=== PATIENT | female | born 1940 | race Caucasian/White ===

== ENCOUNTER 2018-11-06 05:02 | Emergency (ER) | payer MEDICARE, SELFPAY ==
[2018-11-06 05:10] VITALS: BP 141/111; PULSE 87; RESP 18; TEMP 36.9; O2SAT 100; BMI 25.7
[2018-11-06] MEDS: predniSONE 20 MG TABLET 40 MG PO (05:25)
[2018-11-06] MEDS: KETOROLAC 60 MG/2 ML VIAL 30 MG IM (05:25)
[2018-11-06] MEDS: HYDROCODONE/ACET 5/325 PREPACK 1 BOTTLE MISC (05:25)
--- NOTE | 2018-11-06 05:40 | PC.NURSE ---
Pt reports back pain for several months that has been increasing for the last few weeks. She has an appt with PCP in a couple days but states this is just too much and I couldn't wait that long. Pt is able to ambulate with severe pain. Denies chest pain, SOB, N/V/D
--- NOTE | 2018-11-06 06:06 | ED.BACK ---
HPI - Back Pain/Injury General Chief Complaint: Back Pain/Injury Stated Complaint: Back Pain Time Seen by Provider: 11/06/18 05:10 Source: patient, family and EMS Mode of arrival: EMS Limitations: no limitations History of Present Illness HPI Narrative: 78-year-old nonsmoking female presents by EMS for evaluation of severe right lumbar pain with radiation into her leg. She has a longstanding history of such pain and required laminectomy and diskectomy about 25 years ago. She denies any obvious injury. She denies any numbness, weakness or tingling. She denies any trouble controlling bowel or bladder. She denies any fever or midline pain. She denies foot drop. She has been taking methocarbamol and he total lack for the symptoms and this regimen worked until about midnight. Her pain is worse with motion and improves with rest MD Complaint: back pain Onset (ago): day(s) Duration: constant Similar Symptoms Previously: Yes Location: lumbar spine Severity: severe Quality: sharp Radiation: right leg Relieving factors: immobilization Exacerbating factors: walking Associated symptoms: denies other symptoms Related Data Home Medications Medication Instructions Recorded Confirmed ASCORBIC ACID (#VITAMIN C) 500 mg PO Q DAY #0 10/06/11 ASPIRIN (Aspir-Low) 81 mg PO Q DAY #0 10/06/11 CALCIUM/CHOLECALCIFEROL (CALCIUM 1 ctb PO Q DAY #0 10/06/11 WITH D3 500MG/400UNITS) CHOLECALCIFEROL (VITAMIN D) 1,000 iu PO BID #0 10/06/11 Multivitamin, Minerals, and 1 tab PO Q DAY #0 10/06/11 (#CENTRUM SILVER) psyllium husk (aspartame) 1 pkt PO QDAY #0 10/06/11 [Metamucil Fiber Singles] Previous Rx's Medication Instructions Recorded etodolac 400 mg PO Q8HP PRN #60 tab 06/18/16 hydrocodone-acetaminophen 1 tab PO Q4-6H PRN #20 tab 11/06/18 prednisone 20 mg PO DAILY #5 tab 11/06/18 Allergies Allergy/AdvReac Type Severity Reaction Status Date / Time latex [LATEX] Allergy Severe RASH Unverified 11/06/18 05:13 Penicillins [PENICILLINS] Allergy Unknown ALL OVER Unverified 11/06/18 05:13 BODY WELTS Sulfa (Sulfonamide Allergy Unknown WAS GIVEN Unverified 11/06/18 05:13 Antibiotics) WHEN BABY, [SULFA (SULFONAMIDE UNSURE IF ANTIBIOTICS)] STILL HAS ALLERGY Review of Systems Review of Systems All systems reviewed & are unremarkable except as noted in HPI and below Constitutional Denies chills, Denies fever(s), Denies lethargy and Denies weakness Eyes Denies change in vision, Denies eye discharge, Denies irritation and Denies loss of vision ENT Ears, Nose, Mouth, and Throat: Denies change in voice, Denies neck pain and Denies sore throat Cardiovascular Denies chest pain, Denies irregular heart rhythm, Denies lightheadedness, Denies palpitations, Denies dyspnea, Denies dyspnea on exertion and Denies orthopnea Respiratory Denies cough, Denies dyspnea, Denies dyspnea on exertion and Denies wheezing Gastrointestinal Gastrointestinal: Denies abdominal pain, Denies change in bowel habits, Denies diarrhea, Denies nausea and Denies vomiting Genitourinary Denies hematuria, Denies flank pain, Denies urinary incontinence and Denies urinary urgency Musculoskeletal Reports back pain, Reports limited range of motion and Denies neck pain Integumentary/Breasts Denies pruritus, Denies erythema, Denies rash and Denies wounds Neurologic Denies confusion, Denies loss of vision and Denies weakness Psychiatric Denies anxiety, Denies confusion, Denies depression, Denies homicidal ideation and Denies suicidal ideation Endocrine Denies palpitations Hematologic/Lymphatic Denies easy bruising Allergic/Immunologic Denies wheezing PFSH Social History Smoking Status: Never smoker Exam Narrative Exam Narrative: GEN: AOx3 and in mild distress, pleasant 78-year-old female appears stated age EYES: Pupils are equal, round, and reactive to light and accommodation. Extraoccular muscles are intact bilaterally. There is no subconjunctival hemorrhage or exudate. CHEST: Lungs are clear to auscultation bilaterally and free of wheezes, rales, or rhonchi. Heart rate is regular rhythm, there are no murmurs, clicks, rubs, or gallops. There is no chest wall tenderness. ABD: Abdomen is soft and nontender. There is no guarding or rebound. Bowel sounds are normal in all 4 quadrants. There is no mass or organomegaly. EXT: Full painless ROM of all extremities with no loss of sensation or strength. BACK: glass cleaning machine tender but free of any obvious external abnormalities. Patient exam notes decreased range of motion and muscle spasm, but no CVA tenderness, or vertebral point tenderness. There are no symptoms of cauda equina such as saddle anesthesia, and decreased reflexes, decreased sensation or strength. SKIN: Warm, pink, and dry. No erythema or rash Initial Vital Signs Initial Vital Signs: Vital Signs Temperature 98.4 F 11/06/18 05:10 Pulse Rate 87 11/06/18 05:10 Respiratory Rate 18 11/06/18 05:10 Blood Pressure 141/111 H 11/06/18 05:10 Pulse Oximetry 100 11/06/18 05:10 Course Orders Ordered: Discontinued Medications Hydrocodone Bitart/Acetaminophen (Vicodin Prepack) 1 bottle MISC SEEINSTR ONE Stop: 11/06/18 05:15 Last Admin: 11/06/18 05:25 Dose: 1 bottle Ketorolac Tromethamine (Toradol) 30 mg IM NOW ONE Stop: 11/06/18 05:15 Last Admin: 11/06/18 05:25 Dose: 30 mg Prednisone (Deltasone) 40 mg PO NOW ONE Stop: 11/06/18 05:15 Last Admin: 11/06/18 05:25 Dose: 40 mg Reevaluation(s) Reevaluation #1: Patient feeling improvement after hydrocodone and prednisone Vital Signs - 8 hr 11/06/18 05:10 Temperature 98.4 F Pulse Rate 87 Respiratory Rate 18 Blood Pressure 141/111 H Pulse Oximetry 100 MDM - Back Pain/Injury MDM Narrative Medical decision making narrative: Multiple etiologies of back pain considered including; Epidural abscess, cauda equina, mass occupying lesion, and other considered. Patient has appointment with primary care provider on Wednesday Discharge Plan Departure Patient Disposition: Home Clinical Impression: Sciatica of right side Instructions: DI for Back Pain With Sciatica Activity Restrictions/Additional Instructions: *You have been diagnosed with [ acute lumbar pain with sciatica ] *What to do: *Take medications as directed *Follow up with your primary care provider as planned on Wednesday *Return to ER if you should have any new, worsening or concerning symptoms, such as [ increasing pain, numbness, tingling or weakness] Prescriptions: New hydrocodone-acetaminophen 5-325 mg tablet 1 tab PO Q4-6H PRN (Reason: pain) Qty: 20 RF: 0 prednisone 20 mg tablet 20 mg PO DAILY Qty: 5 RF: 0 No Action ASPIRIN (Aspir-Low) 81 mg PO Q DAY Qty: 0 RF: 0 psyllium husk (aspartame) [Metamucil Fiber Singles] 3.4 GM powder in packet 1 pkt PO QDAY Qty: 0 RF: 0 ASCORBIC ACID (#VITAMIN C) 500 mg PO Q DAY Qty: 0 RF: 0 CALCIUM/CHOLECALCIFEROL (CALCIUM WITH D3 500MG/400UNITS) 1 ctb PO Q DAY Qty: 0 RF: 0 Multivitamin, Minerals, and (#CENTRUM SILVER) 1 tab PO Q DAY Qty: 0 RF: 0 CHOLECALCIFEROL (VITAMIN D) 1,000 iu PO BID Qty: 0 RF: 0 etodolac 400 MG tablet 400 mg PO Q8HP PRNQty: 60 RF: 6 Referrals: Eduard Valdovinos MD [Primary Care Provider] -
[2018-11-06 06:14] VITALS: BP 140/72; PULSE 77; RESP 183; O2SAT 99
== END 2018-11-06 06:16 | disposition home or self-care (01) ==
PROVIDERS: Emergency Provider Emergency Medicine; Family Provider Family Medicine; PCP Family Medicine
DX: M54.31 Sciatica, right side (principal)
CPT/HCPCS: 96372; 99282; 99283; J1885

== ENCOUNTER → 2018-11-16 11:50 | Outpatient (CLI) | payer MEDICARE, SELFPAY ==
--- NOTE | 2018-11-16 | DI.RAD.S_ITS ---
PROCEDURE: XR LUMBAR SPINE 2-3V INDICATIONS: LUMBAR PAIN WITH SCIATICA TECHNIQUE: 3 views of the lumbar spine were acquired. COMPARISON: None. FINDINGS: Bones: 5 [id number] vertebrae are present. There is grade 1 anterolisthesis at L3-L4 and L4-L5. No vertebral body compression fractures. There is [id number] degenerative disc disease at T10-T11, T11-T12, L2-L3, L3-L4 and L4-L5. There is moderate to severe facet arthropathy at L2-L3, L3-L4, L5-L5 and L5-S1. No suspicious bony lesions. Soft tissues: Overlying bowel gas pattern is normal. No suspicious soft tissue calcifications. IMPRESSION: Degenerative disc and facet disease in lumbar spine. Dictated by: Kumar Hsieh M.D. on 11/16/2018 at 16:47 Approved by: Kumar Hsieh M.D. on 11/16/2018 at 16:50
== END ==
PROVIDERS: Family Provider Family Medicine; PCP Family Medicine; Visit Provider Family Medicine
DX: M51.14 Intervertebral disc disorders with radiculopathy, thoracic region (principal); M51.16 Intervertebral disc disorders with radiculopathy, lumbar region; M51.17 Intervertebral disc disorders with radiculopathy, lumbosacral region; M47.26 Other spondylosis with radiculopathy, lumbar region; M47.27 Other spondylosis with radiculopathy, lumbosacral region
CPT/HCPCS: 72100

== ENCOUNTER → 2018-12-07 14:09 | Outpatient (CLI) | payer MEDICARE, SELFPAY ==
--- NOTE | 2018-12-07 | DI.MRI.S_ITS ---
PROCEDURE: MR LUMBAR SPINE WO CON INDICATIONS: Low back pain radiating into right buttock and down right leg TECHNIQUE: Noncontrast sagittal T1 spin echo and T2 fast echo, sagittal STIR, axial T1 and T2 fast spin echo through the lumbar spine. In cases with scoliosis, additional coronal T2 fast spin echo may be performed. COMPARISON: None. FINDINGS: Image quality: Excellent. Alignment and Curvature: Trace retrolisthesis of T12 on L1. Grade 1 anterolisthesis of L3 on L4 and L4 on L5. Bone Marrow: Marrow is of normal overall signal. No acute vertebral body compression fractures. A Spinal Cord: Conus medullaris terminates at the L1-L2 level. Visualized cord demonstrates normal signal and size. Paraspinous Soft Tissues: No paravertebral masses. 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 Lateral recesses appear patent. Severe left and moderate right foraminal narrowing. L1-L2: Broad-based posterior disc bulge. Bilateral facet arthropathy. Mild central canal narrowing. Partial effacement of the left and right lateral recesses although symmetric involvement. Mild to moderate left and right foraminal narrowing L2-L3: Broad-based posterior disc bulge and bilateral facet arthropathy. Mild central canal narrowing. Minimal effacement of both lateral recesses however does not contact the descending nerve roots. Moderate right and mild left foraminal narrowing. L3-L4: Broad-based posterior disc bulge and bilateral facet arthropathy. Severe canal stenosis. Severe effacement of both lateral recesses although symmetric appearance. There is prominent right facet joint hypertrophic change, which may impinge on the descending right L4 nerve root which is not well-visualized at the level of the mid L4 vertebral body. Mild left and severe right foraminal stenoses. L4-L5: Posterior annular fissure and broad-based posterior disc bulge. Bilateral facet arthropathy. There is prominent dorsal epidural lipomatosis and moderate canal stenosis. Partial effacement of both lateral recesses. Moderate to severe right foraminal narrowing. L5-S1: Broad-based posterior disc bulge mild facet arthropathy. No canal stenosis. The lateral recesses appear patent. No foraminal narrowing. IMPRESSION: Prominent right-sided facet hypertrophy concerning for impingement of the descending right L4 nerve root. Please correlate with exam findings. High-grade canal stenosis at the level of L3-L4 and moderate L4-L5 canal stenosis. Diffuse bilateral foraminal stenoses, most pronounced at L3-L4 (right) and L4-L5 (right) Grade 1 anterolisthesis of L3 on L4 and L4 on L5 Dictated by: Chu Piper M.D. on 12/07/2018 at 15:38 Approved by: Chu Piper M.D. on 12/07/2018 at 15:53
== END ==
PROVIDERS: Family Provider Family Medicine; PCP Family Medicine; Visit Provider Physical Medicine & Rehabilitation Pain Medicine
DX: M54.5 Low back pain (principal); M48.061 Spinal stenosis, lumbar region without neurogenic claudication; M43.16 Spondylolisthesis, lumbar region; M54.16 Radiculopathy, lumbar region
CPT/HCPCS: 72148

== ENCOUNTER 2019-01-07 13:31 | Emergency (ER) | payer MEDICARE, SELFPAY ==
[2019-01-07 13:43] VITALS: BP 152/83; PULSE 75; RESP 20; TEMP 36.4; O2SAT 97; BMI 25.7
--- NOTE | 2019-01-07 14:26 | PC.NURSE ---
Patient had epidural steroid injection on . Noticed welts and redness on the right arm after taking a shower. Denies other symptoms at this time. Denies exposure to new food or products. She states she is concerned, because she had cellulitis in that arm and was admitted for sepsis in the past.
--- NOTE | 2019-01-07 14:36 | ED_ITS ---
HPI - Skin/Abscess/Foreign Bdy <Sheila Aden PA-C - Last Filed: 01/07/19 21:35> General Chief complaint: Skin/Abscess/Foreign Body Stated complaint: R ARM WELTS Time Seen by Provider: 01/07/19 14:16 Source: patient Mode of arrival: ambulatory Limitations: no limitations History of Present Illness HPI narrative: this 78-year-old female comes to ED with concern for recurrent sepsis. She states that she had this a few years ago and started similarly although she had a fever at that time as well as pain in her arm. She states that she awoke this morning with nontender bumps on her right arm ( she has history of lymphedema in that arm and states that it swells off and on, it is s wollen today). She has had more redness that has spread in the arm since she woke up. She states she noticed this after she showered this morning. She has not had any rash elsewhere. She states that she had an SHERRY done here on , however IV was placed in the other arm. She states that she has been on new medications for her sciatica for about the last 6 weeks but no changes in the last few days. She states that she has been having slightly more shortness of breath i.e. describes as needing her asthma inhaler a little bit more during that time, but no acute changes today, no chest pain or cough. She has not had fever at home, states she is starting to have a little bit of chills here. She denies any recent travel or known exposures. She denies any abdominal pain or bowel habit changes. She denies any urinary symptoms. She denies any bites, scratches, or injury to her arm. she does not think the swelling in her arm has worsened. She does not have any history of blood clots. she denies any new soaps, detergents, lotions, etc. Related Data Home Medications Medication Instructions Recorded Confirmed ASCORBIC ACID (#VITAMIN C) 500 mg PO Q DAY #0 10/06/11 ASPIRIN (Aspir-Low) 81 mg PO Q DAY #0 10/06/11 CALCIUM/CHOLECALCIFEROL (CALCIUM 1 ctb PO Q DAY #0 10/06/11 WITH D3 500MG/400UNITS) CHOLECALCIFEROL (VITAMIN D) 1,000 iu PO BID #0 10/06/11 Multivitamin, Minerals, and 1 tab PO Q DAY #0 10/06/11 (#CENTRUM SILVER) psyllium husk (aspartame) 1 pkt PO QDAY #0 10/06/11 [Metamucil Fiber Singles] Previous Rx's Medication Instructions Recorded etodolac 400 mg PO Q8HP PRN #60 tab 06/18/16 hydrocodone-acetaminophen 1 tab PO Q4-6H PRN #20 tab 11/06/18 prednisone 20 mg PO DAILY #5 tab 11/06/18 levofloxacin [Levaquin] 500 mg PO DAILY 9 Days tab 01/07/19 Allergies Allergy/AdvReac Type Severity Reaction Status Date / Time latex [LATEX] Allergy Severe RASH Verified 01/07/19 13:49 Penicillins [PENICILLINS] Allergy Unknown ALL OVER Verified 01/07/19 13:49 BODY WELTS Sulfa (Sulfonamide Allergy Unknown WAS GIVEN Verified 01/07/19 13:49 Antibiotics) WHEN BABY, [SULFA (SULFONAMIDE UNSURE IF ANTIBIOTICS)] STILL HAS ALLERGY Review of Systems <Sheila Aden PA-C - Last Filed: 01/07/19 21:35> Review of Systems ROS Unobtainable: All systems reviewed & are unremarkable except as noted in HPI and below PFSH <Sheila Aden PA-C - Last Filed: 01/07/19 21:35> Medical History H/O malignant neoplasm of breast (Resolved) Sciatica (Chronic) Spinal stenosis (Chronic) Lymphedema of arm (Chronic) Arthritis (Chronic) Surgical History History of lymph node dissection of both axillae (Resolved) Social History Smoking Status: Never smoker Social History Smoking Status: Never smoker Exam <Sheila Aden PA-C - Last Filed: 01/07/19 21:35> Narrative Exam Narrative: GENERAL APPEARANCE: Patient sitting comfortably, in no distress. HEENT: PERRL, EOMI, normal oropharynx NECK/THYROID: Neck supple, no masses LUNGS: Clear to auscultation bilaterally. HEART: Regular rate and rhythm without murmur, normal S1, S2, no S3 or S4. ABDOMEN: Soft, NT, ND, + BS x 4 quadrants EXTREMITIES: No or edema. No calf tenderness. right upper extremity mild edema, nontender NEUROLOGIC: Alert and oriented, normal speech, gait and coordination. DERMATOLOGIC: Erythematous maculopapular rash on the right upper extremity, proximally more patchy, and distally more uniform erythema. Slightly warm approximately where this is non circumferential, cool distally. This does not extend to the hand or shoulder. Initial Vital Signs Initial Vital Signs: Vital Signs Temperature 97.5 F L 01/07/19 13:43 Pulse Rate 75 01/07/19 13:43 Respiratory Rate 20 01/07/19 13:43 Blood Pressure 152/83 H 01/07/19 13:43 Pulse Oximetry 97 01/07/19 13:43 <Tim Weiner MD - Last Filed: 01/08/19 07:59> Initial Vital Signs Initial Vital Signs: Vital Signs Temperature 97.5 F L 01/07/19 13:43 Pulse Rate 75 01/07/19 13:43 Respiratory Rate 20 01/07/19 13:43 Blood Pressure 152/83 H 01/07/19 13:43 Pulse Oximetry 97 01/07/19 13:43 Course <Sheila Aden PA-C - Last Filed: 01/07/19 21:35> Additional Information: Patient was concerned about recurrent sepsis given her previous hospitalization in 2016. she has been afebrile. She has not had pain in her arm as she did previously. She does have history of lymphedema and not unusual for her to have swelling, she does have some swelling today. Cu rrently, her exanthem looks mixed, with features more typical of urticaria than cellulitis. She she has normal white count, normal lactate, normal vital signs. She has asymptomatic bacteriuria. She mention feeling slightly more short of breath for about the last 6 weeks, however her inhaler is effective. Given this and her remote cancer history as well as intermittent left upper extremity sw elling, workup for DVT/ PE was done as well and negative. I initially gave her doxycycline to treat her cellulitis as this is what she was given at last hospital discharge for this and reported she responded well. She elected to cover the bacteriuria as well and was given a prescription for Macrobid. Later, Dr. Benjamin, patient's surgeon who is very familiar with her and her medications, aware that she has had recent SHERRY, called and requested abx be changed to Levaquin. Patient would like to proceed with Levaquin instead so will cancel other Rxs. Given 500mg Levaquin for this evening and will fill rx tomorrow Orders Ordered: Discontinued Medications Diphenhydramine HCl (Benadryl) 50 mg IV NOW ONE Stop: 01/07/19 15:59 Last Admin: 01/07/19 16:09 Dose: 50 mg Sodium Chloride (Normal Saline 0.9%) 1,000 mls @ 1,000 mls/hr IV BOLUS ONE Stop: 01/07/19 16:15 Last Infusion: 01/07/19 17:08 Dose: 0 mls/hr Infusion: 01/07/19 16:44 Dose: 1,000 mls/hr Infusion: 01/07/19 16:10 Dose: 0 mls/hr Admin: 01/07/19 15:30 Dose: 1,000 mls/hr Levofloxacin (Levaquin) 500 mg PO NOW ONE Stop: 01/07/19 20:29 Last Admin: 01/07/19 20:30 Dose: 500 mg Vital Signs - 8 hr 01/07/19 13:43 01/07/19 15:26 01/07/19 17:22 Temperature 97.5 F L 97.4 F L 99.9 F H Pulse Rate 75 76 82 Respiratory Rate 20 20 14 Blood Pressure 152/83 H Blood Pressure [Left Arm] 157/82 H 173/79 H Pulse Oximetry 97 100 97 01/07/19 17:35 01/07/19 17:58 Temperature 98.9 F 98.7 F Pulse Rate Respiratory Rate Blood Pressure Blood Pressure [Left Arm] Pulse Oximetry <Tim Weiner MD - Last Filed: 01/08/19 07:59> Orders Ordered: Discontinued Medications Diphenhydramine HCl (Benadryl) 50 mg IV NOW ONE Stop: 01/07/19 15:59 Last Admin: 01/07/19 16:09 Dose: 50 mg Sodium Chloride (Normal Saline 0.9%) 1,000 mls @ 1,000 mls/hr IV BOLUS ONE Stop: 01/07/19 16:15 Last Infusion: 01/07/19 17:08 Dose: 0 mls/hr Infusion: 01/07/19 16:44 Dose: 1,000 mls/hr Infusion: 01/07/19 16:10 Dose: 0 mls/hr Admin: 01/07/19 15:30 Dose: 1,000 mls/hr Levofloxacin (Levaquin) 500 mg PO NOW ONE Stop: 01/07/19 20:29 Last Admin: 01/07/19 20:30 Dose: 500 mg Vital Signs - 8 hr 01/07/19 13:43 01/07/19 15:26 01/07/19 17:22 Temperature 97.5 F L 97.4 F L 99.9 F H Pulse Rate 75 76 82 Respiratory Rate 20 20 14 Blood Pressure 152/83 H Blood Pressure [Left Arm] 157/82 H 173/79 H Pulse Oximetry 97 100 97 01/07/19 17:35 01/07/19 17:58 Temperature 98.9 F 98.7 F Pulse Rate Respiratory Rate Blood Pressure Blood Pressure [Left Arm] Pulse Oximetry MDM - Skin/Abscess/Foreign Bdy <Sheila Aden PA-C - Last Filed: 01/07/19 21:35> Lab Data Attestation: I reviewed the patient's lab results. Result diagrams: 01/07/19 15:05 01/07/19 15:05 Lab Results 01/07/19 01/07/19 01/07/19 Range/Units 15:05 15:05 15:05 WBC 8.2 (4.5-11.0) X10^3/uL RBC 4.85 (4.0-5.2) X10^6/uL Hgb 14.3 (12.0-16.0) g/dL Hct 42.3 (36-46) % MCV 87.3 (80-100) fL MCH 29.5 (26-34) PG MCHC 33.8 (30-36) % RDW 12.7 (11.6-14.8) % Plt Count 246 (150-400) X10^3/uL Neut % (Auto) 79.6 H (50-75) % Lymph % (Auto) 12.5 L (25-40) % [place] % (Auto) 6.0 (3-14) % Eos % (Auto) 1.4 L (2-4) % Baso % (Auto) 0.5 (0-2) % Neut # (Auto) 6600 (6987-6299) /uL Lymph # (Auto) 1000 L (1767-4609) /uL [place] # (Auto) 500 (0-900) /uL Eos # (Auto) 100 (0-450) /uL Baso # (Auto) 0 (0-100) /uL PT 10.1 (10.1-12.7) SECONDS INR 0.9 (0.9-1.3) APTT 28 (26.4-36.2) SECONDS D-Dimer 607 H (<230) ng/mL Sodium 138 (137-145) mmol/L Potassium 4.0 (3.4-5.1) mmol/L Chloride 100 (98-107) mmol/L Carbon Dioxide 28 (22-32) mmol/L BUN 12 (7-17) mg/dL Creatinine 0.50 L (0.52-1.04) mg/dL Estimated GFR > 60.0 (>60) mL/min BUN/Creatinine Ratio 24.0 H (6-22) Glucose 92 (80-110) mg/dL Lactate (0.7-2.1) mmol/L Calcium 9.3 (8.4-10.2) mg/dL Total Bilirubin 0.8 (0.2-1.3) mg/dL AST 30 (14-36) IU/L ALT 37 (9-52) IU/L Alkaline Phosphatase 70 (38-126) U/L Total Protein 7.7 (6.3-8.2) g/dL Albumin 4.7 (3.5-5.0) g/dL Globulin 3.0 (1.7-4.1) g/dL Albumin/Globulin Ratio 1.6 (1.0-2.8) Urine RBC (0-5/HPF) Urine WBC (0-5/HPF) Ur Squamous Epith Cells Urine Bacteria (None) Ur Culture Indicated? 01/07/19 01/07/19 Range/Units 15:05 15:15 WBC (4.5-11.0) X10^3/uL RBC (4.0-5.2) X10^6/uL Hgb (12.0-16.0) g/dL Hct (36-46) % MCV (80-100) fL MCH (26-34) PG MCHC (30-36) % RDW (11.6-14.8) % Plt Count (150-400) X10^3/uL Neut % (Auto) (50-75) % Lymph % (Auto) (25-40) % [place] % (Auto) (3-14) % Eos % (Auto) (2-4) % Baso % (Auto) (0-2) % Neut # (Auto) (0908-0122) /uL Lymph # (Auto) (3069-6719) /uL [place] # (Auto) (0-900) /uL Eos # (Auto) (0-450) /uL Baso # (Auto) (0-100) /uL PT (10.1-12.7) SECONDS INR (0.9-1.3) APTT (26.4-36.2) SECONDS D-Dimer (<230) ng/mL Sodium (137-145) mmol/L Potassium (3.4-5.1) mmol/L Chloride (98-107) mmol/L Carbon Dioxide (22-32) mmol/L BUN (7-17) mg/dL Creatinine (0.52-1.04) mg/dL Estimated GFR (>60) mL/min BUN/Creatinine Ratio (6-22) Glucose (80-110) mg/dL Lactate 1.0 (0.7-2.1) mmol/L Calcium (8.4-10.2) mg/dL Total Bilirubin (0.2-1.3) mg/dL AST (14-36) IU/L ALT (9-52) IU/L Alkaline Phosphatase (38-126) U/L Total Protein (6.3-8.2) g/dL Albumin (3.5-5.0) g/dL Globulin (1.7-4.1) g/dL Albumin/Globulin Ratio (1.0-2.8) Urine RBC 1-5/hpf (0-5/HPF) Urine WBC 1-5/hpf (0-5/HPF) Ur Squamous Epith Cells 0-1 /hpf Urine Bacteria None seen (None) Ur Culture Indicated? Specimen cultured Urine Dip Bedside Urine Glucose Negative Bedside Urine Bilirubin +++ 4 Bedside Urine Ketone - Negative Urine Specific [place] 1.020 Bedside Urine Occult Blood - Negative Bedside Urine pH 6.0 Bedside Urine Protein - Negative Bedside Urine Urobilinogen - Negative Bedside Urine Nitrite - Negative Bedside Urine Leukocytes +++ 500 Esterase Imaging Data Chest x-ray: Radiologist's impression: [address] [address] XRay Report Signed Patient: Karla Burt LMR#: [id number] : 9Acct:[id number] Age/Sex: 78 / FDate of Service: 01/07/19 Loc: ED Accession Number: [id number] Procedure: XR chest 2V Ordering Provider: Sheila Aden P.A-C PROCEDURE: XR CHEST 2V INDICATIONS: mild dyspnea TECHNIQUE: 2 views of the chest were acquired. COMPARISON: None. FINDINGS: Surgical changes and devices: None. Lungs and pleura: Lungs are clear. No pleural effusions or pneumothorax. Mediastinum: Mediastinal contours are normal. Heart size is normal. Bones and chest wall: No suspicious bony abnormalities. Soft tissues appear unremarkable. IMPRESSION: No acute cardiopulmonary findings. Dictated by: Heather Wing M.D. on 01/07/2019 at 15:37 Approved by: Heather Wing M.D. on 01/07/2019 at 15:37 CT scan - chest: Radiologist's impression: 14 Sheila Aden PA-C Find Patient Imaging Karla Burt L 78 F 1940 ACTIVITY DATE EXAM STATUS AUTHOR 01/07/19 15:58 Signed Heather Wing 01/07/19 15:06 Signed Heather Wing [address] [address] [address] Scan Report Signed Patient: Karla Burt LMR#: [id number] : 9Acct:[id number] Age/Sex: 78 / FDate of Service: 01/07/19 Loc: ED Accession Number: [id number] Procedure: CT angio chest PE protocol Ordering Provider: Sheila Aden P.A-C PROCEDURE: CT ANGIO CHEST PE PROTOCOL INDICATIONS: elevated d dimer, h/o cancer, dyspnea TECHNIQUE: After the administration of intravenous contrast, 2 mm thick sections acquired from the pulmonary apices to the posterior costophrenic angles. 3-dimensional maximum intensity projection (MIP) coronal and sagittal reformats were then acquired through the thorax. For radiation dose reduction, the following was used: automated exposure control, adjustment of mA and/or kV according to patient size. COMPARISON: None. FINDINGS: Image quality: Excellent. Pulmonary arteries: Pulmonary arteries are normal in size, and demonstrate no intraluminal filling defects to suggest central pulmonary embolism. Lungs and pleura: Lungs are clear. No pleural effusions or pneumothorax. Central and peripheral airways are patent. Mediastinum: Heart size is normal, without pericardial effusion. No mediastinal or hilar adenopathy. Thoracic aorta is normal in caliber and enhancement. Scattered atheromatous calcifications are present within the aortic arch. Esophagus is normal in caliber, without hiatal hernia. Bones and chest wall: No suspicious bony lesions. Ribs and thoracic spine appear intact throughout. Thyroid gland is unremarkable. No axillary or supraclavicular adenopathy. 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 Visualized upper abdominal solid organs appear normal in the early arterial phase of enhancement. IMPRESSION: 1. No acute pulmonary embolus. 2. No findings to explain dyspnea. Dictated by: Heather Wing M.D. on 01/07/2019 at 16:43 Approved by: Heather Wing M.D. on 01/07/2019 at 16:46 <Tim eWiner MD - Last Filed: 01/08/19 07:59> Lab Data Lab Results 01/07/19 01/07/19 01/07/19 Range/Units 15:05 15:05 15:05 WBC 8.2 (4.5-11.0) X10^3/uL RBC 4.85 (4.0-5.2) X10^6/uL Hgb 14.3 (12.0-16.0) g/dL Hct 42.3 (36-46) % MCV 87.3 (80-100) fL MCH 29.5 (26-34) PG MCHC 33.8 (30-36) % RDW 12.7 (11.6-14.8) % Plt Count 246 (150-400) X10^3/uL Neut % (Auto) 79.6 H (50-75) % Lymph % (Auto) 12.5 L (25-40) % [place] % (Auto) 6.0 (3-14) % Eos % (Auto) 1.4 L (2-4) % Baso % (Auto) 0.5 (0-2) % Neut # (Auto) 6600 (8868-8977) /uL Lymph # (Auto) 1000 L (5237-3939) /uL [place] # (Auto) 500 (0-900) /uL Eos # (Auto) 100 (0-450) /uL Baso # (Auto) 0 (0-100) /uL PT 10.1 (10.1-12.7) SECONDS INR 0.9 (0.9-1.3) APTT 28 (26.4-36.2) SECONDS D-Dimer 607 H (<230) ng/mL Sodium 138 (137-145) mmol/L Potassium 4.0 (3.4-5.1) mmol/L Chloride 100 (98-107) mmol/L Carbon Dioxide 28 (22-32) mmol/L BUN 12 (7-17) mg/dL Creatinine 0.50 L (0.52-1.04) mg/dL Estimated GFR > 60.0 (>60) mL/min BUN/Creatinine Ratio 24.0 H (6-22) Glucose 92 (80-110) mg/dL Lactate (0.7-2.1) mmol/L Calcium 9.3 (8.4-10.2) mg/dL Total Bilirubin 0.8 (0.2-1.3) mg/dL AST 30 (14-36) IU/L ALT 37 (9-52) IU/L Alkaline Phosphatase 70 (38-126) U/L Total Protein 7.7 (6.3-8.2) g/dL Albumin 4.7 (3.5-5.0) g/dL Globulin 3.0 (1.7-4.1) g/dL Albumin/Globulin Ratio 1.6 (1.0-2.8) Urine RBC (0-5/HPF) Urine WBC (0-5/HPF) Ur Squamous Epith Cells Urine Bacteria (None) Ur Culture Indicated? 01/07/19 01/07/19 Range/Units 15:05 15:15 WBC (4.5-11.0) X10^3/uL RBC (4.0-5.2) X10^6/uL Hgb (12.0-16.0) g/dL Hct (36-46) % MCV (80-100) fL MCH (26-34) PG MCHC (30-36) % RDW (11.6-14.8) % Plt Count (150-400) X10^3/uL Neut % (Auto) (50-75) % Lymph % (Auto) (25-40) % [place] % (Auto) (3-14) % Eos % (Auto) (2-4) % Baso % (Auto) (0-2) % Neut # (Auto) (9461-3928) /uL Lymph # (Auto) (9295-3314) /uL [place] # (Auto) (0-900) /uL Eos # (Auto) (0-450) /uL Baso # (Auto) (0-100) /uL PT (10.1-12.7) SECONDS INR (0.9-1.3) APTT (26.4-36.2) SECONDS D-Dimer (<230) ng/mL Sodium (137-145) mmol/L Potassium (3.4-5.1) mmol/L Chloride (98-107) mmol/L Carbon Dioxide (22-32) mmol/L BUN (7-17) mg/dL Creatinine (0.52-1.04) mg/dL Estimated GFR (>60) mL/min BUN/Creatinine Ratio (6-22) Glucose (80-110) mg/dL Lactate 1.0 (0.7-2.1) mmol/L Calcium (8.4-10.2) mg/dL Total Bilirubin (0.2-1.3) mg/dL AST (14-36) IU/L ALT (9-52) IU/L Alkaline Phosphatase (38-126) U/L Total Protein (6.3-8.2) g/dL Albumin (3.5-5.0) g/dL Globulin (1.7-4.1) g/dL Albumin/Globulin Ratio (1.0-2.8) Urine RBC 1-5/hpf (0-5/HPF) Urine WBC 1-5/hpf (0-5/HPF) Ur Squamous Epith Cells 0-1 /hpf Urine Bacteria None seen (None) Ur Culture Indicated? Specimen cultured Urine Dip Bedside Urine Glucose Negative Bedside Urine Bilirubin +++ 4 Bedside Urine Ketone - Negative Urine Specific [place] 1.020 Bedside Urine Occult Blood - Negative Bedside Urine pH 6.0 Bedside Urine Protein - Negative Bedside Urine Urobilinogen - Negative Bedside Urine Nitrite - Negative Bedside Urine Leukocytes +++ 500 Esterase Discharge Plan Departure Patient Disposition: Home Clinical Impression: Cellulitis of right upper extremity, Bacteriuria, Lymphedema of arm Asthma Qualifiers: Asthma severity: mild Asthma persistence: intermittent Asthma complication type: unspecified Qualified Code(s): J45.20 - Mild intermittent asthma, uncomplicated Discharge Date/Time: 01/07/19 17:59 Interventions: ED Discharge Assessment Last Done: 01/07/19 17:58 Instructions: DI for Cellulitis -- Adult Activity Restrictions/Additional Instructions: Please monitor closely for any acutely worsening symptoms or new symptoms such as fever as we talked about, and return if any over the weekend. Otherwise, it will take the antibiotic about 72 hr for you to start seeing a response. Start it as soon as you pick it up (it is the same antibiotic that you took for your arm last time when you left the hospital). It is not clear today whether this is due to infection verses allergic reaction, and also may be partly due to your lymphedema. We will cover for infection due to your history. I have also given you a prescription for antibiotic to cover for a urinary infection, again due to your previous history in the hospital. You do have bacteria in your urine but you have not had symptoms of an infection. Please be sure to follow up with your PCP on Wednesday or Wednesday. The urine cultures should be back by then for review. Please continue to use your albuterol inhaler as needed Prescriptions: New levofloxacin [Levaquin] 500 mg tablet 500 mg PO DAILY 9 Days RF: 0 No Action ASPIRIN (Aspir-Low) 81 mg PO Q DAY Qty: 0 RF: 0 psyllium husk (aspartame) [Metamucil Fiber Singles] 3.4 GM powder in packet 1 pkt PO QDAY Qty: 0 RF: 0 ASCORBIC ACID (#VITAMIN C) 500 mg PO Q DAY Qty: 0 RF: 0 CALCIUM/CHOLECALCIFEROL (CALCIUM WITH D3 500MG/400UNITS) 1 ctb PO Q DAY Qty: 0 RF: 0 Multivitamin, Minerals, and (#CENTRUM SILVER) 1 tab PO Q DAY Qty: 0 RF: 0 CHOLECALCIFEROL (VITAMIN D) 1,000 iu PO BID Qty: 0 RF: 0 etodolac 400 MG tablet 400 mg PO Q8HP PRNQty: 60 RF: 6 hydrocodone-acetaminophen 5-325 mg tablet 1 tab PO Q4-6H PRN (Reason: pain) Qty: 20 RF: 0 prednisone 20 mg tablet 20 mg PO DAILY Qty: 5 RF: 0 Referrals: Eduard Valdovinos MD [Primary Care Provider] - <Tim Weiner MD - Last Filed: 01/08/19 07:59> Cosign ED Attending Cosignature Attestation: I was present in the ER at the time of this patient's care. I was available for verbal consultation or to evaluate the patient directly if needed. I agree with the assessment and treatment plan.
--- NOTE | 2019-01-07 15:06 | DI.RAD.S_ITS ---
PROCEDURE: XR CHEST 2V INDICATIONS: mild dyspnea TECHNIQUE: 2 views of the chest were acquired. COMPARISON: None. FINDINGS: Surgical changes and devices: None. Lungs and pleura: Lungs are clear. No pleural effusions or pneumothorax. Mediastinum: Mediastinal contours are normal. Heart size is normal. Bones and chest wall: No suspicious bony abnormalities. Soft tissues appear unremarkable. IMPRESSION: No acute cardiopulmonary findings. Dictated by: Heather Wing M.D. on 01/07/2019 at 15:37 Approved by: Heather Wing M.D. on 01/07/2019 at 15:37
[2019-01-07 15:26] VITALS: BP 157/82; PULSE 76; RESP 20; TEMP 36.3; O2SAT 100
[2019-01-07] MEDS: SODIUM CHLORIDE 0.9% 1,000 ML 1000 ML IV (15:30)
[2019-01-07 15:33] LABS: Add Manual Diff / Slide Review NO; Basophils Absolute Auto 0 /uL (0-100); Basophils Percent Auto 0.5 % (0-2); Eosinophils Absolute Auto 100 /uL (0-450); Eosinophils Percent Auto 1.4 % (2-4); Hematocrit 42.3 % (36-46); Hemoglobin 14.3 g/dL (12.0-16.0); Lymphocytes Absolute Auto 1000 /uL (1100-4500); Lymphocytes Percent Auto 12.5 % (25-40); Mean Corpuscular HGB Conc 33.8 % (30-36); Mean Corpuscular Hemoglobin 29.5 PG (26-34); Mean Corpuscular Volume 87.3 fL (80-100); Monocytes Absolute Auto 500 /uL (0-900); Neutrophils Absolute Auto 6600 /uL (1500-7000); Neutrophils Percent Auto 79.6 % (50-75); Platelet Count 246 X10^3/uL (150-400); Red Blood Cell Count 4.85 X10^6/uL (4.0-5.2); Red Cell Distribution Width 12.7 % (11.6-14.8); White Blood Cell Count 8.2 X10^3/uL (4.5-11.0)
[2019-01-07 15:39] LABS: INR 0.9 (0.9-1.3); Prothrombin Time 10.1 SECONDS (10.1-12.7)
[2019-01-07 15:42] LABS: D Dimer 607 ng/mL (<230); PTT Partial Thromboplastin Tim 28 SECONDS (26.4-36.2)
[2019-01-07 15:43] LABS: Alanine Aminotransferase 37 IU/L (9-52); Albumin 4.7 g/dL (3.5-5.0); Albumin Globulin Ratio 1.6 (1.0-2.8); Alkaline Phosphatase 70 U/L (38-126); Aspartate Aminotransferase 30 IU/L (14-36); Bilirubin Total 0.8 mg/dL (0.2-1.3); Blood Urea Nitrogen 12 mg/dL (7-17); Calcium 9.3 mg/dL (8.4-10.2); Carbon Dioxide 28 mmol/L (22-32); Chloride 100 mmol/L (98-107); Estimated Glomerular Filt Rate > 60.0 mL/min (>60); Glucose 92 mg/dL (80-110); HEMOLYSIS < 15 (0-50); Sodium 138 mmol/L (137-145); Total Protein 7.7 g/dL (6.3-8.2)
--- NOTE | 2019-01-07 15:58 | DI.CT.S_ITS ---
PROCEDURE: CT ANGIO CHEST PE PROTOCOL INDICATIONS: elevated d dimer, h/o cancer, dyspnea TECHNIQUE: After the administration of intravenous contrast, 2 mm thick sections acquired from the pulmonary apices to the posterior costophrenic angles. 3-dimensional maximum intensity projection (MIP) coronal and sagittal reformats were then acquired through the thorax. For radiation dose reduction, the following was used: automated exposure control, adjustment of mA and/or kV according to patient size. COMPARISON: None. FINDINGS: Image quality: Excellent. Pulmonary arteries: Pulmonary arteries are normal in size, and demonstrate no intraluminal filling defects to suggest central pulmonary embolism. Lungs and pleura: Lungs are clear. No pleural effusions or pneumothorax. Central and peripheral airways are patent. Mediastinum: Heart size is normal, without pericardial effusion. No mediastinal or hilar adenopathy. Thoracic aorta is normal in caliber and enhancement. Scattered atheromatous calcifications are present within the aortic arch. Esophagus is normal in caliber, without hiatal hernia. Bones and chest wall: No suspicious bony lesions. Ribs and thoracic spine appear intact throughout. Thyroid gland is unremarkable. No axillary or supraclavicular adenopathy. 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 Visualized upper abdominal solid organs appear normal in the early arterial phase of enhancement. IMPRESSION: 1. No acute pulmonary embolus. 2. No findings to explain dyspnea. Dictated by: Heather Wing M.D. on 01/07/2019 at 16:43 Approved by: Heather Wing M.D. on 01/07/2019 at 16:46
[2019-01-07] MEDS: diphenhydrAMINE 50 MG/ML VIAL IV (16:09)
[2019-01-07 16:27] LABS: Bacteria Urine None Seen
[2019-01-07 16:37] LABS: RBC Urine 1-5/HPF (0-5/HPF)
[2019-01-07 16:38] LABS: Culture Indicated Urine Specimen Cultured; Squamous Epithelial Cell Urine 0-1 /HPF; WBC Urine 1-5/HPF (0-5/HPF)
[2019-01-07 17:22] VITALS: BP 173/79; PULSE 82; RESP 14; TEMP 37.7; O2SAT 97
[2019-01-07 17:35] VITALS: TEMP 37.2
[2019-01-07 17:58] VITALS: TEMP 37.1
[2019-01-07] MEDS: levoFLOXacin 250 MG TABLET 500 MG PO (20:30)
--- NOTE | 2019-01-07 20:35 | PC.NURSE ---
Dr Benjamin phoned and requested to speak with Dr. Murray. Dr Murray stated that Dr Benjamin wanted the patient on a different antibiotic than the one we prescribed for her, and since the pharmacies are closed at this time, could we send the patient's daughter home with a dose of Levaquin if she came to pick it up. The patient's daughter arrived, med/dose verified with Dr Murray and Sumit Aden. Pt's name and confirmed with the daughter and 1 dose Levaquin, prescription for the course, and instructions to stop doxycycline and Macrobid given to pt's daughter. She verbalized understanding.
== END 2019-01-07 17:59 | disposition home or self-care (01) ==
PROVIDERS: Emergency Provider Internal Medicine; Family Provider Family Medicine; PCP Family Medicine
DX: L03.113 Cellulitis of right upper limb (principal); I89.0 Lymphedema, not elsewhere classified; R82.71 Bacteriuria
CPT/HCPCS: 36591; 71046; 71275; 80053; 81003; 81015; 83605; 85025; 85379; 85610; 85730; 87086; 96361; 96374; 99284; J1200; Q9967

== ENCOUNTER → 2019-04-10 13:16 | Outpatient (CLI) | payer MEDICARE, SELFPAY ==
--- NOTE | 2019-04-10 | DI.MG.S_ITS ---
BILATERAL DIGITAL SCREENING MAMMOGRAM 3D/2D WITH CAD: 04/10/2019 CLINICAL: Routine screening. Personal history of right breast cancer. Comparison is made to exams dated: 02/24/2018 mammogram, 01/19/2017 mammogram, and 12/17/2015 mammogram - [facility]. The tissue of both breasts is heterogeneously dense. This may lower the sensitivity of mammography. Current study was also evaluated with a Computer Aided Detection (CAD) system. There are benign post operative findings in both breasts. There also are benign calcifications in both breasts. No significant masses, calcifications, or other findings are seen in either breast. There has been no significant interval change. IMPRESSION: There is no mammographic evidence of malignancy. A 1 year screening mammogram is recommended. This exam was interpreted at Station ID: [id number]. NOTE: For mammograms, a report in lay terms will be sent to the patient. Approximately 15% of breast malignancies will not be visualized mammographically. In the management of a palpable breast mass, a negative mammogram must not discourage biopsy of a clinically suspicious lesion. Electronically Signed By: Rodney cherry/fatoumata:04/10/2019 16:09:29 copy to: Heather Benjamin letter sent: Normal Exam ACR BI-RADS Category 2: Benign Finding(s) 3342F
== END ==
PROVIDERS: PCP Family Medicine; Visit Provider Family Medicine
DX: Z12.31 Encounter for screening mammogram for malignant neoplasm of breast (principal); Z85.3 Personal history of malignant neoplasm of breast
CPT/HCPCS: 77063; 77067

== ENCOUNTER 2019-06-03 06:08 | Emergency (ER) | payer MEDICARE, SELFPAY ==
[2019-06-03 06:10] VITALS: BP 172/68; PULSE 96; RESP 18; TEMP 36.8; O2SAT 96; BMI 24.6
--- NOTE | 2019-06-03 06:14 | ED.SKABFB ---
HPI - Skin/Abscess/Foreign Bdy General Chief complaint: Skin/Abscess/Foreign Body Stated complaint: lymphedema, fever, chills Time Seen by Provider: 06/03/19 06:09 Source: patient and family Mode of arrival: ambulatory Limitations: no limitations History of Present Illness HPI narrative: 78-year-old female nonsmoker presents with her and a chief complaint of right upper extremity redness warmth and feeling ill since about midnight. She has a history of lymphedema status post breast cancer and has had prior episodes of cellulitis and even sepsis. She is nauseated but denies any vomiting. She denies chest pain or shortness of breath. She denies recent travel, injury or history of clot. MD complaint: discoloration Onset (ago): hour(s) Tetanus up to date: unsure Location: RUE Severity: moderate Quality: burning and aching Relieving factors: none Exacerbating factors: none Associated symptoms: fever and chills Treatments prior to arrival: none Related Data Home Medications Medication Instructions Recorded Confirmed ASCORBIC ACID (#VITAMIN C) 500 mg PO Q DAY #0 10/06/11 ASPIRIN (Aspir-Low) 81 mg PO Q DAY #0 10/06/11 CALCIUM/CHOLECALCIFEROL (CALCIUM 1 ctb PO Q DAY #0 10/06/11 WITH D3 500MG/400UNITS) CHOLECALCIFEROL (VITAMIN D) 1,000 iu PO BID #0 10/06/11 Multivitamin, Minerals, and 1 tab PO Q DAY #0 10/06/11 (#CENTRUM SILVER) psyllium husk (aspartame) 1 pkt PO QDAY #0 10/06/11 [Metamucil Fiber Singles] Previous Rx's Medication Instructions Recorded etodolac 400 mg PO Q8HP PRN #60 tab 06/18/16 hydrocodone-acetaminophen 1 tab PO Q4-6H PRN #20 tab 11/06/18 prednisone 20 mg PO DAILY #5 tab 11/06/18 Allergies Allergy/AdvReac Type Severity Reaction Status Date / Time latex [LATEX] Allergy Severe RASH Verified 06/03/19 06:24 Penicillins [PENICILLINS] Allergy Unknown ALL OVER Verified 06/03/19 06:24 BODY WELTS Sulfa (Sulfonamide Allergy Unknown WAS GIVEN Verified 06/03/19 06:24 Antibiotics) WHEN BABY, [SULFA (SULFONAMIDE UNSURE IF ANTIBIOTICS)] STILL HAS ALLERGY Review of Systems Constitutional Denies chills, Denies fever(s), Denies lethargy and Denies weakness Eyes Denies change in vision, Denies eye discharge, Denies irritation and Denies loss of vision ENT Ears, Nose, Mouth, and Throat: Denies change in voice, Denies neck pain and Denies sore throat Cardiovascular Denies chest pain, Denies irregular heart rhythm, Denies lightheadedness, Denies palpitations, Denies dyspnea, Denies dyspnea on exertion and Denies orthopnea Respiratory Denies cough, Denies dyspnea, Denies dyspnea on exertion and Denies wheezing Gastrointestinal Gastrointestinal: Denies abdominal pain, Denies change in bowel habits, Denies diarrhea, Denies nausea and Denies vomiting Genitourinary Denies hematuria, Denies flank pain, Denies urinary incontinence and Denies urinary urgency Musculoskeletal Denies neck pain Integumentary/Breasts Denies pruritus, Reports erythema, Denies rash, Reports skin swelling and Denies wounds Neurologic Denies confusion, Denies loss of vision and Denies weakness Psychiatric Denies anxiety, Denies confusion, Denies depression, Denies homicidal ideation and Denies suicidal ideation Endocrine Denies palpitations Hematologic/Lymphatic Denies easy bruising Allergic/Immunologic Denies wheezing [facility] Medical History H/O malignant neoplasm of breast (Resolved) Sciatica (Chronic) Spinal stenosis (Chronic) Lymphedema of arm (Chronic) Arthritis (Chronic) Surgical History History of lymph node dissection of both axillae (Resolved) Social History Smoking Status: Never smoker Social History Smoking Status: Never smoker Exam Narrative Exam Narrative: GENERAL: 78-year-old female appears younger than stated age, in mild distress HEAD: Atraumatic. Normocephalic. No temporal or scalp tenderness. EYES: Pupils equal round and reactive. Extraocular motions intact. No scleral icterus. No injection or drainage. ENT: Nose without bleeding, purulent drainage or septal hematoma. NECK: Trachea midline. CARDIOVASCULAR: Regular rate and rhythm RESPIRATORY: Clear to auscultation. Breath sounds equal bilaterally. GASTROINTESTINAL: Abdomen soft, non-tender, nondistended. EXTREMITIES: Right upper extremity with noted swelling, erythema and warmth BACK: Nontender without deformity or crepitance. No flank tenderness. NEURO: AOx3. SKIN: No rash Initial Vital Signs Initial Vital Signs: Vital Signs Temperature 98.2 F 06/03/19 06:10 Pulse Rate 96 H 06/03/19 06:10 Respiratory Rate 18 06/03/19 06:10 Blood Pressure 172/68 H 06/03/19 06:10 Pulse Oximetry 96 06/03/19 06:10 Course Course Narrative: patient signed out to Dr. Martinez for completion of visit. Labs and imaging are pending. Orders Ordered: ED Orders 06/03/19 06:15 US periph venous up extrem rt Stat 06/03/19 06:20 Basic Metabolic Panel Stat Complete Blood Count AUTO DIFF Stat Lactate (Lactic Acid) Stat Procalcitonin Stat 06/03/19 06:31 Blood Culture Stat Discontinued Medications Sodium Chloride (Normal Saline 0.9%) 500 mls @ 1,000 mls/hr IV BOLUS ONE Stop: 06/03/19 06:44 Last Admin: 06/03/19 06:30 Dose: 1,000 mls/hr Doxycycline Hyclate 100 mg/ (Sodium Chloride) 100 mls @ 100 mls/hr IV NOW ONE Stop: 06/03/19 06:59 Ondansetron HCl (Zofran) 4 mg IV NOW ONE Stop: 06/03/19 06:29 Last Admin: 06/03/19 06:30 Dose: 4 mg Vital Signs - 8 hr 06/03/19 06:10 06/03/19 06:37 Temperature 98.2 F Pulse Rate 96 H 85 Respiratory Rate 18 18 Blood Pressure 172/68 H Blood Pressure [Left Arm] 146/42 H Pulse Oximetry 96 98 MDM - Skin/Abscess/Foreign Bdy Lab Data Result diagrams: 06/03/19 06:20 06/03/19 06:20 Lab Results 06/03/19 06/03/19 06/03/19 Range/Units 06:20 06:20 06:20 WBC 9.3 (4.5-11.0) X10^3/uL RBC 4.88 (4.0-5.2) X10^6/uL Hgb 14.7 (12.0-16.0) g/dL Hct 42.1 (36-46) % MCV 86.4 (80-100) fL MCH 30.2 (26-34) PG MCHC 34.9 (30-36) % RDW 12.6 (11.6-14.8) % Plt Count 224 (150-400) X10^3/uL Neut % (Auto) 82.4 H (50-75) % Lymph % (Auto) 9.5 L (25-40) % [place] % (Auto) 6.4 (3-14) % Eos % (Auto) 1.4 L (2-4) % Baso % (Auto) 0.3 (0-2) % Neut # (Auto) 7700 H (7304-5398) /uL Lymph # (Auto) 900 L (5858-6928) /uL [place] # (Auto) 600 (0-900) /uL Eos # (Auto) 100 (0-450) /uL Baso # (Auto) 0 (0-100) /uL Sodium 136 L (137-145) mmol/L Potassium 5.1 (3.4-5.1) mmol/L Chloride 102 (98-107) mmol/L Carbon Dioxide 27 (22-32) mmol/L BUN 13 (7-17) mg/dL Creatinine 0.50 L (0.52-1.04) mg/dL Estimated GFR > 60.0 (>60) mL/min BUN/Creatinine Ratio 26.0 H (6-22) Glucose 97 (80-110) mg/dL Lactate (0.7-2.1) mmol/L Calcium 9.4 (8.4-10.2) mg/dL Procalcitonin < 0.05 (<0.5) ng/mL 06/03/19 Range/Units 06:20 WBC (4.5-11.0) X10^3/uL RBC (4.0-5.2) X10^6/uL Hgb (12.0-16.0) g/dL Hct (36-46) % MCV (80-100) fL MCH (26-34) PG MCHC (30-36) % RDW (11.6-14.8) % Plt Count (150-400) X10^3/uL Neut % (Auto) (50-75) % Lymph % (Auto) (25-40) % [place] % (Auto) (3-14) % Eos % (Auto) (2-4) % Baso % (Auto) (0-2) % Neut # (Auto) (3991-8093) /uL Lymph # (Auto) (2995-1750) /uL [place] # (Auto) (0-900) /uL Eos # (Auto) (0-450) /uL Baso # (Auto) (0-100) /uL Sodium (137-145) mmol/L Potassium (3.4-5.1) mmol/L Chloride (98-107) mmol/L Carbon Dioxide (22-32) mmol/L BUN (7-17) mg/dL Creatinine (0.52-1.04) mg/dL Estimated GFR (>60) mL/min BUN/Creatinine Ratio (6-22) Glucose (80-110) mg/dL Lactate 2.1 (0.7-2.1) mmol/L Calcium (8.4-10.2) mg/dL Procalcitonin (<0.5) ng/mL Discharge Plan Departure Prescriptions: No Action ASPIRIN (Aspir-Low) 81 mg PO Q DAY Qty: 0 RF: 0 psyllium husk (aspartame) [Metamucil Fiber Singles] 3.4 GM powder in packet 1 pkt PO QDAY Qty: 0 RF: 0 ASCORBIC ACID (#VITAMIN C) 500 mg PO Q DAY Qty: 0 RF: 0 CALCIUM/CHOLECALCIFEROL (CALCIUM WITH D3 500MG/400UNITS) 1 ctb PO Q DAY Qty: 0 RF: 0 Multivitamin, Minerals, and (#CENTRUM SILVER) 1 tab PO Q DAY Qty: 0 RF: 0 CHOLECALCIFEROL (VITAMIN D) 1,000 iu PO BID Qty: 0 RF: 0 etodolac 400 MG tablet 400 mg PO Q8HP PRNQty: 60 RF: 6 hydrocodone-acetaminophen 5-325 mg tablet 1 tab PO Q4-6H PRN (Reason: pain) Qty: 20 RF: 0 prednisone 20 mg tablet 20 mg PO DAILY Qty: 5 RF: 0
--- NOTE | 2019-06-03 06:15 | DI.US.S_ITS ---
PROCEDURE: US PERIPH VENOUS UP EXTREM RT INDICATIONS: PAIN, REDNESS, SWELLING, NO INJURY TECHNIQUE: Real-time imaging, as well as color and pulse Doppler interrogation, was performed of the right upper extremity deep veins from the inferior neck to the antecubital fossa. COMPARISON: None. FINDINGS: The internal jugular vein, visualized portions of the subclavian vein, axillary, and brachial veins are free of intraluminal thrombus. Where physically possible, the veins are normally compressible. Color and pulse Doppler demonstrate normal intraluminal flow, with expected phasicity and pulsatility. Additional scanning of the cephalic and basilic veins of the superficial system demonstrate normal compressibility, without thrombus. IMPRESSION: No deep vein thrombosis of the right upper extremity. Dictated by: Heather Wing M.D. on 06/03/2019 at 7:02 Approved by: Heather Wing M.D. on 06/03/2019 at 7:02
[2019-06-03] MEDS: SODIUM CHLORIDE 0.9% 500 ML 1000 ML IV (06:30)
[2019-06-03] MEDS: ONDANSETRON 4 MG/2 ML INJ IV (06:30)
[2019-06-03 06:37] VITALS: BP 146/42; PULSE 85; RESP 18; O2SAT 98
[2019-06-03 06:43] LABS: Add Manual Diff / Slide Review NO; Basophils Absolute Auto 0 /uL (0-100); Basophils Percent Auto 0.3 % (0-2); Eosinophils Absolute Auto 100 /uL (0-450); Eosinophils Percent Auto 1.4 % (2-4); Hematocrit 42.1 % (36-46); Hemoglobin 14.7 g/dL (12.0-16.0); Lymphocytes Absolute Auto 900 /uL (1100-4500); Lymphocytes Percent Auto 9.5 % (25-40); Mean Corpuscular HGB Conc 34.9 % (30-36); Mean Corpuscular Hemoglobin 30.2 PG (26-34); Mean Corpuscular Volume 86.4 fL (80-100); Monocytes Absolute Auto 600 /uL (0-900); Monocytes Percent Auto 6.4 % (3-14); Neutrophils Absolute Auto 7700 /uL (1500-7000); Neutrophils Percent Auto 82.4 % (50-75); Platelet Count 224 X10^3/uL (150-400); Red Blood Cell Count 4.88 X10^6/uL (4.0-5.2); Red Cell Distribution Width 12.6 % (11.6-14.8); White Blood Cell Count 9.3 X10^3/uL (4.5-11.0)
[2019-06-03 06:47] LABS: Lactate (Lactic Acid) 2.1 mmol/L (0.7-2.1)
[2019-06-03 06:52] LABS: Blood Urea Nitrogen 13 mg/dL (7-17); Calcium 9.4 mg/dL (8.4-10.2); Carbon Dioxide 27 mmol/L (22-32); Chloride 102 mmol/L (98-107); Estimated Glomerular Filt Rate > 60.0 mL/min (>60); Glucose 97 mg/dL (80-110); HEMOLYSIS 243 (0-50); Sodium 136 mmol/L (137-145)
[2019-06-03 06:53] LABS: Potassium 5.1 mmol/L (3.4-5.1)
[2019-06-03 07:07] LABS: Procalcitonin < 0.05 ng/mL (<0.5)
[2019-06-03 08:00] VITALS: BP 152/107; PULSE 88; RESP 16; O2SAT 95
[2019-06-03] MEDS: DOXYCYCLINE 100 MG in SODIUM CHLORIDE 0.9% 100 ML IV (08:26)
[2019-06-03 09:00] VITALS: BP 155/61; PULSE 89; RESP 16; O2SAT 96
[2019-06-03 09:30] VITALS: BP 139/55; PULSE 88; RESP 16; O2SAT 99
== END 2019-06-03 10:04 | disposition home or self-care (01) ==
PROVIDERS: Emergency Medicine; Emergency Provider Emergency Medicine; PCP Family Medicine
DX: L03.113 Cellulitis of right upper limb (principal)
CPT/HCPCS: 36415; 36591; 80048; 83605; 84145; 85025; 87040; 93971; 96361; 96365; 96375; 99284; J2405

== ENCOUNTER → 2020-06-26 12:32 | Outpatient (CLI) | payer MEDICARE, SELFPAY ==
--- NOTE | 2020-06-26 12:37 | DI.US.S_ITS ---
PROCEDURE: US THYROID INDICATIONS: NODULES TECHNIQUE: Real-time scanning was performed of the thyroid gland, with image documentation. COMPARISON: [facility], US, THYROID, 11/21/2012, 10:38. FINDINGS: Right: Thyroid lobe measures 3.8 x 1.1 x 1.2 cm, and is homogeneous in echotexture. Left: Thyroid lobe measures 4.3 x 1.5 x 1.0 cm, and is homogenous in echotexture. Sub 5 mm colloid cyst. Isthmus: 2.9 mm thick. Nodule number: 1 Location: Right superior Size: Unchanged 0.6 x 0.5 x 0.4 cm. Composition: Solid Echogenicity: Hypoechoic Shape: wider than tall. Margins: Smooth Echogenic foci: None Total points: 4 ACR TI-RADS category: Moderately suspicious Nodule number: 2 Location: Right inferior Size: Unchanged at 0.9 x 0.7 x 0.8 cm. Composition: Solid Echogenicity: Hypoechoic Shape: wider than tall. Margins: Smooth Echogenic foci: None Total points: 4 ACR TI-RADS category: Moderately suspicious IMPRESSION: Sub 5 mm left colloid cyst and stable appearance of right thyroid nodules. Given the stability and small size, no follow-up is warranted. ACR TI-RADS definitions and recommendations: TI-RADS 1 (benign): 0 points. FNA not needed. TI-RADS 2 (not suspicious): 2 points. FNA not needed. TI-RADS 3 (mildly suspicious): 3 points. * FNA if 2.5 cm or larger, follow up if 1.5 cm or larger (at 1, 3, and 5 years). TI-RADS 4 (moderately suspicious): 4-6 points. * FNA if 1.5 cm or larger, follow up if 1 cm or larger (at 1, 2, 3, and 5 years). TI-RADS 5 (highly suspicious): 7 points or more. * FNA if 1 cm or larger, follow up if 0.5 cm or larger (every year for 5 years). Dictated by: Dae Marino [facility] Interpreted: Benson Treviño MD on 06/26/2020 at 15:03 Approved by: Benson Treviño M.D. on 06/26/2020 at 16:22
== END ==
PROVIDERS: PCP Family Medicine; Referring Provider Family Medicine; Visit Provider Family Medicine
DX: E04.2 Nontoxic multinodular goiter (principal)
CPT/HCPCS: 76536

== ENCOUNTER → 2020-07-10 10:42 | Outpatient (CLI) | payer MEDICARE, SELFPAY ==
--- NOTE | 2020-07-10 11:00 | DI.MG.S_ITS ---
Patient Name: FIDENCIO DAILEY date: 1940 Sex: F Attending Physician: Bonifacio Indications: Date: 07/10/2020 10:53 At the request of: JOY ARTEAGA Procedure: MM screening mammo BI BILATERAL DIGITAL SCREENING MAMMOGRAM 3D/2D WITH CAD: 07/10/2020 CLINICAL: Routine screening. Personal history of right breast cancer. Comparison is made to exams dated: 04/10/2019 mammogram, 02/24/2018 mammogram, and 01/19/2017 mammogram - [facility]. The tissue of both breasts is heterogeneously dense. This may lower the sensitivity of mammography. Current study was also evaluated with a Computer Aided Detection (CAD) system. There is possible developing architectural distortion in the left breast at 12 o'clock middle depth. No other significant masses, calcifications, or other findings are seen in either breast. IMPRESSION: INCOMPLETE: NEEDS ADDITIONAL IMAGING EVALUATION The possible developing architectural distortion in the left breast is indeterminate. Additional views with possible ultrasound are recommended. This exam was interpreted at Station ID: [id number]. NOTE: For mammograms, a report in lay terms will be sent to the patient. Approximately 15% of breast malignancies will not be visualized mammographically. In the management of a palpable breast mass, a negative mammogram must not discourage biopsy of a clinically suspicious lesion. Electronically Signed By: Oliva thomas/[email or web address]:07/10/2020 13:38:36 copy to: Heather Benjamin letter sent: Additional Imaging Needed Continued Report - Page 2 of 2 Patient Name: FIDENCIO DAILEY date: 1940 Sex: F Attending Physician: Bonifacio Indications: Date: 07/10/2020 10:53 At the request of: JOY ARTEAGA Procedure: MM screening mammo BI ACR BI-RADS Category 0: Incomplete [id number]
== END ==
PROVIDERS: PCP Family Medicine; Referring Provider Family Medicine; Visit Provider Family Medicine
DX: Z12.31 Encounter for screening mammogram for malignant neoplasm of breast (principal); Z85.3 Personal history of malignant neoplasm of breast
CPT/HCPCS: 77063; 77067

== ENCOUNTER 2020-07-22 09:32 | Observation (INO) | payer MEDICARE, SELFPAY ==
[2020-07-22] VITALS (21 sets, daily range): BP systolic 155–252; BP diastolic 73–148; PULSE 73–96; RESP 14–18; TEMP 37.3–38.5; O2SAT 93–99; BMI 25.7
--- NOTE | 2020-07-22 10:09 | DI.RAD.S_ITS ---
PROCEDURE: XR CHEST 1V INDICATIONS: suspected sepsis TECHNIQUE: One view of the chest was acquired. COMPARISON: [facility], CT, CT ANGIO CHEST PE PROTOCOL, 01/07/2019, 16:04. [facility], CR, XR CHEST 2V, 01/07/2019, 15:25. FINDINGS: Surgical changes and devices: Right axillary clips are seen. Lungs and pleura: Lungs are clear, yet hyperexpanded. No pleural effusions or pneumothorax. Mediastinum: The cardiac contours are within normal limits. The aorta demonstrates calcification and tortuosity. Bones and chest wall: Age-appropriate bony degenerative changes are seen. No suspicious bony lesions. Overlying soft tissues appear unremarkable. IMPRESSION: No focal infiltrates are seen. Hyperexpanded lungs, without an acute cardiopulmonary process identified. Dictated by: Arslan Eason M.D. on 07/22/2020 at 9:35 Approved by: Arslan Eason M.D. on 07/22/2020 at 9:37
[2020-07-22 10:11] LABS: Bacteria Urine None Seen
[2020-07-22 10:21] LABS: INR 0.9 (0.9-1.3); Prothrombin Time 10.3 SECONDS (10.1-12.7)
[2020-07-22 10:23] LABS: Add Manual Diff / Slide Review NO; Basophils Absolute Auto 0 /uL (0-100); Basophils Percent Auto 0.5 % (0-2); Eosinophils Absolute Auto 200 /uL (0-450); Eosinophils Percent Auto 2.1 % (2-4); Hemoglobin 14.9 g/dL (12.0-16.0); Lymphocytes Absolute Auto 1200 /uL (1100-4500); Lymphocytes Percent Auto 11.9 % (25-40); Mean Corpuscular HGB Conc 33.8 % (30-36); Mean Corpuscular Hemoglobin 30.3 PG (26-34); Mean Corpuscular Volume 89.5 fL (80-100); Monocytes Absolute Auto 700 /uL (0-900); Monocytes Percent Auto 6.6 % (3-14); Neutrophils Absolute Auto 7800 /uL (1500-7000); Neutrophils Percent Auto 78.9 % (50-75); Platelet Count 240 X10^3/uL (150-400); Red Blood Cell Count 4.92 X10^6/uL (4.0-5.2); Red Cell Distribution Width 12.9 % (11.6-14.8); White Blood Cell Count 9.8 X10^3/uL (4.5-11.0)
[2020-07-22 10:24] LABS: Lactate (Lactic Acid) 1.9 mmol/L (0.7-2.1); PTT Partial Thromboplastin Tim 28 SECONDS (26.4-36.2)
[2020-07-22 10:25] LABS: Alanine Aminotransferase 17 IU/L (<35); Albumin 4.6 g/dL (3.5-5.0); Albumin Globulin Ratio 1.4 (1.0-2.8); Alkaline Phosphatase 66 U/L (38-126); Aspartate Aminotransferase 34 IU/L (14-36); BUN Creatinine Ratio 25.6 (6-22); Bilirubin Total 1.4 mg/dL (0.2-1.3); Blood Urea Nitrogen 11 mg/dL (7-17); Calcium 9.2 mg/dL (8.4-10.2); Carbon Dioxide 28 mmol/L (22-32); Chloride 103 mmol/L (98-107); Estimated Glomerular Filt Rate > 60.0 mL/min (>60); Globulin 3.3 g/dL (1.7-4.1); Glucose 85 mg/dL (80-110); Lipase 97 U/L (23-300); Potassium 4.4 mmol/L (3.4-5.1); Sodium 137 mmol/L (137-145); Total Protein 7.9 g/dL (6.3-8.2)
[2020-07-22 10:26] LABS: HEMOLYSIS 69 (0-50)
[2020-07-22 10:26] LABS: Culture Indicated Urine Cult Not Indicated; RBC Urine 0-1/HPF (0-5/HPF); Squamous Epithelial Cell Urine 5-10 /HPF (0-5/HPF); WBC Urine 0-1/HPF (0-5/HPF)
[2020-07-22 10:40] LABS: Procalcitonin < 0.05 ng/mL (<0.5)
[2020-07-22] MEDS: SODIUM CHLORIDE 0.9% 1,000 ML 1000 ML IV (10:40)
[2020-07-22] MEDS: ONDANSETRON 4 MG/2 ML INJ IV (10:56)
--- NOTE | 2020-07-22 10:58 | ED_ITS ---
HPI - Skin/Abscess/Foreign Bdy General Chief complaint: Skin/Abscess/Foreign Body Stated complaint: Welts on right arm Time Seen by Provider: 07/22/20 10:57 Source: patient Mode of arrival: Ambulatory Limitations: no limitations History of Present Illness HPI narrative: The patient has chronic right arm lymphedema associated with breast surgery years ago. She has had recurring infections in the right arm. She felt well yesterday, no complaints. She awoke with erythema and edema from the right wrist to the upper arm. She has achiness throughout the arm. She has fever upon arrival. She has a mild headache. She denies sore throat. She has chest pain or dyspnea. She has no cough. She has no GI symptoms. With the recurring infection, she has no history of diabetes. She has had no recent injury to the arm. She has no numbness or weakness in the right arm. Related Data Home Medications Medication Instructions Recorded Confirmed ASCORBIC ACID (#VITAMIN C) 500 mg PO Q DAY #0 10/06/11 07/22/20 ASPIRIN (Aspir-Low) 81 mg PO Q DAY #0 10/06/11 07/22/20 CALCIUM/CHOLECALCIFEROL (CALCIUM 1 ctb PO Q DAY #0 10/06/11 07/22/20 WITH D3 500MG/400UNITS) CHOLECALCIFEROL (VITAMIN D) 1,000 iu PO BID #0 10/06/11 07/22/20 Metamucil Fiber Singles 1 pkt PO QDAY #0 10/06/11 07/22/20 Multivitamin, Minerals, and 1 tab PO Q DAY #0 10/06/11 07/22/20 (#CENTRUM SILVER) escitalopram oxalate [Lexapro] 5 mg PO DAILY 07/22/20 07/22/20 etodolac 400 mg PO Q8HP PRN 07/22/20 07/22/20 Allergies Allergy/AdvReac Type Severity Reaction Status Date / Time latex [LATEX] Allergy Severe RASH Verified 06/03/19 06:24 Penicillins [PENICILLINS] Allergy Unknown ALL OVER Verified 06/03/19 06:24 BODY WELTS Sulfa (Sulfonamide Allergy Unknown WAS GIVEN Verified 06/03/19 06:24 Antibiotics) WHEN BABY, [SULFA (SULFONAMIDE UNSURE IF ANTIBIOTICS)] STILL HAS ALLERGY Review of Systems Constitutional Constitutional: Denies chills, Reports fatigue, Reports fever(s) and Reports headache(s) Eyes Eyes: Denies change in vision, Denies eye discharge and Denies irritation ENT Ears, Nose, Mouth, and Throat: Reports headache(s) Comments: No sore throat. No difficulty swelling. Cardiovascular Cardiovascular: Denies chest pain, Denies irregular heart rhythm, Denies lightheadedness and Denies dyspnea Respiratory Respiratory: Denies chest congestion, Denies cough and Denies dyspnea Gastrointestinal Gastrointestinal: Denies abdominal pain, Denies change in bowel habits and Denies diarrhea Genitourinary Genitourinary: Denies dysuria Genitourinary: Denies dysuria Musculoskeletal Comments: Right arm erythema and edema. Right arm achiness. Integumentary/Breasts Comments: See above. Right arm erythema. No other rashes or skin lesions. Neurologic Neurologic: Reports headache(s) Comments: No focal numbness or weakness. Endocrine Endocrine: Reports fatigue Patient History Medical History Arthritis (Chronic) Cellulitis of arm, right (Acute) H/O malignant neoplasm of breast (Resolved) Lymphedema of arm (Chronic) Sciatica (Chronic) Spinal stenosis (Chronic) Surgical History History of lymph node dissection of both axillae (Resolved) Social History Smoking Status: Never smoker Smoking Status: Never smoker alcohol intake frequency: 0-2 drinks per day Substance Use Type: does not use Exam Initial Vital Signs Initial Vital Signs: Vital Signs Temperature 100.3 F H 07/22/20 09:36 Pulse Rate 79 07/22/20 09:36 Respiratory Rate 14 07/22/20 09:36 Blood Pressure 195/84 H 07/22/20 09:36 Pulse Oximetry 99 07/22/20 09:36 Const General: cooperative and well developed Nutritional Appearance: well nourished [facility] Head: normocephalic and atraumatic Throat: posterior oropharynx normal Neck Neck: No lymphadenopathy Resp Effort & Inspection: normal respiratory effort and able to speak in complete sentences Auscultation: clear to auscultation bilaterally, no rales, no rhonchi and no wheezes Cardio Rate: regular rate Rhythm: regular rhythm Heart Sounds: S1 normal, S2 normal, no click, no gallops, no murmurs and no rubs Pulses: normal peripheral pulses GI Inspection: obesity and other (Nontender) Auscultation: normal bowel sounds Skin Other: Erythema with warmth from the right wrist to the right proximal biceps area.The right radial pulse is normal. Chronic Lymphedema is present in the arm. Neuro General: patient alert, patient oriented x3, gait normal and no focal motor deficits Speech: speech normal Extrem Other: Lymphedema is present the right arm. She has full range of motion of the right shoulder, elbow and wrist. She has normal capillary refill in the right hand. The right radial pulse is normal. Psych Appearance: well kempt Mental Status: mental status grossly normal Course Course Course Narrative: Her right arm is compromised by lymphedema. She has extensive cellulitis throughout the right arm, this is a recurrent issue for her. She has a prior history of sepsis related to right arm cellulitis. She has a fever 100.9 at this time. Labs are otherwise reassuring. Vancomycin has been started. I have discussed the patient with the on-call physician, Dr. Cardoso. She will be admitted. Orders Ordered: ED Orders 07/22/20 09:05 Urine Microscopic Stat 07/22/20 10:00 Complete Blood Count AUTO DIFF Stat Comprehensive Metabolic Panel Stat Lactate (Lactic Acid) Stat Lipase Stat Partial Thromboplastin Time Stat Procalcitonin Stat Prothrombin Time INR Stat 07/22/20 10:09 XR chest 1V Stat EKG-12 Lead Stat 07/22/20 10:35 Blood Culture Stat 07/22/20 11:40 COVID19 -ED/INPAT/OR/L&D Stat Acetaminophen (Tylenol) 650 mg PO Q6HR PRN PRN Reason: Fever/Mild Pain (1-3) Last Admin: 07/22/20 16:04 Dose: 650 mg Documented by: MARELY Al Hydrox/Mg Hydrox/Simethicone (Maalox Plus) 30 ml PO Q6HR PRN PRN Reason: Dyspepsia Aspirin (Aspirin Ec) 81 mg PO DAILY NUBIA Escitalopram Oxalate (Lexapro) 5 mg PO DAILY NUBIA Lactated Ringer's (Lactated Ringers) 1,000 mls @ 100 mls/hr IV CONT NUBIA Last Admin: 07/22/20 16:09 Dose: 100 mls/hr Documented by: MARELY Vancomycin HCl (Vancomycin) 1,000 mg in 200 mls @ 200 mls/hr IV Q18H [facility] Magnesium Hydroxide (Milk Of Magnesia) 30 ml PO DAILY PRN PRN Reason: Constipation Naloxone HCl (Narcan) 0.2 mg IV Q2MIN PRN PRN Reason: Opiate Reversal Ondansetron HCl (Zofran) 4 mg IV Q8HR PRN PRN Reason: Nausea And Vomiting Vancomycin HCl (Vancomycin Trough) 1 request MIS 1730 [facility] Stop: 07/24/20 17:31 Discontinued Medications Acetaminophen (Tylenol) 975 mg PO NOW ONE Stop: 07/22/20 11:24 Last Admin: 07/22/20 11:29 Dose: 975 mg Documented by: LEONIDAS Sodium Chloride (Normal Saline 0.9%) 1,000 mls @ 1,000 mls/hr IV BOLUS ONE Stop: 07/22/20 11:08 Last Infusion: 07/22/20 11:44 Dose: 0 mls/hr Documented by: Admin: 07/22/20 10:40 Dose: 1,000 mls/hr Documented by: YUMIKO Vancomycin HCl (Vancomycin) 1,000 mg in 200 mls @ 200 mls/hr IV NOW ONE Stop: 07/22/20 12:06 Last Infusion: 07/22/20 11:59 Dose: 200 mls/hr Documented by: Admin: 07/22/20 11:29 Dose: 200 mls/hr Documented by: LEONIDAS Ondansetron HCl (Zofran) 4 mg IV NOW ONE Stop: 07/22/20 10:53 Last Admin: 07/22/20 10:56 Dose: 4 mg Documented by: MARLYS Vital Signs Vital signs: Vital Signs - 8 hr 07/22/20 09:36 07/22/20 10:35 07/22/20 10:55 Temperature 100.3 F H Pulse Rate 79 73 87 Respiratory Rate 14 Blood Pressure 195/84 H 175/73 H 208/95 H Pulse Oximetry 99 98 98 07/22/20 11:00 07/22/20 11:01 07/22/20 11:14 Temperature Pulse Rate 94 H 92 H 86 Respiratory Rate Blood Pressure 252/148 H 235/112 H Pulse Oximetry 98 98 93 07/22/20 11:15 07/22/20 11:17 07/22/20 11:20 Temperature Pulse Rate 87 83 82 Respiratory Rate Blood Pressure 234/128 H 228/93 H 199/95 H Pulse Oximetry 96 96 97 07/22/20 11:21 07/22/20 11:29 07/22/20 11:30 Temperature 99.1 F 99.1 F Pulse Rate 81 Respiratory Rate Blood Pressure Pulse Oximetry 98 07/22/20 11:35 Temperature Pulse Rate 94 H Respiratory Rate Blood Pressure Pulse Oximetry 95 MDM - Skin/Abscess/Foreign Bdy Lab Data Result diagrams: 07/22/20 10:00 07/22/20 10:00 Labs: Lab Results 07/22/20 07/22/20 07/22/20 Range/Units 09:05 10:00 10:00 WBC 9.8 (4.5-11.0) X10^3/uL RBC 4.92 (4.0-5.2) X10^6/uL Hgb 14.9 (12.0-16.0) g/dL Hct 44.0 (36-46) % MCV 89.5 (80-100) fL MCH 30.3 (26-34) PG MCHC 33.8 (30-36) % RDW 12.9 (11.6-14.8) % Plt Count 240 (150-400) X10^3/uL Neut % (Auto) 78.9 H (50-75) % Lymph % (Auto) 11.9 L (25-40) % [place] % (Auto) 6.6 (3-14) % Eos % (Auto) 2.1 (2-4) % Baso % (Auto) 0.5 (0-2) % Neut # (Auto) 7800 H (6587-2362) /uL Lymph # (Auto) 1200 (4490-2382) /uL [place] # (Auto) 700 (0-900) /uL Eos # (Auto) 200 (0-450) /uL Baso # (Auto) 0 (0-100) /uL PT 10.3 (10.1-12.7) SECONDS INR 0.9 (0.9-1.3) APTT 28 (26.4-36.2) SECONDS Sodium (137-145) mmol/L Potassium (3.4-5.1) mmol/L Chloride (98-107) mmol/L Carbon Dioxide (22-32) mmol/L BUN (7-17) mg/dL Creatinine (0.52-1.04) mg/dL Estimated GFR (>60) mL/min BUN/Creatinine Ratio (6-22) Glucose (80-110) mg/dL Lactate (0.7-2.1) mmol/L Calcium (8.4-10.2) mg/dL Total Bilirubin (0.2-1.3) mg/dL AST (14-36) IU/L ALT (<35) IU/L Alkaline Phosphatase (38-126) U/L Total Protein (6.3-8.2) g/dL Albumin (3.5-5.0) g/dL Globulin (1.7-4.1) g/dL Albumin/Globulin Ratio (1.0-2.8) Lipase (23-300) U/L Procalcitonin (<0.5) ng/mL Urine RBC 0-1/hpf (0-5/HPF) Urine WBC 0-1/hpf (0-5/HPF) Ur Squamous Epith Cells 5-10 /hpf H (0-5/HPF) Urine Bacteria None seen (None) Ur Culture Indicated? Cult not indicated 07/22/20 07/22/20 07/22/20 Range/Units 10:00 10:00 10:00 WBC (4.5-11.0) X10^3/uL RBC (4.0-5.2) X10^6/uL Hgb (12.0-16.0) g/dL Hct (36-46) % MCV (80-100) fL MCH (26-34) PG MCHC (30-36) % RDW (11.6-14.8) % Plt Count (150-400) X10^3/uL Neut % (Auto) (50-75) % Lymph % (Auto) (25-40) % [place] % (Auto) (3-14) % Eos % (Auto) (2-4) % Baso % (Auto) (0-2) % Neut # (Auto) (4982-6488) /uL Lymph # (Auto) (3498-0082) /uL [place] # (Auto) (0-900) /uL Eos # (Auto) (0-450) /uL Baso # (Auto) (0-100) /uL PT (10.1-12.7) SECONDS INR (0.9-1.3) APTT (26.4-36.2) SECONDS Sodium 137 (137-145) mmol/L Potassium 4.4 (3.4-5.1) mmol/L Chloride 103 (98-107) mmol/L Carbon Dioxide 28 (22-32) mmol/L BUN 11 (7-17) mg/dL Creatinine 0.43 L (0.52-1.04) mg/dL Estimated GFR > 60.0 (>60) mL/min BUN/Creatinine Ratio 25.6 H (6-22) Glucose 85 (80-110) mg/dL Lactate 1.9 (0.7-2.1) mmol/L Calcium 9.2 (8.4-10.2) mg/dL Total Bilirubin 1.4 H (0.2-1.3) mg/dL AST 34 (14-36) IU/L ALT 17 (<35) IU/L Alkaline Phosphatase 66 (38-126) U/L Total Protein 7.9 (6.3-8.2) g/dL Albumin 4.6 (3.5-5.0) g/dL Globulin 3.3 (1.7-4.1) g/dL Albumin/Globulin Ratio 1.4 (1.0-2.8) Lipase 97 (23-300) U/L Procalcitonin < 0.05 (<0.5) ng/mL Urine RBC (0-5/HPF) Urine WBC (0-5/HPF) Ur Squamous Epith Cells (0-5/HPF) Urine Bacteria (None) Ur Culture Indicated? Urine Dip Bedside Urine Glucose Negative Bedside Urine Bilirubin ++ 2 Bedside Urine Ketone - Negative Urine Specific [place] 1.015 Bedside Urine Occult Blood - Negative Bedside Urine pH 8.0 Bedside Urine Protein - Negative Bedside Urine Urobilinogen - Negative Bedside Urine Nitrite - Negative Bedside Urine Leukocytes ++ 125 Esterase Critical Care Time Critical Care Time Critical Care Time: Yes Total Critical Care Time: 30 Attestation: Critical care time includes the initial patient assessment, medical record review, decision-making, counseling the patient on the need for admission, and consultation with the admitting physician. Discharge Plan Departure Patient Disposition: Admitted as Observation Clinical Impression: Cellulitis of arm, right, Lymphedema of arm Discharge Date/Time: 07/22/20 11:59 Referrals: Eduard Valdovinos MD [Primary Care Provider] - Admit Date/Time: 07/22/20 11:39 Admit Provider: Tim Cardoso
[2020-07-22] MEDS: VANCOMYCIN 1,000 MG/200 ML PIGGYBACK 200 MG IV (11:29)
[2020-07-22] MEDS: ACETAMINOPHEN 325 MG TABLET 975 MG PO (11:29)
[2020-07-22 12:33] LABS: COVID19 -Nasal RAPID Negative (Negative)
--- NOTE | 2020-07-22 13:44 | PC.NURSE ---
Day shift admit note: Awake, alert and oriented. Received patient from ED. Oriented to room, environment, and plan of care. Dr. Cardoso at bedside. LUE elevated on pillow with ice packs in place. Call light within reach.
[2020-07-22] MEDS: ACETAMINOPHEN 325 MG TABLET 650 MG PO ×2 (16:04→22:05)
[2020-07-22] MEDS: LACTATED RINGERS 1,000 ML 100 ML IV (16:09)
--- NOTE | 2020-07-22 17:24 | P.HP_ITS ---
History of Present Illness History of Present Illness Date Patient Seen: 07/22/20 Time Patient Seen: 13:00 Date of Onset of Symptoms: 07/22/20 Chief complaint: Welts on right arm Narrative: Patient is an 79-year-old white female patient of Dr. Valdovinos [facility] for who presents with acute onset of fever and right arm pain. Patient has a long history of issues with lymphedema in her right arm status post surgery. Apparently she has had multiple periods of cellulitis. 2 times ago which she is not sure when that was she actually had a septic syndrome. It always occurs quite suddenly period and then becomes an issue. She has been hospitalized multiple times for it. Can not remember the last time. But she thought it was not that long ago period. Nothing defined that I can see. Patient woke this morning with headache and just not feeling well. She did not think she had a fever at that time. She has had no headaches visual symptoms runny nose cough or other change. No on else in the family has been sick. She then began to notice that her right arm was swollen and red. Some pain. No significant change from size it usually exist. She has not had any history of trauma or bites. She has had no lacerations or other changes. Actually has been feeling quite good. By the time she got to the hospital she had fever and she presented here because multiple times in the past if she did get IV antibiotic she was sick with an hours period Patient otherwise has been feeling overall well. Yesterday she felt well at all started today. She has had no urinary changes. Nausea vomiting change in bowel movements or other changes. She has had no significant visual changes or other complaints she has had a little bit of finger numbness which she felt when she was presenting to the emergency room but that is completely resolved. Patient basically feeling back to her usual self. Past medical history is significant for: Depression History of breast cancer Lumbar discs disease Migraine ocular DJD fingers Hypertension Thyroid nodule Asthma Glaucoma Past surgical history: Right partial mastectomy 1998 Hysterectomy 1992 Family history: Father: Cancer 78, mother pneumonia 58 was a smoker Sibling with stroke Social history 2 children, retired, Smoker never Patient History Medical History Arthritis (Chronic) Cellulitis of arm, right (Acute) H/O malignant neoplasm of breast (Resolved) Lymphedema of arm (Chronic) Sciatica (Chronic) Spinal stenosis (Chronic) Surgical History History of lymph node dissection of both axillae (Resolved) Family & Social History Social History: Prior Living Arrangements House Safety & Behavioral: Feels Safe in Current Yes Environment Been Physically Hurt or No Threatened By a Person Tobacco & Substance use: Smoking Status Never smoker alcohol intake frequency 0-2 drinks per day Substance Use Type does not use Meds Home Medications and Allergies Home Medications Medication Instructions Recorded Confirmed Type ASCORBIC ACID (#VITAMIN C) 500 mg PO Q DAY #0 10/06/11 07/22/20 History ASPIRIN (Aspir-Low) 81 mg PO Q DAY #0 10/06/11 07/22/20 History CALCIUM/CHOLECALCIFEROL (CALCIUM 1 ctb PO Q DAY #0 10/06/11 07/22/20 History WITH D3 500MG/400UNITS) CHOLECALCIFEROL (VITAMIN D) 1,000 iu PO BID #0 10/06/11 07/22/20 History Metamucil Fiber Singles 1 pkt PO QDAY #0 10/06/11 07/22/20 History Multivitamin, Minerals, and 1 tab PO Q DAY #0 10/06/11 07/22/20 History (#CENTRUM SILVER) escitalopram oxalate [Lexapro] 5 mg PO DAILY 07/22/20 07/22/20 History etodolac 400 mg PO Q8HP PRN 07/22/20 07/22/20 History Allergies Allergy/AdvReac Type Severity Reaction Status Date / Time latex [LATEX] Allergy Severe RASH Verified 06/03/19 06:24 Penicillins [PENICILLINS] Allergy Unknown ALL OVER Verified 06/03/19 06:24 BODY WELTS Sulfa (Sulfonamide Allergy Unknown WAS GIVEN Verified 06/03/19 06:24 Antibiotics) WHEN BABY, [SULFA (SULFONAMIDE UNSURE IF ANTIBIOTICS)] STILL HAS ALLERGY Review of Systems Review of Systems ROS: Yes All systems reviewed with the patient and are negative except as otherwise documented Exam Vital Signs (past 8 hours): - 07/22/20 09:36 07/22/20 10:35 07/22/20 10:55 Temperature 100.3 F H Pulse Rate 79 73 87 Respiratory Rate 14 Blood Pressure 195/84 H 175/73 H 208/95 H Pulse Oximetry 99 98 98 07/22/20 11:00 07/22/20 11:01 07/22/20 11:14 Temperature Pulse Rate 94 H 92 H 86 Respiratory Rate Blood Pressure 252/148 H 235/112 H Pulse Oximetry 98 98 93 07/22/20 11:15 07/22/20 11:17 07/22/20 11:20 Temperature Pulse Rate 87 83 82 Respiratory Rate Blood Pressure 234/128 H 228/93 H 199/95 H Pulse Oximetry 96 96 97 07/22/20 11:21 07/22/20 11:29 07/22/20 11:30 Temperature 99.1 F 99.1 F Pulse Rate 81 Respiratory Rate Blood Pressure Pulse Oximetry 98 07/22/20 11:35 07/22/20 11:40 07/22/20 11:42 Temperature Pulse Rate 94 H 96 H 94 H Respiratory Rate Blood Pressure 204/91 H Pulse Oximetry 95 96 97 07/22/20 11:45 07/22/20 11:50 07/22/20 12:23 Temperature 101.3 F H Pulse Rate 83 86 85 Respiratory Rate 16 Blood Pressure 155/80 H Pulse Oximetry 97 98 96 07/22/20 15:30 Temperature 99.4 F Pulse Rate 83 Respiratory Rate 17 Blood Pressure 157/83 H Pulse Oximetry 94 Oxygen Delivery Method Room Air Oxygen Flow Rate 0 Narrative Exam Narrative: Alert mildly fatigued elderly female in no acute distress. Mucous membranes mildly dry. Neck supple without adenopathy. Lungs are clear. Heart regular rate and rhythm. Abdomen is soft positive bowel sounds nontender. Extremities without cyanosis clubbing edema. Right arm shows erythema with s ome almost hive-like areas from mid shoulder all the way down to her wrist. Warm to the touch. Capillary refills normal. Hand shows normal capillary refill. Some pain to palpation. No definitive abscess formation. Right axilla shows no adenopathy. No supraclavicular adenopathy. Neuro exam is cranial nerves 2-12 are intact motor is 5/5. Reflexes 2+ and symmetric did not walker. No Romberg. Psychologically mildly fatigued but otherwise normal. Objective Labs Result Diagrams: 07/22/20 10:00 07/22/20 10:00 Labs: Laboratory Results - last 24 hr 07/22/20 07/22/20 07/22/20 09:05 10:00 10:00 WBC 9.8 RBC 4.92 Hgb 14.9 Hct 44.0 MCV 89.5 MCH 30.3 MCHC 33.8 RDW 12.9 Plt Count 240 Neut % (Auto) 78.9 H Lymph % (Auto) 11.9 L [place] % (Auto) 6.6 Eos % (Auto) 2.1 Baso % (Auto) 0.5 Neut # (Auto) 7800 H Lymph # (Auto) 1200 [place] # (Auto) 700 Eos # (Auto) 200 Baso # (Auto) 0 PT 10.3 INR 0.9 APTT 28 Sodium Potassium Chloride Carbon Dioxide BUN Creatinine Estimated GFR BUN/Creatinine Ratio Glucose Lactate Calcium Total Bilirubin AST ALT Alkaline Phosphatase Total Protein Albumin Globulin Albumin/Globulin Ratio Lipase Procalcitonin Urine RBC 0-1/hpf Urine WBC 0-1/hpf Ur Squamous Epith Cells 5-10 /hpf H Urine Bacteria None seen Ur Culture Indicated? Cult not indicated COVID-19 PCR 07/22/20 07/22/20 07/22/20 10:00 10:00 10:00 WBC RBC Hgb Hct MCV MCH MCHC RDW Plt Count Neut % (Auto) Lymph % (Auto) [place] % (Auto) Eos % (Auto) Baso % (Auto) Neut # (Auto) Lymph # (Auto) [place] # (Auto) Eos # (Auto) Baso # (Auto) PT INR APTT Sodium 137 Potassium 4.4 Chloride 103 Carbon Dioxide 28 BUN 11 Creatinine 0.43 L Estimated GFR > 60.0 BUN/Creatinine Ratio 25.6 H Glucose 85 Lactate 1.9 Calcium 9.2 Total Bilirubin 1.4 H AST 34 ALT 17 Alkaline Phosphatase 66 Total Protein 7.9 Albumin 4.6 Globulin 3.3 Albumin/Globulin Ratio 1.4 Lipase 97 Procalcitonin < 0.05 Urine RBC Urine WBC Ur Squamous Epith Cells Urine Bacteria Ur Culture Indicated? COVID-19 PCR 07/22/20 11:40 WBC RBC Hgb Hct MCV MCH MCHC RDW Plt Count Neut % (Auto) Lymph % (Auto) [place] % (Auto) Eos % (Auto) Baso % (Auto) Neut # (Auto) Lymph # (Auto) [place] # (Auto) Eos # (Auto) Baso # (Auto) PT INR APTT Sodium Potassium Chloride Carbon Dioxide BUN Creatinine Estimated GFR BUN/Creatinine Ratio Glucose Lactate Calcium Total Bilirubin AST ALT Alkaline Phosphatase Total Protein Albumin Globulin Albumin/Globulin Ratio Lipase Procalcitonin Urine RBC Urine WBC Ur Squamous Epith Cells Urine Bacteria Ur Culture Indicated? COVID-19 PCR Negative Assessment & Plan Assessment & Plan narrative: Cellulitis. Right arm period with history of sepsis syndrome secondary to same. Will continue Vanco. Re-evaluate in a.m.. Elevation. Clearly no evidence of sepsis syndrome at this time. Will re- evaluate in a.m.. Will probably require 48 hours of IV antibiotics but we will see what she looks like tomorrow see what her fever curve is and go from there. CBC a.m. Dehydration. Mild. Will continue hydration at this point IVC however p.o. intake goes and re-evaluate a.m.. BMP a.m. Depression will continue usual medicines and follow. Glaucoma restart eyedrops. History of asthma. Stable. Hypertension. Blood pressure seems okay at this time will continue usual medicines re-evaluate in a.m.. Code status full. GI prophylaxis. I do not think she is high risk will follow. DVT prophylaxis. She is not be high risk. SCDs will continue to ambulate and re-evaluate. Disposition expect 48-72 hours of admission
--- NOTE | 2020-07-22 18:19 | PC.NURSE ---
Addendum entered by Beatriz Tellez R.N. 07/22/20 22:25: Pt had uneventful evening. C/O H/A later in evening, med w/tylenol w/fair relief. IVF continue as per orders. Call light w/in reach, bed alarm on for pt safety. COntinue w/pllan of care. Original Note: Pt alert, oriented. Lungs clear, SpO2 98% RA Red splotchy areas, warm to touch. placed on ice packs. IVF infusing as per orders via pump into LFA. MD in to see. Call light w/in reach, pt calls appropriately for needs.
[2020-07-22] MEDS: LATANOPROST 0.005% OPHTH 2.5 ML 1 DROPS EYE-BOTH (20:39)
[2020-07-23] VITALS (8 sets, daily range): BP systolic 137–157; BP diastolic 66–89; PULSE 73–86; RESP 16–18; TEMP 36.6–37.7; O2SAT 94–98
[2020-07-23] MEDS: LACTATED RINGERS 1,000 ML 100 ML IV (01:54)
[2020-07-23] MEDS: ACETAMINOPHEN 325 MG TABLET 650 MG PO (05:32)
[2020-07-23] MEDS: VANCOMYCIN 1,000 MG/200 ML PIGGYBACK 200 MG IV (05:33)
[2020-07-23 06:08] LABS: Add Manual Diff / Slide Review NO; Basophils Absolute Auto 0 /uL (0-100); Basophils Percent Auto 0.4 % (0-2); Eosinophils Absolute Auto 100 /uL (0-450); Eosinophils Percent Auto 0.6 % (2-4); Hematocrit 40.1 % (36-46); Hemoglobin 13.6 g/dL (12.0-16.0); Lymphocytes Absolute Auto 1000 /uL (1100-4500); Lymphocytes Percent Auto 11.1 % (25-40); Mean Corpuscular Hemoglobin 30.3 PG (26-34); Mean Corpuscular Volume 89.1 fL (80-100); Monocytes Absolute Auto 900 /uL (0-900); Monocytes Percent Auto 9.2 % (3-14); Neutrophils Absolute Auto 7400 /uL (1500-7000); Neutrophils Percent Auto 78.7 % (50-75); Platelet Count 205 X10^3/uL (150-400); Red Cell Distribution Width 12.7 % (11.6-14.8); White Blood Cell Count 9.4 X10^3/uL (4.5-11.0)
[2020-07-23 06:15] LABS: BUN Creatinine Ratio 14.3 (6-22); Blood Urea Nitrogen 7 mg/dL (7-17); Carbon Dioxide 33 mmol/L (22-32); Chloride 99 mmol/L (98-107); Estimated Glomerular Filt Rate > 60.0 mL/min (>60); Glucose 96 mg/dL (80-110); HEMOLYSIS < 15 (0-50); Potassium 4.4 mmol/L (3.4-5.1); Sodium 136 mmol/L (137-145)
[2020-07-23] MEDS: ASPIRIN EC 81 MG TABLET PO (08:33)
[2020-07-23] MEDS: DORZOLAMIDE EYE-BOTH ×3 (08:34→17:50)
[2020-07-23] MEDS: BRIMONIDINE EYE-BOTH ×3 (08:34→17:50)
--- NOTE | 2020-07-23 08:52 | PM.PN.1 ---
Subjective Subjective Date Patient Seen: 07/23/20 Time Patient Seen: 08:52 Interval history: Patient seen in follow-up of her cellulitis and dehydration. Overall is feeling better today. Feels like her arm is less red. Slightly less painful although still feels warm. She has had no other significant changes or complaints. Exam Vital Signs (past 8 hours): - 07/23/20 04:00 07/23/20 08:00 Temperature 98.9 F 98.5 F Pulse Rate 86 80 Respiratory Rate 18 16 Blood Pressure 137/75 151/66 H Pulse Oximetry 98 95 Oxygen Delivery Method Room Air Oxygen Flow Rate 0 Narrative Exam Narrative: Alert smiling interactive female much less fatigued in no acute distress. Mucous membranes moist today. Neck supple without adenopathy. Lungs are clear. Heart regular rate and rhythm without murmurs clicks rubs or gallops. Extremities right arm feel shows quite a bit of warmth to palpation. Erythema is last intense and more pain today. Still extends throughout the whole arm. She does have some extension above yesterday's area about 3 cm towards the shoulder on the medial aspect. Still no adenopathy. Mildly tender to palpation throughout the arm. Quite warm to palpation. Psychologically happy alert. Neurologic exam is nonfocal Objective Labs Result Diagrams: 07/23/20 05:35 07/23/20 05:35 Labs: Laboratory Results - last 24 hr 07/22/20 07/22/20 07/22/20 09:05 10:00 10:00 WBC 9.8 RBC 4.92 Hgb 14.9 Hct 44.0 MCV 89.5 MCH 30.3 MCHC 33.8 RDW 12.9 Plt Count 240 Neut % (Auto) 78.9 H Lymph % (Auto) 11.9 L [place] % (Auto) 6.6 Eos % (Auto) 2.1 Baso % (Auto) 0.5 Neut # (Auto) 7800 H Lymph # (Auto) 1200 [place] # (Auto) 700 Eos # (Auto) 200 Baso # (Auto) 0 PT 10.3 INR 0.9 APTT 28 Sodium Potassium Chloride Carbon Dioxide BUN Creatinine Estimated GFR BUN/Creatinine Ratio Glucose Lactate Calcium Total Bilirubin AST ALT Alkaline Phosphatase Total Protein Albumin Globulin Albumin/Globulin Ratio Lipase Procalcitonin Urine RBC 0-1/hpf Urine WBC 0-1/hpf Ur Squamous Epith Cells 5-10 /hpf H Urine Bacteria None seen Ur Culture Indicated? Cult not indicated COVID-19 PCR 07/22/20 07/22/20 07/22/20 10:00 10:00 10:00 WBC RBC Hgb Hct MCV MCH MCHC RDW Plt Count Neut % (Auto) Lymph % (Auto) [place] % (Auto) Eos % (Auto) Baso % (Auto) Neut # (Auto) Lymph # (Auto) [place] # (Auto) Eos # (Auto) Baso # (Auto) PT INR APTT Sodium 137 Potassium 4.4 Chloride 103 Carbon Dioxide 28 BUN 11 Creatinine 0.43 L Estimated GFR > 60.0 BUN/Creatinine Ratio 25.6 H Glucose 85 Lactate 1.9 Calcium 9.2 Total Bilirubin 1.4 H AST 34 ALT 17 Alkaline Phosphatase 66 Total Protein 7.9 Albumin 4.6 Globulin 3.3 Albumin/Globulin Ratio 1.4 Lipase 97 Procalcitonin < 0.05 Urine RBC Urine WBC Ur Squamous Epith Cells Urine Bacteria Ur Culture Indicated? COVID-19 PCR 07/22/20 07/23/20 07/23/20 11:40 05:35 05:35 WBC 9.4 RBC 4.50 Hgb 13.6 Hct 40.1 MCV 89.1 MCH 30.3 MCHC 34.0 RDW 12.7 Plt Count 205 Neut % (Auto) 78.7 H Lymph % (Auto) 11.1 L [place] % (Auto) 9.2 Eos % (Auto) 0.6 L Baso % (Auto) 0.4 Neut # (Auto) 7400 H Lymph # (Auto) 1000 L [place] # (Auto) 900 Eos # (Auto) 100 Baso # (Auto) 0 PT INR APTT Sodium 136 L Potassium 4.4 Chloride 99 Carbon Dioxide 33 H BUN 7 Creatinine 0.49 L Estimated GFR > 60.0 BUN/Creatinine Ratio 14.3 Glucose 96 Lactate Calcium 9.0 Total Bilirubin AST ALT Alkaline Phosphatase Total Protein Albumin Globulin Albumin/Globulin Ratio Lipase Procalcitonin Urine RBC Urine WBC Ur Squamous Epith Cells Urine Bacteria Ur Culture Indicated? COVID-19 PCR Negative Assessment & Plan Assessment & Plan narrative: Cellulitis right arm. Improved but still present. I still think she needs IV antibiotics for 1 more day. Maybe more depending on her response she is a little bit increased in the erythema but overall it appears to be improved. Fever curve is better. She has met a fever since she was admitted. CBC is stable. At this point will follow-up cultures. Tomorrow they should be 48 hours. Clinically doing well. Re-evaluate in a.m.. Dehydration. I think she is euvolemic now. Taking p.o. well. Discontinue IV and will follow. Depression. Stable. Glaucoma. Drops restarted. Hypertension. Borderline control but at this point will not make any changes. Code status. We had a long discussion about this. At this point she still full code but she is thinking about it will discuss with her . GI prophylaxis stable. DVT prophylaxis stable. Disposition. Hoping will be discharged tomorrow
[2020-07-23] MEDS: ESCITALOPRAM 10 MG TABLET 5 MG PO (09:35)
[2020-07-23] MEDS: TIMOLOL EYE-BOTH (12:08)
--- NOTE | 2020-07-23 13:27 | P.PN_ITS ---
Exam Vital Signs (past 8 hours): - 07/23/20 08:00 07/23/20 12:00 Temperature 98.5 F 99.3 F Pulse Rate 80 75 Respiratory Rate 16 17 Blood Pressure 151/66 H 143/84 H Pulse Oximetry 95 97 Oxygen Delivery Method Room Air Oxygen Flow Rate 0 Objective Labs Result Diagrams: 07/23/20 05:35 07/23/20 05:35 Labs: Laboratory Results - last 24 hr 07/23/20 07/23/20 05:35 05:35 WBC 9.4 RBC 4.50 Hgb 13.6 Hct 40.1 MCV 89.1 MCH 30.3 MCHC 34.0 RDW 12.7 Plt Count 205 Neut % (Auto) 78.7 H Lymph % (Auto) 11.1 L [place] % (Auto) 9.2 Eos % (Auto) 0.6 L Baso % (Auto) 0.4 Neut # (Auto) 7400 H Lymph # (Auto) 1000 L [place] # (Auto) 900 Eos # (Auto) 100 Baso # (Auto) 0 Sodium 136 L Potassium 4.4 Chloride 99 Carbon Dioxide 33 H BUN 7 Creatinine 0.49 L Estimated GFR > 60.0 BUN/Creatinine Ratio 14.3 Glucose 96 Calcium 9.0 Assessment & Plan Assessment & Plan narrative: was called to change to observation status. I believe that this arm is quite severe and is worse that numbers show. My clinical judgement is that inpatient service is required. It is not my decision but disagree with status. Due to rules will be changed
--- NOTE | 2020-07-23 15:45 | CM.DANOTE ---
Discharge Planning/Care Management DCP: assessment: case received, EMR reviewed. Met now with pt. Introduced self and role. Pt is an 79 year old female who admitted to care of Dr. Cardoso yesterday late morning. PCP: Dr. Valdovinos Payer: Medicare and [facility]. Admission status: OBS: confirmed by UR RN Chandan Pt explains she has had this arm infection/R several times over the last few years. She states she is very quick now to spot signs of the infection, which comes on rapidly and that she was on her way to Dr. Valdovinos office when the arm worsened during the car ride from [place] and thus her drove her directly to the ER. She is currently on IV antibiotics, her arm is showing signs of redness going beyond the outline brown on arm placed by nursing staff. She is hopeful she will be able to go home in the next day or so. It's like taking your life in your hands to come to the hospital but I had to do it. P: home when stable for same. DCP team will be following. CM Discharge Assessment Start: 07/23/20 15:43 Freq: Status: Active Protocol: Document 07/23/20 15:44 ITV (Rec: 07/23/20 15:45 ITV [id number]) Discharge Planning Assessment Advance Directives? No History Provided By Patient,Medical Record Has Patient been admitted in last 30 No days? Prior Living Arrangements House Household Members spouse Independent with ADL's Yes Is patient alert and oriented? Yes DME Already Rented / Owned Cane Comment has cane, does not routinely use it Review Status In Process
[2020-07-23] MEDS: SODIUM CHLORIDE 0.9% FLUSH 10 ML IV (21:57)
[2020-07-23] MEDS: DOXYCYCLINE HYCLATE 100 MG TABLET PO (21:57)
[2020-07-23] MEDS: LATANOPROST 0.005% OPHTH 2.5 ML 1 DROPS EYE-BOTH (21:58)
[2020-07-24] MEDS: VANCOMYCIN 1,000 MG/200 ML PIGGYBACK 200 MG IV (00:24)
[2020-07-24] MEDS: SODIUM CHLORIDE 0.9% FLUSH 10 ML IV ×2 (00:25→10:03)
[2020-07-24 00:30] VITALS: O2SAT 97
[2020-07-24] MEDS: ACETAMINOPHEN 325 MG TABLET 650 MG PO ×2 (02:53→13:47)
[2020-07-24 04:00] VITALS: BP 145/57; PULSE 75; RESP 18; TEMP 37.1; O2SAT 96
[2020-07-24 04:36] LABS: Hematocrit 36.2 % (36-46); Hemoglobin 12.2 g/dL (12.0-16.0); Mean Corpuscular HGB Conc 33.8 % (30-36); Mean Corpuscular Hemoglobin 29.9 PG (26-34); Mean Corpuscular Volume 88.6 fL (80-100); Platelet Count 194 X10^3/uL (150-400); Red Blood Cell Count 4.09 X10^6/uL (4.0-5.2); Red Cell Distribution Width 12.8 % (11.6-14.8)
[2020-07-24 04:37] LABS: Add Manual Diff / Slide Review YES
[2020-07-24 07:35] LABS: Basophilic Stippling 1+; Neutrophils Absolute Manual 3540 /uL (3000-5900); Total Cells Counted 100
[2020-07-24 08:00] VITALS: BP 139/75; PULSE 72; RESP 15; TEMP 36.9; O2SAT 97
[2020-07-24] MEDS: ASPIRIN EC 81 MG TABLET PO (10:02)
[2020-07-24] MEDS: DOXYCYCLINE HYCLATE 100 MG TABLET PO (10:02)
[2020-07-24] MEDS: ESCITALOPRAM 10 MG TABLET 5 MG PO (10:02)
[2020-07-24] MEDS: BRIMONIDINE EYE-BOTH ×2 (10:04→13:46)
[2020-07-24] MEDS: DORZOLAMIDE EYE-BOTH ×2 (10:04→13:46)
[2020-07-24 11:46] VITALS: BP 151/79; PULSE 80; RESP 15; TEMP 36.8; O2SAT 95
[2020-07-24 12:17] VITALS: O2SAT 99
--- NOTE | 2020-07-24 13:45 | PM.DS.1 ---
History of Present Illness History of Present Illness Chief complaint: Welts on right arm Discharge Providers Provider Date of admission: 07/22/20 11:39 Discharge Date: 07/24/20 Primary care physician: Eduard Valdovinos MD Discharge provider: Amber Stanley MD Summary Hospital Course Discharge Diagnosis: Right upper extremity cellulitis Situational depression Hospital Course: Total of 35 minutes was spent in discharge today. This involved meeting with the patient documenting consulting with social service coordinator and nursing and arranging follow-up appointments. Patient was admitted for right upper extremity cellulitis. She has had the same in the past. She has a history of lymphedema. She had significant swelling erythema as well as a fever and was admitted and treated with IV vancomycin. She had improvement but still significant swelling and erythema at the time of discharge but white blood cell count was normal and she was afebrile and her symptoms remarkably improved so she was discharged home in improved condition. Discharge medications will be Levaquin 500 mg daily for 10 days and doxycycline 100 mg twice daily for 10 days. She will continue on her outpatient medications which include citalopram 5 mg daily. She will follow-up with Dr. Valdovinos on Wednesday at 9:15 a.m. Status at Discharge Cognitive/behavioral status at discharge: oriented Functional status at discharge: independent ambulation Overall status at discharge: patient is progressing back to baseline Exam Vital Signs (past 8 hours): - 07/24/20 08:00 07/24/20 11:46 07/24/20 12:17 Temperature 98.4 F 98.3 F Pulse Rate 72 80 Respiratory Rate 15 15 Blood Pressure 139/75 151/79 H Pulse Oximetry 97 95 99 Oxygen Delivery Method Room Air Oxygen Flow Rate 0 Narrative Exam Narrative: Afebrile vital signs are stable Patient is alert and oriented x3 in no apparent distress appears younger than her stated age HEENT: Unremarkable Neck: Supple without adenopathy Chest: Clear to auscultation without wheezes rhonchi or crackles Cor: Regular rate and rhythm without any murmur Extremities: No edema lower extremities and pulses intact. Right upper extremity with area of erythema that is less than what was outlined on original admission. She still has market swelling in the area of the elbow and mid forearm and mid biceps but improved from admit and improved from yesterday and improved from last night when I was phoned on-call. Neurologic exam is nonfocal Objective Labs Result Diagrams: 07/24/20 04:00 07/23/20 05:35 Labs: Laboratory Results - last 24 hr 07/24/20 04:00 WBC 6.0 RBC 4.09 Hgb 12.2 Hct 36.2 MCV 88.6 MCH 29.9 MCHC 33.8 RDW 12.8 Plt Count 194 Neut % (Auto) Not Reportable Lymph % (Auto) Not Reportable [place] % (Auto) Not Reportable Eos % (Auto) Not Reportable Baso % (Auto) Not Reportable Lymph # (Auto) Not Reportable [place] # (Auto) Not Reportable Baso # (Auto) Not Reportable Total Counted 100 Seg Neutrophils % 57.0 Band Neutrophils % 2.0 L Lymphocytes % (Manual) 24.0 L Atypical Lymphs % 4.0 H Monocytes % (Manual) 7.0 Eosinophils % (Manual) 5.0 H Basophils % (Manual) 1.0 Neutrophils # (Manual) 3540 RBC Morphology See below Basophilic Stippling 1+ H Discharge Assessment & Plan Assessment and Plan Assessment: Right upper extremity cellulitis, improved Plan of Treatment: Discharged home in stable and improved condition Discharge on outpatient medications Discharge on Levaquin 500 mg daily for 10 days and doxycycline 100 mg p.o. b.i.d. for 10 days Follow-up with Dr. Valdovinos on Wednesday at 9:15 a.m. Ice and alternate heat and elevate Discharge Plan Discharge Plan Patient Disposition: Home Discharge orders & Medications Prescriptions: New doxycycline hyclate 100 mg Tablet 100 mg PO BID Qty: 20 RF: 0 Continued ASPIRIN (Aspir-Low) 81 mg PO Q DAY Qty: 0 RF: 0 Metamucil Fiber Singles 3.4 GM powder in packet 1 pkt PO QDAY Qty: 0 RF: 0 ASCORBIC ACID (#VITAMIN C) 1,000 mg PO Q DAY Qty: 0 RF: 0 escitalopram oxalate [Lexapro] 5 mg Tablet 5 mg PO BEDTIME RF: 0 etodolac 400 MG tablet 400 mg PO BID PRN (Reason: for severe back pain) RF: 0 cholecalciferol (vitamin D3) [Vitamin D3] 50 mcg (2,000 unit) Tablet 2,000 unit PO BID RF: 0 omega 6-for-qme-fish oil [Fish Oil] 1,000 mg (120 mg-180 mg) Capsule 1 cap PO DAILY RF: 0 melatonin 3 mg Capsule 3 mg PO BEDTIME PRN (Reason: Sleep) RF: 0 calcium carbonate [Calcium 600] 600 mg calcium (1,500 mg) Tablet 600 mg PO BID RF: 0 loratadine [Allerclear] 10 mg Tablet 10 mg PO DAILY RF: 0 albuterol sulfate [ProAir HFA] 90 mcg/actuation Hfa Aerosol Inhaler 1 inh INHALATION QID PRN (Reason: bronchonitis or bad allergies) RF: 0 brimonidine-dorzolamide (PF) 0.15-2 % Drops 1 drp OPHTHALMIC (EYE) BID RF: 0 tpqytlt-xhqwsqoxr-zsmkszas(PF) 0.5-0.15-2 % Drops 1 drp OPHTHALMIC (EYE) DAILY RF: 0 latanoprost 0.005 % Drops 1 % OPHTHALMIC (EYE) BEDTIME RF: 0 Follow up/Referrals: Eduard Valdovinos MD [Primary Care Provider] - Discharge Health Status Multidrug resistant organism: No MDRO Diet/Activity/Treatments Diet: Diet as Tolerated Activity: elevate right arm Cold/Heat Therapy: alternate cold and heat therapy Visit Report/Discharge Packet Instructions: DI for Cellulitis -- Adult Discharge Data Primary Care Provider: Eduard Valdovinos Attending Provider: Tim Cardoso Admit Date/Time: 07/22/20 11:39
[2020-07-24] MEDS: TIMOLOL EYE-BOTH (13:46)
== END 2020-07-24 14:00 | disposition home or self-care (01) ==
LOC: ED 11:20 → AC 11:39
PROVIDERS: Family Medicine; Admitting Provider Family Medicine; Emergency Provider Emergency Medicine; PCP Family Medicine; Referring Provider Emergency Medicine; Visit Provider Family Medicine
DX: L03.113 Cellulitis of right upper limb (principal); R50.9 Fever, unspecified; E86.0 Dehydration; F32.9 Major depressive disorder, single episode, unspecified; H40.9 Unspecified glaucoma; I10 Essential (primary) hypertension; Z85.3 Personal history of malignant neoplasm of breast; Z11.59 Encounter for screening for other viral diseases
CPT/HCPCS: 36415; 71045; 80048; 80053; 81003; 81015; 83605; 83690; 84145; 85025; 85610; 85730; 87040; 87635; 93005; 93010; 96361; 96365; 96366; 96374; 96375; 99285; 99291; G0378; J2405

== ENCOUNTER → 2020-08-01 13:58 | Outpatient (CLI) | payer MEDICARE, SELFPAY ==
[2020-07-22 12:50] VITALS: BMI 25.7
--- NOTE | 2020-08-01 | DI.MG.S_ITS ---
UNILATERAL LEFT DIGITAL DIAGNOSTIC MAMMOGRAM 3D/2D WITH ADDITIONAL VIEWS: 08/01/2020 CLINICAL: Additional evaluation requested from prior study. Comparison is made to exams dated: 07/10/2020 mammogram, 04/10/2019 mammogram, and 02/24/2018 mammogram - [facility]. The tissue of left breast is heterogeneously dense. This may lower the sensitivity of mammography. There is irregular low density architectural distortion with an indistinct margin in the left breast at 1 o'clock middle depth. This is less prominent on additional views. Findings are in the region of a scar from prior excisional biopsy but appear increased in prominence compared to older studies. No other significant masses or calcifications are seen in the breast. IMPRESSION: INCOMPLETE: NEEDS ADDITIONAL IMAGING EVALUATION The irregular low density architectural distortion in the left breast is indeterminate. An ultrasound is recommended. Ultrasound will be performed immediately following the current exam. This exam was interpreted at Station ID: [id number]. NOTE: For mammograms, a report in lay terms will be sent to the patient. Approximately 15% of breast malignancies will not be visualized mammographically. In the management of a palpable breast mass, a negative mammogram must not discourage biopsy of a clinically suspicious lesion. Electronically Signed By: Chandan Kirkpatrick M.D. dddayna/:08/01/2020 14:46:51 copy to: Heather VELÁSQUEZ BI-RADS Category 0: Incomplete [id number]
--- NOTE | 2020-08-01 | DI.US.S_ITS ---
LIMITED ULTRASOUND OF LEFT BREAST AND AXILLA: 08/01/2020 CLINICAL: Patient returns today to evaluate an architectural distortion in the left breast. Comparison is made to exams dated: 08/01/2020 mammogram, 07/10/2020 mammogram, 04/10/2019 mammogram, 02/24/2018 mammogram, 01/19/2017 mammogram, and 12/17/2015 breast MRI [facility]. Color flow and real-time ultrasound of the left breast 1 o'clock, and axilla regions were performed on the areas of interest. There is a 1.1 cm x 0.7 cm x 0.8 cm irregular mass with an indistinct margin in the left breast at 1 o'clock middle depth. This irregular mass is hypoechoic. This correlates with mammography findings. Color flow imaging demonstrates that there is no vascularity present. There also is a 0.7 cm x 0.5 cm x 0.7 cm oval mass with an indistinct margin in the left breast at 1 o'clock middle depth. This oval mass is hypoechoic. This correlates with mammography findings. Color flow imaging demonstrates that there is no vascularity present. No enlarged lymph nodes were seen sonographically in the left axilla. IMPRESSION: SUSPICIOUS OF MALIGNANCY The 1.1 cm x 0.7 cm x 0.8 cm irregular mass in the left breast at 1 o'clock middle depth is suspicious of malignancy. An ultrasound guided biopsy is recommended. The 0.7 cm x 0.5 cm x 0.7 cm oval mass in the left breast at 1 o'clock middle depth is suspicious of malignancy. An ultrasound guided biopsy is recommended. The findings were discussed with the patient at the conclusion of the study by Dr. Smith. This exam was interpreted at Station ID: [id number]. Electronically Signed By: Chandan Kirkpatrick M.D. dddayna/:08/01/2020 16:24:55 copy to: Heather Benjamin letter sent: Biopsy Required Ultrasound BI-RADS: 4 Suspicious for malignancy
== END ==
PROVIDERS: PCP Family Medicine; Referring Provider Family Medicine; Visit Provider Family Medicine
DX: R92.8 Other abnormal and inconclusive findings on diagnostic imaging of breast (principal); N63.21 Unspecified lump in the left breast, upper outer quadrant; Z85.3 Personal history of malignant neoplasm of breast
CPT/HCPCS: 76642; 77065; G0279

== ENCOUNTER → 2020-08-13 12:24 | Outpatient (CLI) | payer MEDICARE, SELFPAY ==
[2020-07-22 12:50] VITALS: BMI 25.7
--- NOTE | 2020-08-13 | DI.MG.S_ITS ---
UNILATERAL LEFT DIGITAL DIAGNOSTIC MAMMOGRAM POST-EXCISIONAL BIOPSY: 08/13/2020 CLINICAL: Left breast mass. Comparison is made to exams dated: 08/01/2020 mammogram, 07/10/2020 mammogram, 04/10/2019 mammogram, 08/01/2020 ultrasound, and 02/24/2018 mammogram - [facility]. The tissue of left breast is heterogeneously dense. This may lower the sensitivity of mammography. There is a vision marker clip in the appropriate position in the left breast at 1 o'clock anterior depth at the biopsy site. IMPRESSION: POST PROCEDURE MAMMOGRAM FOR MARKER PLACEMENT There was a successful vision marker clip placement in the left breast anterior depth at the biopsy site. This exam was interpreted at Station ID: [id number]. Electronically Signed By: Shay Bruno M.D. slc/:08/14/2020 11:14:31 copy to: Heather Benjamin ACR BI-RADS Category Post-procedure mammogram for marker placement
--- NOTE | 2020-08-13 | DI.US.S_ITS ---
ULTRASOUND GUIDED BIOPSY LEFT BREAST USING VACUUM DEVICE WITH MARKING DEVICE INSERTED AND POST DIGITAL MAMMOGRAPHIC IMAGIN08/13/2020 CLINICAL: Left breast mass. PATIENT CONSENT: Risks (minor bleeding, infection, vasovagal reaction and repeat procedure), benefits and alternatives were explained to the patient and written informed consent was obtained. Correlation is made to exams dated: 08/01/2020 ultrasound, 08/01/2020 mammogram, and 07/10/2020 mammogram - [facility]. An ultrasound guided biopsy using real-time ultrasound was performed for the palpable masses seen immediately adjacent to one another with the largest measuring 1 cm x 0.8 cm x 0.7 cm. The irregular shaped mass is located in the left breast at 1 o'clock middle depth 5 cm from the nipple. This was described on the previous mammography and ultrasound reports. The skin was prepped in the usual manner. The abnormality was approached from the lateral aspect. A 13 gauge biopsy needle was placed adjacent to the abnormality through an introducer device under ultrasound guidance. Once the needle was documented to be in the correct location, nine specimens were obtained to sample both masses using the Mammotome biopsy system. A clip was inserted into the biopsy cavity. Post procedure digital mammographic imaging demonstrates the location device at the targeted area. The specimens were sent to the laboratory for pathological analysis. IMPRESSION: ULTRASOUND GUIDED BIOPSY BENIGN Ultrasound guided biopsy of the 1 cm x 0.8 cm x 0.7 cm mass in the left breast at 1 o'clock middle depth 5 cm from the nipple was successful. Pathology indicates a small papilloma (1-2 mm in size), apocrine metaplasia, usual ductal hyperplasia, fibroadenomatoid and fibrocystic changes, and stromal fibrosis. Pathology results are concordant with imaging findings. Consider surgical consultation. Recommend follow up left breast mammogram and ultrasound in 6 months to document stability. This exam was interpreted at Station ID: [id number]. Rodney Ventura M.D. aty/:08/15/2020 17:45:06 copy to: Heather Benjamin
--- NOTE | 2020-08-13 | PATH_ITS ---
[facility] Accession Number: [id number] . 01 Material submitted: . breast - LEFT BREAST MASS . 01 Clinical history: . BIOPSY POSITION 1:00 5 CM FN . 02 Diagnosis: Breast Mass at 1 o'clock, 5 cm From Nipple, Left, Needle Core Biopsy: Benign breast parenchyma with one small papilloma (1-2 mm) and fibrocystic and fibroadenomatous features, including cystic dilatation of terminal ductules, dense stromal fibrosis, apocrine metaplasia, and usual ductal hyperplasia. Rare microcalcifications are present and are associated with benign ductal epithelium. No definite mass identified; please correlate with clinical and imaging studies. [facility] 08/14/2020 1758 Local . 02 Electronically signed: . Nicole Peguero MD, Pathologist NPI- [id number] . 01 Gross description: . Received one formalin-filled container, labeled with the patient's name and labeled LT breast bx/mass 1 o'clock 5 cm FN. The specimen is received with a plastic filter in container, sample loose in container and consists of multiple yellow-justice portions of soft tissue which range in size from 0.3 x 0.2 x 0.2 cm to 1.3 x 0.2 x 0.2 cm. The specimen is entirely submitted in one cassette. Collection date per container: 08/13/20. No collection time per container. Possible collection time per requisition: 14:19. Total fixation time: Approximately 13 hours. ([id number]) /FRFeli 08/14/2020 0235 Local . 02 Pathologist provided ICD-10: D24.9 . 02 CPT . 500747 Performed at: [address] [id number] MD Chandan Gomez MD Phone: [phone] Performed at: 02 [facility] [id number] [place] [id number] MD Adilene Iqbal MD Phone: [phone]
== END ==
PROVIDERS: PCP Family Medicine; Referring Provider Family Medicine; Visit Provider Family Medicine
DX: D24.2 Benign neoplasm of left breast (principal); N60.82 Other benign mammary dysplasias of left breast; N60.32 Fibrosclerosis of left breast
CPT/HCPCS: 19083; 77065

== ENCOUNTER → 2020-12-26 13:28 | Outpatient (CLI) | payer MEDICARE, SELFPAY ==
[2020-07-22 12:50] VITALS: BMI 25.7
--- NOTE | 2020-12-26 | DI.MRI.S_ITS ---
PROCEDURE: MR LUMBAR SPINE WO CON INDICATIONS: RADICULOPATH, LUMBAR REGION TECHNIQUE: Noncontrast sagittal T1 spin echo and T2 fast echo, sagittal STIR, axial T1 and T2 fast spin echo through the lumbar spine. In cases with scoliosis, additional coronal T2 fast spin echo may be performed. COMPARISON: [facility], CR, XR LUMBAR SPINE 2-3V, 11/16/2018, 12:08. [facility], MR, MR LUMBAR SPINE WO CON, 12/07/2018, 14:36. FINDINGS: Image quality: Excellent. Alignment and Curvature: 5 lumbar type vertebral bodies are present by plain film. There is mild, grade 1 retrolisthesis of T10 on T11, T11 on T12, T12 on L1, L1 on L2. Mild grade 1 anterolisthesis of L3 on L4 and L4 on L5. Bone Marrow: Marrow is of normal overall signal. No acute vertebral body compression fractures. Mild reactive signal within the endplates adjacent to the T9-T10, T10-T11, T11-T12, T12-L1, L1-L2, L2-L3, and L5-S1 intervertebral discs. Spinal Cord: Conus medullaris terminates at the L1-L2 disc space level. Visualized cord demonstrates normal signal and size. Paraspinous Soft Tissues: No paravertebral masses. T12-L1: Moderate disc height loss and desiccation. Mild diffuse disc bulge. Mild facet and ligamentum flavum hypertrophy. Mild canal stenosis. Moderate left and mild right foraminal stenosis. No change. L1-L2: Moderate disc desiccation. Mild disc height loss. Moderate diffuse disc bulge. Mild facet and ligamentum flavum hypertrophy. Mild canal stenosis. Mild left greater than right foraminal stenosis. No change. L2-L3: Moderate disc height loss and desiccation. Mild diffuse disc bulge. Moderate facet and ligamentum flavum hypertrophy. Mild canal stenosis. Moderate bilateral foraminal stenosis. No change. L3-L4: Moderate disc height loss and desiccation. Mild diffuse disc bulge with new superimposed right posterolateral disc extrusion which extends superiorly within the lateral recess and anterior epidural space. Moderate facet and ligamentum flavum hypertrophy. Mild epidural lipomatosis. There is increased, severe canal stenosis. There is increased, severe right foraminal stenosis and no change in moderate left foraminal stenosis. Right L3 nerve root compression, new since the prior examination. L4-L5: Moderate disc height loss and desiccation. Mild diffuse disc bulge. Moderate facet and ligamentum flavum hypertrophy. Mild epidural lipomatosis. Mild canal stenosis. Severe right and mild left foraminal stenosis. Right L4 nerve root compression. No change. L5-S1: Severe disc height loss and desiccation. Mild diffuse disc bulge. Mild bilateral facet hypertrophy. Mild canal stenosis. No foraminal stenosis. No change. IMPRESSION: 1. Multilevel degenerative disc and facet disease, as well as ligamentum flavum hypertrophy and epidural lipomatosis. 2. Multilevel canal stenoses, worst at L3-L4 where there is increased, severe canal stenosis. 3. Multilevel foraminal stenosis, worst at L3-L4 and L4-L5 where there is associated intraforaminal nerve root compression. Dictated by: Leeroy Lopez M.D. on 12/26/2020 at 16:07 Approved by: Leeroy Lopez M.D. on 12/26/2020 at 16:13
== END ==
PROVIDERS: Referring Provider Physical Medicine & Rehabilitation Pain Medicine; Visit Provider Physical Medicine & Rehabilitation Pain Medicine
DX: M54.16 Radiculopathy, lumbar region (principal); M51.36 Other intervertebral disc degeneration, lumbar region; M48.061 Spinal stenosis, lumbar region without neurogenic claudication; M51.37 Other intervertebral disc degeneration, lumbosacral region; M48.07 Spinal stenosis, lumbosacral region
CPT/HCPCS: 72148

== ENCOUNTER 2021-02-18 10:10 | Inpatient (IN) | payer MEDICARE, SELFPAY ==
[2020-07-22 12:50] VITALS: BMI 25.7
[2021-02-18] VITALS (15 sets, daily range): BP systolic 114–183; BP diastolic 57–121; PULSE 73–95; RESP 18; TEMP 37.3; O2SAT 90–98; BMI 25.7; BMI 27.4
--- NOTE | 2021-02-18 10:17 | ED.EXTPRO ---
HPI - Extremity Problem General Chief complaint: Extremity Problem,Nontraumatic Stated complaint: charleneon right arm. with welts Time Seen by Provider: 02/18/21 10:15 Source: patient and family Mode of arrival: Ambulatory Limitations: no limitations History of Present Illness HPI Narrative: 80-year-old female nonsmoker with history of swollen extremity, redness and chills. She has had lymphedema ever since being treated for malignant neoplasm of her breast with lumpectomy and subsequent node removal. Her symptoms started yesterday and now her entire arm is red, swollen and painful. She denies nausea or vomiting. She denies chest pain or shortness of breath. She has been admitted for cellulitis even sepsis from this infection in the past. She is not dizzy nor weak or lightheaded. She is otherwise well and free of complaint MD Complaint: extremity pain, extremity swelling and joint swelling Onset (ago): hour(s) Pain Consistency: constant Location: right Quality: burning, stabbing and aching Radiation: none Relieving factors: rest Exacerbating factors: range of motion and palpation Related Data Home Medications Medication Instructions Recorded Confirmed albuterol sulfate [ProAir HFA] 1 inh INHALATION QID PRN 07/23/20 02/18/21 brimonidine-dorzolamide (PF) 1 drp OPHTHALMIC (EYE) BID 07/23/20 02/18/21 cholecalciferol (vitamin D3) 4,000 unit PO QPM 07/23/20 02/18/21 [Vitamin D3] latanoprost 1 % OPHTHALMIC (EYE) BEDTIME 07/23/20 02/18/21 melatonin 3 mg PO BEDTIME PRN 07/23/20 02/18/21 [id number](PF) 1 drp OPHTHALMIC (EYE) DAILY 07/23/20 02/18/21 aspirin 81 mg tablet,delayed 81 mg PO BEDTIME 08/29/20 02/18/21 release Allergies Allergy/AdvReac Type Severity Reaction Status Date / Time latex [LATEX] Allergy Severe RASH Verified 08/29/20 10:54 Penicillins [PENICILLINS] Allergy Unknown ALL OVER Verified 08/29/20 10:54 BODY WELTS Sulfa (Sulfonamide Allergy Unknown WAS GIVEN Verified 08/29/20 10:54 Antibiotics) WHEN BABY, [SULFA (SULFONAMIDE UNSURE IF ANTIBIOTICS)] STILL HAS ALLERGY Review of Systems Constitutional Constitutional: Reports chills, Denies fatigue, Denies fever(s), Denies frequent falls, Denies lethargy and Denies weakness Eyes Eyes: Denies change in vision, Denies eye discharge, Denies irritation and Denies loss of vision ENT Ears, Nose, Mouth, and Throat: Denies change in voice, Denies dizziness, Denies neck pain, Denies sore throat and Denies throat swelling Cardiovascular Cardiovascular: Denies chest pain, Denies irregular heart rhythm, Denies lightheadedness, Denies palpitations, Denies dyspnea, Denies dyspnea on exertion and Denies orthopnea Respiratory Respiratory: Denies cough, Denies dyspnea, Denies dyspnea on exertion and Denies wheezing Gastrointestinal Gastrointestinal: Denies abdominal pain, Denies change in bowel habits, Denies diarrhea, Denies nausea and Denies vomiting Musculoskeletal Musculoskeletal: Denies neck pain and Denies numbness Integumentary/Breasts Skin/Breast: Denies pruritus, Reports erythema, Denies rash, Reports skin pain, Reports skin swelling and Denies wounds Neurologic Neurologic: Denies behavioral changes, Denies confusion, Denies dizziness, Denies frequent falls, Denies loss of vision, Denies numbness and Denies weakness Psychiatric Psychiatric: Denies anxiety, Denies behavioral changes, Denies confusion, Denies depression, Denies homicidal ideation and Denies suicidal ideation Endocrine Endocrine: Denies fatigue, Denies flushing and Denies palpitations Hematologic/Lymphatic Hematologic/Lymphatic: Denies easy bruising Allergic/Immunologic Allergic/Immunologic: Denies urticaria, Denies throat swelling and Denies wheezing Patient History Medical History Arthritis Cellulitis of arm, right H/O malignant neoplasm of breast Lymphedema of arm Sciatica Spinal stenosis Surgical History History of lymph node dissection of both axillae Social History household members: spouse Smoking Status: Never smoker alcohol intake: current Smoking Status: Never smoker alcohol intake frequency: 0-2 drinks per day Substance Use Type: does not use Exam Narrative Exam Narrative: GENERAL: [80] year old patient appears stated age. Well-nourished, well-developed patient, in mild distress. HEAD: Atraumatic. Normocephalic. EYES: Pupils equal round and reactive. Extraocular motions intact. No scleral icterus. No injection or drainage. ENT: Nose without bleeding, purulent drainage. Throat without erythema, tonsillar hypertrophy or exudate. Airway patent. NECK: Trachea midline. Non tender CARDIOVASCULAR: Regular rate and rhythm without murmurs, gallops, or rubs. RESPIRATORY: Clear to auscultation. Breath sounds equal bilaterally. No wheezes, rales, or rhonchi. GASTROINTESTINAL: Abdomen soft, non-tender, nondistended. EXTREMITIES: Significant swelling, redness, warmth and discomfort of entire right arm.. BACK: Nontender without deformity or crepitance. No flank tenderness. NEURO: AOx3. SKIN: No rash or erythema of visible areas Initial Vital Signs Initial Vital Signs: Vital Signs Pulse Rate 95 H 02/18/21 10:25 Respiratory Rate 18 02/18/21 10:25 Blood Pressure 167/82 H 02/18/21 10:25 Pulse Oximetry 97 02/18/21 10:25 Course Orders Ordered: ED Orders 02/18/21 10:57 COVID19 - ADMIT (INSULATION CUTTER AND FORMER swab/PCR) Stat Complete Blood Count AUTO DIFF Stat Comprehensive Metabolic Panel Stat 02/18/21 11:01 US periph venous up extrem rt Stat 02/18/21 11:28 Complete Blood Count AUTO DIFF Stat 02/18/21 11:29 Lactate (Lactic Acid) Stat 02/18/21 12:07 Blood Culture Stat 02/18/21 17:03 COVID19 -Nasal swab/Pre-Proc Stat Acetaminophen (Acetaminophen 325 Mg Tablet) 650 mg PO Q6HR PRN PRN Reason: Fever/Mild Pain (1-3) Hydrocodone Bitart/Acetaminophen (Hydrocodone/Acet 5/325 Tablet) 1 tab PO Q4HR PRN PRN Reason: Pain, Moderate (4-6) Calcium Carbonate (Calcium Carbonate 500 Mg Tab) 1,000 mg PO Q4HR PRN PRN Reason: Dyspepsia Sodium Chloride (Normal Saline 0.9%) 1,000 mls @ 125 mls/hr IV CONT NUBIA Last Infusion: 02/18/21 16:30 Dose: 0 mls/hr Documented by: Admin: 02/18/21 12:08 Dose: 125 mls/hr Documented by: GERI Vancomycin HCl (Vancomycin) 1,250 mg in 250 mls @ 250 mls/hr IV Q24H [facility] Ibuprofen (Ibuprofen 600 Mg Tablet) 600 mg PO Q6HR PRN PRN Reason: Fever/Mild Pain (1-3) Lorazepam (Lorazepam 2 Mg/Ml Inj) 0.5 mg IV Q4HR PRN PRN Reason: Anxiety Magnesium Hydroxide (Magnesium Hydroxide 30 Ml Udc) 30 ml PO DAILY PRN PRN Reason: Constipation Melatonin (Melatonin 3 Mg Tablet) 3 mg PO BEDTIME NUBIA Morphine Sulfate (Morphine 2 Mg/Ml Inj) 2 mg IV Q4HR PRN PRN Reason: Pain, Moderate (4-6) Naloxone HCl (Naloxone 0.4 Mg/Ml Vial) 0.2 mg IV Q2MIN PRN PRN Reason: Opiate Reversal Ondansetron HCl (Ondansetron 4 Mg/2 Ml Inj) 4 mg IV Q8HR PRN PRN Reason: Nausea And Vomiting Vancomycin HCl (Vancomycin Trough) 1 request [facility] [address] [facility] Stop: 02/21/21 11:31 Discontinued Medications Vancomycin HCl/Dextrose (Vancomycin) 1,500 mg in 300 mls @ 200 mls/hr IV NOW ONE Stop: 02/18/21 12:30 Last Infusion: 02/18/21 13:51 Dose: 0 mls/hr Documented by: Admin: 02/18/21 12:09 Dose: 200 mls/hr Documented by: GERI Vancomycin HCl (Vancomycin Per Pharmacy) 1 request MIS NOW ONE Stop: 02/18/21 17:42 Vital Signs Vital signs: Vital Signs - 8 hr 02/18/21 11:32 02/18/21 12:00 02/18/21 12:13 Pulse Rate 92 H 78 85 Blood Pressure 145/68 H Pulse Oximetry 94 98 98 02/18/21 12:30 02/18/21 13:00 02/18/21 13:30 Pulse Rate 78 74 75 Blood Pressure 145/64 H 137/65 114/57 L Pulse Oximetry 98 97 95 MDM - Extremity (Nontraumatic) Lab Data Result diagrams: 02/18/21 10:57 02/18/21 10:57 Labs: Lab Results 02/18/21 02/18/21 02/18/21 Range/Units 10:57 10:57 10:57 WBC 8.2 (4.5-11.0) X10^3/uL RBC 4.27 (4.0-5.2) X10^6/uL Hgb 12.8 (12.0-16.0) g/dL Hct 37.7 (36-46) % MCV 88.3 (80-100) fL MCH 30.0 (26-34) PG MCHC 33.9 (30-36) % RDW 13.4 (11.6-14.8) % Plt Count 183 (150-400) X10^3/uL Neut % (Auto) 82.5 H (50-75) % Lymph % (Auto) 7.1 L (25-40) % [place] % (Auto) 9.9 (3-14) % Eos % (Auto) 0.3 L (2-4) % Baso % (Auto) 0.2 (0-2) % Neut # (Auto) 6800 (1167-4944) /uL Lymph # (Auto) 600 L (2704-8348) /uL [place] # (Auto) 800 (0-900) /uL Eos # (Auto) 0 (0-450) /uL Baso # (Auto) 0 (0-100) /uL Sodium 135 L (137-145) mmol/L Potassium 3.7 (3.4-5.1) mmol/L Chloride 100 (98-107) mmol/L Carbon Dioxide 31 (22-32) mmol/L BUN 14 (7-17) mg/dL Creatinine 0.55 (0.52-1.04) mg/dL Estimated GFR > 60.0 (>60) mL/min BUN/Creatinine Ratio 25.5 H (6-22) Glucose 82 (80-110) mg/dL Calcium 9.1 (8.4-10.2) mg/dL Total Bilirubin 1.0 (0.2-1.3) mg/dL AST 23 (14-36) IU/L ALT 14 (<35) IU/L Alkaline Phosphatase 61 (38-126) U/L Total Protein 6.6 (6.3-8.2) g/dL Albumin 3.9 (3.5-5.0) g/dL Globulin 2.7 (1.7-4.1) g/dL Albumin/Globulin Ratio 1.4 (1.0-2.8) SARS-CoV-2 (PCR) Negative (Negative) Imaging Data US - DVT: Radiologist's Impression: Karla Burt 80 F [address] [id number] ReportSigned Patient: Karla Burt LMR#: [id number]: 1940cct:[id number]/Sex: 80 / FDate of Service: 02/18/21Loc: EDAccession Number: [id number] Procedure: US periph venous up extrem rt Ordering Provider: Tom Murray D.O. PROCEDURE: US PERIPH VENOUS UP EXTREM RT INDICATIONS: pain, swelling, redness, hx Cancer TECHNIQUE: Real-time imaging, as well as color and pulse Doppler interrogation, was performed of the right upper extremity deep veins from the inferior neck to the antecubital fossa. COMPARISON: [facility], PERIP VENOUS UP EXTREM RT, 06/03/2019, 7:21. FINDINGS: The internal jugular vein, visualized portions of the subclavian vein, axillary, and brachial veins are free of intraluminal thrombus. Where physically possible, the veins are normally compressible. Color and pulse Doppler demonstrate normal intraluminal flow, with expected phasicity and pulsatility. Additional scanning of the cephalic and basilic veins of the superficial system demonstrate normal compressibility, without thrombus. IMPRESSION: Negative for deep venous thrombosis. Dictated by: Arslan Eason M.D. on 02/18/2021 at 10:31 Approved by: Arslan Eason M.D. on 02/18/2021 at 10:32 Discharge Plan Departure Patient Disposition: Admitted as Observation Clinical Impression: Cellulitis of arm, right Admit Date/Time: 02/18/21 13:42 Admit Provider: Tim Cardoso
--- NOTE | 2021-02-18 11:01 | DI.US.S_ITS ---
PROCEDURE: US PERIP VENOUS UP EXTREM RT INDICATIONS: pain, swelling, redness, hx Cancer TECHNIQUE: Real-time imaging, as well as color and pulse Doppler interrogation, was performed of the right upper extremity deep veins from the inferior neck to the antecubital fossa. COMPARISON: [facility], , [place] [facility] VENOUS UP EXTREM RT, 06/03/2019, 7:21. FINDINGS: The internal jugular vein, visualized portions of the subclavian vein, axillary, and brachial veins are free of intraluminal thrombus. Where physically possible, the veins are normally compressible. Color and pulse Doppler demonstrate normal intraluminal flow, with expected phasicity and pulsatility. Additional scanning of the cephalic and basilic veins of the superficial system demonstrate normal compressibility, without thrombus. IMPRESSION: Negative for deep venous thrombosis. Dictated by: Arslan Eason M.D. on 02/18/2021 at 10:31 Approved by: Arslan Eason M.D. on 02/18/2021 at 10:32
[2021-02-18 11:18] LABS: Add Manual Diff / Slide Review NO; Basophils Absolute Auto 0 /uL (0-100); Basophils Percent Auto 0.2 % (0-2); Eosinophils Absolute Auto 0 /uL (0-450); Eosinophils Percent Auto 0.3 % (2-4); Hematocrit 37.7 % (36-46); Hemoglobin 12.8 g/dL (12.0-16.0); Lymphocytes Absolute Auto 600 /uL (1100-4500); Lymphocytes Percent Auto 7.1 % (25-40); Mean Corpuscular HGB Conc 33.9 % (30-36); Mean Corpuscular Volume 88.3 fL (80-100); Monocytes Absolute Auto 800 /uL (0-900); Monocytes Percent Auto 9.9 % (3-14); Neutrophils Absolute Auto 6800 /uL (1500-7000); Neutrophils Percent Auto 82.5 % (50-75); Platelet Count 183 X10^3/uL (150-400); Red Blood Cell Count 4.27 X10^6/uL (4.0-5.2); Red Cell Distribution Width 13.4 % (11.6-14.8); White Blood Cell Count 8.2 X10^3/uL (4.5-11.0)
[2021-02-18 11:25] LABS: Alanine Aminotransferase 14 IU/L (<35); Albumin 3.9 g/dL (3.5-5.0); Albumin Globulin Ratio 1.4 (1.0-2.8); Alkaline Phosphatase 61 U/L (38-126); Aspartate Aminotransferase 23 IU/L (14-36); BUN Creatinine Ratio 25.5 (6-22); Blood Urea Nitrogen 14 mg/dL (7-17); Calcium 9.1 mg/dL (8.4-10.2); Carbon Dioxide 31 mmol/L (22-32); Chloride 100 mmol/L (98-107); Estimated Glomerular Filt Rate > 60.0 mL/min (>60); Globulin 2.7 g/dL (1.7-4.1); Glucose 82 mg/dL (80-110); HEMOLYSIS < 15 (0-50); Sodium 135 mmol/L (137-145); Total Protein 6.6 g/dL (6.3-8.2)
[2021-02-18 11:32] LABS: Potassium 3.7 mmol/L (3.4-5.1)
[2021-02-18] MEDS: SODIUM CHLORIDE 0.9% 1,000 ML 125 ML IV (12:08)
[2021-02-18] MEDS: VANCOMYCIN 1,500 MG/300 ML PIGGYBACK 200 MG IV (12:09)
[2021-02-18 12:10] LABS: COVID19 - ADMIT (NP swab/PCR) Negative (Negative)
--- NOTE | 2021-02-18 17:45 | PM.HP.1 ---
History of Present Illness History of Present Illness Date Patient Seen: 02/18/21 Time Patient Seen: 18:06 Date of Onset of Symptoms: 02/18/21 Chief complaint: swollon right arm. with welts Narrative: This is a very pleasant otherwise fairly healthy 80-year-old female who presents to the emergency department with complaints of a several hour history of increased swelling in her right upper extremity with erythema and increased warmth. Patient was found to have significant swelling and presence of a cellulitis and was admitted for the same. She has had previous episodes. Her most recent was in July of 2020. Patient has a distant history of mastectomy with lymph node dissection I believe in 1997 and has had lymphedema since that time. She has been hospitalized probably this is the ninth time for a secondary cellulitis. She was last admitted in July for the same problem and she states that it always starts the same way and rapidly progresses. She feels that she has gotten immediately and gotten sooner before a temperature started. She was treated vancomycin with her last hospitalization and discharged home on Levaquin and doxycycline and her symptoms completely resolved and she was doing well. Patient states that she was in her usual state health but noticed about a week ago that she started have some increased swelling in her right upper extremity. She does not wear compression sleeve all the time but when she does have some swelling that is not uncommon for her to get if she works too much on a computer then she will start wearing the compression sleeve. Also approximately a week ago she Bashed her nail of her right hand on the thumb in the [place] and it was bloody and she lost part of the distal nail however they were very meticulous about keeping it clean and clear that. This occurred a week ago. She can not think of anything else that might have contributed to this episode of cellulitis. Patient did have an epidural steroid injection in her lumbosacral spine by Dr. Bush about 4 weeks ago and yesterday she had a cortisone injection in her right knee. She has had these previously and has not caused right upper extremity swelling or cellulitis. Patient became ill in the middle the night with severe chills and freezing but she did have a fever and then she awakened this morning and her arm felt like it was on fire and it was swollen and erythematous. She then presented to the emergency department immediately Past medical history: 1. Distant history of breast cancer with partial mastectomy 2. Chronic right upper extremity lymphedema 3. Recurrent cellulitis of right upper extremity 4. White coat hypertension. Patient has never taken medications for her blood pressure 5. Glaucoma 6. Degenerative joint disease affecting fingers, knees, back 7. Degenerative disc disease lumbosacral spine 8. History of depression associated with of her adult daughter 9. Reactive airway disease mild intermittent only takes as needed medications no recent symptoms 10. Family history of colon cancer, up-to-date on colonoscopies Medications patient is only using glaucoma drops and vitamin-D and melatonin 3 mg at bedtime Past surgical history 1997 right partial mastectomy 1992 hysterectomy Family history: Father of colon cancer at age 78 Mother of pneumonia at 58 and she was a smoker Sibling with a CVA Daughter drowned after taking too many ?drugs Health related behavior Patient does not smoke and never has and regular basis Patient does not use illicit drugs Patient does not use alcohol Social history: Patient is and lives with her in [place]. 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 She has 1 living daughter who lives on the same property as her and her Review of systems: Patient had a moderna a COVID vaccine x2 in the last 1 was 4 weeks ago No nausea vomiting or change in bowels. No diarrhea. Normal appetite. No urinary symptoms. No headaches. No chest pain or shortness of breath Monitors blood pressures at home and the highest it ever gets is 147 systolic Patient History Medical History Arthritis Cellulitis of arm, right H/O malignant neoplasm of breast Lymphedema of arm Sciatica Spinal stenosis Surgical History History of lymph node dissection of both axillae Family & Social History Social History: household members spouse Prior Living Arrangements House Safety & Behavioral: Feels Safe in Current Yes Environment Been Physically Hurt or No Threatened By a Person Suicidal Ideation Description None Suicide Plan Description No Plan Tobacco & Substance use: Smoking Status Never smoker alcohol intake current alcohol intake frequency holiday/special occasion Substance Use Type does not use Meds Home Medications and Allergies Home Medications Medication Instructions Recorded Confirmed Type albuterol sulfate [ProAir HFA] 1 inh INHALATION QID PRN 07/23/20 02/18/21 History brimonidine-dorzolamide (PF) 1 drp OPHTHALMIC (EYE) BID 07/23/20 02/18/21 History cholecalciferol (vitamin D3) 4,000 unit PO QPM 07/23/20 02/18/21 History [Vitamin D3] latanoprost 1 % OPHTHALMIC (EYE) BEDTIME 07/23/20 02/18/21 History melatonin 3 mg PO BEDTIME PRN 07/23/20 02/18/21 History szxyrmf-hkbvxrpjx-pgibesvn(PF) 1 drp OPHTHALMIC (EYE) DAILY 07/23/20 02/18/21 History aspirin 81 mg tablet,delayed 81 mg PO BEDTIME 08/29/20 02/18/21 History release Allergies Allergy/AdvReac Type Severity Reaction Status Date / Time latex [LATEX] Allergy Severe RASH Verified 08/29/20 10:54 Penicillins [PENICILLINS] Allergy Unknown ALL OVER Verified 08/29/20 10:54 BODY WELTS Sulfa (Sulfonamide Allergy Unknown WAS GIVEN Verified 08/29/20 10:54 Antibiotics) WHEN BABY, [SULFA (SULFONAMIDE UNSURE IF ANTIBIOTICS)] STILL HAS ALLERGY Review of Systems Review of Systems Narrative: Review of systems is negative other than HPI Exam Vital Signs (past 8 hours): - 02/18/21 10:25 02/18/21 11:32 02/18/21 12:00 Temperature Pulse Rate 95 H 92 H 78 Respiratory Rate 18 Blood Pressure 167/82 H Pulse Oximetry 97 94 98 02/18/21 12:13 02/18/21 12:30 02/18/21 13:00 Temperature Pulse Rate 85 78 74 Respiratory Rate Blood Pressure 145/68 H 145/64 H 137/65 Pulse Oximetry 98 98 97 02/18/21 13:30 02/18/21 14:00 02/18/21 14:30 Temperature Pulse Rate 75 78 79 Respiratory Rate Blood Pressure 114/57 L Pulse Oximetry 95 98 96 02/18/21 14:57 02/18/21 15:00 02/18/21 15:30 Temperature Pulse Rate 84 84 91 H Respiratory Rate Blood Pressure 161/70 H 154/70 H 183/89 H Pulse Oximetry 96 97 96 02/18/21 16:00 02/18/21 17:00 Temperature 99.2 F Pulse Rate 73 82 Respiratory Rate 18 Blood Pressure 148/65 H 157/121 H Pulse Oximetry 98 90 L Oxygen Delivery Method Room Air Narrative Exam Narrative: Afebrile vital signs are stable. Alert and oriented no apparent distress an excellent historian HEENT: Unremarkable other than flushed cheeks but no rash. Mucous membranes moist and pink without lesions Neck: Supple without adenopathy or thyromegaly Chest: Clear to auscultation without wheezes rhonchi or crackles Cor: Regular rate and rhythm without any murmur Abdomen: Positive bowel sounds, soft, nontender, nondistended Extremities no lower extremity edema and pulses intact Right upper extremity shows marked swelling and erythema which is demarcated with a sharpie. Her biceps measures 33 cm 7 cm superior to the olecranon and 31.5 cm 10 cm below the olecranon. It is very warm to touch. There is no drainage. There is no fluctuance Neurologic exam: Nonfocal. Specifically normal strength and sensation bilateral upper extremities and normal DTRs Objective Labs Result Diagrams: 02/18/21 10:57 02/18/21 10:57 Labs: Laboratory Results - last 24 hr 02/18/21 02/18/21 02/18/21 10:57 10:57 10:57 WBC 8.2 RBC 4.27 Hgb 12.8 Hct 37.7 MCV 88.3 MCH 30.0 MCHC 33.9 RDW 13.4 Plt Count 183 Neut % (Auto) 82.5 H Lymph % (Auto) 7.1 L [place] % (Auto) 9.9 Eos % (Auto) 0.3 L Baso % (Auto) 0.2 Neut # (Auto) 6800 Lymph # (Auto) 600 L [place] # (Auto) 800 Eos # (Auto) 0 Baso # (Auto) 0 Sodium 135 L Potassium 3.7 Chloride 100 Carbon Dioxide 31 BUN 14 Creatinine 0.55 Estimated GFR > 60.0 BUN/Creatinine Ratio 25.5 H Glucose 82 Calcium 9.1 Total Bilirubin 1.0 AST 23 ALT 14 Alkaline Phosphatase 61 Total Protein 6.6 Albumin 3.9 Globulin 2.7 Albumin/Globulin Ratio 1.4 SARS-CoV-2 (PCR) Negative Assessment & Plan Assessment & Plan narrative: 80-year-old female admitted for right upper extremity cellulitis in the setting of chronic lymphedema from previous mastectomy Assessment 1. Cellulitis Plan: Will go and treat with vancomycin. Will elevate the arm. Full use cool compresses. Will treat with Tylenol or Motrin if there is a fever and we will recheck labs in the a.m.. Reviewed Doppler that showed no evidence of DVT. Patient is resistant to wearing the compression sleeve on a regular basis but I think this would probably help. I do not think this is associated with the steroid injections but certainly could be a associated with the injury to her finger and it may be that taking antibiotics if she does get a cut or any other trauma to that right upper extremity would be the best prevention. May need to talk to Infectious Disease or surgery to see how else we could best prevent this. 2. White coat hypertension with elevated blood pressures now Plan: Will continue to monitor Assessment 3. Insomnia Plan: Will continue melatonin 3 mg daily Assessment 4. Glaucoma Plan: Patient can take outpatient medications Assessment 5. History of breast cancer without acute issues Assessment 6. History of depression without acute symptoms and stable off medications. Assessment 7. Degenerative joint disease without current symptoms Plan will continue to follow Code status is full code Time spent with patient was 62 minutes in meeting with patient discussing with ER and nursing, reviewing her chart documenting and formulating a plan Quality VTE Deep Vein Thrombosis/Pulmonary Embolism Present on Admission: No
--- NOTE | 2021-02-18 18:22 | PC.NURSE ---
Addendum entered by Beatriz Tellez R.N. 02/18/21 21:03: Uneventful evening, Right arm elevated on pillows, w/ice HL RAC intact/patent. Call light w/in reach, independent in room. Continue w/plan of care. Original Note: Pt arrived from ED, alert/oriented. Up independently in room. Right arm is red, swollen & tender to touch. Presents w/ hive like redness on upper arm. Pulses ++ HL LAC intact/patent. Call light w/in reach, pt calls appropriately for needs.
[2021-02-18 20:50] LABS: Lactate (Lactic Acid) 1.6 mmol/L (0.7-2.1)
[2021-02-19] VITALS (7 sets, daily range): BP systolic 153–157; BP diastolic 70–95; PULSE 74–92; RESP 16–20; TEMP 36.6–36.8; O2SAT 94–98
[2021-02-19] MEDS: MELATONIN 3 MG TABLET PO (00:36)
--- NOTE | 2021-02-19 09:07 | P.PN_ITS ---
Subjective Subjective Date Patient Seen: 02/19/21 Time Patient Seen: 08:39 Interval history: Pt doing well overnight. Erythema is fading, not extending past marked areas. Eating, sleeping, and eliminating all wnl. Discussed with pt and if this course continues she is a good candidate for discharge home on PO antibiotics tomorrow. Exam Vital Signs (past 8 hours): - 02/19/21 09:02 Temperature 98.3 F Pulse Rate 92 H Respiratory Rate 16 Blood Pressure 157/95 H Pulse Oximetry 94 Oxygen Delivery Method Room Air Oxygen Flow Rate 0 Narrative Exam Narrative: sitting up in bed looking at breakfast tray Const General: cooperative, healthy appearing, comfortable and well developed HENMT Head: normal to inspection, normocephalic and atraumatic Resp Effort & Inspection: normal respiratory effort and able to speak in complete sentences Auscultation: clear to auscultation bilaterally Cardio Rate: regular rate Rhythm: regular rhythm Heart Sounds: S1 normal and S2 normal GI Inspection: normal to inspection Palpation: soft Auscultation: normal bowel sounds Extrem Other: RUE with fading erythema not extending past marked area which is extensive from wrist to shoulder. Pt able to use that arm and hand for tasks, distal NV intact. R thumbnail does appear to have a slight subungual injury but not currently bleeding or draining. Psych Appearance: grossly normal Mental Status: mental status grossly normal Speech and Movement: speech and movement normal Objective Labs Result Diagrams: 02/18/21 10:57 02/18/21 10:57 Labs: Laboratory Results - last 24 hr 02/18/21 02/18/21 02/18/21 10:57 10:57 10:57 WBC 8.2 RBC 4.27 Hgb 12.8 Hct 37.7 MCV 88.3 MCH 30.0 MCHC 33.9 RDW 13.4 Plt Count 183 Neut % (Auto) 82.5 H Lymph % (Auto) 7.1 L [place] % (Auto) 9.9 Eos % (Auto) 0.3 L Baso % (Auto) 0.2 Neut # (Auto) 6800 Lymph # (Auto) 600 L [place] # (Auto) 800 Eos # (Auto) 0 Baso # (Auto) 0 Sodium 135 L Potassium 3.7 Chloride 100 Carbon Dioxide 31 BUN 14 Creatinine 0.55 Estimated GFR > 60.0 BUN/Creatinine Ratio 25.5 H Glucose 82 Lactate Calcium 9.1 Total Bilirubin 1.0 AST 23 ALT 14 Alkaline Phosphatase 61 Total Protein 6.6 Albumin 3.9 Globulin 2.7 Albumin/Globulin Ratio 1.4 SARS-CoV-2 (PCR) Negative 02/18/21 10:57 WBC RBC Hgb Hct MCV MCH MCHC RDW Plt Count Neut % (Auto) Lymph % (Auto) [place] % (Auto) Eos % (Auto) Baso % (Auto) Neut # (Auto) Lymph # (Auto) [place] # (Auto) Eos # (Auto) Baso # (Auto) Sodium Potassium Chloride Carbon Dioxide BUN Creatinine Estimated GFR BUN/Creatinine Ratio Glucose Lactate 1.6 Calcium Total Bilirubin AST ALT Alkaline Phosphatase Total Protein Albumin Globulin Albumin/Globulin Ratio SARS-CoV-2 (PCR) [facility] [place] Medical History Arthritis Cellulitis of arm, right H/O malignant neoplasm of breast Lymphedema of arm Sciatica Spinal stenosis Surgical History History of lymph node dissection of both axillae Social History household members: spouse Smoking Status: Never smoker alcohol intake: current Assessment & Plan Assessment & Plan narrative: #cellulitis of RUE Doing well on vanc IV with symptomatic improvement. No DVT per US. WBCs not elevated on admission so it seems like she did get in before going septic which is excellent. Agree that ungual trauma may be contributor and advise wearing sleeve/glove as general rule on discharge. #elevated BP, white coat hypertension monitor, stable #insomnia controlled, continue melatonin #glaucoma stable, continue outpt meds #hx of breast cancer s/p partial mastectomy #RUE lymphedema stable, encourage compression sleeve on discharge #MDD, in remission, off meds, stable #DJD, stable, not on meds code: full DVT ppx: lovenox dispo: likely home tomorrow on po abx Quality VTE Deep Vein Thrombosis/Pulmonary Embolism Present on Admission: No
--- NOTE | 2021-02-19 12:18 | CM.DANOTE ---
DCP: Case received, EMR reviewed and met with patient. Introduced self and role. Was able to obtain information from patient regarding her baseline activity status prior to her hospitalization, as well as some medical history. DCP assessment completed with information currently available. Patient is an 80 year old female who admitted yesterday afternoon to the care of the hospitalist team. PCP: Dr. Ornelas Payer: confirmed: Medicare/[employer]. Patient came to the hospital via family vehicle secondary to some increased edema and redness to her right arm. Stated that she had also noted welts to the area. Patient holds current diagnosis of cellulitis. Patient has history of lymphedema secondary to having a mastectomy and removal of some lymph nodes. Patient indicated, this infection is very common with her, and has happened about 17 times. Mentioned that when she develops these symptoms, she has been instructed to go to ER rather than her primary care provider secondary to needing IV antibiotics. Met with patient in her room. She is pleasant, alert and oriented. She resides in [place] with her spouse, Misael. She is independent at her baseline as far as mobility. She mentioned, she knew something was wrong with her arm, not only because of the redness, but she was unable to use it. Now, she can move and bend her arm. P: DCP to continue to follow. Patient could be ready to discharge home tomorrow on oral antibiotics, according to visiting provider. Latanya Rojas RN/[facility]
[2021-02-19] MEDS: VANCOMYCIN 1,250 MG/250 ML PIGGYBACK 250 MG IV (12:38)
--- NOTE | 2021-02-19 17:03 | PC.NURSE ---
Addendum entered by Beatriz Tellez R.N. 02/19/21 21:12: Uneventful evening, Right arm continues to show improvement. HL intact. Call light w/in reach, independent in room D/C on po ABO tomorrow. Original Note: Pt independent in room Lungs clear, SpO2 98% RA Right arm appears less reddened & swollen today, Pulse ++to extremity. HL LAC intact/patent. Denies any discomfort. Call light w/in reach, independent in room
[2021-02-20] VITALS: BP 154/93; PULSE 80; RESP 16; TEMP 36.3; O2SAT 94
[2021-02-20] MEDS: MELATONIN 3 MG TABLET PO (00:05)
[2021-02-20 07:00] VITALS: O2SAT 94
[2021-02-20 08:00] VITALS: BP 138/79; PULSE 76; RESP 16; TEMP 36.4; O2SAT 94
--- NOTE | 2021-02-20 09:02 | PM.DS.1 ---
History of Present Illness History of Present Illness Chief complaint: swollon right arm. with welts Discharge Providers Provider Date of admission: 02/18/21 13:42 Discharge Date: 02/20/21 Discharge provider: Misael Gaming MD Summary Hospital Course Discharge Diagnosis: R arm cellulitis Hospital Course: Patient was admitted for right upper extremity cellulitis as she has had in the past. She has a history of lymphedema in RUE 2/2 breast cancer surgery. She had significant swelling and erythema and was admitted and treated with IV vancomycin. She had improvement but still significant swelling at the time of discharge she was afebrile and her symptoms remarkably improved so she was discharged home in improved condition to continue po antibiotics, Levaquin 500 mg daily for 10 days and doxycycline 100 mg twice daily for 10 days. She will continue on her outpatient medications which include citalopram 5 mg daily. She will follow-up with Dr. Gaming on Wednesday. Status at Discharge Cognitive/behavioral status at discharge: oriented Functional status at discharge: independent ambulation Overall status at discharge: patient is progressing back to baseline Exam Vital Signs (past 8 hours): - 02/20/21 07:00 Pulse Oximetry 94 Oxygen Delivery Method Room Air Oxygen Flow Rate 0 Narrative Exam Narrative: pleasant elder eating breakfast. Resp Effort & Inspection: normal respiratory effort and able to speak in complete sentences Auscultation: clear to auscultation bilaterally Cardio Rate: regular rate Rhythm: regular rhythm Heart Sounds: S1 normal and S2 normal GI Inspection: normal to inspection Palpation: soft and No guarding Percussion: normal to percussion Auscultation: normal bowel sounds Extrem Other: RUE erythema almost totally gone today. Still swollen compared to LUE. Able to use that hand for daily tasks. distal NV intact. Psych Appearance: grossly normal Mental Status: mental status grossly normal Speech and Movement: speech and movement normal Objective Labs Result Diagrams: 02/18/21 10:57 02/18/21 10:57 [facility] Medical History Arthritis Cellulitis of arm, right H/O malignant neoplasm of breast Lymphedema of arm Sciatica Spinal stenosis Surgical History History of lymph node dissection of both axillae Social History household members: spouse Smoking Status: Never smoker alcohol intake: current Discharge Assessment & Plan Assessment and Plan Plan of Treatment: #cellulitis of RUE substantial improvement s/p 3 days of IV vanc. No DVT per US. WBCs not elevated on admission so it seems like she did get in before going septic which is excellent. Agree that ungual trauma may be contributor and advise wearing sleeve/glove as general rule on discharge. Protect that arm! #elevated BP, white coat hypertension stable issue this admission, monitor #insomnia controlled, continue melatonin #glaucoma stable, continue outpt meds #hx of breast cancer s/p partial mastectomy #RUE lymphedema stable, encourage compression sleeve on discharge and glove for any use of the hand #MDD in remission, off meds, stable #DJD stable, not on meds code: full DVT ppx: SCDs dispo: home on po abx to f/u with me for TCM visit next week Discharge Plan Discharge Plan Patient Disposition: Home Discharge orders & Medications Prescriptions: New doxycycline hyclate 100 mg tablet 100 mg PO BID 10 Days Qty: 20 RF: 0 levofloxacin 500 mg tablet 500 mg PO DAILY 10 Days Qty: 10 RF: 0 Continued aspirin [Adult Aspirin Regimen] 81 mg tablet,delayed release (DR/EC) 81 mg PO BEDTIME RF: 0 cholecalciferol (vitamin D3) [Vitamin D3] 50 mcg (2,000 unit) Tablet 4,000 unit PO QPM RF: 0 melatonin 3 mg Capsule 3 mg PO BEDTIME PRN (Reason: Sleep) RF: 0 albuterol sulfate [ProAir HFA] 90 mcg/actuation Hfa Aerosol Inhaler 1 inh INHALATION QID PRN (Reason: bronchonitis or bad allergies) RF: 0 brimonidine-dorzolamide (PF) 0.15-2 % Drops 1 drp OPHTHALMIC (EYE) BID RF: 0 whrloke-gtqunlcka-juasvogj(PF) 0.5-0.15-2 % Drops 1 drp OPHTHALMIC (EYE) DAILY RF: 0 latanoprost 0.005 % Drops 1 % OPHTHALMIC (EYE) BEDTIME RF: 0 Follow up/Referrals: Misael Gaming MD [Physician] - (f/u with Dr. Gaming's office next Wednesday) Diet/Activity/Treatments Diet: Diet as Tolerated Skin/Wound/Dressing Care Report to your healthcare provider any signs of infection, such as:: chills, fever, increased pain, unusual drainage and unusual redness Other wound treatment: wear compression sleeve and gloves as tolerated Visit Report/Discharge Packet Instructions: Doxycycline, Levofloxacin Quality VTE Deep Vein Thrombosis/Pulmonary Embolism Present on Admission: No
--- NOTE | 2021-02-20 10:16 | PC.NURSE ---
Went over dc instructions and medications with patient, questions answered. RX sent electronically, patient taken via wc to vehicle driven by spouse, patient had all belongings.
--- NOTE | 2021-02-20 10:42 | PC.NURSE ---
PT A& O x3, ambulating around room with steady gait. VSS, afebrile. LS CTA, eating, drinking and eliminating wnl. Reduced redness, swelling and tenderness to RUE. cleared for discharge this a.m. Pt's arrived after breakfast and IV dc'd. She verbalizes understanding of discharge instructions, follow up appointments and medications. Pt escorted out of hospital with [employer]GER and to private vehicle to go home. All of belongings with patient.
== END 2021-02-20 10:30 | disposition home or self-care (01) | DRG 603 ==
LOC: ED 12:21 → AC 14:13
PROVIDERS: Admitting Provider Family Medicine; Emergency Provider Emergency Medicine; Referring Provider Emergency Medicine; Visit Provider Family Medicine
DX: L03.113 Cellulitis of right upper limb (principal); I97.2 Postmastectomy lymphedema syndrome; R03.0 Elevated blood-pressure reading, without diagnosis of hypertension; G47.00 Insomnia, unspecified; H40.9 Unspecified glaucoma; Z85.3 Personal history of malignant neoplasm of breast; Z20.822 Contact with and (suspected) exposure to COVID-19
CPT/HCPCS: 36415; 80053; 83605; 85025; 87040; 87635; 93971; 96361; 96365; 96366; 99284; C9803

== ENCOUNTER → 2021-03-24 13:27 | Outpatient (CLI) | payer MEDICARE, SELFPAY ==
[2021-02-18 16:55] VITALS: BMI 27.4
--- NOTE | 2021-03-24 13:33 | DI.US.S_ITS ---
LIMITED ULTRASOUND OF LEFT BREAST: 03/24/2021 CLINICAL: 6 month follow-up biopsy.LEFT. Comparison is made to exams dated: 03/24/2021 mammogram, 08/13/2020 ultrasound biopsy, 08/01/2020 ultrasound, 08/13/2020 mammogram, 08/01/2020 mammogram, and 07/10/2020 mammogram - [facility]. Color flow and real-time ultrasound of the left breast 1 o'clock region were performed on the areas of interest. There is a 0.8 cm x 0.6 cm irregular mass with indistinct margins in the left breast at 1 o'clock middle depth. This irregular mass is hypoechoic with posterior acoustic shadowing. This correlates with mammography findings and the previous biopsy. There is an associated biopsy clip. Color flow imaging demonstrates that there is no vascularity present. Difference in size and appearance compared to the prior study are likely related to post-biopsy changes. The adjacent hypoechoic seen on prior ultrasound is not discretely visualized on the current exam. IMPRESSION: PROBABLY BENIGN The 0.8 cm x 0.6 cm irregular mass in the left breast is probably benign. Follow-up mammogram and ultrasound in 6 months are recommended. A follow-up mammogram and an ultrasound in 6 months are recommended to demonstrate stability. This exam was interpreted at Station ID: [id number]. Electronically Signed By: Chandan peters/:03/24/2021 15:00:20 copy to: Heather Benjamin letter sent: Followup Recommended Ultrasound BI-RADS: 3 Probably benign
--- NOTE | 2021-03-24 13:33 | DI.MG.S_ITS ---
UNILATERAL LEFT DIGITAL DIAGNOSTIC MAMMOGRAM 3D/2D SHORT-TERM FOLLOW-UP POST LUMPECTOMY: 03/24/2021 CLINICAL: Patient returns for a 6 month follow up of the left breast. Post biopsy. Comparison is made to exams dated: 08/13/2020 ultrasound biopsy, 08/13/2020 mammogram, 08/01/2020 mammogram, and 07/10/2020 mammogram - [facility]. The tissue of left breast is heterogeneously dense. This may lower the sensitivity of mammography. There is an oval equal density focal asymmetry with obscured, indistinct, and circumscribed margins in the left breast at 1 o'clock middle depth. This correlates with the prior biopsy. There is a biopsy clip associated with the focal asymmetry. The previously visualized architectural distortion in the left breast middle depth superior region seen on the mediolateral oblique view only is no longer seen. No other significant masses or calcifications are seen in the breast. IMPRESSION: INCOMPLETE: NEEDS ADDITIONAL IMAGING EVALUATION The oval equal density focal asymmetry in the left breast at 1 o'clock middle depth corresponding to the prior biopsy site is indeterminate. An ultrasound is recommended. Ultrasound will be performed immediately following the current exam. This exam was interpreted at Station ID: [id number]. NOTE: For mammograms, a report in lay terms will be sent to the patient. Approximately 15% of breast malignancies will not be visualized mammographically. In the management of a palpable breast mass, a negative mammogram must not discourage biopsy of a clinically suspicious lesion. Electronically Signed By: Chandan Kirkpatrick M.D. dddayna/:03/24/2021 14:18:14 copy to: Heather VELÁSQUEZ BI-RADS Category 0: Incomplete [id number]
== END ==
PROVIDERS: PCP Family Medicine; Referring Provider Surgery; Visit Provider Family Medicine
DX: R92.8 Other abnormal and inconclusive findings on diagnostic imaging of breast (principal); N63.21 Unspecified lump in the left breast, upper outer quadrant
CPT/HCPCS: 76642; 77065; G0279

== ENCOUNTER 2021-08-03 15:27 | Inpatient (IN) | payer MEDICARE, SELFPAY ==
[2021-02-18 16:55] VITALS: BMI 27.4
[2021-08-03] VITALS (19 sets, daily range): BP systolic 140–209; BP diastolic 67–98; PULSE 49–110; RESP 16–44; TEMP 36.9–38.6; O2SAT 85–99; BMI 25.4
--- NOTE | 2021-08-03 15:47 | DI.RAD.S_ITS ---
PROCEDURE: XR CHEST 1V INDICATIONS: suspected sepsis TECHNIQUE: One view of the chest was acquired. COMPARISON: [facility], CT, CT ANGIO CHEST PE PROTOCOL, 01/07/2019, 16:04. [facility], CR, XR CHEST 2V, 01/07/2019, 15:25. [facility], CR, XR CHEST 1V, 07/22/2020, 10:19. FINDINGS: Surgical changes and devices: Right axillary clips are seen. Lungs and pleura: Lungs are clear. No pleural effusions or pneumothorax. Mediastinum: Mediastinal contours appear normal. Heart size is normal. Atherosclerotic calcification of the aortic arch is noted. Bones and chest wall: No suspicious bony lesions. Age-appropriate bony degenerative changes are seen. Overlying soft tissues appear unremarkable. IMPRESSION: No focal infiltrates are seen. Postoperative and degenerative changes are seen. Dictated by: Arslan Eason M.D. on 08/03/2021 at 15:35 Approved by: Arslan Eason M.D. on 08/03/2021 at 15:37
[2021-08-03] MEDS: SODIUM CHLORIDE 0.9% 1,000 ML 1000 ML IV (16:30)
[2021-08-03 16:43] LABS: Add Manual Diff / Slide Review NO; Basophils Absolute Auto 0 /uL (0-100); Basophils Percent Auto 0.4 % (0-2); Eosinophils Absolute Auto 100 /uL (0-450); Eosinophils Percent Auto 1.4 % (2-4); Hematocrit 45.1 % (36-46); Hemoglobin 15.2 g/dL (12.0-16.0); Lymphocytes Absolute Auto 900 /uL (1100-4500); Lymphocytes Percent Auto 9.7 % (25-40); Mean Corpuscular HGB Conc 33.7 % (30-36); Mean Corpuscular Hemoglobin 29.4 PG (26-34); Mean Corpuscular Volume 87.1 fL (80-100); Monocytes Absolute Auto 700 /uL (0-900); Monocytes Percent Auto 7.3 % (3-14); Neutrophils Absolute Auto 7800 /uL (1500-7000); Neutrophils Percent Auto 81.2 % (50-75); Platelet Count 220 X10^3/uL (150-400); Red Blood Cell Count 5.18 X10^6/uL (4.0-5.2); White Blood Cell Count 9.6 X10^3/uL (4.5-11.0)
[2021-08-03 16:44] LABS: Lactate (Lactic Acid) 1.3 mmol/L (0.7-2.1)
[2021-08-03 16:45] LABS: Alanine Aminotransferase 13 IU/L (<35); Albumin 4.7 g/dL (3.5-5.0); Albumin Globulin Ratio 1.4 (1.0-2.8); Alkaline Phosphatase 89 U/L (38-126); Aspartate Aminotransferase 26 IU/L (14-36); BUN Creatinine Ratio 19.1 (6-22); Bilirubin Total 1.1 mg/dL (0.2-1.3); Blood Urea Nitrogen 9 mg/dL (7-17); Calcium 9.5 mg/dL (8.4-10.2); Carbon Dioxide 29 mmol/L (22-32); Chloride 100 mmol/L (98-107); Estimated Glomerular Filt Rate > 60.0 mL/min (>60); Globulin 3.3 g/dL (1.7-4.1); Glucose 99 mg/dL (80-110); HEMOLYSIS < 15 (0-50); Lipase 80 U/L (23-300); Potassium 3.8 mmol/L (3.4-5.1); Sodium 137 mmol/L (137-145)
[2021-08-03 17:02] LABS: Procalcitonin 0.03 ng/mL (<0.5)
--- NOTE | 2021-08-03 17:03 | ED_ITS ---
HPI - Skin/Abscess/Foreign Bdy General Chief complaint: Fever Stated complaint: chills, lipidemia Time Seen by Provider: 08/03/21 16:32 Source: patient Mode of arrival: Ambulatory Limitations: no limitations History of Present Illness HPI narrative: Patient is a 81-year-old female who has a history of chronic lymphedema and frequent episodes of sepsis and cellulitis. She says it comes on rapidly she is hospitalized frequently for it. Her last episode was in February of this year she was on vancomycin. She said she was fine this afternoon at 3:45 pm. She is now freezing cold needing many blankets but initial temperature she is afebrile. She has obvious significant erythema of her entire right arm. No numbness tingling or weakness. She has no chest pain no palpitations no abdominal pain nausea vomiting or other symptoms. This is very similar to all of her previous episodes. Related Data Home Medications Medication Instructions Recorded Confirmed albuterol sulfate 90 mcg/actuation 1 inh INHALATION QID PRN 07/23/20 02/18/21 aerosol inhaler (ProAir HFA) brimonidine 0.15 %-dorzolamide 2 % 1 drp OPHTHALMIC (EYE) BID 07/23/20 02/18/21 (PF) eye drops cholecalciferol (vitamin D3) 50 4,000 unit PO QPM 07/23/20 02/18/21 mcg (2,000 unit) tablet (Vitamin D3) latanoprost 0.005 % eye drops 1 % OPHTHALMIC (EYE) BEDTIME 07/23/20 02/18/21 melatonin 3 mg capsule 3 mg PO BEDTIME PRN 07/23/20 02/18/21 timolol 0.5 %-brimonidine 0.15 1 drp OPHTHALMIC (EYE) DAILY 07/23/20 02/18/21 %-dorzolamide 2 % (PF) eye drops aspirin 81 mg tablet,delayed 81 mg PO BEDTIME 08/29/20 02/18/21 release (Adult Aspirin Regimen) Allergies Allergy/AdvReac Type Severity Reaction Status Date / Time latex [LATEX] Allergy Severe RASH Verified 08/03/21 15:47 Penicillins [PENICILLINS] Allergy Unknown ALL OVER Verified 08/03/21 15:47 BODY WELTS Sulfa (Sulfonamide Allergy Unknown WAS GIVEN Verified 08/03/21 15:47 Antibiotics) WHEN BABY, [SULFA (SULFONAMIDE UNSURE IF ANTIBIOTICS)] STILL HAS ALLERGY Review of Systems Review of Systems Narrative: GENERAL: + chills Denies fatigue, malaise, fever, sweats, travel HEENT: Denies sinus pain, ear pain, sore throat, difficulty swallowing, neck pain RESPIRATORY: Denies dyspnea, cough, wheezing, hemoptysis, sputum. CARDIOVASCULAR: Denies chest pain, palpitations, orthopnea, edema GASTROINTESTINAL: Denies nausea, vomiting, abdominal pain, diarrhea, constipation, melena. : Denies dysuria, frequency, incontinence, hematuria, urinary retention, flank pain. MUSCULOSKELETAL: Denies weakness, joint pain, or bony pain SKIN: See HPI NEUROLOGIC: Denies weakness, dizziness, headache, numbness, change in speech, confusion PSYCHIATRIC: No concerning psychosocial issues. 12 point review of systems is negative except for those stated above and HPI Patient History Medical History (Updated 08/03/21 @ 18:58 by Norah Martinez DO) Arthritis Cellulitis of arm, right H/O malignant neoplasm of breast Lymphedema of arm Sciatica Spinal stenosis Surgical History History of lymph node dissection of both axillae Social History household members: spouse Smoking Status: Never smoker alcohol intake: current Smoking Status: Never smoker alcohol intake frequency: holidays/special occasions only Substance Use Type: does not use Exam Initial Vital Signs Initial Vital Signs: Vital Signs Temperature 98.4 F 08/03/21 15:44 Pulse Rate 110 H 08/03/21 15:44 Respiratory Rate 28 H 08/03/21 15:44 Blood Pressure 140/78 08/03/21 15:44 Pulse Oximetry 98 08/03/21 15:44 GENERAL: Alert well-appearing 81-year-old female HEENT: Head atraumatic,EOMI, pupils reactive, face symmetric, [moist] mucous membranes CARDIOVASCULAR: Regular rate and rhythm without murmurs, rubs or gallops. RESPIRATORY: Breath sounds equal bilaterally, no wheezes rales or rhonchi. ABDOMEN: Soft, nontender. Normoactive bowel sounds all 4 quadrants. No guarding or rebound. EXTREMITIES: Normal range of motion, no clubbing or edema. Neurovascularly intact NEUROLOGICAL: Alert and oriented x4.Normal gait and speech. SKIN: Erythema right arm circumferential from shoulders to fingertips Course Orders Ordered: ED Orders 08/03/21 15:47 XR chest 1V Stat EKG-12 Lead Stat RT Consult Eval and Treat Now 08/03/21 16:30 Blood Culture Stat Complete Blood Count AUTO DIFF Stat Comprehensive Metabolic Panel Stat Ictotest Urine Stat Lactate (Lactic Acid) Stat Lipase Stat Procalcitonin Stat Urine Culture Stat Urine Microscopic Stat 08/03/21 17:32 COVID19 - ADMIT (PNEUMATIC PRESS HAND swab/PCR) Stat Discontinued Medications Acetaminophen (Acetaminophen 325 Mg Tablet) 975 mg PO NOW ONE Stop: 08/03/21 17:27 Last Admin: 08/03/21 17:38 Dose: 975 mg Documented by: LEONIDAS Sodium Chloride (Normal Saline 0.9%) 1,000 mls @ 1,000 mls/hr IV BOLUS ONE Stop: 08/03/21 16:46 Last Admin: 08/03/21 16:30 Dose: 1,000 mls/hr Documented by: LEONIDAS Ceftriaxone Sodium 1,000 mg/ (Sodium Chloride) 100 mls @ 200 mls/hr IV NOW ONE Stop: 08/03/21 17:04 Last Admin: 08/03/21 17:09 Dose: 200 mls/hr Documented by: LEONIDAS Vancomycin HCl (Vancomycin) 1,000 mg in 200 mls @ 200 mls/hr IV NOW ONE Stop: 08/03/21 18:02 Last Admin: 08/03/21 17:58 Dose: 200 mls/hr Documented by: LEONIDAS Vital Signs Vital signs: Vital Signs - 8 hr 08/03/21 15:44 08/03/21 15:53 08/03/21 16:00 Temperature 98.4 F Pulse Rate 110 H 95 H 49 L Respiratory Rate 28 H Blood Pressure 140/78 Pulse Oximetry 98 95 98 08/03/21 16:01 08/03/21 16:37 08/03/21 16:45 Temperature Pulse Rate 94 H 91 H 91 H Respiratory Rate 32 H 36 H Blood Pressure 209/98 H Pulse Oximetry 98 08/03/21 17:00 08/03/21 17:15 08/03/21 17:30 Temperature Pulse Rate 93 H 93 H 97 H Respiratory Rate 32 H 34 H 39 H Blood Pressure Pulse Oximetry 98 90 L 08/03/21 17:38 08/03/21 17:45 08/03/21 18:00 Temperature 100.4 F H Pulse Rate 97 H 97 H Respiratory Rate 31 H 42 H Blood Pressure Pulse Oximetry 94 96 08/03/21 18:15 08/03/21 18:17 Temperature Pulse Rate 109 H 99 H Respiratory Rate 44 H 26 H Blood Pressure 175/67 H Pulse Oximetry 85 L 91 MDM - Skin/Abscess/Foreign Bdy Lab Data Result diagrams: 08/03/21 16:30 08/03/21 16:30 Labs: Lab Results 08/03/21 08/03/21 08/03/21 Range/Units 16:30 16:30 16:30 WBC 9.6 (4.5-11.0) X10^3/uL RBC 5.18 (4.0-5.2) X10^6/uL Hgb 15.2 (12.0-16.0) g/dL Hct 45.1 (36-46) % MCV 87.1 (80-100) fL MCH 29.4 (26-34) PG MCHC 33.7 (30-36) % RDW 13.0 (11.6-14.8) % Plt Count 220 (150-400) X10^3/uL Neut % (Auto) 81.2 H (50-75) % Lymph % (Auto) 9.7 L (25-40) % [place] % (Auto) 7.3 (3-14) % Eos % (Auto) 1.4 L (2-4) % Baso % (Auto) 0.4 (0-2) % Neut # (Auto) 7800 H (0123-4645) /uL Lymph # (Auto) 900 L (6740-1422) /uL [place] # (Auto) 700 (0-900) /uL Eos # (Auto) 100 (0-450) /uL Baso # (Auto) 0 (0-100) /uL Sodium 137 (137-145) mmol/L Potassium 3.8 (3.4-5.1) mmol/L Chloride 100 (98-107) mmol/L Carbon Dioxide 29 (22-32) mmol/L BUN 9 (7-17) mg/dL Creatinine 0.47 L (0.52-1.04) mg/dL Estimated GFR > 60.0 (>60) mL/min BUN/Creatinine Ratio 19.1 (6-22) Glucose 99 (80-110) mg/dL Lactate 1.3 (0.7-2.1) mmol/L Calcium 9.5 (8.4-10.2) mg/dL Total Bilirubin 1.1 (0.2-1.3) mg/dL AST 26 (14-36) IU/L ALT 13 (<35) IU/L Alkaline Phosphatase 89 (38-126) U/L Total Protein 8.0 (6.3-8.2) g/dL Albumin 4.7 (3.5-5.0) g/dL Globulin 3.3 (1.7-4.1) g/dL Albumin/Globulin Ratio 1.4 (1.0-2.8) Lipase 80 (23-300) U/L Procalcitonin 0.03 (<0.5) ng/mL Ur Bilirubin Confirm (Negative) Urine RBC (0-5/HPF) Urine WBC (0-5/HPF) Urine Bacteria (None) Ur Culture Indicated? SARS-CoV-2 (PCR) (Negative) 08/03/21 08/03/21 08/03/21 Range/Units 16:30 16:30 17:32 WBC (4.5-11.0) X10^3/uL RBC (4.0-5.2) X10^6/uL Hgb (12.0-16.0) g/dL Hct (36-46) % MCV (80-100) fL MCH (26-34) PG MCHC (30-36) % RDW (11.6-14.8) % Plt Count (150-400) X10^3/uL Neut % (Auto) (50-75) % Lymph % (Auto) (25-40) % [place] % (Auto) (3-14) % Eos % (Auto) (2-4) % Baso % (Auto) (0-2) % Neut # (Auto) (7297-5344) /uL Lymph # (Auto) (9335-4045) /uL [place] # (Auto) (0-900) /uL Eos # (Auto) (0-450) /uL Baso # (Auto) (0-100) /uL Sodium (137-145) mmol/L Potassium (3.4-5.1) mmol/L Chloride (98-107) mmol/L Carbon Dioxide (22-32) mmol/L BUN (7-17) mg/dL Creatinine (0.52-1.04) mg/dL Estimated GFR (>60) mL/min BUN/Creatinine Ratio (6-22) Glucose (80-110) mg/dL Lactate (0.7-2.1) mmol/L Calcium (8.4-10.2) mg/dL Total Bilirubin (0.2-1.3) mg/dL AST (14-36) IU/L ALT (<35) IU/L Alkaline Phosphatase (38-126) U/L Total Protein (6.3-8.2) g/dL Albumin (3.5-5.0) g/dL Globulin (1.7-4.1) g/dL Albumin/Globulin Ratio (1.0-2.8) Lipase (23-300) U/L Procalcitonin (<0.5) ng/mL Ur Bilirubin Confirm Negative (Negative) Urine RBC 1-5/hpf (0-5/HPF) Urine WBC None seen (0-5/HPF) Urine Bacteria None seen (None) Ur Culture Indicated? Culture not indicate SARS-CoV-2 (PCR) Negative (Negative) Urine Dip Bedside Urine Glucose Negative Bedside Urine Bilirubin + 1 Bedside Urine Ketone - Negative Urine Specific [place] 1.025 Bedside Urine Occult Blood +/- Bedside Urine pH 6.5 Bedside Urine Protein - Negative Bedside Urine Urobilinogen - Negative Bedside Urine Nitrite - Negative Bedside Urine Leukocytes - Negative Esterase Imaging Data Chest x-ray: Radiologist's Impression: PROCEDURE:? XR CHEST 1V ? INDICATIONS:? suspected sepsis ? TECHNIQUE:? One view of the chest was acquired.? ? COMPARISON:? [facility], CT, CT ANGIO CHEST PE PROTOCOL, 01/07/2019, 16:04.? [facility], CR, XR CHEST 2V, 01/07/2019, 15:25.? [facility], CR, XR CHEST 1V, 07/22/2020, 10:19. ? FINDINGS:? ? Surgical changes and devices:? Right axillary clips are seen. ? Lungs and pleura:? Lungs are clear.? No pleural effusions or pneumothorax.? ? Mediastinum:? Mediastinal contours appear normal.? Heart size is normal.? Atherosclerotic calcification of the aortic arch is noted.? ? Bones and chest wall:? No suspicious bony lesions.? Age-appropriate bony degenerative changes are seen. ? Overlying soft tissues appear unremarkable.? ? ? IMPRESSION:? No focal infiltrates are seen. ? Postoperative and degenerative changes are seen.? ? ? Dictated by: Arslan Eason M.D. on 08/03/2021 at 15:35 ? ? ECG Data Interpretation: Normal sinus rhythm rate 95 TX interval 242 QRS [address] changes or T-wave inversions MDM Narrative Medical decision making narrative: Patient 81-year-old female history of frequent right arm cellulitis from lymphedema presenting today with sudden onset of erythema. It has spread quite rapidly she has developed a fever of 100.4 here in the emergency department. She does not show any signs of severe sepsis at this time. She is going dose of Rocephin and vancomycin. It appears on previous admission she was only on vancomycin. Dr. Gaming, updated patient's symptoms test results in ED to see and evaluate patient and happily accepts. Discharge Plan Departure Patient Disposition: Admitted As Inpatient Clinical Impression: Cellulitis of arm, right Admit Date/Time: 08/03/21 18:18 Admit Provider: Misael Gaming
[2021-08-03] MEDS: cefTRIAXone 1,000 MG in SODIUM CHLORIDE 0.9% 100 ML 200 ML IV (17:09)
[2021-08-03 17:24] LABS: Ictotest Urine Negative (Negative)
[2021-08-03 17:25] LABS: Bacteria Urine None Seen; RBC Urine 1-5/HPF (0-5/HPF); WBC Urine None Seen (0-5/HPF)
[2021-08-03] MEDS: ACETAMINOPHEN 325 MG TABLET 975 MG PO (17:38)
[2021-08-03] MEDS: VANCOMYCIN 1,000 MG/200 ML PIGGYBACK 200 MG IV (17:58)
[2021-08-03 18:43] LABS: COVID19 - ADMIT (NP swab/PCR) Negative (Negative)
--- NOTE | 2021-08-03 18:43 | P.HP_ITS ---
History of Present Illness History of Present Illness Date Patient Seen: 08/03/21 Time Patient Seen: 18:43 Date of Onset of Symptoms: 08/03/21 Chief complaint: chills, lipidemia Narrative: This is a very pleasant otherwise fairly healthy 81-year-old female who presents to the emergency department with complaints of a several hour history of increased swelling in her right upper extremity with erythema and increased warmth as well as headache nausea loss of appetite shaking chills and fever.? She has had many previous episodes of cellulitis in this extremity.? Her most recent was in February 2021. Otherwise has been feeling fine lately no concerns. Patient has a distant history of mastectomy with lymph node dissection and has had persistent RUE lymphedema since that time.? She has been hospitalized multiple times for secondary cellulitis which generally progresses quickly and can be quite septic so she is very cautious about coming in early.? She was treated vancomycin with her last hospitalization and discharged home on Levaquin and doxycycline and her symptoms completely resolved and she was doing well. She reports she has been extremely careful lately wearing compression sleeve and multiple gloves. Cannot identify any specific source of infection this time which developed 315 pm this afternoon. Patient History Medical History (Updated 08/03/21 @ 18:58 by Norah Martinez DO) Arthritis Cellulitis of arm, right H/O malignant neoplasm of breast Lymphedema of arm Sciatica Spinal stenosis Surgical History History of lymph node dissection of both axillae Family & Social History Social History: household members spouse Safety & Behavioral: Feels Safe in Current Yes Environment Been Physically Hurt or No Threatened By a Person Tobacco & Substance use: Smoking Status Never smoker alcohol intake current alcohol intake frequency holiday/special occasion Substance Use Type does not use Meds Home Medications and Allergies Home Medications Medication Instructions Recorded Confirmed Type albuterol sulfate 90 mcg/actuation 1 inh INHALATION QID PRN 07/23/20 02/18/21 History aerosol inhaler (ProAir HFA) brimonidine 0.15 %-dorzolamide 2 % 1 drp OPHTHALMIC (EYE) BID 07/23/20 02/18/21 History (PF) eye drops cholecalciferol (vitamin D3) 50 4,000 unit PO QPM 07/23/20 02/18/21 History mcg (2,000 unit) tablet (Vitamin D3) latanoprost 0.005 % eye drops 1 % OPHTHALMIC (EYE) BEDTIME 07/23/20 02/18/21 History melatonin 3 mg capsule 3 mg PO BEDTIME PRN 07/23/20 02/18/21 History timolol 0.5 %-brimonidine 0.15 1 drp OPHTHALMIC (EYE) DAILY 07/23/20 02/18/21 History %-dorzolamide 2 % (PF) eye drops aspirin 81 mg tablet,delayed 81 mg PO BEDTIME 08/29/20 02/18/21 History release (Adult Aspirin Regimen) Allergies Allergy/AdvReac Type Severity Reaction Status Date / Time latex [LATEX] Allergy Severe RASH Verified 08/03/21 15:47 Penicillins [PENICILLINS] Allergy Unknown ALL OVER Verified 08/03/21 15:47 BODY WELTS Sulfa (Sulfonamide Allergy Unknown WAS GIVEN Verified 08/03/21 15:47 Antibiotics) WHEN BABY, [SULFA (SULFONAMIDE UNSURE IF ANTIBIOTICS)] STILL HAS ALLERGY Review of Systems Review of Systems Narrative: all systems reviewed and negative except as otherwise documented in HPI Exam Vital Signs (past 8 hours): - 08/03/21 15:44 08/03/21 15:53 08/03/21 16:00 Temperature 98.4 F Pulse Rate 110 H 95 H 49 L Respiratory Rate 28 H Blood Pressure 140/78 Pulse Oximetry 98 95 98 08/03/21 16:01 08/03/21 16:37 08/03/21 16:45 Temperature Pulse Rate 94 H 91 H 91 H Respiratory Rate 32 H 36 H Blood Pressure 209/98 H Pulse Oximetry 98 08/03/21 17:00 08/03/21 17:15 08/03/21 17:30 Temperature Pulse Rate 93 H 93 H 97 H Respiratory Rate 32 H 34 H 39 H Blood Pressure Pulse Oximetry 98 90 L 08/03/21 17:38 08/03/21 17:45 08/03/21 18:00 Temperature 100.4 F H Pulse Rate 97 H 97 H Respiratory Rate 31 H 42 H Blood Pressure Pulse Oximetry 94 96 08/03/21 18:15 Temperature Pulse Rate 109 H Respiratory Rate 44 H Blood Pressure Pulse Oximetry 85 L Oxygen Delivery Method Room Air Const Other: alert cooperative elder female with swollen red right arm Resp Other: CTAB Cardio Rate: regular rate Rhythm: regular rhythm Heart Sounds: S1 normal and S2 normal GI Other: SNTND NBS Extrem Other: RUE with spreading erythema hot to touch from wrist to just below shoulder marker off with pen distal NV intact Objective Labs Result Diagrams: 08/03/21 16:30 08/03/21 16:30 Labs: Laboratory Results - last 24 hr 08/03/21 08/03/21 08/03/21 16:30 16:30 16:30 WBC 9.6 RBC 5.18 Hgb 15.2 Hct 45.1 MCV 87.1 MCH 29.4 MCHC 33.7 RDW 13.0 Plt Count 220 Neut % (Auto) 81.2 H Lymph % (Auto) 9.7 L [place] % (Auto) 7.3 Eos % (Auto) 1.4 L Baso % (Auto) 0.4 Neut # (Auto) 7800 H Lymph # (Auto) 900 L [place] # (Auto) 700 Eos # (Auto) 100 Baso # (Auto) 0 Sodium 137 Potassium 3.8 Chloride 100 Carbon Dioxide 29 BUN 9 Creatinine 0.47 L Estimated GFR > 60.0 BUN/Creatinine Ratio 19.1 Glucose 99 Lactate 1.3 Calcium 9.5 Total Bilirubin 1.1 AST 26 ALT 13 Alkaline Phosphatase 89 Total Protein 8.0 Albumin 4.7 Globulin 3.3 Albumin/Globulin Ratio 1.4 Lipase 80 Procalcitonin 0.03 Ur Bilirubin Confirm Urine RBC Urine WBC Urine Bacteria Ur Culture Indicated? 08/03/21 08/03/21 16:30 16:30 WBC RBC Hgb Hct MCV MCH MCHC RDW Plt Count Neut % (Auto) Lymph % (Auto) [place] % (Auto) Eos % (Auto) Baso % (Auto) Neut # (Auto) Lymph # (Auto) [place] # (Auto) Eos # (Auto) Baso # (Auto) Sodium Potassium Chloride Carbon Dioxide BUN Creatinine Estimated GFR BUN/Creatinine Ratio Glucose Lactate Calcium Total Bilirubin AST ALT Alkaline Phosphatase Total Protein Albumin Globulin Albumin/Globulin Ratio Lipase Procalcitonin Ur Bilirubin Confirm Negative Urine RBC 1-5/hpf Urine WBC None seen Urine Bacteria None seen Ur Culture Indicated? Culture not indicate Assessment & Plan Assessment & Plan narrative: 80-year-old female admitted for right upper extremity cellulitis in the setting of chronic lymphedema from previous mastectomy # LUE acute cellulitis on chronic lymphedema 2/[address] dissection during mastectomy. received vanc and ro in ED, will continue vancomycin.? labs looks ok however I do note neutrophilia developing sepsis probably - glad she brought this in.?elevate limb, cold compresses, prn tylenol,l recheck labs in the a.m..? Reviewed Doppler that showed no evidence of DVT.? #Insomnia melatonin 3 mg daily #Glaucoma Continue outpatient medications #History of breast cancer without acute issues remote issue, historical note #Degenerative joint disease without current symptoms mobilize arm as tolerated Code status: full code Diet: full as tolerated DVT: Lovenox and SCDs Time Spent With Patient Critical Care time: I spent a total of [] minutes of critical care time on this patient's care today; this time is exclusive of procedural time.
[2021-08-03] MEDS: SODIUM CHLORIDE 0.9% 1,000 ML 100 ML IV (19:26)
[2021-08-03] MEDS: ASPIRIN EC 81 MG TABLET PO (20:52)
[2021-08-03] MEDS: ACETAMINOPHEN 325 MG TABLET 650 MG PO (20:55)
[2021-08-04] VITALS (9 sets, daily range): BP systolic 132–164; BP diastolic 60–99; PULSE 68–95; RESP 14–20; TEMP 37.1–37.7; O2SAT 94–98
[2021-08-04] MEDS: ACETAMINOPHEN 325 MG TABLET 650 MG PO ×2 (04:20→12:51)
[2021-08-04] MEDS: SODIUM CHLORIDE 0.9% 1,000 ML 100 ML IV (05:12)
[2021-08-04 05:26] LABS: Add Manual Diff / Slide Review NO; Basophils Absolute Auto 0 /uL (0-100); Basophils Percent Auto 0.3 % (0-2); Eosinophils Absolute Auto 0 /uL (0-450); Eosinophils Percent Auto 0.1 % (2-4); Hematocrit 38.1 % (36-46); Hemoglobin 12.8 g/dL (12.0-16.0); Lymphocytes Absolute Auto 800 /uL (1100-4500); Lymphocytes Percent Auto 8.3 % (25-40); Mean Corpuscular HGB Conc 33.6 % (30-36); Mean Corpuscular Hemoglobin 29.3 PG (26-34); Mean Corpuscular Volume 87.3 fL (80-100); Monocytes Absolute Auto 700 /uL (0-900); Monocytes Percent Auto 7.2 % (3-14); Neutrophils Absolute Auto 8100 /uL (1500-7000); Neutrophils Percent Auto 84.1 % (50-75); Platelet Count 168 X10^3/uL (150-400); Red Blood Cell Count 4.36 X10^6/uL (4.0-5.2); Red Cell Distribution Width 13.1 % (11.6-14.8); White Blood Cell Count 9.7 X10^3/uL (4.5-11.0)
[2021-08-04 05:36] LABS: BUN Creatinine Ratio 16.7 (6-22); Blood Urea Nitrogen 7 mg/dL (7-17); Calcium 8.3 mg/dL (8.4-10.2); Carbon Dioxide 27 mmol/L (22-32); Chloride 101 mmol/L (98-107); Estimated Glomerular Filt Rate > 60.0 mL/min (>60); Glucose 105 mg/dL (80-110); HEMOLYSIS < 15 (0-50); Potassium 3.6 mmol/L (3.4-5.1); Sodium 132 mmol/L (137-145)
[2021-08-04] MEDS: TIMOLOL EYE-BOTH (08:19)
[2021-08-04] MEDS: DORZOLAMIDE EYE-BOTH (08:19)
[2021-08-04] MEDS: BRIMONIDINE EYE-BOTH (08:19)
[2021-08-04] MEDS: ENOXAPARIN 40 MG/0.4 ML SYRINGE SUBCUT (08:20)
--- NOTE | 2021-08-04 08:48 | PM.PN.1 ---
Subjective Subjective Date Patient Seen: 08/04/21 Time Patient Seen: 08:54 Interval history: Slept ok last night, picked at breakfast but did eat. Arm about the same. Able to ambulate to bathroom ok. Exam Vital Signs (past 8 hours): - 08/04/21 04:15 08/04/21 08:00 Temperature 99.1 F 99.3 F Pulse Rate 84 77 Respiratory Rate 18 18 Blood Pressure 141/60 H 137/79 Pulse Oximetry 96 97 Oxygen Delivery Method Room Air Oxygen Flow Rate 0 Narrative Exam Narrative: cheerful elderly lady sitting in bed with R arm up on pillows Eyes General: appearance normal, both eyes and all related structures Resp Other: CTAB Cardio Other: RRR S1/S2 GI Other: NBS NTND Extrem Other: No/minimal extension of erythema beyond areas marked in ED last night. Erythema and swelling still present. Distal NV intact. Psych Other: normal mood and affect fully allert and oriented Objective Labs Result Diagrams: 08/04/21 04:50 08/04/21 04:50 Labs: Laboratory Results - last 24 hr 08/03/21 08/03/21 08/03/21 16:30 16:30 16:30 WBC 9.6 RBC 5.18 Hgb 15.2 Hct 45.1 MCV 87.1 MCH 29.4 MCHC 33.7 RDW 13.0 Plt Count 220 Neut % (Auto) 81.2 H Lymph % (Auto) 9.7 L [place] % (Auto) 7.3 Eos % (Auto) 1.4 L Baso % (Auto) 0.4 Neut # (Auto) 7800 H Lymph # (Auto) 900 L [place] # (Auto) 700 Eos # (Auto) 100 Baso # (Auto) 0 Sodium 137 Potassium 3.8 Chloride 100 Carbon Dioxide 29 BUN 9 Creatinine 0.47 L Estimated GFR > 60.0 BUN/Creatinine Ratio 19.1 Glucose 99 Lactate 1.3 Calcium 9.5 Total Bilirubin 1.1 AST 26 ALT 13 Alkaline Phosphatase 89 Total Protein 8.0 Albumin 4.7 Globulin 3.3 Albumin/Globulin Ratio 1.4 Lipase 80 Procalcitonin 0.03 Ur Bilirubin Confirm Urine RBC Urine WBC Urine Bacteria Ur Culture Indicated? SARS-CoV-2 (PCR) 08/03/21 08/03/21 08/03/21 16:30 16:30 17:32 WBC RBC Hgb Hct MCV MCH MCHC RDW Plt Count Neut % (Auto) Lymph % (Auto) [place] % (Auto) Eos % (Auto) Baso % (Auto) Neut # (Auto) Lymph # (Auto) [place] # (Auto) Eos # (Auto) Baso # (Auto) Sodium Potassium Chloride Carbon Dioxide BUN Creatinine Estimated GFR BUN/Creatinine Ratio Glucose Lactate Calcium Total Bilirubin AST ALT Alkaline Phosphatase Total Protein Albumin Globulin Albumin/Globulin Ratio Lipase Procalcitonin Ur Bilirubin Confirm Negative Urine RBC 1-5/hpf Urine WBC None seen Urine Bacteria None seen Ur Culture Indicated? Culture not indicate SARS-CoV-2 (PCR) Negative 08/04/21 08/04/21 04:50 04:50 WBC 9.7 RBC 4.36 Hgb 12.8 Hct 38.1 MCV 87.3 MCH 29.3 MCHC 33.6 RDW 13.1 Plt Count 168 Neut % (Auto) 84.1 H Lymph % (Auto) 8.3 L [place] % (Auto) 7.2 Eos % (Auto) 0.1 L Baso % (Auto) 0.3 Neut # (Auto) 8100 H Lymph # (Auto) 800 L [place] # (Auto) 700 Eos # (Auto) 0 Baso # (Auto) 0 Sodium 132 L Potassium 3.6 Chloride 101 Carbon Dioxide 27 BUN 7 Creatinine 0.42 L Estimated GFR > 60.0 BUN/Creatinine Ratio 16.7 Glucose 105 Lactate Calcium 8.3 L Total Bilirubin AST ALT Alkaline Phosphatase Total Protein Albumin Globulin Albumin/Globulin Ratio Lipase Procalcitonin Ur Bilirubin Confirm Urine RBC Urine WBC Urine Bacteria Ur Culture Indicated? SARS-CoV-2 (PCR) [facility] Medical History (Updated 08/03/21 @ 18:58 by Norah Martinez DO) Arthritis Cellulitis of arm, right H/O malignant neoplasm of breast Lymphedema of arm Sciatica Spinal stenosis Surgical History History of lymph node dissection of both axillae Social History household members: spouse Smoking Status: Never smoker alcohol intake: current Assessment & Plan Assessment & Plan narrative: 80-year-old female admitted for right upper extremity cellulitis in the setting of chronic lymphedema from previous mastectomy # LUE acute cellulitis on chronic lymphedema 2/[address] dissection during mastectomy. received vanc and rocephin in ED, continuing vancomycin.? labs stable this a.m. ?elevate limb, cold compresses, prn tylenol,l recheck labs in the a.m. #Insomnia melatonin 3 mg daily #Glaucoma Continue outpatient medications #History of breast cancer without acute issues remote issue, historical note #Degenerative joint disease without current symptoms mobilize arm as tolerated Code status: full code Diet: full as tolerated DVT: Lovenox and SCDs Time Spent With Patient Critical Care time: I spent a total of [] minutes of critical care time on this patient's care today; this time is exclusive of procedural time. Quality VTE Deep Vein Thrombosis/Pulmonary Embolism Present on Admission: No
[2021-08-04] MEDS: VANCOMYCIN 1,250 MG/250 ML PIGGYBACK 250 MG IV (12:47)
[2021-08-04] MEDS: SODIUM CHLORIDE 0.9% 1,000 ML 84 ML IV (14:53)
--- NOTE | 2021-08-04 15:14 | CM.DANOTE ---
Patient is an 81 yo female who was admitted on 08/03/21 for Cellulitis. Pt has [facility] and [employer] for insurance and her PCP is Dr. Gaming. EMR was reviewed. Per MD, pt with hx of mastectomy and has chronic lymphedema. Pt was last admitted in February 2021 for the same, cellulitis and was able to d/c home with oral abx and no needs. Per MD, anticipate the same for this admit and IV-Abx here a couple days and d/c home with spouse on orals. Patient states this infection is very common with her, and has happened about 17 times. Mentioned that when she develops these symptoms, she has been instructed to go to ER rather than her primary care provider secondary to needing IV antibiotics. Pt is pleasant, alert and oriented. She resides in [place] with her spouse, Misael. She is independent at her baseline as far as mobility. Does not anticipate any SW needs at d/c. Plan: SW to follow for likely d/c home via spouse POV and oral meds when medically stable. ELANA Be Discharge Planning/Care Management Advanced directive, confirm from CLINIC Start: 08/03/21 19:16 Freq: Q24H Status: Active Protocol: Document 08/03/21 19:16 AGW (Rec: 08/03/21 19:45 AGW [id number]) Advance Directive, confirm on record Time 19:45 Person contacted patient Copy received No CM Discharge Assessment Start: 08/04/21 15:13 Freq: Status: Active Protocol: Document 08/04/21 15:13 BF (Rec: 08/04/21 15:14 BF [id number]) Discharge Planning Assessment Assigned Emergency Planner ELANA Adamson DPOA/Assigned Designee Name spouse Misael Contact Information [phone] Advance Directives? Yes Advance Directives on File No History Provided By Patient,Medical Record Has Patient been admitted in last 30 No days? Prior Living Arrangements House Household Members spouse Type of transporation used prior to Drives own vehicle admit Independent with ADL's Yes Is patient alert and oriented? Yes Caregiver for Another No Comment has cane, does not routinely use it Barriers to Discharge No Discharge Plan Home Transportation Arrangement Spouse Referrals Initiated None needed Whiteboard Updated in Patient Room with Yes name and ext. # of Emergency Planner Review Status In Process Please Provide Date Initial DC 08/04/21 Assessment Was Performed Next Review Type Continued Stay Review
[2021-08-04] MEDS: [UNRECOGNIZED DRUG - OTHER] 1 EACH EYE-BOTH (17:06)
[2021-08-04] MEDS: ASPIRIN EC 81 MG TABLET PO (20:54)
[2021-08-04] MEDS: LATANOPROST 0.005% EYE DROPS 1 EACH EYE-BOTH (20:54)
[2021-08-05] VITALS (9 sets, daily range): BP systolic 147–184; BP diastolic 72–106; PULSE 70–84; RESP 18–21; TEMP 36.8–37.2; O2SAT 94–97
[2021-08-05] MEDS: SODIUM CHLORIDE 0.9% 1,000 ML 84 ML IV (03:27)
[2021-08-05] MEDS: [UNRECOGNIZED DRUG - OTHER] 1 EACH EYE-BOTH ×2 (08:10→17:04)
[2021-08-05] MEDS: ENOXAPARIN 40 MG/0.4 ML SYRINGE SUBCUT (08:10)
--- NOTE | 2021-08-05 08:35 | P.PN_ITS ---
Subjective Subjective Date Patient Seen: 08/05/21 Time Patient Seen: 08:35 Interval history: Slept last night except urinating frequently. Swelling is down but pt still feels poorlyl. Still with chills and some decreased appetite and nausea No sob or cp no fever Exam Vital Signs (past 8 hours): - 08/05/21 03:51 Temperature 98.8 F Pulse Rate 78 Respiratory Rate 20 Blood Pressure 151/80 H Pulse Oximetry 97 Oxygen Delivery Method Room Air Oxygen Flow Rate 0 Narrative Exam Narrative: af, bp 150/80-90 HEENT: unremarkable Chest : CTA B COR: RRR without murmur, distant s1, s2 Abd: positive bs, soft EXT: bilateral le with no swelling, pulses intact RUE with reported decreased swelling of forearm, still with sig swelling, tenderness and erythema Objective Labs Result Diagrams: 08/04/21 04:50 08/04/21 04:50 [facility], [facility] Medical History (Updated 08/03/21 @ 18:58 by Norah Martinez DO) Arthritis Cellulitis of arm, right H/O malignant neoplasm of breast Lymphedema of arm Sciatica Spinal stenosis Surgical History History of lymph node dissection of both axillae Social History household members: spouse Smoking Status: Never smoker alcohol intake: current Assessment & Plan Assessment & Plan narrative: 81 yo female Assessment #1 Cellulitis due to chronic lymphedema secondary to LN dissection improving Plan: Continue with IV vancomycin recheck labs in am Assesment #2 Glaucoma Plan: may self administer home meds Assessment #3 Hypertension Plan: no history of the same. Will continue to monitor during hospitalization. Assessment #4 Hyponatremia Plan: will d/c ivf and recheck in am Assessment #5 DVT prophylaxis Plan: continue the same lovenox Time Spent With Patient Critical Care time: I spent a total of [] minutes of critical care time on this patient's care today; this time is exclusive of procedural time. Quality VTE Deep Vein Thrombosis/Pulmonary Embolism Present on Admission: No
[2021-08-05] MEDS: BRIMONIDINE EYE-BOTH (12:13)
[2021-08-05] MEDS: DORZOLAMIDE EYE-BOTH (12:13)
[2021-08-05] MEDS: VANCOMYCIN 1,250 MG/250 ML PIGGYBACK 250 MG IV (13:42)
--- NOTE | 2021-08-05 14:30 | PC.NURSE ---
A&Ox4. VSS except hypertensive, 156/72. Has a mild headache, but denies any other pain. R arm has extensive edema and erythema, outlined to show any changes. Skin is tight and hot to the touch. Patient has ice applied to armed for 15 min every hour to help reduce swelling and provide comfort. PIV intact, vanco currently infusing. Call light within reach, bed low. Calls appropriately. Has not had much of an appetite today and reports not feeling very well.
[2021-08-05] MEDS: LATANOPROST 0.005% EYE DROPS 1 EACH EYE-BOTH (20:16)
[2021-08-05] MEDS: ASPIRIN EC 81 MG TABLET PO (20:16)
[2021-08-06 01:07] VITALS: BP 160/98; PULSE 72; RESP 14; TEMP 37.2; O2SAT 95
[2021-08-06 05:09] LABS: Add Manual Diff / Slide Review NO; Basophils Absolute Auto 0 /uL (0-100); Basophils Percent Auto 0.7 % (0-2); Eosinophils Absolute Auto 300 /uL (0-450); Eosinophils Percent Auto 5.5 % (2-4); Hematocrit 36.5 % (36-46); Hemoglobin 12.2 g/dL (12.0-16.0); Lymphocytes Absolute Auto 1400 /uL (1100-4500); Lymphocytes Percent Auto 31.1 % (25-40); Mean Corpuscular HGB Conc 33.4 % (30-36); Mean Corpuscular Hemoglobin 29.2 PG (26-34); Mean Corpuscular Volume 87.4 fL (80-100); Monocytes Absolute Auto 600 /uL (0-900); Monocytes Percent Auto 12.3 % (3-14); Neutrophils Absolute Auto 2300 /uL (1500-7000); Neutrophils Percent Auto 50.4 % (50-75); Platelet Count 169 X10^3/uL (150-400); Red Blood Cell Count 4.18 X10^6/uL (4.0-5.2); Red Cell Distribution Width 13.4 % (11.6-14.8); White Blood Cell Count 4.5 X10^3/uL (4.5-11.0)
[2021-08-06 05:12] LABS: Alanine Aminotransferase 13 IU/L (<35); Albumin 3.4 g/dL (3.5-5.0); Albumin Globulin Ratio 1.3 (1.0-2.8); Alkaline Phosphatase 69 U/L (38-126); Aspartate Aminotransferase 21 IU/L (14-36); BUN Creatinine Ratio 23.3 (6-22); Bilirubin Total 0.7 mg/dL (0.2-1.3); Blood Urea Nitrogen 10 mg/dL (7-17); Calcium 8.8 mg/dL (8.4-10.2); Carbon Dioxide 30 mmol/L (22-32); Chloride 104 mmol/L (98-107); Estimated Glomerular Filt Rate > 60.0 mL/min (>60); Globulin 2.7 g/dL (1.7-4.1); Glucose 91 mg/dL (80-110); HEMOLYSIS < 15 (0-50); Potassium 3.7 mmol/L (3.4-5.1); Sodium 136 mmol/L (137-145); Total Protein 6.1 g/dL (6.3-8.2)
[2021-08-06 05:54] VITALS: BP 159/83; PULSE 75; RESP 18; TEMP 36.8; O2SAT 94
[2021-08-06] MEDS: ACETAMINOPHEN 325 MG TABLET 650 MG PO (05:59)
[2021-08-06 08:20] VITALS: BP 163/85; PULSE 74; RESP 15; TEMP 36.8; O2SAT 95
[2021-08-06] MEDS: [UNRECOGNIZED DRUG - OTHER] 1 EACH EYE-BOTH (08:36)
[2021-08-06] MEDS: ENOXAPARIN 40 MG/0.4 ML SYRINGE SUBCUT (08:37)
[2021-08-06 10:30] VITALS: PULSE 77; RESP 14; O2SAT 97
--- NOTE | 2021-08-06 10:52 | P.DS_ITS ---
History of Present Illness History of Present Illness Chief complaint: chills, lipidemia Narrative: 81yo patient was admitted 08/03 for right upper extremity cellulitis as she has had in the past.? She has a history of lymphedema in RUE 2/2 breast cancer surgery.? She had significant swelling and erythema and was admitted and treated with rocephin and vancomycin.? She had improvement but still significant swelling at the time of discharge. she was afebrile and her symptoms remarkably improved so she was discharged home in improved condition to continue po antibiotics, Levaquin 500 mg daily for 10 days and doxycycline 100 mg twice daily for 10 days.? She will continue on her outpatient medications which inc lude citalopram 5 mg daily.? She will follow-up with PCP Dr. Gaming on Wednesday. Discharge Providers Provider Date of admission: 08/05/21 14:57 Discharge Date: 08/06/21 Primary care physician: Misael Gaming MD Discharge provider: Misael Gaming MD Exam Vital Signs (past 8 hours): - 08/06/21 05:54 08/06/21 08:20 08/06/21 10:30 Temperature 98.2 F 98.3 F Pulse Rate 75 74 77 Respiratory Rate 18 15 14 Blood Pressure 159/83 H 163/85 H Pulse Oximetry 94 95 97 Oxygen Delivery Method Room Air Oxygen Flow Rate 0 Narrative Exam Narrative: cheerful lady sitting up in bed Const General: cooperative, healthy appearing and comfortable Eyes General: appearance normal, both eyes and all related structures Resp Other: CTAB moving air well no wheezing Cardio Other: RRR S1/S2 GI Other: SNTND NBS Extrem Other: RUE still swollen however area of erythema now confined to some light pink on inner elbow distal NV remains intact pulse good at wrist Psych Appearance: grossly normal Mental Status: mental status grossly normal Speech and Movement: speech and movement normal Mood: congruent mood Objective Labs Result Diagrams: 08/06/21 04:20 08/06/21 04:20 Labs: Laboratory Results - last 24 hr 08/06/21 08/06/21 04:20 04:20 WBC 4.5 D RBC 4.18 Hgb 12.2 Hct 36.5 MCV 87.4 MCH 29.2 MCHC 33.4 RDW 13.4 Plt Count 169 Neut % (Auto) 50.4 D Lymph % (Auto) 31.1 D [place] % (Auto) 12.3 Eos % (Auto) 5.5 H Baso % (Auto) 0.7 Neut # (Auto) 2300 Lymph # (Auto) 1400 [place] # (Auto) 600 Eos # (Auto) 300 Baso # (Auto) 0 Sodium 136 L Potassium 3.7 Chloride 104 Carbon Dioxide 30 BUN 10 Creatinine 0.43 L Estimated GFR > 60.0 BUN/Creatinine Ratio 23.3 H Glucose 91 Calcium 8.8 Total Bilirubin 0.7 AST 21 ALT 13 Alkaline Phosphatase 69 Total Protein 6.1 L Albumin 3.4 L Globulin 2.7 Albumin/Globulin Ratio 1.3 [facility] Medical History (Updated 08/03/21 @ 18:58 by Norah Martinez DO) Arthritis Cellulitis of arm, right H/O malignant neoplasm of breast Lymphedema of arm Sciatica Spinal stenosis Surgical History History of lymph node dissection of both axillae Social History household members: spouse Smoking Status: Never smoker alcohol intake: current Discharge Assessment & Plan Assessment and Plan Assessment: 80-year-old female admitted for right upper extremity cellulitis in the setting of chronic lymphedema from previous mastectomy # LUE acute cellulitis on chronic lymphedema 2/[address] dissection during mastectomy. received vanc and rocephin in ED, plus two more days of IV vancomycin.? labs stable this a.m looking much better ok to DC on PO abx and f/u with PCP Wednesday #Insomnia melatonin 3 mg daily #Glaucoma Continue outpatient medications #History of breast cancer without acute issues remote issue, historical note #Degenerative joint disease without current symptoms mobilize arm as tolerated Code status: full code Diet: full as tolerated DVT: Lovenox and SCDs Discharge Plan Discharge Plan Patient Disposition: Home Discharge orders & Medications Prescriptions: New levofloxacin 500 mg tablet 500 mg PO DAILY Qty: 10 RF: 0 doxycycline hyclate 100 mg tablet 100 mg PO BID Qty: 20 RF: 0 Continued aspirin [Adult Aspirin Regimen] 81 mg tablet,delayed release (DR/EC) 81 mg PO BEDTIME RF: 0 gabapentin 300 mg Tablet 300 mg PO BID RF: 0 cholecalciferol (vitamin D3) [Vitamin D3] 50 mcg (2,000 unit) Tablet 4,000 unit PO QPM RF: 0 melatonin 3 mg Capsule 3 mg PO BEDTIME PRN (Reason: Sleep) RF: 0 albuterol sulfate [ProAir HFA] 90 mcg/actuation Hfa Aerosol Inhaler 1 inh INHALATION QID PRN (Reason: bronchonitis or bad allergies) RF: 0 brimonidine-dorzolamide (PF) 0.15-2 % Drops 1 drp OPHTHALMIC (EYE) BID RF: 0 aumjwna-padmnuttp-bppntsky(PF) 0.5-0.15-2 % Drops 1 drp OPHTHALMIC (EYE) DAILY RF: 0 latanoprost 0.005 % Drops 1 % OPHTHALMIC (EYE) BEDTIME RF: 0 Medication counseling provided by Pharmacist: Yes Pharmacist Comment: Avoid Milk and antacids by 2 hours on either side of the doxycycline Follow up/Referrals: Misael Gaming MD [Primary Care Provider] - Visit Report/Discharge Packet Instructions: DI for Cellulitis -- Adult, Cellulitis, Lymphedema Discharge Data Primary Care Provider: Misael Gaming Quality VTE Deep Vein Thrombosis/Pulmonary Embolism Present on Admission: No
--- NOTE | 2021-08-06 12:11 | PC.NURSE ---
Assess- Patient is alert and oriented x3. Her r.upper arm is red and staying within margines of sharpy pen. She has good obstetrics/gynecology nurse to hand, patient will get her iv vancomycin shortly and then be discharged home. Her scripts have been sent to [facility]. She will be getting levaquin and doxycycline at home. will be here shortly to pick her up after iv antibiotic is infused.
[2021-08-06] MEDS: VANCOMYCIN TROUGH 1 REQUEST MISC (12:38)
[2021-08-06] MEDS: VANCOMYCIN 1,250 MG/250 ML PIGGYBACK 250 MG IV (12:38)
[2021-08-06] MEDS: BRIMONIDINE EYE-BOTH (12:39)
[2021-08-06] MEDS: DORZOLAMIDE EYE-BOTH (12:39)
[2021-08-06 12:45] VITALS: BP 154/89; PULSE 77; RESP 16; TEMP 36.7; O2SAT 97
[2021-08-06 12:49] LABS: Vancomycin Trough 5.2 ug/mL (10-20)
== END 2021-08-06 15:21 | disposition home or self-care (01) | DRG 603 ==
LOC: ED 18:06 → AC 18:58
PROVIDERS: Family Medicine; Admitting Provider Family Medicine; Emergency Provider Emergency Medicine; PCP Family Medicine; Referring Provider Emergency Medicine; Visit Provider Family Medicine
DX: L03.114 Cellulitis of left upper limb (principal); I97.2 Postmastectomy lymphedema syndrome; G47.00 Insomnia, unspecified; H40.9 Unspecified glaucoma; M19.90 Unspecified osteoarthritis, unspecified site; Z20.822 Contact with and (suspected) exposure to COVID-19
CPT/HCPCS: 36415; 71045; 80048; 80053; 80202; 81003; 81015; 83605; 83690; 84145; 85025; 87040; 87086; 87635; 93005; 94760; 96361; 96365; 96367; 99284; C9803; G0378; J0696; J1650

== ENCOUNTER → 2021-09-12 12:38 | Outpatient (CLI) | payer MEDICARE, SELFPAY ==
[2021-08-03 18:23] VITALS: BMI 25.4
--- NOTE | 2021-09-12 | DI.MG.S_ITS ---
BILATERAL DIGITAL DIAGNOSTIC MAMMOGRAM 3D/2D: 09/12/2021 CLINICAL: Short term follow up of the left breast, due for bilateral imaging. Comparison is made to exams dated: 03/24/2021 mammogram, 08/01/2020 mammogram, 07/10/2020 mammogram, 03/24/2021 ultrasound, 08/13/2020 ultrasound biopsy, and 04/10/2019 mammogram - [facility]. The tissue of both breasts is heterogeneously dense. This may lower the sensitivity of mammography. There is an oval equal density focal asymmetry with an obscured and indistinct margin in the left breast at 1 o'clock middle depth. This is less prominent and correlates with the biopsy. There is a biopsy clip associated with the focal asymmetry. The benign architectural distortion in the left breast middle depth superior region seen on the mediolateral oblique view only is no longer seen. No other significant masses, calcifications, or other findings are seen in either breast. IMPRESSION: INCOMPLETE: NEEDS ADDITIONAL IMAGING EVALUATION The oval equal density focal asymmetry in the left breast at 1 o'clock middle depth is indeterminate. An ultrasound is recommended. This exam was interpreted at Station ID: [id number]. NOTE: For mammograms, a report in lay terms will be sent to the patient. Approximately 15% of breast malignancies will not be visualized mammographically. In the management of a palpable breast mass, a negative mammogram must not discourage biopsy of a clinically suspicious lesion. Electronically Signed By: Alexis bryant/fatoumata:09/12/2021 15:12:35 copy to: Heather Benjamin ACR BI-RADS Category 0: Incomplete [id number]
--- NOTE | 2021-09-12 12:42 | DI.US.S_ITS ---
LIMITED ULTRASOUND OF LEFT BREAST: 09/12/2021 CLINICAL: Patient returns for a 6 month follow up of the left breast. Comparison is made to exams dated: 03/24/2021 ultrasound, 03/24/2021 mammogram, 08/13/2020 ultrasound biopsy, 08/01/2020 ultrasound, 08/01/2020 mammogram, and 09/12/2021 mammogram - [facility]. Color flow ultrasound of the left breast 1 o'clock region was performed. Phillips scale images of the real-time examination were reviewed. There is a 0.8 cm x 0.6 cm irregular mass with an indistinct margin in the left breast at 1 o'clock middle depth. This irregular mass is hypoechoic with posterior acoustic shadowing. This abnormality is not significantly changed and correlates with mammography findings and the previous biopsy. There is an associated biopsy clip. Color flow imaging demonstrates that there is no vascularity present. There also is a 0.8 cm x 1 cm x 0.3 cm irregular mass in the left breast at 1 o'clock middle depth 5 cm from the nipple. This irregular mass is hypoechoic. This abnormality is decreased in size and correlates with mammography findings and the previous biopsy. There is an associated biopsy clip. Color flow imaging demonstrates that there is no vascularity present. IMPRESSION: PROBABLY BENIGN The 0.8 cm x 0.6 cm irregular mass in the left breast at 1 o'clock middle depth is probably benign. The 0.8 cm x 1 cm x 0.3 cm irregular mass in the left breast at 1 o'clock middle depth is probably benign. A follow-up mammogram and an ultrasound in 12 months is recommended. This exam was interpreted at Station ID: [id number]. Electronically Signed By: Alexis bryant/fatoumata:09/12/2021 15:17:48 copy to: Heather Benjamin letter sent: Followup Recommended Ultrasound BI-RADS: 3 Probably benign
== END ==
PROVIDERS: PCP Family Medicine; Referring Provider Family Medicine; Visit Provider Family Medicine
DX: R92.8 Other abnormal and inconclusive findings on diagnostic imaging of breast (principal); N63.21 Unspecified lump in the left breast, upper outer quadrant
CPT/HCPCS: 76642; 77066; G0279

== ENCOUNTER → 2022-09-21 11:52 | Outpatient (CLI) | payer MEDICARE, SELFPAY ==
[2021-08-03 18:23] VITALS: BMI 25.4
--- NOTE | 2022-09-21 | DI.US.S_ITS ---
LIMITED ULTRASOUND OF LEFT BREAST: 09/21/2022 CLINICAL: Palpable left breast lump. Comparison is made to exams dated: 09/21/2022 mammogram, 09/12/2021 ultrasound, 09/12/2021 mammogram, 03/24/2021 mammogram, 08/01/2020 ultrasound, and 07/10/2020 mammogram - [facility]. Color flow and real-time ultrasound of the left breast 1 o'clock and 3 o'clock regions were performed. Phillips scale images of the real-time examination were reviewed. No mass at the palpable abnormality at 3:00. There is a benign mass in the left breast at 1 o'clock middle depth 5 cm from the nipple. This mass is hypoechoic. This abnormality is decreased in size and correlates with mammography findings and the previous biopsy. There is an associated biopsy clip. Color flow imaging demonstrates that there is no vascularity present. There also is an adjacent benign 0.6 cm oval complicated cyst in the left breast at 1 o'clock middle depth 4 cm from the nipple. This oval complicated cyst is hypoechoic with posterior acoustic enhancement. This abnormality is decreased in size. Color flow imaging demonstrates that there is no vascularity present. IMPRESSION: BENIGN There is no sonographic evidence of malignancy. No mass at the palpable abnormality at 3:00. The previously biopsied mass in the left breast at 1 o'clock middle depth is decreased in size and is benign. The 0.6 cm oval complicated cyst in the left breast at 1 o'clock middle depth is decreased in size and is benign. Exam findings were conveyed to the patient. A 1 year screening mammogram is recommended. This exam was interpreted at Station ID: [id number]. Electronically Signed By: Shay Bruno M.D. slc/:09/21/2022 13:59:55 copy to: Heather Benjamin letter sent: Normal Exam Ultrasound BI-RADS: 2 Benign
--- NOTE | 2022-09-21 | DI.MG.S_ITS ---
BILATERAL DIGITAL DIAGNOSTIC MAMMOGRAM 3D/2D POST LUMPECTOMY: 09/21/2022 CLINICAL: Short term follow up of the left breast, due for bilateral imaging. New lump in the left breast. Comparison is made to exams dated: 09/12/2021 mammogram, 03/24/2021 mammogram, 08/01/2020 mammogram, 07/10/2020 mammogram, and 04/10/2019 mammogram - [facility]. Both breasts are heterogeneously dense, which may obscure small masses (category c / 51-75% glandular tissue). No significant masses, calcifications, or other findings are seen in either breast. No mass identified at the left breast palpable site. There are stable near by lymph nodes. Stable post-operative findings in both breasts. IMPRESSION: INCOMPLETE: NEEDS ADDITIONAL IMAGING EVALUATION No mammographic evidence of malignancy. A targeted ultrasound of the left breast is recommended and will immediately follow. This exam was interpreted at Station ID: [id number]. NOTE: For mammograms, a report in lay terms will be sent to the patient. Approximately 15% of breast malignancies will not be visualized mammographically. In the management of a palpable breast mass, a negative mammogram must not discourage biopsy of a clinically suspicious lesion. Electronically Signed By: Shay Bruno M.D. slc/:09/21/2022 12:46:01 copy to: Heather Benjamin ACR BI-RADS Category 0: Incomplete [id number]
== END ==
PROVIDERS: PCP Family Medicine; Referring Provider Family Medicine; Visit Provider Family Medicine
DX: R92.8 Other abnormal and inconclusive findings on diagnostic imaging of breast (principal); N60.02 Solitary cyst of left breast; D24.2 Benign neoplasm of left breast
CPT/HCPCS: 76642; 77066; G0279

== ENCOUNTER 2022-11-13 11:07 | Inpatient (IN) | payer MEDICARE, SELFPAY ==
[2021-08-03 18:23] VITALS: BMI 25.4
[2022-11-13] VITALS (16 sets, daily range): BP systolic 157–180; BP diastolic 67–82; PULSE 79–105; RESP 16–26; TEMP 37.1–37.9; O2SAT 91–97; BMI 25.7
--- NOTE | 2022-11-13 11:26 | DI.RAD.S_ITS ---
PROCEDURE: XR CHEST 1V INDICATIONS: suspected sepsis TECHNIQUE: One view of the chest was acquired. COMPARISON: [facility], CR, XR CHEST 1V, 08/03/2021, 16:20. FINDINGS: Surgical changes and devices: Right axillary clips. Lungs and pleura: Slight appearance of interstitial prominence. Mediastinum: Mediastinal contours appear normal. Heart size is normal. Bones and chest wall: No suspicious bony lesions. Overlying soft tissues appear unremarkable. IMPRESSION: Slight interstitial prominence suspected to represent edema. Dictated by: Dasha Sheppard M.D. on 11/13/2022 at 12:05 Approved by: Dasha Sheppard M.D. on 11/13/2022 at 12:05
[2022-11-13] MEDS: SODIUM CHLORIDE 0.9% 1,000 ML 1000 ML IV (11:42)
[2022-11-13] MEDS: ACETAMINOPHEN 325 MG TABLET 975 MG PO (11:51)
[2022-11-13 12:01] LABS: Add Manual Diff / Slide Review NO; Basophils Absolute Auto 0 /uL (0-100); Basophils Percent Auto 0.4 % (0-2); Eosinophils Absolute Auto 100 /uL (0-450); Eosinophils Percent Auto 0.5 % (2-4); Hematocrit 40.4 % (36-46); Hemoglobin 13.7 g/dL (12.0-16.0); Lymphocytes Absolute Auto 600 /uL (1100-4500); Lymphocytes Percent Auto 5.6 % (25-40); Mean Corpuscular HGB Conc 33.9 % (30-36); Mean Corpuscular Hemoglobin 30.2 PG (26-34); Monocytes Absolute Auto 500 /uL (0-900); Monocytes Percent Auto 4.9 % (3-14); Neutrophils Absolute Auto 8700 /uL (1500-7000); Neutrophils Percent Auto 88.6 % (50-75); Platelet Count 229 X10^3/uL (150-400); Red Blood Cell Count 4.54 X10^6/uL (4.0-5.2); Red Cell Distribution Width 12.7 % (11.6-14.8); White Blood Cell Count 9.8 X10^3/uL (4.5-11.0)
[2022-11-13 12:06] LABS: Prothrombin Time 11.2 SECONDS (10.1-12.7)
[2022-11-13 12:09] LABS: PTT Partial Thromboplastin Tim 27 SECONDS (26-36)
[2022-11-13 12:13] LABS: Alanine Aminotransferase 16 IU/L (<35); Albumin 4.5 g/dL (3.5-5.0); Albumin Globulin Ratio 1.4 (1.0-2.8); Alkaline Phosphatase 81 U/L (38-126); Aspartate Aminotransferase 30 IU/L (14-36); BUN Creatinine Ratio 21.4 (6-22); Bilirubin Total 2.1 mg/dL (0.2-1.3); Blood Urea Nitrogen 9 mg/dL (7-17); Calcium 8.9 mg/dL (8.4-10.2); Carbon Dioxide 30 mmol/L (22-32); Chloride 99 mmol/L (98-107); Estimated Glomerular Filt Rate > 60 mL/min (>60); Globulin 3.3 g/dL (1.7-4.1); Glucose 103 mg/dL (80-110); HEMOLYSIS < 15 (0-50); Lipase 44 U/L (23-300); Potassium 3.5 mmol/L (3.4-5.1); Sodium 136 mmol/L (137-145); Total Protein 7.8 g/dL (6.3-8.2)
[2022-11-13 12:29] LABS: Procalcitonin 0.04 ng/mL (<0.5)
--- NOTE | 2022-11-13 13:43 | ED.SKABFB ---
HPI - Skin/Abscess/Foreign Bdy General Chief complaint: Skin/Abscess/Foreign Body Stated complaint: Lymphedema/HX of sepsis Time Seen by Provider: 11/13/22 12:23 Source: patient Mode of arrival: Ambulatory Limitations: no limitations History of Present Illness HPI narrative: Patient is an 82-year-old female history of breast cancer with right arm lymphedema and recurrent right arm cellulitis and sepsis. Reports having rigors and chills at 3:00 a.m. this morning did not feel well when she woke up the immediately looked at her right arm she is significant erythema from fingers almost all the way up to her shoulder. She is low-grade temperature here in the emergency department of 100.3. She has some generalized body aches but no other symptoms. She denies chest pain cough shortness of breath abdominal pain nausea or vomiting. Related Data Home Medications Medication Instructions Recorded Confirmed albuterol sulfate 90 mcg/actuation 1 inh inhalation QID PRN 07/23/20 11/13/22 aerosol inhaler (ProAir HFA) bronchonitis or bad allergies brimonidine 0.15 %-dorzolamide 2 % 1 drp ophthalmic (eye) BID 07/23/20 11/13/22 (PF) eye drops cholecalciferol (vitamin D3) 50 4,000 unit PO QPM 07/23/20 11/13/22 mcg (2,000 unit) tablet (Vitamin D3) latanoprost 0.005 % eye drops 1 % ophthalmic (eye) BEDTIME 07/23/20 11/13/22 melatonin 3 mg capsule 3 mg PO BEDTIME PRN Sleep 07/23/20 11/13/22 timolol 0.5 %-brimonidine 0.15 1 drp ophthalmic (eye) DAILY 07/23/20 11/13/22 %-dorzolamide 2 % (PF) eye drops aspirin 81 mg tablet,delayed 81 mg PO BEDTIME 08/29/20 11/13/22 release (Adult Aspirin Regimen) escitalopram oxalate 10 mg tablet 10 mg PO BEDTIME 11/13/22 11/13/22 etodolac 400 mg tablet 400 mg PO DIRECTED 11/13/22 11/13/22 Allergies Allergy/AdvReac Type Severity Reaction Status Date / Time latex [LATEX] Allergy Severe RASH Verified 11/13/22 11:23 Penicillins [PENICILLINS] Allergy Severe ALL OVER Verified 11/13/22 11:23 BODY WELTS Sulfa (Sulfonamide Allergy Unknown WAS GIVEN Verified 11/13/22 11:23 Antibiotics) WHEN BABY, [SULFA (SULFONAMIDE UNSURE IF ANTIBIOTICS)] STILL HAS ALLERGY Patient History Medical History Arthritis Cellulitis of arm, right H/O malignant neoplasm of breast Lymphedema of arm Sciatica Spinal stenosis Surgical History History of lymph node dissection of both axillae Social History household members: spouse Smoking Status: Never smoker alcohol intake: current Smoking Status: Never smoker alcohol intake frequency: holidays/special occasions only Substance Use Type: does not use Exam Initial Vital Signs Initial Vital Signs: Vital Signs Temperature 100.3 F H 11/13/22 11:23 Pulse Rate 105 H 11/13/22 11:23 Respiratory Rate 16 11/13/22 11:23 Blood Pressure 179/79 H 11/13/22 11:23 Pulse Oximetry 95 11/13/22 11:23 Oxygen Delivery Method 11/13/22 11:23 GENERAL: Alert pleasant 82-year-old female appears younger than stated age and in [no acute] distress. HEENT: Head atraumatic,EOMI, pupils reactive, face symmetric, [moist] mucous membranes CARDIOVASCULAR: Regular rate and rhythm without murmurs, rubs or gallops. RESPIRATORY: Breath sounds equal bilaterally, no wheezes rales or rhonchi. ABDOMEN: Soft, nontender. Normoactive bowel sounds all 4 quadrants. No guarding or rebound. EXTREMITIES: Normal range of motion, no clubbing or edema. Neurovascularly intact NEUROLOGICAL: Alert and oriented x4. SKIN: Right arm significant erythema swelling and warm fingertips up to 2 in just below the shoulder. Course Orders Ordered: Acetaminophen (Acetaminophen 325 Mg Tablet) 650 mg PO Q6H NUBIA Last Admin: 11/14/22 03:21 Dose: Not Given Documented By: Admin: 11/13/22 22:15 Dose: 650 mg Documented By: Hydrocodone Bitart/Acetaminophen (Hydrocodone/Acet 5/325 Tablet) 1 tab PO Q4H PRN PRN Reason: Pain, Moderate (4-6) Last Admin: 11/13/22 22:11 Dose: 1 tab Documented By: MS Al Hydrox/Mg Hydrox/Simethicone (Mag Hydrox/Alum/Simeth 30 Ml Udc) 30 ml PO Q6HR PRN PRN Reason: Dyspepsia Albuterol (Albuterol 2.5 Mg/3 Ml Neb (Adult)) 2.5 mg INH Q2H PRN PRN Reason: BRONCHONITIS OR BAD ALLERGIES Aspirin (Aspirin Ec 81 Mg Tablet) 81 mg PO BEDTIME [facility] Last Admin: 11/13/22 22:11 Dose: 81 mg Documented By: MS Brimonidine Tartrate (Brimonidine 0.2% Ophth 5 Ml) 1 drops EYE-BOTH BID [facility] Docusate Sodium (Docusate 100 Mg Capsule) 300 mg PO DAILY [facility] Dorzolamide HCl (Dorzolamide 2% Ophth 10 Ml) 1 drops EYE-BOTH BID [facility] Enoxaparin Sodium (Enoxaparin 40 Mg/0.4 Ml Syringe) 40 mg SUBCUT DAILY [facility] Escitalopram Oxalate (Escitalopram 10 Mg Tablet) 10 mg PO BEDTIME [facility] Last Admin: 11/13/22 22:11 Dose: 10 mg Documented By: MS Ceftriaxone Sodium 1,000 mg/ (Sodium Chloride) 100 mls @ 200 mls/hr IV Q24H [facility] Last Admin: 11/13/22 22:11 Dose: 200 mls/hr Documented By: MS Vancomycin HCl (Vancomycin) 750 mg in 150 mls @ 150 mls/hr IV Q12H [facility] Latanoprost (Latanoprost 0.005% Ophth 2.5 Ml) 1 drops EYE-BOTH BEDTIME [facility] Last Admin: 11/13/22 22:14 Dose: Not Given Documented By: MS Melatonin (Melatonin 3 Mg Tablet) 3 mg PO BEDTIME PRN PRN Reason: Sleep Last Admin: 11/13/22 22:11 Dose: 3 mg Documented By: MS Naloxone HCl (Naloxone 0.4 Mg/Ml Vial) 0.2 mg IV Q2MIN PRN PRN Reason: Opiate Reversal Timolol Maleate (Timolol 0.5% Ophth) 1 drops EYE-BOTH DAILY [facility] Vancomycin HCl (Vancomycin Trough) 1 [place] [facility] [place] Stop: 11/15/22 19:31 Vitamin D (Cholecalciferol (Vitamin D3) 1,000 Unit Tablet) 4,000 unit PO QPM NUBIA Discontinued Medications Acetaminophen (Acetaminophen 325 Mg Tablet) 975 mg PO NOW ONE Stop: 11/13/22 11:49 Last Admin: 11/13/22 11:51 Dose: 975 mg Documented By: BAILEY Albuterol (Albuterol Hfa Mdi 60 Puff/8 Gm Inhaler) 1 puff INH QID PRN PRN Reason: bronchonitis or bad allergies Sodium Chloride (Normal Saline 0.9%) 1,000 mls @ 1,000 mls/hr IV BOLUS ONE Stop: 11/13/22 12:25 Last Infusion: 11/13/22 13:37 Dose: 0 mls/hr Documented By: Admin: 11/13/22 11:42 Dose: 1,000 mls/hr Documented By: BRENDA Ceftriaxone Sodium 1,000 mg/ (Sodium Chloride) 100 mls @ 200 mls/hr IV NOW ONE Stop: 11/13/22 13:45 Last Infusion: 11/13/22 14:45 Dose: 0 mls/hr Documented By: Admin: 11/13/22 14:14 Dose: 200 mls/hr Documented By: ALLIE Vancomycin HCl (Vancomycin) 1,000 mg in 200 mls @ 200 mls/hr IV NOW ONE Stop: 11/13/22 14:43 Last Infusion: 11/13/22 16:00 Dose: 0 mls/hr Documented By: Admin: 11/13/22 14:46 Dose: 200 mls/hr Documented By: ALLIE Vancomycin HCl (Vancomycin) 1,000 mg in 200 mls @ 200 mls/hr IV Q24H [facility] Ketorolac Tromethamine (Ketorolac 30 Mg/Ml Vial) 30 mg IM NOW ONE Stop: 11/13/22 14:23 Last Admin: 11/13/22 14:34 Dose: Not Given Documented By: ALLIE Ketorolac Tromethamine (Ketorolac 30 Mg/Ml Vial) 15 mg IV NOW ONE Stop: 11/13/22 14:34 Last Admin: 11/13/22 14:39 Dose: 15 mg Documented By: ALLIE Vital Signs Vital signs: Vital Signs - 8 hr 11/13/22 11:23 11/13/22 11:51 11/13/22 12:06 Temperature 100.3 F H 100.3 F H Pulse Rate 105 H 94 H Respiratory Rate 16 Blood Pressure 179/79 H Pulse Oximetry 95 93 Oxygen Delivery Method Room Air 11/13/22 12:07 11/13/22 12:07 11/13/22 12:30 Temperature Pulse Rate 94 H Respiratory Rate Blood Pressure 180/82 H 173/76 H Pulse Oximetry 95 Oxygen Delivery Method 11/13/22 12:30 11/13/22 13:00 11/13/22 13:00 Temperature Pulse Rate 90 85 Respiratory Rate 26 H 22 Blood Pressure 168/74 H Pulse Oximetry 92 91 Oxygen Delivery Method 11/13/22 13:38 11/13/22 13:40 11/13/22 13:40 Temperature Pulse Rate 91 H 88 Respiratory Rate Blood Pressure 174/74 H Pulse Oximetry 95 95 Oxygen Delivery Method 11/13/22 14:00 11/13/22 14:00 11/13/22 14:30 Temperature Pulse Rate 89 89 Respiratory Rate Blood Pressure 162/73 H Pulse Oximetry 94 94 Oxygen Delivery Method 11/13/22 14:31 11/13/22 14:31 11/13/22 15:00 Temperature Pulse Rate 88 Respiratory Rate Blood Pressure 157/70 H 175/72 H Pulse Oximetry 95 Oxygen Delivery Method 11/13/22 15:00 11/13/22 15:30 11/13/22 15:30 Temperature Pulse Rate 84 79 Respiratory Rate Blood Pressure 164/74 H Pulse Oximetry 93 92 Oxygen Delivery Method MDM - Skin/Abscess/Foreign Bdy Lab Data Result diagrams: 11/14/22 04:16 11/14/22 04:16 Labs: Lab Results 11/13/22 11/13/22 11/13/22 Range/Units 11:35 11:35 11:35 WBC 9.8 (4.5-11.0) X10^3/uL RBC 4.54 (4.0-5.2) X10^6/uL Hgb 13.7 (12.0-16.0) g/dL Hct 40.4 (36-46) % MCV 89.0 (80-100) fL MCH 30.2 (26-34) PG MCHC 33.9 (30-36) % RDW 12.7 (11.6-14.8) % Plt Count 229 (150-400) X10^3/uL Neut % (Auto) 88.6 H (50-75) % Lymph % (Auto) 5.6 L (25-40) % [place] % (Auto) 4.9 (3-14) % Eos % (Auto) 0.5 L (2-4) % Baso % (Auto) 0.4 (0-2) % Neut # (Auto) 8700 H (9364-0192) /uL Lymph # (Auto) 600 L (5566-0814) /uL [place] # (Auto) 500 (0-900) /uL Eos # (Auto) 100 (0-450) /uL Baso # (Auto) 0 (0-100) /uL PT 11.2 (10.1-12.7) SECONDS INR 1.0 (0.9-1.3) APTT 27 (26-36) SECONDS Sodium 136 L (137-145) mmol/L Potassium 3.5 (3.4-5.1) mmol/L Chloride 99 (98-107) mmol/L Carbon Dioxide 30 (22-32) mmol/L BUN 9 (7-17) mg/dL Creatinine 0.42 L (0.52-1.04) mg/dL Estimated GFR > 60 (>60) mL/min BUN/Creatinine Ratio 21.4 (6-22) Glucose 103 (80-110) mg/dL Lactate (0.7-2.1) mmol/L Calcium 8.9 (8.4-10.2) mg/dL Total Bilirubin 2.1 H (0.2-1.3) mg/dL AST 30 (14-36) IU/L ALT 16 (<35) IU/L Alkaline Phosphatase 81 (38-126) U/L Total Protein 7.8 (6.3-8.2) g/dL Albumin 4.5 (3.5-5.0) g/dL Globulin 3.3 (1.7-4.1) g/dL Albumin/Globulin Ratio 1.4 (1.0-2.8) Lipase 44 (23-300) U/L Procalcitonin 0.04 (<0.5) ng/mL Urine RBC (0-5/HPF) Urine WBC (0-5/HPF) Ur Squamous Epith Cells (0-5/HPF) Urine Bacteria (None) Urine Mucus (Negative) Ur Culture Indicated? SARS-CoV-2 (PCR) (Negative) 01/06/23 01/06/23 01/06/23 Range/Units 11:35 13:13 15:52 WBC (4.5-11.0) X10^3/uL RBC (4.0-5.2) X10^6/uL Hgb (12.0-16.0) g/dL Hct (36-46) % MCV (80-100) fL MCH (26-34) PG MCHC (30-36) % RDW (11.6-14.8) % Plt Count (150-400) X10^3/uL Neut % (Auto) (50-75) % Lymph % (Auto) (25-40) % [place] % (Auto) (3-14) % Eos % (Auto) (2-4) % Baso % (Auto) (0-2) % Neut # (Auto) (4243-6173) /uL Lymph # (Auto) (1820-2581) /uL [place] # (Auto) (0-900) /uL Eos # (Auto) (0-450) /uL Baso # (Auto) (0-100) /uL PT (10.1-12.7) SECONDS INR (0.9-1.3) APTT (26-36) SECONDS Sodium (137-145) mmol/L Potassium (3.4-5.1) mmol/L Chloride (98-107) mmol/L Carbon Dioxide (22-32) mmol/L BUN (7-17) mg/dL Creatinine (0.52-1.04) mg/dL Estimated GFR (>60) mL/min BUN/Creatinine Ratio (6-22) Glucose (80-110) mg/dL Lactate 1.0 (0.7-2.1) mmol/L Calcium (8.4-10.2) mg/dL Total Bilirubin (0.2-1.3) mg/dL AST (14-36) IU/L ALT (<35) IU/L Alkaline Phosphatase (38-126) U/L Total Protein (6.3-8.2) g/dL Albumin (3.5-5.0) g/dL Globulin (1.7-4.1) g/dL Albumin/Globulin Ratio (1.0-2.8) Lipase (23-300) U/L Procalcitonin (<0.5) ng/mL Urine RBC None seen (0-5/HPF) Urine WBC 0-1/hpf (0-5/HPF) Ur Squamous Epith Cells 1-5 /hpf (0-5/HPF) Urine Bacteria Few (2-10) H (None) Urine Mucus 1+ H (Negative) Ur Culture Indicated? Cult not indicated SARS-CoV-2 (PCR) Negative (Negative) Urine Dip Bedside Urine Glucose Negative Bedside Urine Bilirubin +++ 4 Bedside Urine Ketone - Negative Urine Specific [place] 1.015 Bedside Urine Occult Blood +/- Bedside Urine pH 7.5 Bedside Urine Protein - Negative Bedside Urine Urobilinogen - Negative Bedside Urine Nitrite - Negative Bedside Urine Leukocytes - Negative Esterase Imaging Data Chest x-ray: Radiologist's Impression: Signed Patient: Karla Burt MR#: [id number] : 1940 Acct:[id number] Age/Sex: 82 / F Date of Service: 11/13/22 Loc: ED Accession Number: [id number] ?? Procedure: XR chest 1V Ordering Provider: Norah Martinez D.O. PROCEDURE:? XR CHEST 1V ? INDICATIONS:? suspected sepsis ? TECHNIQUE:? One view of the chest was acquired.? ? COMPARISON:? [facility], , XR CHEST 1V, 08/03/2021, 16:20. ? FINDINGS:? ? Surgical changes and devices:? Right axillary clips. ? Lungs and pleura:? Slight appearance of interstitial prominence. ? Mediastinum:? Mediastinal contours appear normal.? Heart size is normal.? ? Bones and chest wall:? No suspicious bony lesions.? Overlying soft tissues appear unremarkable.? ? IMPRESSION:? Slight interstitial prominence suspected to represent edema.? ? ? Dictated by: Dasha Sheppard M.D. on 11/13/2022 at 12:05 ? ? ECG Data Interpretation: Normal sinus rhythm rate 90 DE interval 1 4 QRS [address] changes or T-wave inversions similar to prior MDM Narrative Medical decision making narrative: Patient has history of lymphedema right arm cellulitis and sepsis. She presents today with the same low-grade fever and obvious cellulitis. She is never had leukocytosis blood work is overall reassuring. No sign of severe sepsis she is not hypotensive tachycardic. Overall appears well. She is given vancomycin and Rocephin she has allergies to penicillin and sulfa. Other possibility includes DVT however with history of lymphedema sepsis and low-grade fever this is most likely a cellulitis. There is no other source of infection at this time. Dr. Cardoso updated patient's symptoms test results and accepts patient Discharge Plan Departure Patient Disposition: Admitted as Observation Clinical Impression: Lymphedema of arm, Cellulitis of arm, right Admit Date/Time: 11/13/22 15:53 Admit Provider: Tim Cardoso
[2022-11-13] MEDS: cefTRIAXone 1,000 MG in SODIUM CHLORIDE 0.9% 100 ML 200 MG IV ×2 (14:14→22:11)
[2022-11-13] MEDS: KETOROLAC 30 MG/ML VIAL 15 MG IV (14:39)
[2022-11-13] MEDS: VANCOMYCIN 1,000 MG/200 ML PIGGYBACK 200 MG IV (14:46)
[2022-11-13 15:16] LABS: Bacteria Urine Few (2-10); Culture Indicated Urine Cult Not Indicated; Mucus Urine 1+ (Negative); RBC Urine None Seen (0-5/HPF); Squamous Epithelial Cell Urine 1-5 /HPF (0-5/HPF); WBC Urine 0-1/HPF (0-5/HPF)
--- NOTE | 2022-11-13 16:14 | PC.NURSE ---
Day shift: Pt in room from ED at approx 1605. She is A&Ox4. She states My arm looks better if you can believe that. Steady on her feet. Used BR and voided w/o issue. RA 97%. BP elevated 160/79. Oriented to room and call light. Bed alarm is on. Agrees to not get OOB w/o help from staff.
[2022-11-13 16:36] LABS: COVID19 -Nasal RAPID Negative (Negative)
--- NOTE | 2022-11-13 20:09 | P.HP_ITS ---
History of Present Illness History of Present Illness Date Patient Seen: 11/13/22 Time Patient Seen: 20:09 Date of Onset of Symptoms: 11/12/22 Chief complaint: Lymphedema/HX of sepsis Narrative: Patient is a 82-year-old female who presents with fever. Patient has a history of recurrent right arm cellulitis since her breast cancer surgery. She has had an issue of lymphedema. No definitive findings. It is always come on very quickly. She is gotten very sick. Has a history of sepsis with this. There is no other changes. Patient last night started having fevers and was getting hot bed. By the time she woke up this morning she was having right arm swelling and otherwise no changes. Redness. Fevers. No other complaint her problem. Energy level has been down. Slight headache. Otherwise feeling her normal self. Previously had been doing well. No urinary changes no chest pain. No shortness of breath. No abdominal pain. Past medical history is significant for glaucoma, elevated blood pressure without diagnosis of hypertension, breast cancer, recurrent cellulitis, Past surgical history right partial mastectomy 1997, hysterectomy 1982 Family history. Father had cancer unknown type, and had 1 sibling with a stro ke, mother with no significant issues Social history , 2 children, retired, nonsmoker occasional alcohol Patient History Medical History Arthritis Cellulitis of arm, right H/O malignant neoplasm of breast Lymphedema of arm Sciatica Spinal stenosis Surgical History History of lymph node dissection of both axillae Family & Social History Social History: household members spouse Safety & Behavioral: Feels Safe in Current Yes Environment Been Physically Hurt or No Threatened By a Person Tobacco & Substance use: Smoking Status Never smoker alcohol intake current alcohol intake frequency holiday/special occasion Substance Use Type does not use Meds Home Medications and Allergies Home Medications Medication Instructions Recorded Confirmed Type albuterol sulfate 90 mcg/actuation 1 inh inhalation QID PRN 07/23/20 11/13/22 History aerosol inhaler (ProAir HFA) bronchonitis or bad allergies brimonidine 0.15 %-dorzolamide 2 % 1 drp ophthalmic (eye) BID 07/23/20 11/13/22 History (PF) eye drops cholecalciferol (vitamin D3) 50 4,000 unit PO QPM 07/23/20 11/13/22 History mcg (2,000 unit) tablet (Vitamin D3) latanoprost 0.005 % eye drops 1 % ophthalmic (eye) BEDTIME 07/23/20 11/13/22 History melatonin 3 mg capsule 3 mg PO BEDTIME PRN Sleep 07/23/20 11/13/22 History timolol 0.5 %-brimonidine 0.15 1 drp ophthalmic (eye) DAILY 07/23/20 11/13/22 History %-dorzolamide 2 % (PF) eye drops aspirin 81 mg tablet,delayed 81 mg PO BEDTIME 08/29/20 11/13/22 History release (Adult Aspirin Regimen) escitalopram oxalate 10 mg tablet 10 mg PO BEDTIME 11/13/22 11/13/22 History etodolac 400 mg tablet 400 mg PO DIRECTED 11/13/22 11/13/22 History Allergies Allergy/AdvReac Type Severity Reaction Status Date / Time latex [LATEX] Allergy Severe RASH Verified 11/13/22 11:23 Penicillins [PENICILLINS] Allergy Severe ALL OVER Verified 11/13/22 11:23 BODY WELTS Sulfa (Sulfonamide Allergy Unknown WAS GIVEN Verified 11/13/22 11:23 Antibiotics) WHEN BABY, [SULFA (SULFONAMIDE UNSURE IF ANTIBIOTICS)] STILL HAS ALLERGY Review of Systems Review of Systems Narrative: All negative except history and physical Exam Vital Signs (past 8 hours): - 11/13/22 12:30 11/13/22 12:30 11/13/22 13:00 Temperature Pulse Rate 90 Respiratory Rate 26 H Blood Pressure 173/76 H 168/74 H Pulse Oximetry 92 Oxygen Flow Rate 11/13/22 13:00 11/13/22 13:38 11/13/22 13:40 Temperature Pulse Rate 85 91 H Respiratory Rate 22 Blood Pressure 174/74 H Pulse Oximetry 91 95 Oxygen Flow Rate 11/13/22 13:40 11/13/22 14:00 11/13/22 14:00 Temperature Pulse Rate 88 89 Respiratory Rate Blood Pressure 162/73 H Pulse Oximetry 95 94 Oxygen Flow Rate 11/13/22 14:30 11/13/22 14:31 11/13/22 14:31 Temperature Pulse Rate 89 88 Respiratory Rate Blood Pressure 157/70 H Pulse Oximetry 94 95 Oxygen Flow Rate 01/06/23 15:00 11/13/22 15:00 11/13/22 15:30 Temperature Pulse Rate 84 Respiratory Rate Blood Pressure 175/72 H 164/74 H Pulse Oximetry 93 Oxygen Flow Rate 11/13/22 15:30 11/13/22 16:15 Temperature 98.7 F Pulse Rate 79 87 Respiratory Rate 18 Blood Pressure 159/78 H Pulse Oximetry 92 97 Oxygen Flow Rate 0 Oxygen Delivery Method Room Air Oxygen Flow Rate 0 Narrative Exam Narrative: Alert energetic female lying in bed no acute distress Slight erythema conjunctiva posterior pharynx is normal neck supple without adenopathy JVD or bruits no supraclavicular adenopathy no axillary adenopathy or masses lungs are clear heart regular rate and rhythm abdomen is soft positive bowel sounds nontender extremities no significant edema right arm shows basically a bring of erythema starting at the top of her right arm and going elayne n to her hand. Moderate swelling with mild tenderness significant deep red throughout. Neurologic exam is normal. Objective Labs Result Diagrams: 11/13/22 11:35 11/13/22 11:35 Labs: Laboratory Results - last 24 hr 11/13/22 11/13/22 11/13/22 11:35 11:35 11:35 WBC 9.8 RBC 4.54 Hgb 13.7 Hct 40.4 MCV 89.0 MCH 30.2 MCHC 33.9 RDW 12.7 Plt Count 229 Neut % (Auto) 88.6 H Lymph % (Auto) 5.6 L [place] % (Auto) 4.9 Eos % (Auto) 0.5 L Baso % (Auto) 0.4 Neut # (Auto) 8700 H Lymph # (Auto) 600 L [place] # (Auto) 500 Eos # (Auto) 100 Baso # (Auto) 0 PT 11.2 INR 1.0 APTT 27 Sodium 136 L Potassium 3.5 Chloride 99 Carbon Dioxide 30 BUN 9 Creatinine 0.42 L Estimated GFR > 60 BUN/Creatinine Ratio 21.4 Glucose 103 Lactate Calcium 8.9 Total Bilirubin 2.1 H AST 30 ALT 16 Alkaline Phosphatase 81 Total Protein 7.8 Albumin 4.5 Globulin 3.3 Albumin/Globulin Ratio 1.4 Lipase 44 Procalcitonin 0.04 Urine RBC Urine WBC Ur Squamous Epith Cells Urine Bacteria Urine Mucus Ur Culture Indicated? SARS-CoV-2 (PCR) 11/13/22 11/13/22 11/13/22 11:35 13:13 15:52 WBC RBC Hgb Hct MCV MCH MCHC RDW Plt Count Neut % (Auto) Lymph % (Auto) [place] % (Auto) Eos % (Auto) Baso % (Auto) Neut # (Auto) Lymph # (Auto) [place] # (Auto) Eos # (Auto) Baso # (Auto) PT INR APTT Sodium Potassium Chloride Carbon Dioxide BUN Creatinine Estimated GFR BUN/Creatinine Ratio Glucose Lactate 1.0 Calcium Total Bilirubin AST ALT Alkaline Phosphatase Total Protein Albumin Globulin Albumin/Globulin Ratio Lipase Procalcitonin Urine RBC None seen Urine WBC 0-1/hpf Ur Squamous Epith Cells 1-5 /hpf Urine Bacteria Few (2-10) H Urine Mucus 1+ H Ur Culture Indicated? Cult not indicated SARS-CoV-2 (PCR) Negative Assessment & Plan Assessment & Plan narrative: Cellulitis. Patient with history of very rapid onset very aggressive cellulitis and will be treated aggressively with vanco and Rocephin. White count minimally elevated but still having fevers. Probably secondary to her lymphedema. No evidence of open wound. No other changes. Otherwise had been feeling well. Cultures have been obtained. Will adjust medication as able. Although would not be surprised if cultures remain negative. Will have to do this as she responds. Expect 2-3 days of IV antibiotics. Glaucoma. Patient on a number of medicines which are compounded. Hopefully got those right. If not will be bringing them to the hospital. History of elevated blood pressure will follow continue her current medicine. History of depression stable. History of constipation. Will continue her Dulcolax. Headache. Tylenol hydrocodone if needed usual with her infection she feels. No real change. Lymphedema right arm. Longstanding will need to follow. History of asthma mild. No other changes. Code status full DVT prophylaxis on Lovenox Disposition. Expect 2-3 days of hospitalization with switch to oral antibiotics. Labs tomorrow will follow Time Spent With Patient Critical Care time: I spent a total of [] minutes of critical care time on this patient's care today; this time is exclusive of procedural time.
[2022-11-13] MEDS: ASPIRIN EC 81 MG TABLET PO (22:11)
[2022-11-13] MEDS: MELATONIN 3 MG TABLET PO (22:11)
[2022-11-13] MEDS: HYDROCODONE/ACET 5/325 TABLET 1 TAB PO (22:11)
[2022-11-13] MEDS: ESCITALOPRAM 10 MG TABLET PO (22:11)
[2022-11-13] MEDS: ACETAMINOPHEN 325 MG TABLET 650 MG PO (22:15)
[2022-11-14] VITALS (9 sets, daily range): BP systolic 136–165; BP diastolic 55–67; PULSE 67–85; RESP 16–20; TEMP 37.2–37.8; O2SAT 94–99
[2022-11-14 05:07] LABS: Add Manual Diff / Slide Review NO; Basophils Absolute Auto 0 /uL (0-100); Basophils Percent Auto 0.5 % (0-2); Eosinophils Absolute Auto 100 /uL (0-450); Eosinophils Percent Auto 0.9 % (2-4); Hematocrit 36.2 % (36-46); Hemoglobin 12.5 g/dL (12.0-16.0); Lymphocytes Absolute Auto 1200 /uL (1100-4500); Lymphocytes Percent Auto 16.6 % (25-40); Mean Corpuscular HGB Conc 34.4 % (30-36); Mean Corpuscular Hemoglobin 30.6 PG (26-34); Monocytes Absolute Auto 700 /uL (0-900); Monocytes Percent Auto 9.2 % (3-14); Neutrophils Absolute Auto 5300 /uL (1500-7000); Neutrophils Percent Auto 72.8 % (50-75); Platelet Count 193 X10^3/uL (150-400); Red Blood Cell Count 4.07 X10^6/uL (4.0-5.2); Red Cell Distribution Width 12.6 % (11.6-14.8); White Blood Cell Count 7.3 X10^3/uL (4.5-11.0)
[2022-11-14 05:13] LABS: BUN Creatinine Ratio 35.6 (6-22); Blood Urea Nitrogen 16 mg/dL (7-17); Calcium 8.5 mg/dL (8.4-10.2); Carbon Dioxide 27 mmol/L (22-32); Chloride 102 mmol/L (98-107); Estimated Glomerular Filt Rate > 60 mL/min (>60); Glucose 96 mg/dL (80-110); HEMOLYSIS < 15 (0-50); Potassium 3.4 mmol/L (3.4-5.1); Sodium 136 mmol/L (137-145)
[2022-11-14] MEDS: VANCOMYCIN 750 MG/150 ML PIGGYBACK 150 MG IV ×2 (07:48→20:31)
[2022-11-14] MEDS: ENOXAPARIN 40 MG/0.4 ML SYRINGE SUBCUT (08:25)
[2022-11-14] MEDS: ACETAMINOPHEN 325 MG TABLET 650 MG PO ×2 (08:25→17:17)
[2022-11-14] MEDS: DOCUSATE 100 MG CAPSULE 300 MG PO (08:26)
--- NOTE | 2022-11-14 09:32 | CM.DANOTE ---
Patient is an 81 yo female who was admitted on 11/13/22 for Cellulitis. Pt has [employer] [facility] and [employer] for insurance and her PCP is Dr. Cardoso. EMR was reviewed. Per MD, pt with hx of mastectomy and has chronic lymphedema. Pt was last admitted in February and Jul 2021 for the same, cellulitis and was able to d/c home with oral abx and no needs. Per MD, anticipate the same for this admit and IV-Abx here a couple days and d/c home with spouse on orals. Patient states this infection is very common with her, and has happened about 17 times over the past 20 years since my mastectomy in 1997. Mentioned that when she develops these symptoms, she has been instructed to go to ER rather than her primary care provider secondary to needing IV antibiotics. Pt is pleasant, alert and oriented. She resides in [place] with her spouse, Misael. She is independent at her baseline as far as mobility, has a cane that she uses on occasion and SW witnessed steady gait in room. Pt denies any HH or SNF hx and does not anticipate any SW needs at d/c. Pt states her arm is looking less swollen and red but does not feel she is medically stable yet to d/c today as she feels it would be high risk of readmit based on her many admissions for same. Plan: SW to follow closely for plan of likely 1-2 days IV-Abx before transition to oral abx for d/c to home with spouse. SW to follow for any further identified discharge planning needs once cultures return. ELANA Be Discharge Planning/Care Management Advanced directive, confirm from FAMILY Start: 11/13/22 16:43 Freq: Q24H Status: Active Protocol: Document 11/13/22 16:47 YAD (Rec: 11/13/22 16:47 YAD [id number]) Advance Directive, confirm on record Time 16:47 Person contacted patient Copy received No CM Discharge Assessment Start: 11/14/22 09:31 Freq: Status: Active Protocol: Document 11/14/22 09:31 BF (Rec: 11/14/22 09:32 BF [id number]) Discharge Planning Assessment Assigned Bowling Ball Grader ELANA Adamson DPOA/Assigned Designee Name spouse Misael Contact Information [phone] Advance Directives? Yes Advance Directives on File No History Provided By Patient,Medical Record Has Patient been admitted in last 30 No days? Comment last admit in Jul 2022 last year and went home on oral abx Prior Living Arrangements House Household Members spouse Type of transporation used prior to Drives own vehicle admit Independent with ADL's Yes Is patient alert and oriented? Yes Needs Assistance With Home Chores / Shopping Caregiver for Another No Comment has cane, does not routinely use it Barriers to Discharge No Discharge Plan Home Transportation Arrangement Spouse Referrals Initiated None needed Whiteboard Updated in Patient Room with Yes name and ext. # of Bowling Ball Grader Review Status In Process Please Provide Date Initial DC 11/14/22 Assessment Was Performed Next Review Type Continued Stay Review
[2022-11-14] MEDS: POTASSIUM CHLORIDE 20 MEQ TAB 40 MEQ PO (11:24)
[2022-11-14] MEDS: lisinopriL 5 MG TABLET PO (11:47)
--- NOTE | 2022-11-14 12:25 | PM.PN.1 ---
Subjective Subjective Date Patient Seen: 11/14/22 Interval history: The pt reports feeling well this morning. She states the redness in her arm is improved, but still more than she would like. She felt slightly feverish overnight. She denies any chest pain, SOB. She is otherwise feeling well. Exam Vital Signs (past 8 hours): - 11/14/22 06:00 11/14/22 08:25 11/14/22 11:47 Temperature 100.0 F H 100.0 F H Pulse Rate 67 74 Respiratory Rate 19 Blood Pressure 165/57 H 150/60 H Pulse Oximetry 94 Oxygen Flow Rate 0 11/14/22 12:01 Temperature 100.1 F H Pulse Rate 74 Respiratory Rate 18 Blood Pressure 150/60 H Pulse Oximetry 98 Oxygen Flow Rate Oxygen Delivery Method Room Air Oxygen Flow Rate 0 Narrative Exam Narrative: Gen: NAD, sitting comfortably in bed, appears well CV: RRR, no murmurs Resp: clear to auscultation bilaterally Abd: soft, nontender, nondistended, normoactive bowel sounds Ext: no edema bilateral LE; right UE with significant lymphedema, erythema extending from wrist to directly below shoulder, nontender, mildly warm Objective Labs Result Diagrams: 11/14/22 04:16 11/14/22 04:16 Labs: Laboratory Results - last 24 hr 11/13/22 11/13/22 11/13/22 11:35 13:13 15:52 WBC RBC Hgb Hct MCV MCH MCHC RDW Plt Count Neut % (Auto) Lymph % (Auto) [place] % (Auto) Eos % (Auto) Baso % (Auto) Neut # (Auto) Lymph # (Auto) [place] # (Auto) Eos # (Auto) Baso # (Auto) Sodium Potassium Chloride Carbon Dioxide BUN Creatinine Estimated GFR BUN/Creatinine Ratio Glucose Calcium Procalcitonin 0.04 Urine RBC None seen Urine WBC 0-1/hpf Ur Squamous Epith Cells 1-5 /hpf Urine Bacteria Few (2-10) H Urine Mucus 1+ H Ur Culture Indicated? Cult not indicated SARS-CoV-2 (PCR) Negative 11/14/22 11/14/22 04:16 04:16 WBC 7.3 RBC 4.07 Hgb 12.5 Hct 36.2 MCV 89.0 MCH 30.6 MCHC 34.4 RDW 12.6 Plt Count 193 Neut % (Auto) 72.8 Lymph % (Auto) 16.6 L [place] % (Auto) 9.2 Eos % (Auto) 0.9 L Baso % (Auto) 0.5 Neut # (Auto) 5300 Lymph # (Auto) 1200 [place] # (Auto) 700 Eos # (Auto) 100 Baso # (Auto) 0 Sodium 136 L Potassium 3.4 Chloride 102 Carbon Dioxide 27 BUN 16 Creatinine 0.45 L Estimated GFR > 60 BUN/Creatinine Ratio 35.6 H Glucose 96 Calcium 8.5 Procalcitonin Urine RBC Urine WBC Ur Squamous Epith Cells Urine Bacteria Urine Mucus Ur Culture Indicated? SARS-CoV-2 (PCR) [facility] Medical History Arthritis Cellulitis of arm, right H/O malignant neoplasm of breast Lymphedema of arm Sciatica Spinal stenosis Surgical History History of lymph node dissection of both axillae Social History household members: spouse Smoking Status: Never smoker alcohol intake: current Assessment & Plan Assessment & Plan narrative: Pt is a 82yo woman with glaucoma, HTN, depression, constipation, chronic lymphedema of her right arm who presented with fever/chills and erythema of the right arm. 1) Cellulitis: Hx of rapid progression to sepsis. Currently stable and improving - Continue Vancomycin and Ceftriaxone - F/U cultures 2) HTN: BP currently elevated - Start Lisinopril 5mg daily 3) Depression: Stable - Continue home Lexapro 4) Constipation: - Continue home Dulcolax 5) Glaucoma: Stable - Continue home eye drops 6) Lymphedema right arm: Causing recurrent cellulitis - Consider wraps as an outpatient Code: Full DVT ppx: Lovenox Diet: Regular Dispo: Anticipate should be stable for d/c home tomorrow, with continued improvement in symptoms. Time Spent With Patient Critical Care time: I spent a total of [] minutes of critical care time on this patient's care today; this time is exclusive of procedural time.
[2022-11-14] MEDS: CHOLECALCIFEROL (VITAMIN D3) 1,000 UNIT TABLET 4000 UNIT PO (17:17)
[2022-11-14] MEDS: SODIUM CHLORIDE 0.9% FLUSH 10 ML IV (20:27)
[2022-11-14] MEDS: MELATONIN 3 MG TABLET PO (20:31)
[2022-11-14] MEDS: ASPIRIN EC 81 MG TABLET PO (20:31)
[2022-11-14] MEDS: ESCITALOPRAM 10 MG TABLET PO (20:31)
[2022-11-14] MEDS: cefTRIAXone 1,000 MG in SODIUM CHLORIDE 0.9% 100 ML 200 MG IV (22:33)
[2022-11-15 05:35] VITALS: BP 169/63; PULSE 72; RESP 18; TEMP 37.3; O2SAT 98
[2022-11-15] MEDS: ACETAMINOPHEN 325 MG TABLET 650 MG PO (06:01)
[2022-11-15] MEDS: VANCOMYCIN 750 MG/150 ML PIGGYBACK 150 MG IV ×2 (07:38→22:20)
[2022-11-15] MEDS: ENOXAPARIN 40 MG/0.4 ML SYRINGE SUBCUT (09:03)
[2022-11-15] MEDS: DOCUSATE 100 MG CAPSULE 300 MG PO (09:03)
[2022-11-15] MEDS: lisinopriL 5 MG TABLET PO (09:03)
[2022-11-15] MEDS: SODIUM CHLORIDE 0.9% FLUSH 10 ML IV ×2 (09:04→20:41)
--- NOTE | 2022-11-15 10:34 | P.PN_ITS ---
Subjective Subjective Date Patient Seen: 11/15/22 Interval history: The pt reports not feeling well this morning. She is concerned there is swelling in her legs. She feels feverish despite no documented fever. She overall just feels cruddy but has a difficult time describing what exactly feels unwell. As per nursing the pt has had 2 episodes of watery diarrhea this morning. Exam Vital Signs (past 8 hours): - 11/15/22 05:35 Temperature 99.1 F Pulse Rate 72 Respiratory Rate 18 Blood Pressure 169/63 H Pulse Oximetry 98 Oxygen Delivery Method Room Air Oxygen Flow Rate 0 Narrative Exam Narrative: Gen: NAD, sitting comfortably in bed, appears well CV:? RRR, no murmurs Resp:? clear to auscultation bilaterally Abd:? soft, nontender, nondistended, normoactive bowel sounds Ext:? no edema bilateral LE; right UE with significant lymphedema, erythema extending from wrist to directly below shoulder that is only minimally improved from yesterday, nontender, slightly more warm than yesterday Objective Labs Result Diagrams: 11/14/22 04:16 11/14/22 04:16 [facility] Medical History Arthritis Cellulitis of arm, right H/O malignant neoplasm of breast Lymphedema of arm Sciatica Spinal stenosis Surgical History History of lymph node dissection of both axillae Social History household members: spouse Smoking Status: Never smoker alcohol intake: current Assessment & Plan Assessment & Plan narrative: Pt is a 82yo woman with glaucoma, HTN, depression, constipation, chronic lymphedema of her right arm who presented with fever/chills and erythema of the right arm. 1)? Cellulitis:? Hx of rapid progression to sepsis.? Currently stable, but not much improvement from yesterday. - Continue Vancomycin and Ceftriaxone, still would benefit from IV - F/U cultures, negative at 24hrs 2)? HTN:? BP currently elevated - Continue Lisinopril 5mg daily initiated yesterday 3)? Depression:? Stable - Continue home Lexapro 4)? Constipation: - Continue home Dulcolax 5)? Glaucoma:? Stable - Continue home eye drops 6)? Lymphedema right arm:? Causing recurrent cellulitis - Consider wraps as an outpatient 7) Diarrhea: Potentially causing the pt to feel less well today - C diff testing today Code:? Full DVT ppx:? Lovenox Diet:? Regular Dispo:? Pending additional work up for diarrhea, continued improvement in cellulitis. Hopeful for d/c tomorrow. Time Spent With Patient Critical Care time: I spent a total of [] minutes of critical care time on this patient's care today; this time is exclusive of procedural time.
[2022-11-15 11:43] LABS: Clostridium Difficile Tox PCR Negative for C. diff (Negative)
[2022-11-15 12:00] VITALS: BP 140/63; PULSE 75; RESP 20; TEMP 37.4; O2SAT 95
[2022-11-15] MEDS: CHOLECALCIFEROL (VITAMIN D3) 1,000 UNIT TABLET 4000 UNIT PO (16:05)
[2022-11-15 18:00] VITALS: BP 158/58; PULSE 71; RESP 18; TEMP 37.4; O2SAT 96
[2022-11-15] MEDS: VANCOMYCIN TROUGH 1 REQUEST MISC (19:45)
[2022-11-15 20:33] LABS: Vancomycin Trough 8.4 ug/mL (10-20)
[2022-11-15] MEDS: ASPIRIN EC 81 MG TABLET PO (20:35)
[2022-11-15] MEDS: ESCITALOPRAM 10 MG TABLET PO (20:35)
[2022-11-15] MEDS: MELATONIN 3 MG TABLET PO (22:43)
[2022-11-15] MEDS: cefTRIAXone 1,000 MG in SODIUM CHLORIDE 0.9% 100 ML 200 MG IV (23:46)
[2022-11-16] VITALS: BP 176/60; PULSE 82; RESP 18; TEMP 37.4; O2SAT 96
[2022-11-16 06:00] VITALS: BP 165/74; PULSE 79; RESP 18; TEMP 37; O2SAT 97
[2022-11-16 08:06] VITALS: BP 188/85; PULSE 78; RESP 21; TEMP 37; O2SAT 95
[2022-11-16 08:15] VITALS: BP 180/79; PULSE 75
[2022-11-16] MEDS: ENOXAPARIN 40 MG/0.4 ML SYRINGE SUBCUT (08:15)
[2022-11-16] MEDS: lisinopriL 5 MG TABLET PO (08:15)
[2022-11-16] MEDS: VANCOMYCIN 750 MG/150 ML PIGGYBACK 150 MG IV (08:16)
[2022-11-16] MEDS: SODIUM CHLORIDE 0.9% FLUSH 10 ML IV (08:17)
--- NOTE | 2022-11-16 08:30 | P.DS_ITS ---
History of Present Illness History of Present Illness Date Patient Seen: 11/16/22 Time Patient Seen: 08:30 Date of Onset of Symptoms: 11/12/22 Chief complaint: Lymphedema/HX of sepsis Narrative: Patient is a 82-year-old female who presents with fever. Patient has a history of recurrent right arm cellulitis since her breast cancer surgery. She has had an issue of lymphedema. No definitive findings. It is always come on very quickly. She is gotten very sick. Has a history of sepsis with this. There is no other changes. Patient last night started having fevers and was getting hot bed. By the time she woke up this morning she was having right arm swelling and otherwise no changes. Redness. Fevers. No other complaint her problem. Energy level has been down. Slight headache. Otherwise feeling her normal self. Previously had been doing well. No urinary changes no chest pain. No shortness of breath. No abdominal pain. Past medical history is significant for glaucoma, elevated blood pressure without diagnosis of hypertension, breast cancer, recurrent cellulitis, Past surgical history right partial mastectomy 1997, hysterectomy 1982 Family history. Father had cancer unknown type, and had 1 sibling with a stro ke, mother with no significant issues Social history , 2 children, retired, nonsmoker occasional alcohol Discharge Providers Provider Date of admission: 11/13/22 15:53 Discharge Date: 11/16/22 Primary care physician: Tim Cardoso MD Discharge provider: Tim Cardoso MD Summary Hospital Course Discharge Diagnosis: Cellulitis right arm Hypertension Depression Diarrhea Glaucoma Lymphedema right arm Hospital Course: Cellulitis. Patient with history of rapid succession to sepsis with previous infections of right arm. She is had at least 3 previous infections all became quite serious. She was brought into the hospital and started on vancomycin and Rocephin. It is unclear what her bug was. She had no leaking of the skin or abscess. Blood cultures were obtained. Patient slowly improved over the course of admission. She had decrease in her fevers over the 1st 24 hours. Was otherwise feeling pretty well. Under discharge she was feeling well except for some discomfort in her left neck. Does not appear to be associated with swallowing or other issue. Appeared to be mostly muscular. At this point it was not felt to be secondary to reaction to antibiotics or to infection. She otherwise was doing well. Her arm look markedly improved and she will be discharged to home on doxycycline and Levaquin. The previous admissions this has worked well for her. No bacteria were identified. This was felt to be secondary to her lymphedema. She had no other evidence of skin breakdown or problem during her admission. Hypertension. Patient was noted to have persistent elevation in her blood pressure over the course of her admission. She has had a history of hypertension in the past. Has been reluctant to try medication. She was started on lisinopril 5 mg minimal impact will start on 10 on discharge and follow-up with me next week we will adjust as needed. Diarrhea. Patient with diarrhea times 24 hours. C diff was negative. She actually has resolved her issue and had had normal bowel movement last night. Feeling better. Has no other changes. Depression. Stable. No change in medicine. Glaucoma. Doing well. No major issue. Status at Discharge Cognitive/behavioral status at discharge: at baseline, oriented Functional status at discharge: independent ambulation Overall status at discharge: patient is progressing back to baseline Exam Vital Signs (past 8 hours): - 11/16/22 06:00 11/16/22 08:06 11/16/22 08:15 Temperature 98.6 F 98.6 F Pulse Rate 79 78 75 Respiratory Rate 18 21 Blood Pressure 165/74 H 188/85 H 180/79 H Pulse Oximetry 97 95 Oxygen Flow Rate 0 0 Oxygen Delivery Method Room Air Oxygen Flow Rate 0 Narrative Exam Narrative: Alert female much less fatigued no acute distress. Lungs are clear. Heart is regular rate and rhythm. Neck shows no swelling no erythema no adenopathy. She does have some tenderness in the sternocleidomastoid on the left side anterior arm. No real swelling. No redness. No axillary adenopathy. Right arm shows marked decrease in erythema. Otherwise doing well. Abdomen is benign extremities otherwise normal Objective Labs Result Diagrams: 11/14/22 04:16 11/14/22 04:16 Labs: Laboratory Results - last 24 hr 11/15/22 11/15/22 10:30 19:44 Vancomycin Trough 8.4 L C. difficile Tox (PCR) Negative for c. diff [facility] Medical History Arthritis Cellulitis of arm, right H/O malignant neoplasm of breast Lymphedema of arm Sciatica Spinal stenosis Surgical History History of lymph node dissection of both axillae Social History household members: spouse Smoking Status: Never smoker alcohol intake: current Discharge Assessment & Plan Assessment and Plan Assessment: Discharge home on oral antibiotics and new medication. Call if any change. Plan of Treatment: Discharge home see above 40 minutes spent in education discussion with patient. A examination discussion with nursing staff and dictation and orders. Discharge Plan Discharge Plan Patient Disposition: Home Discharge orders & Medications Prescriptions: New lisinopril 5 mg Tablet 10 mg PO DAILY Qty: 90 1RF doxycycline hyclate 100 mg capsule 100 mg PO BID Qty: 20 0RF levofloxacin 500 mg tablet 500 mg PO DAILY Qty: 10 0RF Continued aspirin [Adult Aspirin Regimen] 81 mg tablet,delayed release (DR/EC) 81 mg PO BEDTIME cholecalciferol (vitamin D3) [Vitamin D3] 50 mcg (2,000 unit) Tablet 4,000 unit PO QPM melatonin 3 mg Capsule 3 mg PO BEDTIME PRN (Reason: Sleep) albuterol sulfate [ProAir HFA] 90 mcg/actuation Hfa Aerosol Inhaler 1 inh INHALATION QID PRN (Reason: bronchonitis or bad allergies) brimonidine-dorzolamide (PF) 0.15-2 % Drops 1 drp OPHTHALMIC (EYE) BID Rx Instructions: 1 drop each eye at 0800 and 1700 rhupcak-lfvyxgryk-mprrvdmu(PF) 0.5-0.15-2 % Drops 1 drp OPHTHALMIC (EYE) DAILY Rx Instructions: 1 drop each eye daily at NOON latanoprost 0.005 % Drops 1 % OPHTHALMIC (EYE) BEDTIME Rx Instructions: 1 drop each eye at bedtime etodolac 400 mg tablet 400 mg PO DIRECTED Label Comments: TAKE ONE TABLET BY MOUTH EVERY EIGHT HOURS escitalopram oxalate 10 mg tablet 10 mg PO BEDTIME Label Comments: TAKE ONE TABLET BY MOUTH ONE TIME DAILY Follow up/Referrals: Tim Cardoso MD [Primary Care Provider] - 11/23/22 (please call for appointment) Discharge Health Status Multidrug resistant organism: No MDRO Diet/Activity/Treatments Diet: Diet as Tolerated Activity: as tolerated Skin/Wound/Dressing Care Report to your healthcare provider any signs of infection, such as:: chills, fever, increased pain and unusual redness Visit Report/Discharge Packet Stand Alone Forms: Patient Portal/API, Stroke Signs & Symptoms Discharge Data Primary Care Provider: Tim Cardoso
== END 2022-11-16 10:50 | disposition home or self-care (01) | DRG 603 ==
LOC: ED 14:31 → AC 15:54
PROVIDERS: Family Medicine; Admitting Provider Family Medicine; Emergency Provider Emergency Medicine; PCP Family Medicine; Referring Provider Emergency Medicine; Visit Provider Family Medicine
DX: L03.113 Cellulitis of right upper limb (principal); K59.00 Constipation, unspecified; I10 Essential (primary) hypertension; F32.A Depression, unspecified; H40.9 Unspecified glaucoma; R19.7 Diarrhea, unspecified; I89.0 Lymphedema, not elsewhere classified; Z20.822 Contact with and (suspected) exposure to COVID-19
CPT/HCPCS: 36415; 71045; 80048; 80053; 80202; 81003; 81015; 83605; 83690; 84145; 85025; 85610; 85730; 87040; 87493; 87635; 93005; 93010; 96365; 96367; 96375; 99233; 99284; C9803; A9270; J0696; J1650; J1885

== ENCOUNTER → 2022-12-15 09:49 | Outpatient (CLI) | payer MEDICARE, SELFPAY ==
[2021-08-03 18:23] VITALS: BMI 25.4
[2022-11-13 16:38] VITALS: BMI 25.7
--- NOTE | 2022-12-15 | DI.NM.S_ITS ---
PROCEDURE: NM MANDEEP PERF SPECT R&S PHARM Rest and pharmacological stress myocardial perfusion SPECT with gated imaging and ejection fraction RADIOPHARMACEUTICAL: 11.5 mCi Tc-99m tetrafosmin IV at rest and 26.9 mCi Tc-99m tetrafosmin IV at peak effect of pharmacological stress. Nda-zdo-iavkoggm was performed. INDICATIONS: Dyspnea on exertion TECHNIQUE: Radiopharmaceutical was injected at peak stress test, and also at rest. SPECT images were obtained. SPECT myocardial perfusion images were displayed in short axis, horizontal long axis, and vertical long axis views. Gated images were reviewed using Epyon software. COMPARISON: None. CARDIAC STRESS: A pharmacologic stress test was performed under the supervision of an attending staff, using an infusion of Regadenoson 0.4 mg IV. Hemodynamic data: There is normal blood pressure and heart rate response to pharmacologic stress. Symptoms: The patient denied anginal chest pain. EKG: No diagnostic changes of ischemia; no ectopy. FINDINGS: Raw data: There is good myocardial uptake of radiotracer. No significant motion artifacts. Wdux-jd-vzfho ratio is 0.25 (normal is less than 0.38 for tetrafosmin tracer). Left ventricle function: Gated images demonstrate normal left ventricular wall thickening. No segmental wall motion abnormalities. No transient ischemic dilation; TID is 1.13 (normal less than 1.3). Left ventricle resting end diastolic volume is 72 mL. Left ventricle stress ejection fraction is >75%; normal range is above 45%. Myocardial perfusion: There is normal distribution of activity in the right and left ventricular myocardium. No fixed or reversible perfusion defects. IMPRESSION: Low risk study. No evidence of pharmacologic induced ischemia or scar. Hyperdynamic LV function. Dictated by: Stacey Wellington D.O. on 12/16/2022 at 9:36 Approved by: Stacey Wellington D.O. on 12/16/2022 at 9:39
== END ==
PROVIDERS: PCP Family Medicine; Referring Provider Family Medicine; Visit Provider Family Medicine
DX: R06.09 Other forms of dyspnea (principal)
CPT/HCPCS: 78452; 93017; A9502; J2785

== ENCOUNTER → 2023-01-13 13:42 | Outpatient (CLI) | payer MEDICARE, SELFPAY ==
[2022-11-13 16:38] VITALS: BMI 25.7
== END ==
PROVIDERS: PCP Family Medicine; Referring Provider Family Medicine; Visit Provider Family Medicine
DX: R55 Syncope and collapse (principal)
CPT/HCPCS: 93242

== ENCOUNTER → 2023-01-26 10:39 | Outpatient (CLI) | payer MEDICARE, SELFPAY ==
[2022-11-13 16:38] VITALS: BMI 25.7
--- NOTE | 2023-01-26 | DI.MRI.S_ITS ---
PROCEDURE: MR STROKE Pre- and post-contrast brain MRI, non-contrast brain MR angiogram, pre- and postcontrast neck MR angiogram INDICATIONS: SYNCOPE AND COLLAPSE TECHNIQUE: Brain: Noncontrast axial T1 spin echo, axial T2 fast spin echo, sagittal and axial FLAIR, coronal T2 fast spin echo, axial gradient echo, axial diffusion and ADC through the brain. After the administration of contrast, axial 3D VIBE of the cranial vasculature and brain. Brain MRA: Non-contrast 3-D time of flight MR angiogram, with multiple fsfjkbm-qedkkiizm-fkedhcjawp (MIP) reformats performed. Neck MRA: Axial and sagittal TruFISP through the neck. Coronal dynamic MR angiogram during administration of contrast in the arterial and venous phases, with 3-dimenstional sydrlyk-ulrruuzgb-klxbsbzbtu (MIP) reformats constructed from subtraction images. COMPARISON: None. FINDINGS: Image quality: Excellent. BRAIN: CSF spaces: Ventricles are normal in size and shape. Basal cisterns are patent. No extra-axial fluid collections. Brain: No intracranial bleeds or mass effects. There is mild diffuse cerebral volume loss. There is a mild degree of patchy high FLAIR signal within the periventricular and subcortical white matter. Phillips-white matter interface is normal. Diffusion weighted images show no acute ischemic insults. Brainstem appears normal. Normal intravascular flow voids are present. No abnormal intracranial enhancement. Skull and face: Calvarial marrow signal is normal. Orbits appear normal. Sinuses: Mild mucosal thickening within the bilateral ethmoid air cells. BRAIN MR ANGIOGRAM: Anterior circulation: Intracranial internal carotid arteries are normal in size and enhancement. The flow within the paired anterior cerebral arteries is normal and symmetric. The flow within the middle cerebral arteries is normal and symmetric. The anterior communicating artery is seen. No stenoses, occlusions, or aneurysms. Posterior circulation: The visualized portions of the vertebral arteries demonstrate normal caliber, and join to form a normal appearing basilar artery. Near origin of the left posterior cerebral artery. The flow within the posterior cerebral arteries is normal and symmetric. No stenoses, occlusions, or aneurysms. NECK MR ANGIOGRAM: Carotids: Great vessels demonstrate a conventional anatomy as they arise from the aortic arch. The origins of the common carotid arteries appear patent. The calibers and courses of both common carotid arteries are normal. The bifurcation regions appear normal bilaterally. The internal carotid arteries demonstrate normal course and caliber. Posterior circulation: The origins of the vertebral arteries are not well seen. More superior portions of both vertebral arteries demonstrate normal course and caliber, and join to form a normal appearing basilar artery. Miscellaneous: Subclavian arteries appear patent. Pre-contrast images through the neck show no soft tissue abnormalities. IMPRESSION: BRAIN MRI: 1. Volume loss and small vessel ischemic disease. 2. No acute process. No recent infarct. 3. Mild sinus disease. BRAIN MR ANGIOGRAM: Negative cerebral MR angiography. NECK MR ANGIOGRAM: 1. No internal carotid artery stenosis bilaterally. 2. Suboptimally visualized vertebral artery origins. Vertebral arteries are otherwise patent. Dictated by: Leeroy Lopez M.D. on 01/26/2023 at 12:48 Transcribed by: ROSA on 01/26/2023 at 12:51 Approved by: Leeroy Lopez M.D. on 01/26/2023 at 15:39
== END ==
PROVIDERS: PCP Family Medicine; Referring Provider Family Medicine; Visit Provider Family Medicine
DX: R55 Syncope and collapse (principal); J32.2 Chronic ethmoidal sinusitis
CPT/HCPCS: 70548; 70553

== ENCOUNTER → 2023-02-15 | Outpatient (CLI) | payer MEDICARE, SELFPAY ==
[2022-11-13 16:38] VITALS: BMI 25.7
--- NOTE | 2023-02-15 | DI.RAD.S_ITS ---
Bone Density Report Name: FIDENCIO DAIELY Age: 82 Sex: Female Ethnicity: White Date of : 1940 Indication: osteopenia; Referring Provider: MARIO ROSALES Study: Bone densitometry was performed. Exam Date: February 15, 2023 Accession number: [id number] Bone Density: Region BMD T-score Z-score Classification AP Spine(L1-L4) 1.147 0.9 3.7 Normal Femoral Neck (Left) 0.651 -1.8 0.7 Osteopenia Total Hip (Left) 0.785 -1.3 1.0 Osteopenia Femoral Neck (Right) 0.636 -1.9 0.5 Osteopenia Total Hip (Right) 0.753 -1.5 0.7 Osteopenia Total Hip Mean 0.769 -1.4 0.9 Osteopenia World Health Organization criteria for BMD impression classify patients as: Normal (T-score at or above -1.0), Osteopenia (T-score between -1.0 and -2.5), or Osteoporosis (T-score at or below -2.5). 10-year Fracture Risk(1): Major Osteoporotic Fracture 15% Hip Fracture 4.7% Reported Risk Factors: [place] (), Neck BMD=0.636, BMI=27.3 (1) FRAX(R) Version 3.08. Fracture probability calculated for an untreated patient. Fracture probability may be lower if the patient has received treatment. Previous Exams: -- Region Exam Age BMD T-score BMD Change BMD Change Date g/cm2 vs Baseline vs Previous -- AP Spine (L1-L4) 02/15/2023 82 1.147 0.9 0.035 (3.1%)# 0.035 (3.1%)# 02/24/2018 77 1.112 0.6 Total Hip(Left) 02/15/2023 82 0.785 -1.3 -0.001 (-0.1%)# -0.001 (-0.1%)# 02/24/2018 77 0.786 -1.3 Total Hip(Right) 02/15/2023 82 0.753 -1.5 -0.001 (-0.2%)# -0.001 (-0.2%)# 02/24/2018 77 0.754 -1.5 -- *Denotes significance at 95% confidence level, LSC for AP Spine = 0.022 g/cm2, LSC for Total Hip = 0.027 g/cm2 # Denotes dissimilar scan types or analysis methods Impression: The patient has low bone mass, based on the Right Femoral Neck T-score. The patient has an estimated ten-year risk of hip fracture of 4.7% and an estimated ten-year risk of major fracture of 15%, based on the WHO FRAX algorithm. No significant bone loss was observed. Discussion: BONE DENSITY IS LOW AT ONE OR MORE SKELETAL SITES. THE PATIENT'S BMD AND CLINICAL RISK FACTORS CONTRIBUTE TO THIS PATIENT'S INCREASED RISK OF FRACTURE. This patient's lowest T-score is low at one or more skeletal sites. It meets the World Health Organization's (WHO) criteria for low bone mass (T-score between -1.0 and -2.5). The patient's 10-year risk of hip fracture as calculated by FRAX exceeds the threshold where pharmacological therapy is recommended by the National Osteoporosis Foundation (NOF). However, all treatment decisions require clinical judgment and consideration of individual patient factors, including patient preferences, comorbidities, previous drug use, risk factors not captured in the FRAX model (e.g., frailty, falls, vitamin D deficiency, increased bone turnover, interval significant decline in bone density) and possible under or overestimation of fracture risk by FRAX. The patient should follow a healthful lifestyle (good nutrition with adequate calcium and vitamin D, and appropriate weight-bearing exercise). Follow-Up: Consider a repeat BMD and Vertebral Fracture Assessment (VFA) exam in 2 years or sooner if medically necessary, to reassess this patient's status. Reported by: ИРИНА ALCANTARA M.D. on 02/15/2023 12:21:00 PM.
== END ==
PROVIDERS: PCP Family Medicine; Referring Provider Family Medicine; Visit Provider Family Medicine
DX: Z78.0 Asymptomatic menopausal state (principal); Z13.820 Encounter for screening for osteoporosis; M85.851 Other specified disorders of bone density and structure, right thigh
CPT/HCPCS: 77080

== ENCOUNTER 2023-10-12 05:51 | Inpatient (IN) | payer MEDICARE, SELFPAY ==
[2022-11-13 16:38] VITALS: BMI 25.7
[2023-10-12] VITALS (18 sets, daily range): BP systolic 121–247; BP diastolic 49–109; PULSE 84–120; RESP 16–63; TEMP 36.8–37.7; O2SAT 85–97; BMI 25.7
[2023-10-12 07:18] LABS: Add Manual Diff / Slide Review NO; Basophils Absolute Auto 0 /uL (0-100); Basophils Percent Auto 0.4 % (0-2); Eosinophils Absolute Auto 0 /uL (0-450); Eosinophils Percent Auto 0.3 % (2-4); Hemoglobin 13.4 g/dL (12.0-16.0); Lymphocytes Absolute Auto 500 /uL (1100-4500); Lymphocytes Percent Auto 5.3 % (25-40); Mean Corpuscular HGB Conc 34.3 % (30-36); Mean Corpuscular Hemoglobin 29.9 PG (26-34); Mean Corpuscular Volume 87.1 fL (80-100); Monocytes Absolute Auto 600 /uL (0-900); Neutrophils Absolute Auto 7800 /uL (1500-7000); Platelet Count 209 X10^3/uL (150-400); Red Blood Cell Count 4.47 X10^6/uL (4.0-5.2); Red Cell Distribution Width 12.8 % (11.6-14.8); White Blood Cell Count 8.9 X10^3/uL (4.5-11.0)
[2023-10-12] MEDS: KETOROLAC 30 MG/ML VIAL 15 MG IV (07:30)
[2023-10-12 07:32] LABS: Alanine Aminotransferase 16 IU/L (<35); Albumin Globulin Ratio 1.3 (1.0-2.8); Alkaline Phosphatase 73 U/L (38-126); Aspartate Aminotransferase 26 IU/L (14-36); BUN Creatinine Ratio 40.5 (6-22); Bilirubin Total 1.6 mg/dL (0.2-1.3); Blood Urea Nitrogen 17 mg/dL (7-17); Calcium 9.5 mg/dL (8.4-10.2); Carbon Dioxide 26 mmol/L (22-32); Chloride 101 mmol/L (98-107); Creatine Kinase 37 U/L (30-135); Estimated Glomerular Filt Rate > 60 mL/min (>60); Glucose 113 mg/dL (80-110); HEMOLYSIS < 15 (0-50); Lactate (Lactic Acid) 1.1 mmol/L (0.7-2.1); Potassium 4.3 mmol/L (3.4-5.1); Sodium 132 mmol/L (137-145)
--- NOTE | 2023-10-12 07:33 | ED.SKABFB ---
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 Patient presents with complaint of chills overnight and redness swelling and warmth of her right upper extremity. She states she is had cellulitis and become septic multiple times in the past with this arm. She had a mastectomy on the right remotely and has had persistent problems on and off. Patient states she did have chills and woke up shivering. Subjective fevers at home. She states it is warm, it is not painful but feels very swollen and is red the arm has been marked. She has full range of motion. Patient states no numbness tingling or weakness that is new. She denies any prior blood clots to the arm. Patient states no chest pain or shortness of breath. She did have a headache earlier. No nausea, no vomiting, no diarrhea constipation, no dysuria urgency or frequency. Patient is not on any anticoagulants she does take medication for blood pressure, an antidepressant and drops for her eyes. She states she is not on an aspirin daily. She is had prior right partial mastectomy and hysterectomy. Patient states prior eye surgeries. No tobacco, alcohol or illicit. She is allergic to penicillin and sulfa. She states she can take things like amoxicillin. Dr. Cardoso is her primary care physician. Related Data Home Medications Medication Instructions Recorded Confirmed albuterol sulfate 90 mcg/actuation 1 inh inhalation QID PRN 07/23/20 10/12/23 aerosol inhaler (ProAir HFA) bronchonitis or bad allergies brimonidine 0.15 %-dorzolamide 2 % 1 drp ophthalmic (eye) BID 07/23/20 10/12/23 (PF) eye drops cholecalciferol (vitamin D3) 50 4,000 unit PO QPM 07/23/20 10/12/23 mcg (2,000 unit) tablet (Vitamin D3) latanoprost 0.005 % eye drops 1 % ophthalmic (eye) BEDTIME 07/23/20 10/12/23 melatonin 3 mg capsule 3 mg PO BEDTIME PRN Sleep 07/23/20 10/12/23 timolol 0.5 %-brimonidine 0.15 1 drp ophthalmic (eye) DAILY 07/23/20 10/12/23 %-dorzolamide 2 % (PF) eye drops aspirin 81 mg tablet,delayed 81 mg PO BEDTIME 08/29/20 10/12/23 release (Adult Aspirin Regimen) escitalopram oxalate 10 mg tablet 10 mg PO BEDTIME 11/13/22 10/12/23 etodolac 400 mg tablet 400 mg PO DIRECTED 11/13/22 10/12/23 lisinopril 5 mg tablet 40 mg PO DAILY 10/12/23 10/12/23 methocarbamol 500 mg tablet 500 mg PO ONCE PM 10/12/23 10/12/23 moxifloxacin 0.5 % eye drops 1 drp EYE-RIGHT QID 10/12/23 10/12/23 prednisolone acetate 1 % eye 1 drp EYE-BOTH QID 10/12/23 10/12/23 drops,suspension Allergies Allergy/AdvReac Type Severity Reaction Status Date / Time latex [LATEX] Allergy Severe RASH Verified 11/13/22 11:23 Penicillins [PENICILLINS] Allergy Severe ALL OVER Verified 11/13/22 11:23 BODY WELTS Sulfa (Sulfonamide Allergy Unknown WAS GIVEN Verified 11/13/22 11:23 Antibiotics) WHEN BABY, [SULFA (SULFONAMIDE UNSURE IF ANTIBIOTICS)] STILL HAS ALLERGY Review of Systems Review of Systems ROS Unobtainable: All systems reviewed & are unremarkable except as noted in HPI and below Patient History Medical History (Updated 10/12/23 @ 07:56 by Leanna Feng DO) H/O malignant neoplasm of breast Sciatica Spinal stenosis Arthritis Cellulitis of arm, right Lymphedema of arm Surgical History History of lymph node dissection of both axillae Social History household members: spouse Smoking Status: Never smoker alcohol intake: current Smoking Status: Never smoker alcohol intake frequency: holidays/special occasions only Substance Use Type: does not use Exam Narrative Exam Narrative: GENERAL: Alert and oriented x three, elderly female in mild distress. HEENT: Head normocephalic, atraumatic, EOMI, pupils reactive, face symmetric, moist mucous membranes NECK: Supple, full range of motion CARDIOVASCULAR: Regular rate and rhythm without murmurs, rubs or gallops. RESPIRATORY: Breath sounds equal bilaterally, no wheezes rales or rhonchi. No tachypnea or accessory muscle use. ABDOMEN: Soft, nontender. Normoactive bowel sounds all 4 quadrants. No guarding or rebound, rigidity, no mass : No CVA tenderness EXTREMITIES: Normal range of motion, no clubbing. Patient has edema of her right upper extremity compared to her left she has erythema extending from the wrist up above the elbow about 4 cm from the axilla that is circumferential with patchy erythematous changes which is quite quite warm to the touch. Patient arm has been marked with a pen. Patient has 2+ radial pulses bilaterally. Full range of motion. Normal sensation throughout. She does still have any rash or skin changes elsewhere. Neurovascularly intact NEUROLOGICAL: Cranial nerves II through XII grossly intact. Moving all extremities SKIN: Warm, dry, no petechiae, no rashes or lesions. Initial Vital Signs Initial Vital Signs: Vital Signs Temperature 98.2 F 10/12/23 05:54 Pulse Rate 104 H 10/12/23 05:54 Respiratory Rate 16 10/12/23 05:54 Blood Pressure 173/78 H 10/12/23 05:54 Pulse Oximetry 94 10/12/23 05:54 Oxygen Delivery Method Room Air 10/12/23 05:54 Course Orders Ordered: ED Orders 10/12/23 07:00 Complete Blood Count AUTO DIFF Stat Comprehensive Metabolic Panel Stat Lactate (Lactic Acid) Stat Procalcitonin Stat Troponin & CK Cardiac Panel Stat 10/12/23 07:28 Blood Culture Stat 10/12/23 07:48 US periph venous up extrem rt Stat Diphenhydramine HCl (Diphenhydramine 50 Mg/Ml Vial) 50 mg IV Q6HR PRN PRN Reason: Itching Last Admin: 10/12/23 09:52 Dose: 50 mg Documented By: JOSE MIGUEL Sodium Chloride (Normal Saline 0.9%) 1,000 mls @ 1,000 mls/hr IV BOLUS PRN PRN Reason: Fluid replacement Last Admin: 10/12/23 09:52 Dose: 1,000 mls/hr Documented By: JOSE MIGUEL Discontinued Medications Acetaminophen (Acetaminophen 325 Mg Tablet) 975 mg PO NOW ONE Stop: 10/12/23 08:55 Last Admin: 10/12/23 09:09 Dose: Not Given Documented By: JOSE MIGUEL Albuterol/Ipratropium (Albuterol/Ipratropium 3 Ml Ampul) 3 ml INH NOW ONE Stop: 10/12/23 09:43 Last Admin: 10/12/23 09:54 Dose: 3 ml Documented By: MIR Ceftriaxone Sodium 1,000 mg/ (Sodium Chloride) 100 mls @ 200 mls/hr IV NOW ONE Stop: 10/12/23 07:49 Last Infusion: 10/12/23 08:35 Dose: Infused Documented By: JOSE MIGUEL Admin: 10/12/23 07:59 Dose: 200 mls/hr Documented By: JOSE MIGUEL Vancomycin HCl/Dextrose (Vancomycin) 1,500 mg in 300 mls @ 200 mls/hr IV NOW ONE Stop: 10/12/23 09:17 Last Infusion: 10/12/23 09:30 Dose: 0 mls/hr Documented By: JOSE MIGUEL Admin: 10/12/23 08:38 Dose: 200 mls/hr Documented By: JOSE MIGUEL Ketorolac Tromethamine (Ketorolac 30 Mg/Ml Vial) 15 mg IV NOW ONE Stop: 10/12/23 07:28 Last Admin: 10/12/23 07:30 Dose: 15 mg Documented By: JOSE MIGUEL Methylprednisolone (Methylprednisolone 125 Mg/2 Ml Vial) 125 mg IV NOW ONE Stop: 10/12/23 09:43 Last Admin: 10/12/23 09:52 Dose: 125 mg Documented By: JOSE MIGUEL Ondansetron HCl (Ondansetron 4 Mg/2 Ml Inj) 4 mg IV NOW ONE Stop: 10/12/23 09:31 Last Admin: 10/12/23 09:34 Dose: 4 mg Documented By: JUAN Vital Signs Vital signs: Vital Signs - 8 hr 10/12/23 05:54 10/12/23 07:14 10/12/23 07:30 Temperature 98.2 F Pulse Rate 104 H 88 86 Respiratory Rate 16 24 27 H Blood Pressure 173/78 H Pulse Oximetry 94 95 94 Oxygen Delivery Method Room Air Room Air 10/12/23 07:59 10/12/23 07:59 10/12/23 08:00 Temperature Pulse Rate 85 86 Respiratory Rate 24 24 Blood Pressure 142/67 H Pulse Oximetry 93 94 Oxygen Delivery Method 10/12/23 08:30 10/12/23 09:00 10/12/23 09:30 Temperature Pulse Rate 87 84 100 H Respiratory Rate 20 23 40 H Blood Pressure Pulse Oximetry 94 92 85 L Oxygen Delivery Method 10/12/23 09:32 10/12/23 09:32 10/12/23 09:38 Temperature Pulse Rate 108 H Respiratory Rate 45 H Blood Pressure 134/105 H 130/104 H Pulse Oximetry 85 L Oxygen Delivery Method 10/12/23 09:38 Temperature Pulse Rate 120 H Respiratory Rate 63 H Blood Pressure Pulse Oximetry 90 L Oxygen Delivery Method MDM - Skin/Abscess/Foreign Bdy Lab Data 10/12/23 07:00 10/12/23 07:00 Labs: Lab Results 10/12/23 10/12/23 Range/Units 01:17 07:00 WBC 8.9 (4.5-11.0) X10^3/uL RBC 4.47 (4.0-5.2) X10^6/uL Hgb 13.4 (12.0-16.0) g/dL Hct 39.0 (36-46) % MCV 87.1 (80-100) fL MCH 29.9 (26-34) PG MCHC 34.3 (30-36) % RDW 12.8 (11.6-14.8) % Plt Count 209 (150-400) X10^3/uL Neut % (Auto) 87.0 H (50-75) % Lymph % (Auto) 5.3 L (25-40) % [place] % (Auto) 7.0 (3-14) % Eos % (Auto) 0.3 L (2-4) % Baso % (Auto) 0.4 (0-2) % Neut # (Auto) 7800 H (4804-5466) /uL Lymph # (Auto) 500 L (0728-9447) /uL [place] # (Auto) 600 (0-900) /uL Eos # (Auto) 0 (0-450) /uL Baso # (Auto) 0 (0-100) /uL Sodium 132 L (137-145) mmol/L Potassium 4.3 (3.4-5.1) mmol/L Chloride 101 (98-107) mmol/L Carbon Dioxide 26 (22-32) mmol/L BUN 17 (7-17) mg/dL Creatinine 0.42 L (0.52-1.04) mg/dL Estimated GFR > 60 (>60) mL/min BUN/Creatinine Ratio 40.5 H (6-22) Glucose 113 H (80-110) mg/dL Lactate 1.1 (0.7-2.1) mmol/L Calcium 9.5 (8.4-10.2) mg/dL Total Bilirubin 1.6 H (0.2-1.3) mg/dL AST 26 (14-36) IU/L ALT 16 (<35) IU/L Alkaline Phosphatase 73 (38-126) U/L Total Creatine Kinase 37 (30-135) U/L Troponin I < 0.012 (0.01-0.034) ng/mL Total Protein 7.0 (6.3-8.2) g/dL Albumin 4.0 (3.5-5.0) g/dL Globulin 3.0 (1.7-4.1) g/dL Albumin/Globulin Ratio 1.3 (1.0-2.8) Procalcitonin 0.06 (<0.5) ng/mL Urine Color Yellow Urine Appearance Clear Urine pH 7.0 (4.5-8.0) Ur Specific Nora 1.015 (1.000-1.035) Urine Protein 1+ H (Negative) Urine Glucose (UA) Negative (Negative) g/dL Urine Ketones Negative (NEGATIVE) Urine Occult Blood Negative (Negative) Urine Nitrate Negative (Negative) Urine Bilirubin 3+ H (NEGATIVE) Ur Bilirubin Confirm Cancelled Urine Urobilinogen 1.0 (0.2) E.U./dL Ur Leukocyte Esterase 1+ H (NEGATIVE) Urine RBC None seen (0-5/HPF) Urine WBC 0-1/hpf (0-5/HPF) Ur Squamous Epith Cells 10-30 /hpf H D (0-5/HPF) Urine Bacteria Moderate (10-30) H (None) Urine Mucus 2+ H (Negative) Ur Culture Indicated? Specimen cultured Imaging Data US - DVT: Radiologist's Impression: [address] [address] Ultrasound Report Signed Patient: Karla Burt MR#: [id number] : 1940 Acct:[id number] Age/Sex: 83 / F Date of Service: 10/12/23 Loc: ED Accession Number: [id number] Procedure: perip venous up extrem rt Ordering Provider: Leanna Feng D.O. PROCEDURE: PERIP VENOUS UP EXTREM RT INDICATIONS: EDEMA; HX LYMPHADEMA TECHNIQUE: Real-time imaging, as well as color and pulse Doppler interrogation, was performed of the right upper extremity deep veins from the inferior neck to the antecubital fossa. COMPARISON: Merged with [facility], PERIP VENOUS UP EXTREM RT, 02/18/2021, 11:10. FINDINGS: The internal jugular vein, visualized portions of the subclavian vein, axillary, and brachial veins are free of intraluminal thrombus. Where physically possible, the veins are normally compressible. Color and pulse Doppler demonstrate normal intraluminal flow, with expected phasicity and pulsatility. Additional scanning of the cephalic and basilic veins of the superficial system demonstrates normal compressibility, without thrombus. IMPRESSION: No findings of right upper extremity deep venous thrombosis can be seen. Dictated by: Kaden Coto M.D. on 10/12/2023 at 9:09 Approved by: Kaden Coto M.D. on 10/12/2023 at 9:10 [facility] Narrative Medical decision making narrative: 83-year-old female with history of recurrent cellulitis sometimes has developed sepsis secondary to likely lymphedema after mastectomy and breast cancer remotely. Patient was last on Rocephin and vancomycin. She has circumferential erythema extending almost the entire arm with swelling. Discussed with patient DVT unlikely but will rule out with ultrasound. Vital signs do not appear to show sepsis but septic labs were ordered. CBC is appropriate with white count, hemoglobin of 13 platelets are 209 leftward shift. Sodium is 132, electrolytes are appropriate creatinine 0.42 glucose is 113 lactate 1.1 bilirubin is 1.6 with normal LFTs negative troponin and procalcitonin 0.06. UA shows 1+ protein 3+ bili, 1+ leuks. DVT ultrasound is negative. Patient covered with Rocephin and vancomycin. Hold off on 30 cc/kilos bolus secondary to appropriate labs and vital signs. Patient went to the bathroom to get tachycardic, developed rigors still afebrile but we will give a L bolus. No rash other changes or what appears to be any acute reactions to medications. Patient states she feels more short of breath. On exam lungs are clear. She does use albuterol regularly. Discussed with patient no obvious allergic changes she does appear to be having some rigors but we will cover with Benadryl and Solu-Medrol. Patient has received Rocephin and was residential through her vancomycin. No redness, warmth or changes at her IV or elsewhere besides her area of cellulitis. After Benadryl patient did have some hallucinations I suspect this is from the Benadryl. She does feel improved overall she is also given a DuoNeb. She came hypertensive rather than hypotensive making allergic reaction seem much less likely. Spoke with Dr. Cardoso accepts for observation we will see patient. Asked for a diet order to be added on top of patient's antibiotics which have been ordered. Discharge Plan Departure Patient Disposition: Admitted as Observation Clinical Impression: Cellulitis of arm, right Admit Date/Time: 10/12/23 09:38 Admit Provider: Tim Cardoso
[2023-10-12 07:39] LABS: Appearance Urine UA CLEAR; Bilirubin Urine UA 3+ (NEGATIVE); Color Urine UA YELLOW; Glucose Urine UA NEGATIVE (Negative); Ketones Urine UA NEGATIVE (NEGATIVE); Leukocyte Esterase Urine UA 1+ (NEGATIVE); Nitrite Urine UA NEGATIVE (Negative); Occult Blood Urine UA NEGATIVE (Negative); Protein Urine UA 1+ (Negative); Specific Gravity Urine UA 1.015 (1.000-1.035)
[2023-10-12 07:44] LABS: Troponin I < 0.012 ng/mL (0.01-0.034)
--- NOTE | 2023-10-12 07:45 | PC.NURSE ---
Dr. ramírez at bedside
[2023-10-12 07:48] LABS: Procalcitonin 0.06 ng/mL (<0.5)
--- NOTE | 2023-10-12 07:48 | DI.US.S_ITS ---
PROCEDURE: [facility] VENOUS UP EXTREM RT INDICATIONS: EDEMA; HX LYMPHADEMA TECHNIQUE: Real-time imaging, as well as color and pulse Doppler interrogation, was performed of the right upper extremity deep veins from the inferior neck to the antecubital fossa. COMPARISON: [facility], , [facility] VENOUS UP EXTREM RT, 02/18/2021, 11:10. FINDINGS: The internal jugular vein, visualized portions of the subclavian vein, axillary, and brachial veins are free of intraluminal thrombus. Where physically possible, the veins are normally compressible. Color and pulse Doppler demonstrate normal intraluminal flow, with expected phasicity and pulsatility. Additional scanning of the cephalic and basilic veins of the superficial system demonstrates normal compressibility, without thrombus. IMPRESSION: No findings of right upper extremity deep venous thrombosis can be seen. Dictated by: Kaden Coto M.D. on 10/12/2023 at 9:09 Approved by: Kaden Coto M.D. on 10/12/2023 at 9:10
[2023-10-12 07:57] LABS: Bacteria Urine Moderate (10-30); Culture Indicated Urine Specimen Cultured; Mucus Urine 2+ (Negative); RBC Urine None Seen (0-5/HPF); Squamous Epithelial Cell Urine 10-30 /HPF (0-5/HPF); WBC Urine 0-1/HPF (0-5/HPF)
[2023-10-12] MEDS: cefTRIAXone 1,000 MG in SODIUM CHLORIDE 0.9% 100 ML 200 MG IV (07:59)
[2023-10-12] MEDS: VANCOMYCIN 1,500 MG/300 ML PIGGYBACK 200 MG IV (08:38)
--- NOTE | 2023-10-12 09:09 | PC.NURSE ---
meds offered d/t pt's previous c/o headache; attempted to give, pt declined, reports it's finally gone. meds not given.
[2023-10-12] MEDS: ONDANSETRON 4 MG/2 ML INJ IV (09:34)
[2023-10-12] MEDS: SODIUM CHLORIDE 0.9% 1,000 ML 1000 ML IV (09:52)
[2023-10-12] MEDS: methylPREDNISolone 125 MG/2 ML VIAL IV (09:52)
[2023-10-12] MEDS: diphenhydrAMINE 50 MG/ML VIAL IV (09:52)
[2023-10-12] MEDS: ALBUTEROL/IPRATROPIUM 3 ML AMPUL INH (09:54)
--- NOTE | 2023-10-12 10:06 | PC.NURSE ---
929: pt returned from ambulating to BR w/ daughter; pt in bed, reporting I feel so cold and i cannot stop shaking, temp 99.0F oral, vancomycin immediately stopped. pt also c/o nausea, HR increased to 110's, oxygen dropped, placed on 2L NC, Rt called, pt c/o i cannot breathe, requesting albuterol inhaler from purse, felt like she couldn't coordinate deep breathing or holding inhaler, Dr. ramírez aware of changes and reported to bedside. new orders given, see emar. 1000: pt experiencing hallucinations, reporting you are upside down, mumbled to daughter, appears anxious, difficult to redirect, Dr. ramírez at bedside for additional eval. reports likely s/s of benadryl admin for possible allergic rx. Pt remains on all monitoring equipment throughout. daughter at bedside. call light within close reach.
--- NOTE | 2023-10-12 18:25 | P.HP_ITS ---
History of Present Illness History of Present Illness Date Patient Seen: 10/12/23 Time Patient Seen: 18:25 Date of Onset of Symptoms: 10/12/23 Chief complaint: rt arm pain Narrative: Patient is a 83-year-old female well known to me who presents with rapid onset erythema and shaking chills from this morning. Patient has a history having right arm cellulitis this would be the 5th time since she had surgery for her breast cancer. Has had issues some with her lymphedema. Does not feel like that is change recently. She is had no fevers nausea vomiting or other change. No history of trauma. Patient's previous times have happened very quick and has created quite significant illness. She went to bed last night and had no redness and woke up today in her whole arm was red. Otherwise no changes. [facility] Medical History H/O malignant neoplasm of breast Sciatica Spinal stenosis Arthritis Cellulitis of arm, right Lymphedema of arm Surgical History History of lymph node dissection of both axillae Social History household members: spouse Smoking Status: Never smoker alcohol intake: current Meds Home Medications and Allergies Home Medications Medication Instructions Recorded Confirmed Type albuterol sulfate 90 mcg/actuation 1 inh inhalation QID PRN 07/23/20 10/12/23 History aerosol inhaler (ProAir HFA) bronchonitis or bad allergies brimonidine 0.15 %-dorzolamide 2 % 1 drp ophthalmic (eye) BID 07/23/20 10/12/23 History (PF) eye drops cholecalciferol (vitamin D3) 50 4,000 unit PO QPM 07/23/20 10/12/23 History mcg (2,000 unit) tablet (Vitamin D3) melatonin 3 mg capsule 3 mg PO BEDTIME PRN Sleep 07/23/20 10/12/23 History timolol 0.5 %-brimonidine 0.15 1 drp ophthalmic (eye) DAILY 07/23/20 10/12/23 History %-dorzolamide 2 % (PF) eye drops aspirin 81 mg tablet,delayed 81 mg PO BEDTIME 08/29/20 10/12/23 History release (Adult Aspirin Regimen) escitalopram oxalate 10 mg tablet 10 mg PO BEDTIME 11/13/22 10/12/23 History etodolac 400 mg tablet 400 mg PO BID 11/13/22 10/12/23 History lisinopril 5 mg tablet 40 mg PO DAILY 10/12/23 10/12/23 History methocarbamol 500 mg tablet 500 mg PO ONCE PM 10/12/23 10/12/23 History prednisolone acetate 1 % eye 1 drp EYE-BOTH BEDTIME 10/12/23 10/12/23 History drops,suspension Allergies Allergy/AdvReac Type Severity Reaction Status Date / Time latex [LATEX] Allergy Severe RASH Verified 11/13/22 11:23 Penicillins [PENICILLINS] Allergy Severe ALL OVER Verified 11/13/22 11:23 BODY WELTS Sulfa (Sulfonamide Allergy Unknown WAS GIVEN Verified 11/13/22 11:23 Antibiotics) WHEN BABY, [SULFA (SULFONAMIDE UNSURE IF ANTIBIOTICS)] STILL HAS ALLERGY Review of Systems Review of Systems Narrative: All negative except above Exam Vital Signs (past 8 hours): - 10/12/23 10:47 10/12/23 15:48 Temperature 99.8 F H 98.9 F Pulse Rate 108 H 93 H Respiratory Rate 16 20 Blood Pressure 146/55 H 121/49 L Pulse Oximetry 95 94 Oxygen Flow Rate 0 0 Oxygen Delivery Method Room Air Oxygen Flow Rate 0 Narrative Exam Narrative: Alert talkative female in no acute distress HEENT exam shows mucous membranes are moist neck supple without adenopathy JVD or bruits lungs are clear heart is regular rate and rhythm abdomen is soft positive bowel sounds nontender extremities without cyanosis clubbing edema. Right arm is erythematous from the mid to upper biceps in a circular pattern all the way down to her wrist. Warm to the touch. Some tenderness. No axillary adenopathy. No supraclavicular adenopathy. Neurologic exam is nonfocal Objective Labs 10/12/23 07:00 10/12/23 07:00 Labs: Laboratory Results - last 24 hr 10/12/23 10/12/23 01:17 07:00 WBC 8.9 RBC 4.47 Hgb 13.4 Hct 39.0 MCV 87.1 MCH 29.9 MCHC 34.3 RDW 12.8 Plt Count 209 Neut % (Auto) 87.0 H Lymph % (Auto) 5.3 L [place] % (Auto) 7.0 Eos % (Auto) 0.3 L Baso % (Auto) 0.4 Neut # (Auto) 7800 H Lymph # (Auto) 500 L [place] # (Auto) 600 Eos # (Auto) 0 Baso # (Auto) 0 Sodium 132 L Potassium 4.3 Chloride 101 Carbon Dioxide 26 BUN 17 Creatinine 0.42 L Estimated GFR > 60 BUN/Creatinine Ratio 40.5 H Glucose 113 H Lactate 1.1 Calcium 9.5 Total Bilirubin 1.6 H AST 26 ALT 16 Alkaline Phosphatase 73 Total Creatine Kinase 37 Troponin I < 0.012 Total Protein 7.0 Albumin 4.0 Globulin 3.0 Albumin/Globulin Ratio 1.3 Procalcitonin 0.06 Urine Color Yellow Urine Appearance Clear Urine pH 7.0 Ur Specific [place] 1.015 Urine Protein 1+ H Urine Glucose (UA) Negative Urine Ketones Negative Urine Occult Blood Negative Urine Nitrate Negative Urine Bilirubin 3+ H Ur Bilirubin Confirm Cancelled Urine Urobilinogen 1.0 Ur Leukocyte Esterase 1+ H Urine RBC None seen Urine WBC 0-1/hpf Ur Squamous Epith Cells 10-30 /hpf H D Urine Bacteria Moderate (10-30) H Urine Mucus 2+ H Ur Culture Indicated? Specimen cultured Assessment & Plan Assessment & Plan narrative: Cellulitis right arm. Recurrent. Has been a significant medical issue for her and has placed her into bacteremia and sepsis in the past. Certainly have caught it early today. Will treat with usual antibiotics which is Rocephin and vancomycin. Which has worked for her in the past. No other changes. Hopefully we will need to do 48 hours to 72 hours which has happened in the past. But with her significant response in the past and those as sick as she is got this would be a poor choice to try outpatient. She understands agrees with plan. History of lymphedema left arm. She is been doing well. Seems to be doing well having no other issues. History of breast cancer. As per her usual oncologist. Sciatica. Stable. Not complaining of issues and moving well no treatment Spinal stenosis. As above. Code status full. DVT prophylaxis Lovenox Disposition. Expect 48-72 hours of treatment and then home. Will be difficult to obtain bacteria 2nd in the fact that she was not systemically ill other than fevers but will see what cultures 2. Follow from there.
[2023-10-12] MEDS: ESCITALOPRAM 10 MG TABLET PO (20:55)
[2023-10-12] MEDS: ASPIRIN EC 81 MG TABLET PO (20:55)
[2023-10-12] MEDS: lisinopriL 20 MG TABLET 40 MG PO (20:55)
[2023-10-12] MEDS: prednisoLONE OPHTH SUSP 1 DROPS EYE-BOTH (20:59)
[2023-10-12] MEDS: ACETAMINOPHEN 325 MG TABLET 650 MG PO (21:06)
[2023-10-13] VITALS (8 sets, daily range): BP systolic 128–187; BP diastolic 54–78; PULSE 76–101; RESP 16–18; TEMP 36.2–37.2; O2SAT 76–97
[2023-10-13 05:29] LABS: Add Manual Diff / Slide Review NO; Basophils Absolute Auto 0 /uL (0-100); Basophils Percent Auto 0.2 % (0-2); Eosinophils Absolute Auto 0 /uL (0-450); Eosinophils Percent Auto 0.1 % (2-4); Hematocrit 34.7 % (36-46); Hemoglobin 11.7 g/dL (12.0-16.0); Lymphocytes Absolute Auto 1000 /uL (1100-4500); Lymphocytes Percent Auto 8.2 % (25-40); Mean Corpuscular HGB Conc 33.9 % (30-36); Mean Corpuscular Hemoglobin 30.1 PG (26-34); Monocytes Absolute Auto 900 /uL (0-900); Monocytes Percent Auto 8.2 % (3-14); Neutrophils Absolute Auto 9600 /uL (1500-7000); Neutrophils Percent Auto 83.3 % (50-75); Platelet Count 186 X10^3/uL (150-400); Red Cell Distribution Width 13.1 % (11.6-14.8); White Blood Cell Count 11.6 X10^3/uL (4.5-11.0)
[2023-10-13 05:41] LABS: Alanine Aminotransferase 26 IU/L (<35); Albumin 3.5 g/dL (3.5-5.0); Albumin Globulin Ratio 1.2 (1.0-2.8); Alkaline Phosphatase 61 U/L (38-126); Aspartate Aminotransferase 42 IU/L (14-36); BUN Creatinine Ratio 52.6 (6-22); Bilirubin Total 0.8 mg/dL (0.2-1.3); Blood Urea Nitrogen 30 mg/dL (7-17); Carbon Dioxide 26 mmol/L (22-32); Chloride 104 mmol/L (98-107); Estimated Glomerular Filt Rate > 60 mL/min (>60); Globulin 2.9 g/dL (1.7-4.1); Glucose 115 mg/dL (80-110); HEMOLYSIS 16 (0-50); Potassium 3.9 mmol/L (3.4-5.1); Sodium 135 mmol/L (137-145); Total Protein 6.4 g/dL (6.3-8.2)
[2023-10-13] MEDS: cefTRIAXone 2,000 MG in SODIUM CHLORIDE 0.9% 100 ML 200 MG IV (08:19)
[2023-10-13] MEDS: ENOXAPARIN 40 MG/0.4 ML SYRINGE SUBCUT (08:20)
--- NOTE | 2023-10-13 09:02 | P.PN_ITS ---
Subjective Subjective Date Patient Seen: 10/13/23 Time Patient Seen: 09:02 Interval history: Patient seen in follow-up of cellulitis. Patient is feeling worse today. Just feels not good. Yesterday was feeling a little better. No other significant change. No shortness of breath. No chest pain. No fevers no chills. No abdominal pain. Feels like her arm is worse. Exam Vital Signs (past 8 hours): - 10/13/23 04:00 Temperature 97.8 F Pulse Rate 83 Respiratory Rate 16 Blood Pressure 132/56 L Pulse Oximetry 95 Oxygen Flow Rate 0 Oxygen Delivery Method Room Air Oxygen Flow Rate 0 Narrative Exam Narrative: Alert female mildly more fatigued in no acute distress Neck supple without adenopathy no supraclavicular adenopathy right arm shows slight maybe 1 in worsening of redness still warm to the touch. No adenopathy. Mildly painful throughout. No evidence of single abscess or changes. Lungs are clear heart is regular rate and rhythm Objective Labs 10/13/23 05:18 10/13/23 05:18 Labs: Laboratory Results - last 24 hr 10/13/23 05:18 WBC 11.6 H RBC 3.90 L Hgb 11.7 L Hct 34.7 L MCV 89.0 MCH 30.1 MCHC 33.9 RDW 13.1 Plt Count 186 Neut % (Auto) 83.3 H Lymph % (Auto) 8.2 L [place] % (Auto) 8.2 Eos % (Auto) 0.1 L Baso % (Auto) 0.2 Neut # (Auto) 9600 H Lymph # (Auto) 1000 L [place] # (Auto) 900 Eos # (Auto) 0 Baso # (Auto) 0 Sodium 135 L Potassium 3.9 Chloride 104 Carbon Dioxide 26 BUN 30 H Creatinine 0.57 Estimated GFR > 60 BUN/Creatinine Ratio 52.6 H Glucose 115 H Calcium 9.0 Total Bilirubin 0.8 AST 42 H ALT 26 Alkaline Phosphatase 61 Total Protein 6.4 Albumin 3.5 Globulin 2.9 Albumin/Globulin Ratio 1.2 PFSH Medical History H/O malignant neoplasm of breast Sciatica Spinal stenosis Arthritis Cellulitis of arm, right Lymphedema of arm Surgical History History of lymph node dissection of both axillae Social History household members: spouse Smoking Status: Never smoker alcohol intake: current Assessment & Plan Assessment & Plan narrative: Cellulitis right arm. Recurrent. Secondary to lymphedema. Worsening. Elevated white count. No fever. Slightly worse on arm. Patient had reaction to vancomycin in the emergency room yesterday and could not continue. She is allergic to both penicillin which seriously sounds like she is and sulfa which it is unclear and was told by her mother she was. Discussed with pharmacy. Will continue Rocephin and add doxycycline. And re-evaluate in a.m.. Certainly other worsening or change will have to make adjustments. Discussed with her. She understands. Questions answered. Lymphedema right arm status post surgery. Stable. No other changes. I wished her with something we could do definitively. It usually is doing pretty well. And then she gets these infections. I do not think there is any other treatment at this time. History of breast cancer. As per usual oncologist. Sciatica. Stable. Hypertension. Stable. Will continue current meds. DVT prophylaxis. On Lovenox. Code status full. Disposition. Certainly worsening today. Concerning. Antibiotics will be switched around and will see how she does. Re-evaluate a.m..
[2023-10-13] MEDS: ACETAMINOPHEN 325 MG TABLET 650 MG PO ×2 (09:03→15:25)
[2023-10-13] MEDS: DOXYCYCLINE 100 MG in SODIUM CHLORIDE 0.9% 100 ML IV ×2 (09:55→21:35)
[2023-10-13] MEDS: prednisoLONE OPHTH SUSP 1 DROPS EYE-BOTH ×2 (10:00→21:30)
--- NOTE | 2023-10-13 12:52 | PC.NURSE ---
Day shift: R arm 1+ edema, redness on arm noted approximately 2 inches above previously marked area of redness. Marked new reddened area with sharpie and dated it. Notified MD Cardoso at bedside. Will continue to monitor.
--- NOTE | 2023-10-13 14:37 | CM.DANOTE ---
Initial DCP Assessment Note Pt is an 83 yo female, resident of [place], presents with right arm pain, rapid onset of reddening of the skin and shaking/chills, admitted for management of right arm cellulitis Secondary to lymphedema. PCP: Tim Cardoso Payer: FRANKIE/NUPUR Reviewed chart, met w/patient to introduce self and role. Patient and spouse moved from [place] years ago and built their home so that she and spouse could have one house and their daughter and her family could have the house next to us. Patient describes these houses as attached by an indoor, long hallway. Patient explains she has been very pleased to share a home with her daughter, son in law and their teenage children. Family available to assist at all times. Patient and spouse currently independent w/use of cane. Patient denies needs from this RCIS, admits to feeling frustrated that her infection has not cleared. No barriers identified at this time to patient's safe discharge home w/family to assist; close outpatient f/u recommended. CM team will plan to follow closely in case any DC needs or concerns arise. ELANA Gan Discharge Planning/Care Management CM Discharge Assessment Start: 10/13/23 14:33 Freq: Status: Active Protocol: Document 10/13/23 14:33 WARD (Rec: 10/13/23 14:37 WARD [id number]) Discharge Planning Assessment Assigned Mold Puller ELANA Villalta DPOA/Assigned Designee Name Misael Burt spouse Contact Information [phone] Advance Directives? Yes Advance Directives on File No History Provided By Patient,Medical Record Prior Living Arrangements House Household Members spouse,family Type of transporation used prior to Relies on Others admit Independent with ADL's Yes Is patient alert and oriented? Yes Comment Indp w/use of cane. Patient/Family Preference OP PT Therapy Barriers to Discharge No Comment Home w/supportive family Discharge Plan Home Transportation Arrangement Spouse Referrals Initiated None needed Whiteboard Updated in Patient Room with Yes name and ext. # of Mold Puller
[2023-10-13] MEDS: lisinopriL 20 MG TABLET 40 MG PO (18:32)
[2023-10-13] MEDS: ESCITALOPRAM 10 MG TABLET PO (21:28)
[2023-10-13] MEDS: ASPIRIN EC 81 MG TABLET PO (21:28)
[2023-10-13] MEDS: LATANOPROST 0.005% OPHTH 2.5 ML 1 DROPS EYE-BOTH (21:33)
[2023-10-13] MEDS: HYDRALAZINE 20 MG/ML VIAL 10 MG IV (21:36)
[2023-10-13] MEDS: MELATONIN 3 MG TABLET PO (23:53)
[2023-10-14] VITALS (10 sets, daily range): BP systolic 128–181; BP diastolic 53–82; PULSE 74–93; RESP 16–18; TEMP 36.4–37.2; O2SAT 95–96
[2023-10-14 04:58] LABS: Add Manual Diff / Slide Review NO; Basophils Absolute Auto 0 /uL (0-100); Basophils Percent Auto 0.6 % (0-2); Eosinophils Absolute Auto 200 /uL (0-450); Eosinophils Percent Auto 3.5 % (2-4); Hemoglobin 11.7 g/dL (12.0-16.0); Lymphocytes Absolute Auto 1400 /uL (1100-4500); Lymphocytes Percent Auto 22.5 % (25-40); Mean Corpuscular HGB Conc 34.4 % (30-36); Mean Corpuscular Hemoglobin 30.1 PG (26-34); Mean Corpuscular Volume 87.6 fL (80-100); Monocytes Absolute Auto 800 /uL (0-900); Neutrophils Absolute Auto 3900 /uL (1500-7000); Neutrophils Percent Auto 61.4 % (50-75); Platelet Count 194 X10^3/uL (150-400); Red Blood Cell Count 3.88 X10^6/uL (4.0-5.2); Red Cell Distribution Width 13.1 % (11.6-14.8); White Blood Cell Count 6.4 X10^3/uL (4.5-11.0)
[2023-10-14] MEDS: ACETAMINOPHEN 325 MG TABLET 650 MG PO ×2 (06:43→14:34)
[2023-10-14] MEDS: cefTRIAXone 2,000 MG in SODIUM CHLORIDE 0.9% 100 ML 200 MG IV (08:05)
[2023-10-14] MEDS: ENOXAPARIN 40 MG/0.4 ML SYRINGE SUBCUT (08:05)
[2023-10-14] MEDS: prednisoLONE OPHTH SUSP 1 DROPS EYE-BOTH ×2 (08:07→20:19)
[2023-10-14] MEDS: HYDRALAZINE 20 MG/ML VIAL 10 MG IV ×2 (08:08→22:14)
[2023-10-14] MEDS: DOXYCYCLINE 100 MG in SODIUM CHLORIDE 0.9% 100 ML IV ×2 (10:23→23:56)
--- NOTE | 2023-10-14 10:24 | PM.PN.1 ---
Subjective Subjective Date Patient Seen: 10/14/23 Time Patient Seen: 10:24 Interval history: Patient seen in follow-up of cellulitis and hypertension. No other changes. Arms feeling better. Just feeling tired. Did not sleep well last night. No other changes. Pain in her arm is less still swollen. Exam Vital Signs (past 8 hours): - 10/14/23 03:00 10/14/23 08:00 10/14/23 08:08 Temperature 98.0 F 97.6 F Pulse Rate 75 80 80 Respiratory Rate 16 18 Blood Pressure 146/69 H 174/77 H 181/82 H Pulse Oximetry 96 96 Oxygen Flow Rate 0 0 10/14/23 09:32 Temperature Pulse Rate Respiratory Rate Blood Pressure 133/61 Pulse Oximetry Oxygen Flow Rate Oxygen Delivery Method Room Air Oxygen Flow Rate 0 Narrative Exam Narrative: Right arm shows decreased erythema. Still has moderate amount around the elbow and above and below it. Mildly tender. But improved. Lungs are clear heart is regular rate and rhythm Objective Labs 10/14/23 04:11 10/13/23 05:18 Labs: Laboratory Results - last 24 hr 10/14/23 04:11 WBC 6.4 RBC 3.88 L Hgb 11.7 L Hct 34.0 L MCV 87.6 MCH 30.1 MCHC 34.4 RDW 13.1 Plt Count 194 Neut % (Auto) 61.4 D Lymph % (Auto) 22.5 L [place] % (Auto) 12.0 Eos % (Auto) 3.5 Baso % (Auto) 0.6 Neut # (Auto) 3900 Lymph # (Auto) 1400 [place] # (Auto) 800 Eos # (Auto) 200 Baso # (Auto) 0 PFSH Medical History H/O malignant neoplasm of breast Sciatica Spinal stenosis Arthritis Cellulitis of arm, right Lymphedema of arm Surgical History History of lymph node dissection of both axillae Social History household members: spouse and family Smoking Status: Never smoker alcohol intake: current Assessment & Plan Assessment & Plan narrative: Cellulitis right arm. Improve. White count is down from yesterday. If we continue on current course I think maybe able to discharge home tomorrow. Would consider Ceftin and doxycycline. Discussed with the patient she understands questions answered. Will see what white count is tomorrow and how she feels Hypertension. Poorly controlled but seems to be trending downward. Patient feels like it is good at home although she does not check it. Will hold on changing medication because overall it seems better the last 24 hours but is still elevated into the 170s intermittently if it continues consistently will change medication otherwise I will follow as outpatient. Insomnia. Will try Skip jeter. History of breast cancer stable. Lymphedema right arm at this point seems to be doing well certainly is the cause her infections. But does not look like there is anything we can do otherwise. DVT prophylaxis on Lovenox Code status full. Disposition home discharge tomorrow.
[2023-10-14 11:00] LABS: Add Manual Diff / Slide Review NO; Basophils Absolute Auto 100 /uL (0-100); Basophils Percent Auto 0.9 % (0-2); Eosinophils Absolute Auto 200 /uL (0-450); Eosinophils Percent Auto 3.2 % (2-4); Hematocrit 34.8 % (36-46); Hemoglobin 12.2 g/dL (12.0-16.0); Lymphocytes Absolute Auto 1300 /uL (1100-4500); Lymphocytes Percent Auto 20.4 % (25-40); Mean Corpuscular Hemoglobin 30.6 PG (26-34); Mean Corpuscular Volume 87.5 fL (80-100); Monocytes Absolute Auto 600 /uL (0-900); Monocytes Percent Auto 10.2 % (3-14); Neutrophils Absolute Auto 4100 /uL (1500-7000); Neutrophils Percent Auto 65.3 % (50-75); Platelet Count 212 X10^3/uL (150-400); Red Blood Cell Count 3.98 X10^6/uL (4.0-5.2); Red Cell Distribution Width 13.2 % (11.6-14.8); White Blood Cell Count 6.2 X10^3/uL (4.5-11.0)
[2023-10-14] MEDS: NYSTATIN SUSP 500,000 UNIT/5 ML UDC 500000 UNIT PO (16:39)
[2023-10-14] MEDS: MELATONIN 3 MG TABLET PO (20:17)
[2023-10-14] MEDS: ESCITALOPRAM 10 MG TABLET PO (20:17)
[2023-10-14] MEDS: ASPIRIN EC 81 MG TABLET PO (20:17)
[2023-10-14] MEDS: lisinopriL 20 MG TABLET 40 MG PO (20:17)
[2023-10-14] MEDS: LATANOPROST 0.005% OPHTH 2.5 ML 1 DROPS EYE-BOTH (20:20)
[2023-10-15] MEDS: ACETAMINOPHEN 325 MG TABLET 650 MG PO ×2 (02:02→14:01)
[2023-10-15 04:55] VITALS: BP 138/53; PULSE 87; RESP 18; TEMP 36.5; O2SAT 97
[2023-10-15 07:45] VITALS: BP 170/73; PULSE 78; RESP 18; TEMP 36.8; O2SAT 97
[2023-10-15] MEDS: cefTRIAXone 2,000 MG in SODIUM CHLORIDE 0.9% 100 ML 200 MG IV (08:45)
[2023-10-15] MEDS: NYSTATIN SUSP 500,000 UNIT/5 ML UDC 500000 UNIT PO (08:54)
[2023-10-15] MEDS: ENOXAPARIN 40 MG/0.4 ML SYRINGE SUBCUT (08:54)
[2023-10-15] MEDS: prednisoLONE OPHTH SUSP 1 DROPS EYE-BOTH (09:08)
[2023-10-15] MEDS: DOXYCYCLINE 100 MG in SODIUM CHLORIDE 0.9% 100 ML IV (11:11)
[2023-10-15 14:02] VITALS: BP 126/61; PULSE 89; RESP 18; TEMP 37.3; O2SAT 96
[2023-10-15 14:15] VITALS: BP 126/61; PULSE 89; RESP 18; TEMP 37.3; O2SAT 96
[2023-10-15] MEDS: DOXYCYCLINE HYCLATE 100 MG TABLET PO (16:32)
--- NOTE | 2023-10-15 18:26 | PC.NURSE ---
Patient is A&OX4. VSS, afebrile on RA. she is independent in her room. She tolerates the IV antibiotics well this morning. Swelling and redness to LUE, seems much improved vs shiftman and previous days. She denies pain to LUE. She is evaluated by MD Gaming and cleared for discharge home today with daughter on oral antibiotics. She verbalizes understanding of medications, and worsening symptoms and plans to follow up with PCP next week. She is escorted via w/ch to private vehicle with her daughter this evening at approximately 1705 pm.
--- NOTE | 2023-10-16 08:18 | CM.DPC ---
DCP Discharge Home SW spoke to Dr. Gaming yesterday afternoon 10/15/23 and he confirms pt is medically stable to d/c home today with no identified barriers and no discharge planning needs. Per RN, no concerns were noted and pt was independent in room and d/c instructions provided yesterday evening and pt discharged home after SW shift. ELANA Be
--- NOTE | 2023-10-16 09:25 | P.DS_ITS ---
History of Present Illness History of Present Illness Date Patient Seen: 10/15/23 Time Patient Seen: 09:00 Chief complaint: rt arm pain Narrative: CC: R arm blew up last night Arm looks great this morning - continued swelling but no erythema or indurationi really - last night she noted a spreading erythema and resumption of similar symptoms to what she was experiencing when this first happened. This seems to have resolved without her receiving any additional treatment besides her regular doxycycline and this morning as said it looks and feels fine. She is concerned at this re flare up but would like to go home. Discharge Providers Provider Date of admission: 10/12/23 09:38 Discharge Date: 10/15/23 Primary care physician: Tim Cardoso MD Discharge provider: Misael Gaming MD Summary Hospital Course Discharge Diagnosis: #Cellulitis right arm #Hypertension #Insomnia #History of breast cancer #Lymphedema right arm Hospital Course: Karla is a pleasant lady with a history of R arm lymphedema who presented with evident R arm cellulitis spreading up to her shoulder. She was admitted for IV antibiotics and improved on doxycycline and rocephin with ivf. The arm infection did subside quickly however there was a reflare on the night before discharge which I attribute to her history of lymphedema making clear resolution more complicated- this resolved on its own without additional intervention by this morning. By DoD the arm looked back to baseline without lingering erythema but she will continue a course of oral doxycycline to be sure. Status at Discharge Cognitive/behavioral status at discharge: at baseline, oriented Overall status at discharge: patient is back to baseline Time Spent with Patient Time spent: Greater than 30 minutes Exam Vital Signs (past 8 hours): Oxygen Delivery Method Room Air Oxygen Flow Rate 0 Narrative Exam Narrative: cheerful alert eating breakfast with family Const General: cooperative, healthy appearing and comfortable Nutritional Appearance: well nourished [facility] Head: normocephalic and atraumatic Resp Auscultation: clear to auscultation bilaterally Cardio Rate: regular rate Rhythm: regular rhythm Heart Sounds: S1 normal and S2 normal GI Other: soft nontender nondistended Skin Other: R arm with lymphedemic swelling but minimal/no erythema in area previously marked. ROM of arm is wnl. distal NV is intact good handgrip. Objective Labs 10/14/23 10:45 10/13/23 05:18 PFSH Medical History H/O malignant neoplasm of breast Sciatica Spinal stenosis Arthritis Cellulitis of arm, right Lymphedema of arm Surgical History History of lymph node dissection of both axillae Social History household members: spouse and family Smoking Status: Never smoker alcohol intake: current Discharge Assessment & Plan Assessment and Plan Assessment: #Cellulitis right arm Improved with normal vitals, normal labs - not sure what that flare was last night but seems to have self-resolved today Will plan to continue doxycycline po on dc to f/up with PCP next week #Hypertension not great control- will reevaluate in outpatient setting with cellulitis resolved #Insomnia Did ok with ambien, slept well last night #History of breast cancer stable. #Lymphedema right arm Chronic condition and likely contributor to these infections- not much to do however - compression sleeve, avoid injury. Dispo: home with family to f/up with PCP PCP: Walker DVT prophylaxis: Lovenox Code: full Discharge Plan Discharge Plan Patient Disposition: Home Discharge orders & Medications Prescriptions: New doxycycline hyclate 100 mg Tablet 100 mg PO BID 7 Days Qty: 14 0RF Continued aspirin [Adult Aspirin Regimen] 81 mg tablet,delayed release (DR/EC) 81 mg PO BEDTIME cholecalciferol (vitamin D3) [Vitamin D3] 50 mcg (2,000 unit) Tablet 4,000 unit PO QPM melatonin 3 mg Capsule 3 mg PO BEDTIME PRN (Reason: Sleep) albuterol sulfate [ProAir HFA] 90 mcg/actuation Hfa Aerosol Inhaler 1 inh INHALATION QID PRN (Reason: bronchonitis or bad allergies) brimonidine-dorzolamide (PF) 0.15-2 % Drops 1 drp OPHTHALMIC (EYE) BID Rx Instructions: 1 drop each eye at 0800 and 1700 gvuiujg-efblwrtpc-sbjukttb(PF) 0.5-0.15-2 % Drops 1 drp OPHTHALMIC (EYE) DAILY Rx Instructions: 1 drop each eye daily at NOON etodolac 400 mg tablet 400 mg PO BID Patient Comments: TAKE ONE TABLET BY MOUTH EVERY EIGHT HOURS escitalopram oxalate 10 mg tablet 10 mg PO BEDTIME Patient Comments: TAKE ONE TABLET BY MOUTH ONE TIME DAILY methocarbamol 500 mg tablet 500 mg PO ONCE PM prednisolone acetate 1 % drops,suspension 1 drp EYE-BOTH BEDTIME lisinopril 5 mg tablet 40 mg PO DAILY Follow up/Referrals: Tim Cardoso MD [Primary Care Provider] - Visit Report/Discharge Packet Stand Alone Forms: Patient Portal/API, Stroke Signs & Symptoms Discharge Data Primary Care Provider: Tim Cardoso
== END 2023-10-15 17:05 | disposition home or self-care (01) | DRG 603 ==
LOC: ED 07:28 → AC 09:38
PROVIDERS: Emergency Medicine; Admitting Provider Family Medicine; Emergency Provider Emergency Medicine; PCP Family Medicine; Referring Provider Emergency Medicine; Visit Provider Family Medicine
DX: L03.113 Cellulitis of right upper limb (principal); G47.00 Insomnia, unspecified; I10 Essential (primary) hypertension; I89.0 Lymphedema, not elsewhere classified; Z85.3 Personal history of malignant neoplasm of breast
CPT/HCPCS: 36415; 80053; 81001; 82550; 83605; 84145; 84484; 85025; 87040; 87086; 93971; 94640; 96365; 96367; 96375; 99284; A9270; J0360; J0696; J1200; J1650; J1885; J2405; J2930

== ENCOUNTER → 2023-12-31 12:47 | Outpatient (CLI) | payer MEDICARE, SELFPAY ==
[2023-10-12 10:49] VITALS: BMI 25.7
--- NOTE | 2023-12-31 | DI.MRI.S_ITS ---
PROCEDURE: MR HEAD/BRAIN WO CON INDICATIONS: Dementia TECHNIQUE: Non-contrast axial T1 spin echo, axial T2 fast spin echo, sagittal and axial FLAIR, coronal T2 fast spin echo, axial gradient echo, axial diffusion and ADC through the brain. COMPARISON: [facility], , MR STROKE, 01/26/2023, 10:51. FINDINGS: Image quality: Excellent. CSF spaces: Ventricles appear symmetric in size and shape. Basal cisterns are patent. No extra-axial fluid collections. Brain: No intracranial bleeds or mass effects. There is cerebral volume loss for age. There are periventricular and deep white matter chronic small vessel ischemic changes. Brainstem appears normal. Diffusion-weighted images show no acute infarct. No chronic ischemic insults. Normal intravascular flow voids are present. Skull and face: Calvarial bone marrow is normal in signal. Orbits are normal. Note is made of bilateral lens replacements. Sinuses: Sinuses and mastoids are clear. IMPRESSION: Noncontrast brain MRI within normal limits, with age-appropriate brain parenchymal volume loss and chronic small vessel ischemic change. Dictated by: Arslan Eason M.D. on 12/31/2023 at 13:35 Approved by: Arslan Eason M.D. on 12/31/2023 at 13:45
--- NOTE | 2023-12-31 | DI.MG.S_ITS ---
BILATERAL DIGITAL SCREENING MAMMOGRAM 3D/2D WITH CAD: 12/31/2023 CLINICAL: Routine screening. Personal history of right breast cancer. Comparison is made to exams dated: 09/21/2022 mammogram, 09/12/2021 mammogram, 08/01/2020 mammogram, 07/10/2020 mammogram, and 04/10/2019 mammogram - [facility]. Both breasts are extremely dense, which lowers the sensitivity of mammography (category d />75% glandular tissue). Current study was also evaluated with a Computer Aided Detection (CAD) system. There are benign post operative findings in the right breast. There also are benign post operative findings and biopsy clip in the left breast. No significant masses, calcifications, or other findings are seen in either breast. There has been no significant interval change. IMPRESSION: BENIGN There is no mammographic evidence of malignancy. A 1 year screening mammogram is recommended. This exam was interpreted at Station ID: [id number]. NOTE: For mammograms, a report in lay terms will be sent to the patient. Approximately 15% of breast malignancies will not be visualized mammographically. In the management of a palpable breast mass, a negative mammogram must not discourage biopsy of a clinically suspicious lesion. Electronically Signed By: Shay wilkinson/fatoumata:12/31/2023 21:18:28 copy to: Heather Benjamin letter sent: Normal Exam ACR BI-RADS Category 2: Benign Finding(s) [id number]
== END ==
PROVIDERS: PCP Family Medicine; Referring Provider Family Medicine; Visit Provider Family Medicine
DX: Z12.31 Encounter for screening mammogram for malignant neoplasm of breast (principal); R92.343 Mammographic extreme density, bilateral breasts; Z85.3 Personal history of malignant neoplasm of breast; R41.3 Other amnesia
CPT/HCPCS: 70551; 77063; 77067

== ENCOUNTER → 2024-01-10 12:35 | Outpatient (CLI) | payer MEDICARE, SELFPAY ==
[2023-10-12 10:49] VITALS: BMI 25.7
== END ==
PROVIDERS: PCP Family Medicine; Referring Provider Family Medicine; Visit Provider Family Medicine
DX: R06.09 Other forms of dyspnea (principal); I10 Essential (primary) hypertension; I08.0 Rheumatic disorders of both mitral and aortic valves

== ENCOUNTER → 2024-01-10 12:36 | Outpatient (CLI) | payer MEDICARE, SELFPAY ==
[2023-10-12 10:49] VITALS: BMI 25.7
--- NOTE | 2024-01-10 | DI.ECHO.S_ITS ---
[facility] +---------+ : : [address] : : : : [id number] : : : : Phone: [phone]+ Echocardiogram Report + + :Name: FIDNECIO DAILEY Study Date: 01/10/2024 Height: 64 in : :[facility] ReadingLocation: Weight: 120 lb : : Gender: Female BSA: 1.6 m2 : :: 1940 Age: 83 yrs BP: 197/94 mmHg: :Reason For Study: DYSPNEA ON EXERTION, HYPERTENSION : :Ordering Physician: CONNIE, : :MARIO Performed By: Lee Song : :Referring: MARIO ROSALES : + + Interpretation Summary Normal left ventricle size with ejection fraction 65-70%. Mild aortic regurgitation. Mild to moderate mitral annular calcification. Procedure: A two-dimensional transthoracic echocardiogram with color flow and Doppler was performed. The study quality was technically adequate. There is no prior echocardiogram noted for this patient. The heart rate ranged between 79-107 bpm during the study. Left Ventricle: The left ventricle is normal in size and wall thickness. The ejection fraction is estimated to be 65-70%. There are no focal wall motion abnormalities. Diastolic function could not be accurately assessed due to confounding valvular disease. Right Ventricle: The right ventricle is normal in size and function. Atria: The left atrial size is normal. Right atrial size is normal. Mitral Valve: There is mild to moderate mitral annular calcification. The mitral valve leaflets appear to open well. There is no mitral valve stenosis. There is trace mitral regurgitation. Aortic Valve: The aortic valve is trileaflet. There is no aortic valve stenosis. There is mild aortic regurgitation. Tricuspid Valve: The tricuspid valve is normal in structure and function. There has been no significant change since the previous study. There is trace tricuspid regurgitation. The right ventricular systolic pressure is estimated to be at least 34 mmHg based on an estimated right atrial pressure of 8 mm Hg. Pulmonic Valve: The pulmonic valve is not well visualized. There is no pulmonic valvular stenosis. There is no pulmonic valvular regurgitation. Great Vessels: The aortic root is normal size. The ascending aorta could not be visualized. The IVC is dilated (diameter is greater than 2.1 cm) yet it collapses greater than 50% with a sniff. This suggests a right atrial pressure of 8 mm Hg. Pericardium/ Pleura There is no pericardial effusion. There is no pleural effusion. MMode/2D Measurements & Calculations LVIDd: 4.1 cm LVOT diam: 2.0 cm LVIDs: 2.6 cm Ao root diam: 3.1 cm FS: 35.4 % IVSd: 0.99 cm LVPWd: 0.95 cm LV medel. diameter/BSA (cm/m^2): 2.6 LV sys. diameter/BSA (cm/m^2): 1.7 LA A2 area: 18.5 cm2 RA long axis: 4.9 cm LA A4 area: 12.8 cm2 RA area: 14.2 cm2 LA length (vol): 4.1 cm RA vol: 35.1 ml LA vol: 49.0 ml RA : 22.3 ml/m2 LA vol index: 31.2 ml/m2 IVC diam: 2.4 cm RVD1 (basal): 4.3 cm RVD2 (mid): 3.7 cm TAPSE: 2.6 cm Doppler Measurements & Calculations Ao V2 max: 136.8 cm/sec LVOT Max Camacho: 117.0 cm/sec Ao V2 mean: 102.5 cm/sec LV V1 max P.5 mmHg Ao max P.5 mmHg LV V1 VTI: 23.3 cm Ao mean P.5 mmHg HARDIK(I,D): 2.8 cm2 Ao V2 VTI: 26.9 cm HARDIK(V,D): 2.7 cm2 sev ratio: 0.87 HARDIK indexed to BSA (cm^2/m^2): 1.8 MV E max camacho: 60.6 cm/sec TR max camacho: 258.0 cm/sec MV A max camacho: 99.6 cm/sec TR max P.6 mmHg MV E/A: 0.61 PA V2 max: 74.5 cm/sec Med Peak E' Camacho: 4.6 cm/sec PA V2 mean: 61.7 cm/sec E/E' med: 13.3 PA mean P.6 mmHg Lat Peak E' Camacho: 5.5 cm/sec PA pr(Accel): 32.8 mmHg E/E' lat: 11.1 E/e' average: 12.2 MV dec time: 0.19 sec SV(LVOT): 74.5 ml Electronically signed by: Sukumar Mak on Reading Physician:01/10/2024 08:46 PM
== END ==
PROVIDERS: PCP Family Medicine; Referring Provider Family Medicine; Visit Provider Family Medicine
DX: I08.0 Rheumatic disorders of both mitral and aortic valves (principal); R06.09 Other forms of dyspnea; J98.8 Other specified respiratory disorders; I10 Essential (primary) hypertension
CPT/HCPCS: 93306; 94060; 94726; 94729

== ENCOUNTER 2024-05-13 07:55 | Inpatient (IN) | payer MEDICARE, SELFPAY ==
[2023-10-12 10:49] VITALS: BMI 25.7
[2024-05-13] VITALS (81 sets, daily range): BP systolic 71–133; BP diastolic 36–76; PULSE 82–127; RESP 19–39; TEMP 36.4–38.7; O2SAT 82–98; BMI 21.8
--- NOTE | 2024-05-13 08:08 | DI.RAD.S_ITS ---
PROCEDURE: XR CHEST 1V INDICATIONS: suspected sepsis TECHNIQUE: One view of the chest was acquired. COMPARISON: Merged With [facility], CR, XR CHEST 1V, 11/13/2022, 11:25. FINDINGS: Surgical changes and devices: Clips are present overlying axilla. Lungs and pleura: Lungs are clear. No pleural effusions or pneumothorax. Mediastinum: Mediastinal contours appear normal. Heart size is mildly prominent. Bones and chest wall: No suspicious bony lesions. Overlying soft tissues appear unremarkable. IMPRESSION: No acute pulmonary process. Dictated by: Dasha Sheppard M.D. on 05/13/2024 at 9:08 Approved by: Dasha Sheppard M.D. on 05/13/2024 at 9:08
--- NOTE | 2024-05-13 08:12 | ED_ITS ---
HPI - General Adult General Chief complaint: Skin/Abscess/Foreign Body Stated complaint: UTI, R Arm Sepsis Infection Time Seen by Provider: 05/13/24 08:09 Source: patient, RN notes reviewed and old records reviewed Mode of arrival: Ambulatory Limitations: no limitations History of Present Illness HPI narrative: 83-year-old female with history of breast cancer with chronic lymphedema of the right upper extremity and recurrent right upper extremity cellulitis and hypertension on an aspirin daily who presents with complaint of recent UTI just started on Macrobid yesterday and new erythema chills and nausea of the right upper extremity. Patient is concerned she was having recurrent cellulitis and sepsis. She states it comes on quite quickly. She has been seen here several times in the past. No reported fevers. She does have pain describe 5/10 in the right upper extremity some mild increased swelling but has redness which has rapidly spread up her arm towards her shoulder. She denies any chest pain or shortness of breath. Has some mild nausea but no vomiting. Denies any abdominal back or flank pain. She has had some dysuria and urgency with reported no UTI. Patient denies any diarrhea or constipation. She denies any swelling redness or other extremities. She has responded well to IV antibiotics in the past most recently was on Rocephin and doxycycline during her hospitalization in October of 2023. Patient states Macrobid her only new medication. Does have allergy to penicillin and sulfa. She has tolerated Rocephin in the past. They note on her last hospitalization she possibly had red man syndrome vancomycin but they are unsure of the name of the antibiotic. No tobacco, alcohol or recreational drugs. Related Data Home Medications Medication Instructions Recorded Confirmed albuterol sulfate 90 mcg/actuation 1 inh inhalation QID PRN 07/23/20 05/13/24 aerosol inhaler (ProAir HFA) bronchonitis or bad allergies brimonidine 0.15 %-dorzolamide 2 % 1 drp ophthalmic (eye) BID 07/23/20 05/13/24 (PF) eye drops cholecalciferol (vitamin D3) 50 4,000 unit PO QPM 07/23/20 05/13/24 mcg (2,000 unit) tablet (Vitamin D3) melatonin 3 mg capsule 3 mg PO BEDTIME PRN Sleep 07/23/20 05/13/24 timolol 0.5 %-brimonidine 0.15 1 drp ophthalmic (eye) DAILY 07/23/20 05/13/24 %-dorzolamide 2 % (PF) eye drops aspirin 81 mg tablet,delayed 81 mg PO BEDTIME 08/29/20 05/13/24 release (Adult Aspirin Regimen) escitalopram oxalate 10 mg tablet 20 mg PO BEDTIME 11/13/22 05/13/24 etodolac 400 mg tablet 400 mg PO BID 11/13/22 05/13/24 lisinopril 5 mg tablet 40 mg PO DAILY 10/12/23 05/13/24 methocarbamol 500 mg tablet 500 mg PO ONCE PM 10/12/23 05/13/24 prednisolone acetate 1 % eye 1 drp EYE-BOTH BEDTIME 10/12/23 05/13/24 drops,suspension fluticasone propionate 115 2 puff inhalation BID 05/13/24 05/13/24 mcg-salmeterol 21 mcg/actuation HFA inhaler hydrochlorothiazide 25 mg tablet 25 mg PO DAILY 05/13/24 05/13/24 loratadine 10 mg tablet 10 mg PO DAILY 05/13/24 05/13/24 Allergies Allergy/AdvReac Type Severity Reaction Status Date / Time latex [LATEX] Allergy Severe RASH Verified 11/13/22 11:23 Penicillins [PENICILLINS] Allergy Severe ALL OVER Verified 11/13/22 11:23 BODY WELTS Sulfa (Sulfonamide Allergy Unknown WAS GIVEN Verified 11/13/22 11:23 Antibiotics) WHEN BABY, [SULFA (SULFONAMIDE UNSURE IF ANTIBIOTICS)] STILL HAS ALLERGY Review of Systems Review of Systems ROS Unobtainable: All systems reviewed & are unremarkable except as noted in HPI and below Patient History Medical History (Updated 05/13/24 @ 12:23 by Shanel Sweeney MD) H/O malignant neoplasm of breast Sciatica Spinal stenosis Arthritis Cellulitis of arm, right Lymphedema of arm Surgical History History of lymph node dissection of both axillae Social History household members: spouse and family Smoking Status: Never smoker alcohol intake: current Smoking Status: Never smoker alcohol intake frequency: holidays/special occasions only Substance Use Type: does not use Exam Narrative Exam Narrative: GEN: well nourished, well appearing female, alert and oriented x 3, patient appears to be in mild distress. HEENT: Atraumatic, pupils are equal round reactive to light, extraocular movements are intact, nares are clear, TMs are clear with no fluid, there is no conjunctival pallor. Throat is clear without any exudates, erythema, tonsillar enlargement or uvular deviation HEART: Tachycardic but rate and rhythm without murmur, clicks, rubs. No carotid bruits, pulses are equal in upper and lower extremities LUNGS:Lungs clear to auscultation, no wheezes, rales, crackles, chest moves symmetrically, no tachypnea or accessory muscle use ABD:bowel sounds normal, soft, non-tender, no guarding, rebound, rigidity, no masses noted, no hepatosplenomegaly :No CVA tenderness MSCL: Mild tenderness right upper extremity, patient has swelling of right upper extremity comparison to left, she states swelling is not significantly worse but patient has erythema tracking from the forearm up to the shoulder, mostly circumferential and almost the entire arm. 2+ radial pulses bilaterally. Full range of motion. Areas that are erythematous or warm to touch. no muscle atrophy, muscles strength 5/5 upper and lower extremities, full range of motion, normal gait NEURO:CN 2-12 intact, sensation normal Initial Vital Signs Initial Vital Signs: Vital Signs Pulse Rate 121 H 05/13/24 08:02 Blood Pressure 82/52 L 05/13/24 08:02 Pulse Oximetry 94 05/13/24 08:02 Course Orders Ordered: Acetaminophen (Acetaminophen 325 Mg Tablet) 650 mg PO Q6H PRN PRN Reason: Fever/Mild Pain (1-3) Last Admin: 05/13/24 15:15 Dose: 650 mg Documented By: LIZ Albuterol (Albuterol 2.5 Mg/3 Ml Neb (Adult)) 2.5 mg INH QID PRN PRN Reason: bronchonitis or bad allergies Aspirin (Aspirin Ec 81 Mg Tablet) 81 mg PO BEDTIME [facility] Enoxaparin Sodium (Enoxaparin 40 Mg/0.4 Ml Syringe) 40 mg SUBCUT DAILY [facility] Last Admin: 05/13/24 12:41 Dose: 40 mg Documented By: RB Escitalopram Oxalate (Escitalopram 10 Mg Tablet) 10 mg PO BEDTIME [facility] Ceftriaxone Sodium 2,000 mg/ (Sodium Chloride) 100 mls @ 200 mls/hr IV Q24H [facility] Doxycycline Hyclate 100 mg/ (Sodium Chloride) 100 mls @ 100 mls/hr IV Q12H [facility] Sodium Chloride (Normal Saline 0.9%) 1,000 mls @ 200 mls/hr IV CONT [facility] Last Admin: 05/13/24 18:05 Dose: 200 mls/hr Documented By: Infusion: 05/13/24 17:41 Dose: Infused Documented By: Admin: 05/13/24 12:41 Dose: 200 mls/hr Documented By: RB Melatonin (Melatonin 3 Mg Tablet) 3 mg PO BEDTIME PRN PRN Reason: Sleep Methocarbamol (Methocarbamol 500 Mg Tablet) 500 mg PO BEDTIME PRN PRN Reason: SPASM/PAIN Naloxone HCl (Naloxone 0.4 Mg/Ml Vial) 0.2 mg IV Q2MIN PRN PRN Reason: Opiate Reversal Naproxen (Naproxen 250 Mg Tablet) 250 mg PO BID [facility] Brimonidine- Dorzolamide (Pf) 0. 15-2 % Drops 1 drop EYE-BOTH BID [facility] Timolol-Brimonidi- Dorzolam(Pf) 0.5-0. 15-2 % Drops 1 drop EYE-BOTH DAILY [facility] Ondansetron HCl (Ondansetron 4 Mg/2 Ml Inj) 4 mg IV Q8HR PRN PRN Reason: Nausea And Vomiting Ondansetron HCl (Ondansetron 4 Mg Odt) 4 mg PO Q8HR PRN PRN Reason: Nausea And Vomiting Prednisolone Acetate (Prednisolone Ophth Susp) 1 drops EYE-BOTH BEDTIME [facility] Sodium Chloride (Sodium Chloride 0.9% Flush) 10 ml IV PRN PRN PRN Reason: Flush Sodium Chloride (Sodium Chloride 0.9% Flush) 10 ml IV BID [facility] Vitamin D (Cholecalciferol (Vitamin D3) 1,000 Unit Tablet) 4,000 unit PO QPM [facility] Last Admin: 05/13/24 17:38 Dose: 4,000 unit Documented By: LIZ Discontinued Medications Acetaminophen (Acetaminophen 325 Mg Tablet) 975 mg PO NOW ONE Stop: 05/13/24 09:42 Last Admin: 05/13/24 09:46 Dose: 975 mg Documented By: RB Sodium Chloride (Normal Saline 0.9%) 1,000 mls @ 1,000 mls/hr IV BOLUS ONE Stop: 05/13/24 09:07 Last Infusion: 05/13/24 09:23 Dose: Infused Documented By: Admin: 05/13/24 08:20 Dose: 1,000 mls/hr Documented By: RB Ceftriaxone Sodium 2,000 mg/ (Sodium Chloride) 100 mls @ 200 mls/hr IV NOW ONE Stop: 05/13/24 08:32 Last Infusion: 05/13/24 10:22 Dose: Infused Documented By: Admin: 05/13/24 09:47 Dose: 200 mls/hr Documented By: RB Doxycycline Hyclate 100 mg/ (Sodium Chloride) 100 mls @ 100 mls/hr IV NOW ONE Stop: 05/13/24 08:32 Last Infusion: 05/13/24 09:45 Dose: Infused Documented By: Admin: 05/13/24 08:44 Dose: 100 mls/hr Documented By: RB Sodium Chloride (Normal Saline 0.9%) 1,728.18 mls @ 576.06 mls/hr 30 ml/kg infuse over 3 hr (1728.18 ml) IV NOW ONE Stop: 05/13/24 11:36 Last Infusion: 05/13/24 11:08 Dose: Infused Documented By: Infusion: 05/13/24 10:22 Dose: 999 mls/hr Documented By: Admin: 05/13/24 09:24 Dose: 576.06 mls/hr Documented By: RB Ibuprofen (Ibuprofen 600 Mg Tablet) 600 mg PO Q6H PRN PRN Reason: Fever/Mild Pain (1-3) Non-Formulary Medication (Doxycyline) 100 mg IV BID [facility] Ondansetron HCl (Ondansetron 4 Mg/2 Ml Inj) 4 mg IV NOW PRN PRN Reason: Nausea And Vomiting Last Admin: 05/13/24 08:32 Dose: 4 mg Documented By: RB Ondansetron HCl (Ondansetron 4 Mg Odt) 4 mg SL NOW PRN PRN Reason: Nausea And Vomiting Vital Signs Vital signs: Vital Signs - 8 hr 05/13/24 08:02 05/13/24 08:02 05/13/24 08:05 Temperature Pulse Rate 121 H 120 H Respiratory Rate Blood Pressure 82/52 L Pulse Oximetry 94 95 Oxygen Delivery Method 05/13/24 08:08 05/13/24 08:09 05/13/24 08:09 Temperature 97.6 F Pulse Rate 127 H 119 H Respiratory Rate 26 H Blood Pressure 82/52 L 88/49 L Pulse Oximetry 95 94 Oxygen Delivery Method Room Air 05/13/24 08:10 05/13/24 08:21 05/13/24 08:21 Temperature Pulse Rate 117 H 118 H Respiratory Rate Blood Pressure 81/45 L Pulse Oximetry 96 94 Oxygen Delivery Method 05/13/24 08:25 05/13/24 08:25 05/13/24 08:30 Temperature Pulse Rate 117 H Respiratory Rate Blood Pressure 82/45 L 83/48 L Pulse Oximetry 95 Oxygen Delivery Method 05/13/24 08:30 05/13/24 08:35 05/13/24 08:35 Temperature Pulse Rate 112 H 118 H Respiratory Rate Blood Pressure 85/52 L Pulse Oximetry 94 93 Oxygen Delivery Method 05/13/24 08:40 05/13/24 08:44 05/13/24 08:44 Temperature Pulse Rate 113 H 113 H Respiratory Rate Blood Pressure 102/76 Pulse Oximetry 95 94 Oxygen Delivery Method 05/13/24 08:45 05/13/24 08:45 05/13/24 08:50 Temperature Pulse Rate 113 H 113 H Respiratory Rate Blood Pressure 100/54 L Pulse Oximetry 96 94 Oxygen Delivery Method 05/13/24 08:50 05/13/24 08:55 05/13/24 08:55 Temperature Pulse Rate 111 H Respiratory Rate Blood Pressure 112/56 L 112/55 L Pulse Oximetry 94 Oxygen Delivery Method 05/13/24 09:00 05/13/24 09:00 05/13/24 09:05 Temperature Pulse Rate 109 H Respiratory Rate Blood Pressure 94/50 L 93/51 L Pulse Oximetry 92 Oxygen Delivery Method 05/13/24 09:05 05/13/24 09:10 05/13/24 09:10 Temperature Pulse Rate 109 H 110 H Respiratory Rate Blood Pressure 93/52 L Pulse Oximetry 82 L 98 Oxygen Delivery Method 05/13/24 09:15 05/13/24 09:15 Temperature Pulse Rate 111 H Respiratory Rate Blood Pressure 87/52 L Pulse Oximetry 98 Oxygen Delivery Method Medical Decision Making Lab Data 05/13/24 08:20 05/13/24 13:30 Labs: Lab Results 05/13/24 Range/Units 08:20 WBC 6.4 (4.5-11.0) X10^3/uL RBC 4.22 (4.0-5.2) X10^6/uL Hgb 12.8 (12.0-16.0) g/dL Hct 36.4 (36-46) % MCV 86.1 (80-100) fL MCH 30.4 (26-34) PG MCHC 35.3 (30-36) % RDW 12.9 (11.6-14.8) % Plt Count 269 (150-400) X10^3/uL Neut % (Auto) 78.3 H (50-75) % Lymph % (Auto) 10.2 L (25-40) % Kimble % (Auto) 9.9 (3-14) % Eos % (Auto) 0.7 L (2-4) % Baso % (Auto) 0.9 (0-2) % Neut # (Auto) 5000 (6092-4161) /uL Lymph # (Auto) 600 L (2026-0086) /uL Kimble # (Auto) 600 (0-900) /uL Eos # (Auto) 0 (0-450) /uL Baso # (Auto) 100 (0-100) /uL PT 11.0 (9.4-12.5) SECONDS INR 1.0 (0.9-1.3) APTT 30 (25.1-36.5) SECONDS Sodium 126 L (137-145) mmol/L Potassium 3.8 (3.4-5.1) mmol/L Chloride 94 L (98-107) mmol/L Carbon Dioxide 25 (22-32) mmol/L BUN 11 (7-17) mg/dL Creatinine 0.64 (0.52-1.04) mg/dL Estimated GFR > 60 (>60) mL/min BUN/Creatinine Ratio 17.2 (6-22) Glucose 109 (80-110) mg/dL Lactate 1.1 (0.7-2.1) mmol/L Calcium 8.5 (8.4-10.2) mg/dL Total Bilirubin 1.4 H (0.2-1.3) mg/dL AST 24 (14-36) IU/L ALT 11 (<35) IU/L Alkaline Phosphatase 72 (38-126) U/L Troponin I < 0.012 (0.01-0.034) ng/mL Total Protein 6.6 (6.3-8.2) g/dL Albumin 4.1 (3.5-5.0) g/dL Globulin 2.5 (1.7-4.1) g/dL Albumin/Globulin Ratio 1.6 (1.0-2.8) Lipase 82 (23-300) U/L Procalcitonin 0.060 (<0.5) ng/mL Imaging Data Chest x-ray: Radiologist's Impression: Karla Burt Yoly??83??F??1940 ? Allergy/Adv: latex, Penicillins, Sulfa (Sulfonamide Antibiotics) (More??) Close Chest X-Ray (Signed) Dasha Sheppard - 05/13/24 PFT Result 01/10/24 Echocardiogram Ultrasound (Signed) Sukumar Hughes - 01/10/24 Mammogram Screening (Signed) Shay Bruno - 12/31/23 Brain MRI (Signed) Arslan Eason - 12/31/23 Peripheral Vascular Ultrasound (Signed) Kaden Coto - 10/12/23 Bone Densitometry (Signed) Alexis Gutierrez - 02/15/23 Brain MRI (Signed) Leeroy Lopez - 01/26/23 Myocardial Perfusion Scan Nuc Med (Signed) Stacey Wellington - 12/15/22 Chest X-Ray (Signed) Dasha Sheppard - 11/13/22 Mammogram Diagnostic (Signed) Shay Bruno - 09/21/22 Breast Ultrasound (Signed) Call,Shay - 09/21/22 Breast Ultrasound (Signed) Alexis Gutierrez - 09/12/21 Mammogram Diagnostic (Signed) Alexis Gutierrez - 09/12/21 Chest X-Ray (Signed) Arslan Eason - 08/03/21 Mammogram Diagnostic (Signed) Chandan Kirkpatrick - 03/24/21 Breast Ultrasound (Signed) Chandan Kirkpatrick - 03/24/21 Peripheral Vascular Ultrasound (Signed) Arslan Eason - 02/18/21 Lumbar Spine MRI (Signed) Leeroy Lopez - 12/26/20 Mammogram Diagnostic (Signed) Shay Bruno - 08/13/20 Breast Biopsy Ultrasound (Signed) AudreyKimberlyRodney - 08/13/20 Mammogram, Additional Views (Signed) KirkpatrickChandan klein - 08/01/20 Breast Ultrasound (Signed) Chandan Kirkpatrick - 08/01/20 Chest X-Ray (Signed) JenaroFarheene - 07/22/20 Mammogram Screening (Signed) Oliva Wilson - 07/10/20 Thyroid Ultrasound (Signed) HudsonBenson - 06/26/20 Peripheral Vascular Ultrasound (Signed) Heather Wing - 06/03/19 Mammogram Screening (Signed) AudreyKimberlyRodney - 04/10/19 Chest CTA (Signed) Heather Wing - 01/07/19 Chest X-Ray (Signed) Heather Wing - 01/07/19 Lumbar Spine MRI (Signed) Chu Piper - 12/07/18 Lumbar Spine X-Ray (Signed) Carly Hsieh - 11/16/18 Launch?[place] [address] XRay Report Signed Patient: Karla Burt MR#: [id number] : 1940 Acct:[id number] Age/Sex: 83 / F Date of Service: 05/13/24 Loc: ED Accession Number: [id number] Procedure: XR chest 1V Ordering Provider: Leanna Feng D.O. PROCEDURE: XR CHEST 1V INDICATIONS: suspected sepsis TECHNIQUE: One view of the chest was acquired. COMPARISON: [facility], , XR CHEST 1V, 11/13/2022, 11:25. FINDINGS: Surgical changes and devices: Clips are present overlying axilla. Lungs and pleura: Lungs are clear. No pleural effusions or pneumothorax. Mediastinum: Mediastinal contours appear normal. Heart size is mildly prominent. Bones and chest wall: No suspicious bony lesions. Overlying soft tissues appear unremarkable. IMPRESSION: No acute pulmonary process. Dictated by: Dasha Sheppard M.D. on 05/13/2024 at 9:08 Approved by: Dasha Sheppard M.D. on 05/13/2024 at 9:08 ECG Data Attestation: I personally reviewed and interpreted this ECG as follows: Interpretation: EKG shows rate of 112 QRS of 120 QTC of 5 of 5 left axis deviation, regular wide QRS rhythm. Patient has prior from 11/13/2022 which does not appear different. [facility] Narrative Medical decision making narrative: 83-year-old female with history of recurrent cellulitis in her right upper extremity which has chronic lymphedema. Patient does have known recent UTI but has obvious erythema and skin changes to the right upper extremity consistent with cellulitis. Patient is tachycardic, hypotensive O2 sats appropriate. Patient had labs white count of 6.4 hemoglobin of 12.8 platelets are 269 predominance of neutrophils. Coags are negative sodium is 126 was 135 in October, chloride 94 potassium of 3.8 otherwise normal renal function and BUN, bilirubin is 1.4 has been elevated in the past intermittently. LFTs are negative procalcitonin is 0.060, lactate is 1.1. Chest x-ray is negative for acute change Patient received fluids including 30 cc/kilos bolus, antibiotics including doxycycline and Rocephin based on prior hospitalization. Patient continues to be tachycardic hypotensive after 1 L receiving 2nd additional L. Tachycardia slowly improving, still hypotensive after a L and a we will give 2 full L reassess discussed with patient's family they are open to pressors if needed. Spoke with Dr. Sweeney, plan for inpatient. She will put in orders and see the patient. Critical Care Time Critical Care Time Critical Care Time: Yes Total Critical Care Time: 40 Attestation: The high probability of a clinically significant, sudden or life threatening deterioration of the cardiac system(s) required my full and direct attention, intervention and personal management. The aggregate critical care time was [--] minutes. This time is in addition to time spent performing reported procedures but includes the following: [x] Data Review and interpretation [x] Patient assessment and monitoring of vital signs [x] Documentation [x] Medication orders and management Discharge Plan Departure Patient Disposition: Admitted As Inpatient Clinical Impression: Cellulitis of right arm, Sepsis Admit Date/Time: 05/13/24 10:28 Admit Provider: Shanel Sweeney
[2024-05-13] MEDS: SODIUM CHLORIDE 0.9% 1,000 ML 1000 ML IV (08:20)
[2024-05-13] MEDS: ONDANSETRON 4 MG/2 ML INJ IV (08:32)
[2024-05-13 08:36] LABS: Add Manual Diff / Slide Review NO; Basophils Absolute Auto 100 /uL (0-100); Basophils Percent Auto 0.9 % (0-2); Eosinophils Absolute Auto 0 /uL (0-450); Eosinophils Percent Auto 0.7 % (2-4); Hematocrit 36.4 % (36-46); Hemoglobin 12.8 g/dL (12.0-16.0); Lymphocytes Absolute Auto 600 /uL (1100-4500); Lymphocytes Percent Auto 10.2 % (25-40); Mean Corpuscular HGB Conc 35.3 % (30-36); Mean Corpuscular Hemoglobin 30.4 PG (26-34); Mean Corpuscular Volume 86.1 fL (80-100); Monocytes Absolute Auto 600 /uL (0-900); Monocytes Percent Auto 9.9 % (3-14); Neutrophils Absolute Auto 5000 /uL (1500-7000); Neutrophils Percent Auto 78.3 % (50-75); Platelet Count 269 X10^3/uL (150-400); Red Blood Cell Count 4.22 X10^6/uL (4.0-5.2); Red Cell Distribution Width 12.9 % (11.6-14.8); White Blood Cell Count 6.4 X10^3/uL (4.5-11.0)
[2024-05-13] MEDS: DOXYCYCLINE 100 MG in SODIUM CHLORIDE 0.9% 100 ML IV ×2 (08:44→21:13)
[2024-05-13 08:45] LABS: PTT Partial Thromboplastin Tim 30 SECONDS (25.1-36.5)
[2024-05-13 08:46] LABS: Alanine Aminotransferase 11 IU/L (<35); Albumin 4.1 g/dL (3.5-5.0); Albumin Globulin Ratio 1.6 (1.0-2.8); Alkaline Phosphatase 72 U/L (38-126); Aspartate Aminotransferase 24 IU/L (14-36); BUN Creatinine Ratio 17.2 (6-22); Bilirubin Total 1.4 mg/dL (0.2-1.3); Blood Urea Nitrogen 11 mg/dL (7-17); Calcium 8.5 mg/dL (8.4-10.2); Carbon Dioxide 25 mmol/L (22-32); Chloride 94 mmol/L (98-107); Estimated Glomerular Filt Rate > 60 mL/min (>60); Globulin 2.5 g/dL (1.7-4.1); Glucose 109 mg/dL (80-110); HEMOLYSIS < 15 (0-50); Lipase 82 U/L (23-300); Potassium 3.8 mmol/L (3.4-5.1); Sodium 126 mmol/L (137-145); Total Protein 6.6 g/dL (6.3-8.2)
[2024-05-13 08:47] LABS: Lactate (Lactic Acid) 1.1 mmol/L (0.7-2.1)
--- NOTE | 2024-05-13 08:52 | PC.NURSE ---
Provider okay start of antibiotics on patient prior to urine sample as patient has known UTI with culture through primary care office. Provider would still like to still get urine sample but not delay the antibiotics.
--- NOTE | 2024-05-13 08:53 | EKG_ITS ---
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
[2024-05-13] MEDS: SODIUM CHLORIDE 0.9% 576.06 ML IV (09:24)
[2024-05-13] MEDS: ACETAMINOPHEN 325 MG TABLET 975 MG PO (09:46)
[2024-05-13] MEDS: cefTRIAXone 2,000 MG in SODIUM CHLORIDE 0.9% 100 ML 200 MG IV (09:47)
[2024-05-13 10:13] LABS: Troponin I < 0.012 ng/mL (0.01-0.034)
--- NOTE | 2024-05-13 10:21 | PC.NURSE ---
This RN informed provider of new low BP and shifted patient in [place]. Fluid changed to 999ml/hr and provider gave order to give second entire bag.
--- NOTE | 2024-05-13 12:08 | P.HP_ITS ---
History of Present Illness History of Present Illness Date Patient Seen: 05/13/24 Time Patient Seen: 11:09 Date of Onset of Symptoms: 05/13/24 Chief complaint: UTI, R Arm Sepsis Infection Narrative: 83 yo F with hx of breast CA in remission, arthritis and lymphedema presenenting for right arm erythema starting earlier this morning. Reddness os on the right arm, forearm and upper arm not reaching the shoulder. She doesnt have joint pain in that arm.No fevers or chills. This is happened to her many times before since removal of lymph nodes related to breast cancer over 20 years ago. She has had redness plus/minus swelling of this arm approximately 10 times, with most recent occurring in October of 2023. Typically she is admitted to the hospital for IV antibiotics for a few days while the swelling and redness improves. Most recently she was treated with Rocephin and vancomycin which has worked well for her in the past. On arrival this morning blood cultures were drawn and antibiotics were started. Since that time approximately 3 hours ago she has noticed improvement in the redness but it is still present. Labs show absence of leukocytosis but neutrophilic predominance is present. CMP shows hyponatremia to 126. She has previously had hyponatremia but this is lower than prior readings. Potassium is normal. Renal function is also normal. Lactate is 1.1 and troponin is negative. Of note she is currently being treated for UTI with Macrobid which was started yesterday. Since starting the antibiotic she has had resolution of her symptoms. Today she notes redness in the arm but no fevers or chills. She has noticed some dizziness and lightheadedness but this is improved since laying down in Trendelenburg in the ER. Blood pressures have been on the low side, now in the 90-110 / 50-60 range. She is currently completing a 30 mg/kg bolus of IV fluids In the ER, pt was given Rocephin and Doxycycline but blood cultures were collected before first dose. [facility] Medical History (Updated 05/13/24 @ 12:23 by Shanel Sweeney MD) H/O malignant neoplasm of breast Sciatica Spinal stenosis Arthritis Cellulitis of arm, right Lymphedema of arm Surgical History History of lymph node dissection of both axillae Social History household members: spouse and family Smoking Status: Never smoker alcohol intake: current Meds Home Medications and Allergies Home Medications Medication Instructions Recorded Confirmed Type albuterol sulfate 90 mcg/actuation 1 inh inhalation QID PRN 07/23/20 10/12/23 History aerosol inhaler (ProAir HFA) bronchonitis or bad allergies brimonidine 0.15 %-dorzolamide 2 % 1 drp ophthalmic (eye) BID 07/23/20 10/12/23 History (PF) eye drops cholecalciferol (vitamin D3) 50 4,000 unit PO QPM 07/23/20 10/12/23 History mcg (2,000 unit) tablet (Vitamin D3) melatonin 3 mg capsule 3 mg PO BEDTIME PRN Sleep 07/23/20 10/12/23 History timolol 0.5 %-brimonidine 0.15 1 drp ophthalmic (eye) DAILY 07/23/20 10/12/23 History %-dorzolamide 2 % (PF) eye drops aspirin 81 mg tablet,delayed 81 mg PO BEDTIME 08/29/20 10/12/23 History release (Adult Aspirin Regimen) escitalopram oxalate 10 mg tablet 10 mg PO BEDTIME 11/13/22 10/12/23 History etodolac 400 mg tablet 400 mg PO BID 11/13/22 10/12/23 History lisinopril 5 mg tablet 40 mg PO DAILY 10/12/23 10/12/23 History methocarbamol 500 mg tablet 500 mg PO ONCE PM 10/12/23 10/12/23 History prednisolone acetate 1 % eye 1 drp EYE-BOTH BEDTIME 10/12/23 10/12/23 History drops,suspension Allergies Allergy/AdvReac Type Severity Reaction Status Date / Time latex [LATEX] Allergy Severe RASH Verified 11/13/22 11:23 Penicillins [PENICILLINS] Allergy Severe ALL OVER Verified 11/13/22 11:23 BODY WELTS Sulfa (Sulfonamide Allergy Unknown WAS GIVEN Verified 11/13/22 11:23 Antibiotics) WHEN BABY, [SULFA (SULFONAMIDE UNSURE IF ANTIBIOTICS)] STILL HAS ALLERGY Review of Systems Review of Systems Narrative: Review of Systems: Constitutional: Negative for fever and chills. Skin: Negative for rash, reddness noted on rigt arm as discussed in HPI Cardiovascular: Negative for chest pain and palpitations. Respiratory: Negative for cough.? Is not experiencing shortness of breath. Gastrointestinal: Negative for vomiting and abdominal pain. Has had some mild nasuea this AM Genitourinary: Negative for dysuria and hematuria. Musculoskeletal: Endorses Bilateral lower extremity joint pain from OA at baseline, unchanged Neurological: Negative for focal weakness and loss of consciousness. Pt notes slow deterioration of mental status, no acute change today All other systems reviewed and are negative. Exam Vital Signs (past 8 hours): - 05/13/24 08:02 05/13/24 08:02 05/13/24 08:05 Temperature Pulse Rate 121 H 120 H Respiratory Rate Blood Pressure 82/52 L Pulse Oximetry 94 95 Oxygen Delivery Method 05/13/24 08:08 05/13/24 08:09 05/13/24 08:09 Temperature 97.6 F Pulse Rate 127 H 119 H Respiratory Rate 26 H Blood Pressure 82/52 L 88/49 L Pulse Oximetry 95 94 Oxygen Delivery Method Room Air 05/13/24 08:10 05/13/24 08:21 05/13/24 08:21 Temperature Pulse Rate 117 H 118 H Respiratory Rate Blood Pressure 81/45 L Pulse Oximetry 96 94 Oxygen Delivery Method 05/13/24 08:25 05/13/24 08:25 05/13/24 08:30 Temperature Pulse Rate 117 H Respiratory Rate Blood Pressure 82/45 L 83/48 L Pulse Oximetry 95 Oxygen Delivery Method 05/13/24 08:30 05/13/24 08:35 05/13/24 08:35 Temperature Pulse Rate 112 H 118 H Respiratory Rate Blood Pressure 85/52 L Pulse Oximetry 94 93 Oxygen Delivery Method 05/13/24 08:40 05/13/24 08:44 05/13/24 08:44 Temperature Pulse Rate 113 H 113 H Respiratory Rate Blood Pressure 102/76 Pulse Oximetry 95 94 Oxygen Delivery Method 05/13/24 08:45 05/13/24 08:45 05/13/24 08:50 Temperature Pulse Rate 113 H 113 H Respiratory Rate Blood Pressure 100/54 L Pulse Oximetry 96 94 Oxygen Delivery Method 05/13/24 08:50 05/13/24 08:55 05/13/24 08:55 Temperature Pulse Rate 111 H Respiratory Rate Blood Pressure 112/56 L 112/55 L Pulse Oximetry 94 Oxygen Delivery Method 05/13/24 09:00 05/13/24 09:00 05/13/24 09:05 Temperature Pulse Rate 109 H Respiratory Rate Blood Pressure 94/50 L 93/51 L Pulse Oximetry 92 Oxygen Delivery Method 05/13/24 09:05 05/13/24 09:10 05/13/24 09:10 Temperature Pulse Rate 109 H 110 H Respiratory Rate Blood Pressure 93/52 L Pulse Oximetry 82 L 98 Oxygen Delivery Method 05/13/24 09:15 05/13/24 09:15 05/13/24 09:20 Temperature Pulse Rate 111 H Respiratory Rate Blood Pressure 87/52 L 92/53 L Pulse Oximetry 98 Oxygen Delivery Method 05/13/24 09:20 05/13/24 09:25 05/13/24 09:25 Temperature Pulse Rate 112 H 111 H Respiratory Rate Blood Pressure 92/53 L Pulse Oximetry 97 98 Oxygen Delivery Method 05/13/24 09:30 05/13/24 09:30 05/13/24 09:35 Temperature Pulse Rate 113 H Respiratory Rate Blood Pressure 97/50 L 84/47 L Pulse Oximetry 95 Oxygen Delivery Method 05/13/24 09:35 05/13/24 09:40 05/13/24 09:40 Temperature Pulse Rate 116 H 112 H Respiratory Rate Blood Pressure 93/52 L Pulse Oximetry 97 98 Oxygen Delivery Method 05/13/24 09:45 05/13/24 09:45 05/13/24 09:50 Temperature Pulse Rate 112 H Respiratory Rate Blood Pressure 91/53 L 96/52 L Pulse Oximetry 95 Oxygen Delivery Method 05/13/24 09:50 05/13/24 09:55 05/13/24 09:55 Temperature Pulse Rate 115 H 113 H Respiratory Rate Blood Pressure 94/51 L Pulse Oximetry 97 98 Oxygen Delivery Method 05/13/24 10:00 05/13/24 10:05 05/13/24 10:08 Temperature Pulse Rate 112 H 116 H Respiratory Rate Blood Pressure 100/54 L Pulse Oximetry 96 96 Oxygen Delivery Method 05/13/24 10:08 05/13/24 10:10 05/13/24 10:10 Temperature Pulse Rate 113 H 112 H Respiratory Rate Blood Pressure 102/55 L Pulse Oximetry 94 94 Oxygen Delivery Method 05/13/24 10:15 05/13/24 10:15 05/13/24 10:20 Temperature Pulse Rate 109 H Respiratory Rate Blood Pressure 77/41 L 71/36 L Pulse Oximetry 98 Oxygen Delivery Method 05/13/24 10:20 05/13/24 10:22 05/13/24 10:22 Temperature Pulse Rate 110 H 111 H Respiratory Rate 19 Blood Pressure 92/51 L Pulse Oximetry 98 98 Oxygen Delivery Method Oxygen Delivery Method Room Air Narrative Exam Narrative: GEN: Healthy appearing, well-developed, NAD. PSYCH: Good Judgment. AOx3. Normal memory, mood, and affect. Occassionally repeats herself but redirectable with her daughters assistance. Looks to daughter Ania for assistance with numbers and timelines occassionally. HEENT: -Head: NC/AT -Eyes: No discharge or redness -Ears: External ears are normal. -Nose: Normal nares. -Mouth and throat: MMM CV: warm and well perfused, hearts sounds somewhat distant but regular, no murmurs auscultated LUNGS: CTAB, no w/r/c. ABD: Soft, NT/ND, NBS, no masses or organomegaly. : No suprapubic tenderness SKIN: Warm, well perfused. No skin rashes. Right arm with faint erythema running from forearm to the middle of the upper arm. No swelling, no areas of fluctuance, no clear skin breaks. no joint swelling or tenderness MSK: No deformities EXT: No clubbing, cyanosis, or edema NEURO: No focal deficits, per daughter at her baseline. Occassionally repeats herself but otherwise answers questions approrpaitely Objective Labs 05/13/24 08:20 05/13/24 08:20 Labs: Laboratory Results - last 24 hr 05/13/24 08:20 WBC 6.4 RBC 4.22 Hgb 12.8 Hct 36.4 MCV 86.1 MCH 30.4 MCHC 35.3 RDW 12.9 Plt Count 269 Neut % (Auto) 78.3 H Lymph % (Auto) 10.2 L [place] % (Auto) 9.9 Eos % (Auto) 0.7 L Baso % (Auto) 0.9 Neut # (Auto) 5000 Lymph # (Auto) 600 L [place] # (Auto) 600 Eos # (Auto) 0 Baso # (Auto) 100 PT 11.0 INR 1.0 APTT 30 Sodium 126 L Potassium 3.8 Chloride 94 L Carbon Dioxide 25 BUN 11 Creatinine 0.64 Estimated GFR > 60 BUN/Creatinine Ratio 17.2 Glucose 109 Lactate 1.1 Calcium 8.5 Total Bilirubin 1.4 H AST 24 ALT 11 Alkaline Phosphatase 72 Troponin I < 0.012 Total Protein 6.6 Albumin 4.1 Globulin 2.5 Albumin/Globulin Ratio 1.6 Lipase 82 Procalcitonin 0.060 Assessment & Plan Assessment and plan (1) H/O malignant neoplasm of breast: Status: Resolved (2) History of lymph node dissection of both axillae: Status: Resolved (3) Cellulitis of right arm: Status: Acute (4) Arthritis: Status: Chronic (5) Urinary tract infection: Qualifiers: Urinary tract infection type: acute cystitis Hematuria presence: w ithout hematuria Qualified Code(s): N30.00 - Acute cystitis without hematuria Status: Acute Plan 83 yo F with hx of breast CA in remission, arthritis and lymphedema presenting with right arm cellulitis. She has experioenced this multiple times before, per chart review 5 times but daughter and pt note 8-10 times since a lymph node dissection following treatment of breast cancer over 20 years ago. Typically redness develops, and if she waits, swelling and fevers then occur. She noticed the reddness early this morning and came right in to the ER. Labs are overall very reassuring. shew as treated with IV doxy and Cephtriaxone and has had subsequent improvement in the reddness. At this time she is doing well but is slightly hypotensive. ##Right Arm cellulitis: no lactic acid elevation or leukocytosis, does not meet SRIS/sepsis criteria. She has been tachycardic but this is improving with IV. She is still hypotensive, discussed below. Sx improving with IV Abx given on arrival to the ER a few hours ago - Admit to inpt - Blood cultures pending - continue Ceftriaxone + Doxycycline for now (sp 1 dose), de-escalate as able if blood cultures show a source but typically they do not so suspect that we will not be able to dc MRSA coverage - duration of Abx pending course, anticipate at least 7 days (last course was treated with IV during 3 day admission then transition to PO Doxy x7 days after discharge - Repeat CMP in the AM ## Hypotension: suspect related to infection, BPs improving with 30mg/kg sepsis bolus, continue to trend BPs and can repeat IVF bolus. No cardiac hx so may just need further fluid recusitation. Mentating at baseline now which is reassuring. - Trend BPs - hold home antihypertensives for now, will trend BPs and consider restarting tomorrow (Lisinopril 40mg daily and HCTZ 40mg daily) ## Hyponatremia: suspect tea and toast diet but will trend closely and take into account for future IVF boluses. Repeat BMP now that sepsis bolus was been given - BMP now - repeat BMP in the AM ## tachycardia: tachcyardia improving. Troponin negative and EKG reassuring. Treat infection as above and trend HR - continue Tele # UTI: dx yesterday in clinic. No sx on ROS, and no suprapubic pressure. s/p 1 dose of Macrobid. Now being treated with Ceftraixone as above so no need to continue treatment with MAcrobid. Chronic stable problems: ##Hx of breast Ca, in remission ## arthritis- continue home Etodolac + methocarbamol ## hx of retinal detachment: continue home opthalmic drops [id number], Prednisolone-acetate, Ofloxacin ## seasonal allergies: cont home Claratin ## mood d/o: cont home Escitalopram 20mg ## asthma: continue home [id number] 2 puffs BID + PRN albuterol Fluids: suspect she willr equire another bolus after completion of 30mg/kg bolus that is running now based on tachycardia and hypotension Electrolytes: trend and tx as above Nutrition: general diet Discharge planning: anticipate >2 midnights based on previous duration of admission + current needs on exam today DVT ppx: Tresa of 5 for infection, age and reduced mobility --> Lovenox ppx Time-Based Coding :: [TOTAL MINUTES] spent with patient and on the chart (including review of chart, obtaining history, exam, reviewing outside data, placing orders, documenting exam and treatment plan, and counseling patient) on [DATE].
--- NOTE | 2024-05-13 12:30 | PC.NURSE ---
Dr. Sweeney aware of patient blood pressure. Provider to be notified again if map below 60
[2024-05-13] MEDS: SODIUM CHLORIDE 0.9% 1,000 ML 200 ML IV ×2 (12:41→18:05)
[2024-05-13] MEDS: ENOXAPARIN 40 MG/0.4 ML SYRINGE SUBCUT (12:41)
[2024-05-13 13:52] LABS: BUN Creatinine Ratio 17.2 (6-22); Blood Urea Nitrogen 11 mg/dL (7-17); Calcium 7.3 mg/dL (8.4-10.2); Carbon Dioxide 23 mmol/L (22-32); Chloride 101 mmol/L (98-107); Estimated Glomerular Filt Rate > 60 mL/min (>60); Glucose 116 mg/dL (80-110); HEMOLYSIS < 15 (0-50); Potassium 3.4 mmol/L (3.4-5.1); Sodium 129 mmol/L (137-145)
--- NOTE | 2024-05-13 15:06 | CM.DANOTE ---
Initial DCP Assessment Note Pt is a 83 yo female, resident of [place], hx of breast CA in remission, presents with right arm swelling and redness. Admitted INPT for management of right arm cellulitis and UTI PCP: Tim Cardoso Payer: FRANKIE/NUPUR Reviewed chart, met w/patient and her daughter at bedside. Patient and spouse live independently in a home they built uniquely to house them and their daughter and her family in the home adjacent, joined by one long hallway. Patient has no hx of HH, denies needs currently from this CM team. Family available to assist as needed upon discharge. No barriers identified at this time to patient's safe discharge home w/family to assist; close outpatient f/u recommended. CM team will plan to follow clinical course closely in case any DC needs or concerns arise. ELANA Gan Discharge Planning/Care Management CM Discharge Assessment Start: 05/13/24 15:04 Freq: Status: Active Protocol: Document 05/13/24 15:04 WARD (Rec: 05/13/24 15:06 WARD [id number]) Discharge Planning Assessment Assigned Corsetier ELANA Villalta DPOA/Assigned Designee Name french Izquierdo Contact Information [phone] Advance Directives? Yes Advance Directives on File No History Provided By Patient,Family Member,Medical Record Prior Living Arrangements House Household Members spouse,family Type of transporation used prior to Relies on Others admit Independent with ADL's Yes Is patient alert and oriented? Yes Comment Indp w/use of cane. Barriers to Discharge No Comment Home w/supportive family Discharge Plan Home Transportation Arrangement Family Referrals Initiated None needed
[2024-05-13] MEDS: ACETAMINOPHEN 325 MG TABLET 650 MG PO (15:15)
[2024-05-13] MEDS: CHOLECALCIFEROL (VITAMIN D3) 1,000 UNIT TABLET 4000 UNIT PO (17:38)
[2024-05-13] MEDS: ASPIRIN EC 81 MG TABLET PO (21:13)
[2024-05-13] MEDS: ESCITALOPRAM 10 MG TABLET PO (21:13)
[2024-05-13] MEDS: NAPROXEN 250 MG TABLET PO (21:13)
[2024-05-13] MEDS: MELATONIN 3 MG TABLET PO (21:13)
[2024-05-14] VITALS (7 sets, daily range): BP systolic 119–168; BP diastolic 53–85; PULSE 76–87; RESP 16–24; TEMP 36.8–37.7; O2SAT 92–96
[2024-05-14] MEDS: SODIUM CHLORIDE 0.9% 1,000 ML 200 ML IV ×2 (00:18→06:59)
[2024-05-14] MEDS: ALBUTEROL 2.5 MG/3 ML NEB (ADULT) INH (05:54)
[2024-05-14 07:33] LABS: BUN Creatinine Ratio 31.4 (6-22); Blood Urea Nitrogen 16 mg/dL (7-17); Calcium 7.7 mg/dL (8.4-10.2); Carbon Dioxide 22 mmol/L (22-32); Chloride 107 mmol/L (98-107); Estimated Glomerular Filt Rate > 60 mL/min (>60); Glucose 90 mg/dL (80-110); HEMOLYSIS 16 (0-50); Potassium 3.8 mmol/L (3.4-5.1); Sodium 133 mmol/L (137-145)
[2024-05-14 07:53] LABS: Hematocrit 29.9 % (36-46); Hemoglobin 10.4 g/dL (12.0-16.0); Mean Corpuscular Hemoglobin 30.7 PG (26-34); Mean Corpuscular Volume 87.7 fL (80-100); Platelet Count 155 X10^3/uL (150-400); Red Blood Cell Count 3.41 X10^6/uL (4.0-5.2); Red Cell Distribution Width 12.5 % (11.6-14.8)
[2024-05-14 07:54] LABS: Add Manual Diff / Slide Review YES
[2024-05-14 08:08] LABS: Neutrophils Absolute Manual 2120 /uL (3000-5900); Total Cells Counted 100
[2024-05-14] MEDS: cefTRIAXone 2,000 MG in SODIUM CHLORIDE 0.9% 100 ML 200 MG IV (08:08)
[2024-05-14 08:09] LABS: RBC Morphology Normal Morphology
[2024-05-14] MEDS: NAPROXEN 250 MG TABLET PO ×2 (08:09→21:12)
[2024-05-14] MEDS: SODIUM CHLORIDE 0.9% FLUSH 10 ML IV ×2 (08:09→21:16)
[2024-05-14] MEDS: ENOXAPARIN 40 MG/0.4 ML SYRINGE SUBCUT (08:09)
[2024-05-14] MEDS: DOXYCYCLINE 100 MG in SODIUM CHLORIDE 0.9% 100 ML IV ×2 (09:36→21:11)
--- NOTE | 2024-05-14 10:02 | P.PN_ITS ---
Subjective Subjective Date Patient Seen: 05/14/24 Time Patient Seen: 09:12 Interval history: 83 yo F admitted for RUE cellulitis. She has had significant improvement in reddness with ABx but is still feeling generally unwell. Overall improved from yesterday and does feel like the Abx have helped. On last standing to move to the bathroom she did still note some lightheadedness but is no longer noting hypotension sx when sitting in bed. BPs have improved significantly overnight, and she is no longer hypotensive. No fevers overnight. She has been toelrating PO but has decreased appetite Exam Vital Signs (past 8 hours): - 05/14/24 04:00 05/14/24 08:00 Temperature 99.5 F 98.9 F Pulse Rate 78 76 Respiratory Rate 18 16 Blood Pressure 148/77 H 157/79 H Pulse Oximetry 96 95 Oxygen Flow Rate 0 Oxygen Delivery Method Room Air Oxygen Flow Rate 0 Narrative Exam Narrative: GEN: Healthy appearing, well-developed, NAD. PSYCH: Good Judgment. AOx3. Normal memory, mood, and affect. Occasionally repeats herself but able to track with conversation easily HEENT: -Head: NC/AT -Eyes: No discharge or redness -Ears: External ears are normal. -Nose: Normal nares. -Mouth and throat: MMM CV: warm and well perfused, hearts sounds somewhat distant but regular, no murmurs auscultated LUNGS: CTAB, no w/r/c. SKIN: Warm, well perfused. No skin rashes. previously noted erythema has resolved. No sign off fluctuance or lesions. MSK: No deformities EXT: No clubbing, cyanosis, or edema NEURO: No focal deficits, per daughter at her baseline. Occasionally repeats herself but otherwise answers questions appropriately Objective Labs 05/14/24 07:06 05/14/24 07:06 Labs: Laboratory Results - last 24 hr 05/13/24 05/13/24 05/14/24 08:20 13:30 07:06 WBC 4.0 L RBC 3.41 L Hgb 10.4 L Hct 29.9 L MCV 87.7 MCH 30.7 MCHC 35.0 RDW 12.5 Plt Count 155 Neut % (Auto) Not Reportable Lymph % (Auto) Not Reportable [place] % (Auto) Not Reportable Eos % (Auto) Not Reportable Baso % (Auto) Not Reportable Lymph # (Auto) Not Reportable [place] # (Auto) Not Reportable Baso # (Auto) Not Reportable Total Counted 100 Seg Neutrophils % 52.0 Band Neutrophils % 1.0 L Lymphocytes % (Manual) 37.0 Atypical Lymphs % 0.0 Monocytes % (Manual) 8.0 Eosinophils % (Manual) 1.0 L Basophils % (Manual) 1.0 Neutrophils # (Manual) 2120 L RBC Morphology Normal morphology Sodium 129 L 133 L Potassium 3.4 3.8 Chloride 101 107 Carbon Dioxide 23 22 BUN 11 16 Creatinine 0.64 0.51 L Estimated GFR > 60 > 60 BUN/Creatinine Ratio 17.2 31.4 H Glucose 116 H 90 Calcium 7.3 L 7.7 L Troponin I < 0.012 [facility] Medical History (Updated 05/13/24 @ 12:23 by Shanel Sweeney MD) H/O malignant neoplasm of breast Sciatica Spinal stenosis Arthritis Cellulitis of arm, right Lymphedema of arm Surgical History History of lymph node dissection of both axillae Social History household members: spouse and family Smoking Status: Never smoker alcohol intake: current Assessment & Plan Assessment and plan (1) Cellulitis of right arm: Status: Acute (2) H/O malignant neoplasm of breast: Status: Resolved (3) History of lymph node dissection of both axillae: Status: Resolved (4) Arthritis: Status: Chronic Assessment & Plan narrative: 83 yo F with hx of breast CA in remission, arthritis and lymphedema presenting with right arm cellulitis. REddness is improving with IV abx and she is overall improving but not yet ready for discharge ##Right Arm cellulitis: no lactic acid elevation or leukocytosis. Tachycardia and hypotension have resolved with IVF. - Blood cultures pending, no growth no date - continue Ceftriaxone + Doxycycline for now (sp 2 dose), de-escalate as able if blood cultures show a source - duration of Abx pending course, anticipate at least 7 days (last course was treated with IV during 3 day admission then transition to PO Doxy x7 days after discharge ## Hypotension, resolved - Trend BPs - Decrease IVF rate from 150ml/hr to 75, if tolerates this by this afternoon will dc - Restart Lisinopril this AM, will plan to restart HCTZ this afternoon or tomorrow based on BP trends ## Hyponatremia: Improving on repeat CMP this morning, slow improvement at appropriate rate (126 -> 129 --> 133). Mentating well - repeat BMP in the AM ## tachycardia, resolved: Troponin negative and EKG reassuring. - ok to dc Tele # UTI: dx yesterday in clinic. No sx on ROS, and no suprapubic pressure. s/p 1 dose of Macrobid. Now being treated with Ceftraixone as above so no need to continue treatment with Macrobid. Chronic stable problems: ##Hx of breast Ca, in remission ## arthritis- continue home Etodolac + methocarbamol ## hx of retinal detachment: continue home opthalmic drops [id number]-[id number], Prednisolone-acetate, Ofloxacin ## seasonal allergies: cont home Claratin ## mood d/o: cont home Escitalopram 20mg ## asthma: continue home [id number] 2 puffs BID + PRN albuterol Fluids: Electrolytes: trend and tx as above Nutrition: general diet Discharge plannin-2 days DVT ppx: Tresa of 5 for infection, age and reduced mobility --> Lovenox ppx Time-Based Coding :: [TOTAL MINUTES] spent with patient and on the chart (including review of chart, obtaining history, exam, reviewing outside data, placing orders, documenting exam and treatment plan, and counseling patient) on [DATE].
[2024-05-14] MEDS: lisinopriL 20 MG TABLET 40 MG PO (11:21)
--- NOTE | 2024-05-14 11:28 | CM.DPNOTE ---
DCP Note [employer] reviewed EMR. Per Dr. Sweeney in morning rounds, would like to see 48hrs of negative cultures and then plan to dc home on PO abx no needs. BP was a little low yesterday, ambulates indep at baseline and if nursing notice pt below baseline ambulation, provider gave verbal okay for this [employer] to place PT eval order. P: No barriers identified at this time to patient's safe discharge home w/family to assist; close outpatient f/u recommended. anticipate Mon vs e dc. CM team will plan to follow clinical course closely in case any DC needs or concerns arise. ELANA Morris
[2024-05-14] MEDS: DOCUSATE 100 MG CAPSULE PO (15:06)
[2024-05-14] MEDS: CHOLECALCIFEROL (VITAMIN D3) 1,000 UNIT TABLET 4000 UNIT PO (16:51)
[2024-05-14] MEDS: LATANOPROST 0.005% EYE DROPS 1 EACH EYE-BOTH (20:11)
[2024-05-14] MEDS: ASPIRIN EC 81 MG TABLET PO (21:12)
[2024-05-14] MEDS: MELATONIN 3 MG TABLET PO (21:12)
[2024-05-14] MEDS: ESCITALOPRAM 10 MG TABLET PO (21:12)
[2024-05-15] VITALS (11 sets, daily range): BP systolic 97–194; BP diastolic 39–111; PULSE 72–90; RESP 15–20; TEMP 36.3–37.7; O2SAT 95–98
[2024-05-15 06:17] LABS: BUN Creatinine Ratio 26.7 (6-22); Blood Urea Nitrogen 12 mg/dL (7-17); Calcium 8.6 mg/dL (8.4-10.2); Carbon Dioxide 28 mmol/L (22-32); Chloride 102 mmol/L (98-107); Estimated Glomerular Filt Rate > 60 mL/min (>60); Glucose 93 mg/dL (80-110); HEMOLYSIS < 15 (0-50); Potassium 3.7 mmol/L (3.4-5.1); Sodium 131 mmol/L (137-145)
--- NOTE | 2024-05-15 08:28 | PM.PN.1 ---
Subjective Subjective Date Patient Seen: 05/15/24 Time Patient Seen: 08:28 Interval history: Patient seen in follow-up of hypotension right arm cellulitis hyponatremia. Overall still feeling a little dizzy. But otherwise feeling well. Arm feels better. Still just does not feel well. Without other changes or complaint. Exam Vital Signs (past 8 hours): - 05/15/24 01:55 05/15/24 05:19 05/15/24 05:28 Temperature 98.8 F 98.8 F Pulse Rate 72 74 Respiratory Rate 20 20 Blood Pressure 161/87 H 169/111 H 169/102 H Pulse Oximetry 98 98 Oxygen Flow Rate 0 0 Oxygen Delivery Method Room Air Oxygen Flow Rate 0 Narrative Exam Narrative: Alert female lying in bed in no acute distress HEENT exam is unremarkable mucous membranes moist neck supple without adenopathy lungs are clear heart is regular rate and rhythm right arm shows minimal erythema no tenderness no mass no axillary adenopathy. Abdomen is benign neurologic exam is normal Objective Labs 05/14/24 07:06 05/15/24 05:45 Labs: Laboratory Results - last 24 hr 05/15/24 05:45 Sodium 131 L Potassium 3.7 Chloride 102 Carbon Dioxide 28 BUN 12 Creatinine 0.45 L Estimated GFR > 60 BUN/Creatinine Ratio 26.7 H Glucose 93 Calcium 8.6 PFSH Medical History (Updated 05/13/24 @ 12:23 by Shanel Sweeney MD) H/O malignant neoplasm of breast Sciatica Spinal stenosis Arthritis Cellulitis of arm, right Lymphedema of arm Surgical History History of lymph node dissection of both axillae Social History household members: spouse and family Smoking Status: Never smoker alcohol intake: current Assessment & Plan Assessment & Plan narrative: Cellulitis. Right arm. Improved. Cultures are negative. Still not feeling well. White count seems normal no fever continue antibiotics 1 more day and then hopefully discontinue and go to oral antibiotics for tomorrow. Hyponatremia. Slightly worse today. Fluids were discontinued yesterday will restart at low dose and follow. We will see how she feels after we give her some fluid also. Rechecked tomorrow. Hypotension. Appears to be doing well. Probably secondary to infection and dehydration. Will follow. Anemia. Probably secondary to fluid and delusion. But will follow as outpatient Tachycardia. Resolved. Probably secondary to infection. Will follow. UTI. On antibiotics. We will continue to follow. Should be under good treatment. DVT prophylaxis on meds. Disposition. Will see how things go. Will restart fluids rechecked blood work and follow from there. Hope home tomorrow Time-Based Coding :: [TOTAL MINUTES] spent with patient and on the chart (including review of chart, obtaining history, exam, reviewing outside data, placing orders, documenting exam and treatment plan, and counseling patient) on [DATE].
[2024-05-15] MEDS: cefTRIAXone 2,000 MG in SODIUM CHLORIDE 0.9% 100 ML 200 MG IV (10:02)
[2024-05-15] MEDS: ENOXAPARIN 40 MG/0.4 ML SYRINGE SUBCUT (10:04)
[2024-05-15] MEDS: NAPROXEN 250 MG TABLET PO ×2 (10:04→20:50)
[2024-05-15] MEDS: DOCUSATE 100 MG CAPSULE PO (10:04)
[2024-05-15] MEDS: lisinopriL 20 MG TABLET 40 MG PO ×2 (10:04→20:50)
[2024-05-15] MEDS: SODIUM CHLORIDE 0.9% FLUSH 10 ML IV (10:05)
[2024-05-15] MEDS: SODIUM CHLORIDE 0.9% 1,000 ML 84 ML IV (10:09)
[2024-05-15] MEDS: DOXYCYCLINE 100 MG in SODIUM CHLORIDE 0.9% 100 ML IV ×2 (12:07→21:18)
[2024-05-15] MEDS: CHOLECALCIFEROL (VITAMIN D3) 1,000 UNIT TABLET 4000 UNIT PO (18:11)
[2024-05-15] MEDS: ESCITALOPRAM 10 MG TABLET PO (20:51)
[2024-05-15] MEDS: MELATONIN 3 MG TABLET PO (20:51)
[2024-05-15] MEDS: LATANOPROST 0.005% EYE DROPS 1 EACH EYE-BOTH (20:51)
[2024-05-15] MEDS: ASPIRIN EC 81 MG TABLET PO (20:51)
--- NOTE | 2024-05-15 21:36 | PC.NURSE ---
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 Denies pain, dizziness, nausea, or difficulty breathing. RUE is pink and edematous, skin is intact. IVF & IV abx infusing as ordered. Ambulating to the bathroom w/ SBA & cane. BP elevated (VS documented), notified MD Vides, 40mg Lisinopril ordered and given. Cont tele in place. Oriented to call-light, plan of care ongoing.
[2024-05-16 03:00] VITALS: BP 168/87; PULSE 67; RESP 20; TEMP 36.7; O2SAT 97
[2024-05-16] MEDS: SODIUM CHLORIDE 0.9% 1,000 ML 84 ML IV (04:07)
[2024-05-16 05:55] LABS: Alanine Aminotransferase 50 IU/L (<35); Albumin 3.2 g/dL (3.5-5.0); Albumin Globulin Ratio 1.2 (1.0-2.8); Alkaline Phosphatase 107 U/L (38-126); Aspartate Aminotransferase 53 IU/L (14-36); BUN Creatinine Ratio 26.5 (6-22); Bilirubin Total 0.6 mg/dL (0.2-1.3); Blood Urea Nitrogen 9 mg/dL (7-17); Carbon Dioxide 27 mmol/L (22-32); Chloride 102 mmol/L (98-107); Estimated Glomerular Filt Rate > 60 mL/min (>60); Globulin 2.7 g/dL (1.7-4.1); Glucose 87 mg/dL (80-110); HEMOLYSIS < 15 (0-50); Potassium 3.2 mmol/L (3.4-5.1); Sodium 133 mmol/L (137-145); Total Protein 5.9 g/dL (6.3-8.2)
[2024-05-16 05:57] LABS: Add Manual Diff / Slide Review NO; Basophils Absolute Auto 0 /uL (0-100); Basophils Percent Auto 0.9 % (0-2); Eosinophils Absolute Auto 200 /uL (0-450); Eosinophils Percent Auto 4.7 % (2-4); Hemoglobin 11.4 g/dL (12.0-16.0); Lymphocytes Absolute Auto 1200 /uL (1100-4500); Lymphocytes Percent Auto 30.4 % (25-40); Mean Corpuscular HGB Conc 35.6 % (30-36); Mean Corpuscular Hemoglobin 30.5 PG (26-34); Mean Corpuscular Volume 85.6 fL (80-100); Monocytes Absolute Auto 500 /uL (0-900); Monocytes Percent Auto 12.7 % (3-14); Neutrophils Absolute Auto 2100 /uL (1500-7000); Neutrophils Percent Auto 51.3 % (50-75); Platelet Count 207 X10^3/uL (150-400); Red Blood Cell Count 3.74 X10^6/uL (4.0-5.2); Red Cell Distribution Width 12.8 % (11.6-14.8); White Blood Cell Count 4.1 X10^3/uL (4.5-11.0)
[2024-05-16 07:55] VITALS: BP 180/92; PULSE 74; RESP 18; TEMP 36.6; O2SAT 97
--- NOTE | 2024-05-16 08:20 | P.DS_ITS ---
History of Present Illness History of Present Illness Date Patient Seen: 05/16/24 Time Patient Seen: 08:20 Date of Onset of Symptoms: 05/14/24 Chief complaint: UTI, R Arm Sepsis Infection Narrative: 83 yo F with hx of breast CA in remission, arthritis and lymphedema presenenting for right arm erythema starting earlier this morning. Reddness os on the right arm, forearm and upper arm not reaching the shoulder. She doesnt have joint pain in that arm.No fevers or chills. This is happened to her many times before since removal of lymph nodes related to breast cancer over 20 years ago. She has had redness plus/minus swelling of this arm approximately 10 times, with most recent occurring in October of 2023. Typically she is admitted to the hospital for IV antibiotics for a few days while the swelling and redness improves. Most recently she was treated with Rocephin and vancomycin which has worked well for her in the past. On arrival this morning blood cultures were drawn and antibiotics were started. Since that time approximately 3 hours ago she has noticed improvement in the redness but it is still present. Labs show absence of leukocytosis but neutrophilic predominance is present. CMP shows hyponatremia to 126. She has previously had hyponatremia but this is lower than prior readings. Potassium is normal. Renal function is also normal. Lactate is 1.1 and troponin is negative. Of note she is currently being treated for UTI with Macrobid which was started yesterday. Since starting the antibiotic she has had resolution of her symptoms. Today she notes redness in the arm but no fevers or chills. She has noticed some dizziness and lightheadedness but this is improved since laying down in Trendelenburg in the ER. Blood pressures have been on the low side, now in the 90-110 / 50-60 range. She is currently completing a 30 mg/kg bolus of IV fluids In the ER, pt was given Rocephin and Doxycycline but blood cultures were collected before first dose. Discharge Providers Provider Date of admission: 05/13/24 10:28 Discharge Date: 05/16/24 Primary care physician: Tim Cardoso MD Discharge provider: Tim Cardoso MD Summary Hospital Course Discharge Diagnosis: Cellulitis right arm Hyponatremia Hypokalemia Hypotension Anemia UTI Hospital Course: Cellulitis right arm. Patient with history of significant issues in this regard. Secondary to lymphedema. Patient was admitted started on doxycycline. Responded quite well. Over the 1st 24 hours decreased pain decreased swelling on day of discharge completely resolved. No fevers white count had resolved. She otherwise is feeling quite well. She will be sent home on oral doxycycline and followed closely. She will call if any change. Sadly this is something that probably will recur. Hyponatremia. Patient was noted to be slightly hyponatremic on admission. She was given fluids and had improved. On day before discharge she was given 1 L of saline due to slight decrease and it had improved. Will follow as outpatient. Hypokalemia. On day of discharge was noted to be slightly down at 3.2. Not been an issue through admission. Was given 40 mEq on day of discharge and will go home on 20 mg for 7 days and will follow-up as outpatient and recheck on Wednesday. Hypotension. Given fluids and resolved. [place] to be secondary to infection. Actually hypertensive on discharge. Has a history of hypertension will be followed. Anemia. [place] to be secondary to fluid dilution no evidence of bleeding will be followed if does not recover will workup at that time. Tachycardia resolved. Had some initial tachycardia which was felt to be secondary to dehydration and infection. Will follow. UTI. Patient had been given treatment as an outpatient. Which obviously did not respond to her cellulitis. She will be followed as an outpatient recheck on Wednesday will continue doxycycline. Greater than 30 minutes spent with the patient chart discharge dictation Status at Discharge Cognitive/behavioral status at discharge: at baseline, confused Exam Vital Signs (past 8 hours): - 05/16/24 03:00 Temperature 98.0 F Pulse Rate 67 Respiratory Rate 20 Blood Pressure 168/87 H Pulse Oximetry 97 Oxygen Flow Rate 0 Oxygen Delivery Method Room Air Oxygen Flow Rate 0 Narrative Exam Narrative: Alert female much less fatigued no acute distress Lungs are clear heart is regular rate and rhythm abdomen is benign right arm shows no erythema no warmth no adenopathy neurologic exam is normal Objective Labs 05/16/24 05:20 05/16/24 05:20 Labs: Laboratory Results - last 24 hr 05/16/24 05:20 WBC 4.1 L RBC 3.74 L Hgb 11.4 L Hct 32.0 L MCV 85.6 MCH 30.5 MCHC 35.6 RDW 12.8 Plt Count 207 Neut % (Auto) 51.3 Lymph % (Auto) 30.4 [facility] % (Auto) 12.7 Eos % (Auto) 4.7 H Baso % (Auto) 0.9 Neut # (Auto) 2100 Lymph # (Auto) 1200 [facility] # (Auto) 500 Eos # (Auto) 200 Baso # (Auto) 0 Sodium 133 L Potassium 3.2 L Chloride 102 Carbon Dioxide 27 BUN 9 Creatinine 0.34 L Estimated GFR > 60 BUN/Creatinine Ratio 26.5 H Glucose 87 Calcium 8.0 L Total Bilirubin 0.6 AST 53 H ALT 50 H Alkaline Phosphatase 107 Total Protein 5.9 L Albumin 3.2 L Globulin 2.7 Albumin/Globulin Ratio 1.2 PFSH Medical History (Updated 05/13/24 @ 12:23 by Shanel Sweeney MD) H/O malignant neoplasm of breast Sciatica Spinal stenosis Arthritis Cellulitis of arm, right Lymphedema of arm Surgical History History of lymph node dissection of both axillae Social History household members: spouse and family Smoking Status: Never smoker alcohol intake: current Discharge Assessment & Plan Assessment and Plan Assessment: Improved Plan of Treatment: Discharge home Discharge Plan Discharge Plan Patient Disposition: Home Provider Discharge Comment: please give potassium before discharge Discharge orders & Medications Prescriptions: New doxycycline hyclate 100 mg capsule 100 mg PO BID Qty: 20 0RF potassium chloride [Klor-Con M20] 20 mEq tablet,ER particles/crystals 20 meq PO DAILY Qty: 7 0RF Continued aspirin [Adult Aspirin Regimen] 81 mg tablet,delayed release (DR/EC) 81 mg PO BEDTIME hydrochlorothiazide 25 mg tablet 25 mg PO DAILY loratadine 10 mg Tablet 10 mg PO DAILY fluticasone propion-salmeterol 115-21 mcg/actuation HFA aerosol inhaler 2 puff INHALATION BID cholecalciferol (vitamin D3) [Vitamin D3] 50 mcg (2,000 unit) Tablet 4,000 unit PO QPM melatonin 3 mg Capsule 3 mg PO BEDTIME PRN (Reason: Sleep) albuterol sulfate [ProAir HFA] 90 mcg/actuation Hfa Aerosol Inhaler 1 inh INHALATION QID PRN (Reason: bronchonitis or bad allergies) brimonidine-dorzolamide (PF) 0.15-2 % Drops 1 drp OPHTHALMIC (EYE) BID Rx Instructions: 1 drop each eye at 0800 and 1700 tzbzcva-vlpuzqhxr-pvxhdkio(PF) 0.5-0.15-2 % Drops 1 drp OPHTHALMIC (EYE) DAILY Rx Instructions: 1 drop each eye daily at NOON etodolac 400 mg tablet 400 mg PO BID Patient Comments: TAKE ONE TABLET BY MOUTH EVERY EIGHT HOURS escitalopram oxalate 10 mg tablet 20 mg PO BEDTIME Patient Comments: TAKE ONE TABLET BY MOUTH ONE TIME DAILY methocarbamol 500 mg tablet 500 mg PO ONCE PM prednisolone acetate 1 % drops,suspension 1 drp EYE-BOTH BEDTIME lisinopril 5 mg tablet 40 mg PO DAILY Follow up/Referrals: Tim Cardoso MD [Primary Care Provider] - 05/22/24 (Please call for appointment) Discharge Health Status Multidrug resistant organism: No MDRO Diet/Activity/Treatments Diet: Diet as Tolerated Activity: As tolerated Skin/Wound/Dressing Care Report to your healthcare provider any signs of infection, such as:: chills, fever, night sweats, increased pain and unusual redness Visit Report/Discharge Packet Stand Alone Forms: Patient Portal/API, Stroke Signs & Symptoms Discharge Data Primary Care Provider: Tim Cardoso
[2024-05-16] MEDS: ENOXAPARIN 40 MG/0.4 ML SYRINGE SUBCUT (08:24)
[2024-05-16] MEDS: lisinopriL 20 MG TABLET 40 MG PO (08:24)
[2024-05-16] MEDS: POTASSIUM CHLORIDE 20 MEQ TAB 40 MEQ PO (08:25)
[2024-05-16] MEDS: NAPROXEN 250 MG TABLET PO (08:25)
[2024-05-16] MEDS: DOCUSATE 100 MG CAPSULE PO (08:25)
--- NOTE | 2024-05-16 08:30 | CM.DPC ---
DCP Cont. Reviewed EMR and team rounds for status updates. Pt has been medically cleared for d/c, her spouse will drive her home later this morning. No further DCP needs identified at this time.
--- NOTE | 2024-05-16 08:55 | PC.NURSE ---
Addendum entered by Ofelia Kaiser R.N. 05/16/24 10:54: Patient discharged. Bp consistently high in the 170s/180, given Lisinopril and patient tolerating well. Dr. Schaefer is aware of patients HTN. Original Note: Assess-Patient is going to be discharging home today, she states that her daughter is going to come and pick her up. IV compromised, patient to start her oral antibiotics when she gets home. R.arm is swollen and pink, she denies pain to area. Patient ate some of her breakfast and is waiting for her ride now.
== END 2024-05-16 10:56 | disposition home or self-care (01) | DRG 872 ==
LOC: ED 10:26 → AC 10:29
PROVIDERS: Admitting Provider Family Medicine; Emergency Provider Emergency Medicine; PCP Family Medicine; Referring Provider Emergency Medicine; Visit Provider Family Medicine
DX: A41.9 Sepsis, unspecified organism (principal); L03.113 Cellulitis of right upper limb; E87.1 Hypo-osmolality and hyponatremia; N30.00 Acute cystitis without hematuria; I95.9 Hypotension, unspecified; R00.0 Tachycardia, unspecified; M19.90 Unspecified osteoarthritis, unspecified site; J30.2 Other seasonal allergic rhinitis; F39 Unspecified mood [affective] disorder; E87.6 Hypokalemia; D64.9 Anemia, unspecified; Z85.3 Personal history of malignant neoplasm of breast
CPT/HCPCS: 36415; 71045; 80048; 80053; 83605; 83690; 84145; 84484; 85007; 85025; 85610; 85730; 87040; 93005; 94640; 96365; 96367; 96375; 99284; 99291; J0696; J1650; J2405; J7613

== ENCOUNTER → 2024-05-31 16:21 | Outpatient (CLI) | payer MEDICARE, SELFPAY ==
[2024-05-13 14:33] VITALS: BMI 21.8
[2024-05-31 17:30] LABS: Add Manual Diff / Slide Review NO; Basophils Absolute Auto 100 /uL (0-100); Basophils Percent Auto 0.9 % (0-2); Eosinophils Absolute Auto 100 /uL (0-450); Eosinophils Percent Auto 2.5 % (2-4); Hematocrit 38.3 % (36-46); Hemoglobin 13.1 g/dL (12.0-16.0); Lymphocytes Absolute Auto 1800 /uL (1100-4500); Lymphocytes Percent Auto 33.4 % (25-40); Mean Corpuscular HGB Conc 34.3 % (30-36); Mean Corpuscular Hemoglobin 29.9 PG (26-34); Mean Corpuscular Volume 87.2 fL (80-100); Monocytes Absolute Auto 500 /uL (0-900); Monocytes Percent Auto 8.9 % (3-14); Neutrophils Absolute Auto 3000 /uL (1500-7000); Neutrophils Percent Auto 54.3 % (50-75); Platelet Count 312 X10^3/uL (150-400); Red Cell Distribution Width 12.9 % (11.6-14.8); White Blood Cell Count 5.5 X10^3/uL (4.5-11.0)
[2024-05-31 17:58] LABS: Alanine Aminotransferase 14 IU/L (<35); Albumin 4.1 g/dL (3.5-5.0); Albumin Globulin Ratio 1.5 (1.0-2.8); Alkaline Phosphatase 76 U/L (38-126); Aspartate Aminotransferase 27 IU/L (14-36); BUN Creatinine Ratio 34.9 (6-22); Bilirubin Total 0.7 mg/dL (0.2-1.3); Blood Urea Nitrogen 22 mg/dL (7-17); Calcium 9.5 mg/dL (8.4-10.2); Carbon Dioxide 29 mmol/L (22-32); Chloride 99 mmol/L (98-107); Estimated Glomerular Filt Rate > 60 mL/min (>60); Globulin 2.7 g/dL (1.7-4.1); Glucose 96 mg/dL (80-110); HEMOLYSIS < 15 (0-50); Potassium 4.5 mmol/L (3.4-5.1); Sodium 132 mmol/L (137-145); Total Protein 6.8 g/dL (6.3-8.2)
== END ==
PROVIDERS: PCP Family Medicine; Referring Provider Family Medicine; Visit Provider Family Medicine
DX: R53.83 Other fatigue (principal)
CPT/HCPCS: 36415; 80053; 85025

== ENCOUNTER 2024-08-07 14:07 | Inpatient (IN) | payer MEDICARE, SELFPAY ==
[2024-05-13 14:33] VITALS: BMI 21.8
[2024-08-07] VITALS (21 sets, daily range): BP systolic 155–226; BP diastolic 72–104; PULSE 67–81; RESP 15–24; TEMP 36.8–37.9; O2SAT 83–99; BMI 22.8
--- NOTE | 2024-08-07 14:10 | DI.RAD.S_ITS ---
PROCEDURE: XR HIP W PEL IF DONE RT 2V INDICATIONS: fall TECHNIQUE: 3 views of the hip were acquired. COMPARISON: None. FINDINGS: Bones: Mildly displaced, angulated, and comminuted intertrochanteric hip fracture on the right. Background [id number] degenerative changes. Soft tissues: No suspicious calcifications. IMPRESSION: Right hip fracture. Dictated by: Amaury Garcia M.D. on 08/07/2024 at 14:43 Approved by: Amaury Garcia M.D. on 08/07/2024 at 14:44
--- NOTE | 2024-08-07 14:10 | DI.RAD.S_ITS ---
PROCEDURE: XR CHEST 1V INDICATIONS: fall TECHNIQUE: One view of the chest was acquired. COMPARISON: [facility], CR, XR CHEST 1V, 05/13/2024, 8:10. [facility], CR, XR CHEST 1V, 11/13/2022, 11:25. FINDINGS: Surgical changes and devices: Right axillary clips. Lungs and pleura: No dense consolidation or pleural effusion Mediastinum: Normal heart size Bones and chest wall: Degenerative findings IMPRESSION: Limited single view radiograph without acute abnormality. If there is high concern for occult injury, consider repeat radiography or cross-sectional imaging. Dictated by: Amaury Garcia M.D. on 08/07/2024 at 14:42 Approved by: Amaury Garcia M.D. on 08/07/2024 at 14:43
--- NOTE | 2024-08-07 14:12 | ED_ITS ---
HPI - General Adult General Chief complaint: Fall Stated complaint: Fall on right hip Time Seen by Provider: 08/07/24 14:09 History of Present Illness HPI narrative: 84-year-old woman brought in by medics after trying to swat at an insect stumbled fall landing on her left hip with significant left hip pain. Pain is so distracting she is having difficulty with any additional history but she does mentioned that she has not been feeling well for a couple of days. When asked again after pain has been addressed she is unable to remember what actually has been wrong but states she has been in her recliner for 3 weeks after eye surgery a number of years ago. She was discharged from the hospital in May of this year with right arm infection secondary to lymphedema, she has a distant history of breast cancer, continued arthritis, hypertension. Related Data Home Medications Medication Instructions Recorded Confirmed albuterol sulfate 90 mcg/actuation 1 inh inhalation QID PRN 07/23/20 05/13/24 aerosol inhaler (ProAir HFA) bronchonitis or bad allergies brimonidine 0.15 %-dorzolamide 2 % 1 drp ophthalmic (eye) BID 07/23/20 05/13/24 (PF) eye drops cholecalciferol (vitamin D3) 50 4,000 unit PO QPM 07/23/20 05/13/24 mcg (2,000 unit) tablet (Vitamin D3) melatonin 3 mg capsule 3 mg PO BEDTIME PRN Sleep 07/23/20 05/13/24 timolol 0.5 %-brimonidine 0.15 1 drp ophthalmic (eye) DAILY 07/23/20 05/13/24 %-dorzolamide 2 % (PF) eye drops aspirin 81 mg tablet,delayed 81 mg PO BEDTIME 08/29/20 05/13/24 release (Adult Aspirin Regimen) escitalopram oxalate 10 mg tablet 20 mg PO BEDTIME 11/13/22 05/13/24 etodolac 400 mg tablet 400 mg PO BID 11/13/22 05/13/24 lisinopril 5 mg tablet 40 mg PO DAILY 10/12/23 05/13/24 methocarbamol 500 mg tablet 500 mg PO ONCE PM 10/12/23 05/13/24 prednisolone acetate 1 % eye 1 drp EYE-BOTH BEDTIME 10/12/23 05/13/24 drops,suspension fluticasone propionate 115 2 puff inhalation BID 05/13/24 05/13/24 mcg-salmeterol 21 mcg/actuation HFA inhaler hydrochlorothiazide 25 mg tablet 25 mg PO DAILY 05/13/24 05/13/24 loratadine 10 mg tablet 10 mg PO DAILY 05/13/24 05/13/24 Previous Rx's Medication Instructions Recorded doxycycline hyclate 100 mg capsule 100 mg PO BID #20 caps 05/16/24 potassium chloride 20 mEq 20 meq PO DAILY #7 tabs 05/16/24 tablet,extended release(part/cryst) (Klor-Con M) Allergies Allergy/AdvReac Type Severity Reaction Status Date / Time latex [LATEX] Allergy Severe RASH Verified 11/13/22 11:23 Penicillins [PENICILLINS] Allergy Severe ALL OVER Verified 11/13/22 11:23 BODY WELTS Sulfa (Sulfonamide Allergy Unknown WAS GIVEN Verified 11/13/22 11:23 Antibiotics) WHEN BABY, [SULFA (SULFONAMIDE UNSURE IF ANTIBIOTICS)] STILL HAS ALLERGY Review of Systems Review of Systems Narrative: Pertinent positive and negative findings as per HPI Patient History Medical History (Updated 08/07/24 @ 14:59 by Radha Santos MD) H/O malignant neoplasm of breast Sciatica Spinal stenosis Arthritis Cellulitis of arm, right Lymphedema of arm Surgical History History of lymph node dissection of both axillae Social History household members: spouse and family Smoking Status: Never smoker alcohol intake: current Smoking Status: Never smoker alcohol intake frequency: holidays/special occasions only Substance Use Type: does not use Exam Initial Vital Signs Initial Vital Signs: Vital Signs Pulse Rate 75 08/07/24 14:08 Respiratory Rate 18 08/07/24 14:08 Blood Pressure 226/104 H 08/07/24 14:08 Pulse Oximetry 98 08/07/24 14:08 Oxygen Delivery Method Room Air 08/07/24 14:08 General: Older appearing, significant pain HEENT: Moist mucous membranes, normal sclera with reactive pupils, Respiratory: Lungs are clear to auscultation, no wheezing no rales no rhonchi. Full and symmetrical air movement Cardiac: Regular rate and rhythm no murmurs no bruits Abdomen: Soft, nontender, good bowel tones, no flank pain Skin: Warm and dry, no lower extremity edema, no abrasions or contusions Neurologic: Grossly neurologically intact with no obvious asymmetries or abnormalities, slightly confused Extremities: Significant right hip pain, right mild upper extremity lymphedema Psych: Cooperative, slightly confused about events, speech is fluent Course Orders Ordered: ED Orders 08/07/24 14:10 XR chest 1V Stat XR hip w pel if done RT 2V Stat Urinalysis and Microscopic Stat EKG-12 Lead Stat 08/07/24 14:38 Complete Blood Count AUTO DIFF Stat Comprehensive Metabolic Panel Stat Troponin I Stat 08/07/24 14:40 Type and Screen Stat 08/07/24 15:17 Consult to Orthopedic Surgery Urgent Acetaminophen (Acetaminophen 325 Mg Tablet) 650 mg PO Q6HR PRN PRN Reason: Fever/Mild Pain (1-3) Hydromorphone HCl (Hydromorphone 0.5 Mg Inj) 0.5 mg IV Q15MIN PRN PRN Reason: Pain, Last Admin: 08/07/24 14:16 Dose: 0.5 mg Documented By: ALLIE Sodium Chloride (Normal Saline 0.9%) 1,000 mls @ 150 mls/hr IV CONT NUBIA Last Admin: 08/07/24 14:17 Dose: 150 mls/hr Documented By: ALLIE Discontinued Medications Ondansetron HCl (Ondansetron 4 Mg/2 Ml Inj) 4 mg IV NOW ONE Stop: 08/07/24 14:11 Last Admin: 08/07/24 14:16 Dose: 4 mg Documented By: ALLIE Vital Signs Vital signs: Vital Signs - 8 hr 08/07/24 14:08 08/07/24 14:10 08/07/24 14:11 Temperature Pulse Rate 75 76 Respiratory Rate 18 Blood Pressure 226/104 H 226/104 H Pulse Oximetry 98 99 Oxygen Delivery Method Room Air 08/07/24 14:11 08/07/24 14:15 08/07/24 14:30 Temperature 98.2 F Pulse Rate 76 72 Respiratory Rate Blood Pressure Pulse Oximetry 98 98 Oxygen Delivery Method Room Air 08/07/24 14:31 08/07/24 14:31 08/07/24 14:46 Temperature Pulse Rate 73 Respiratory Rate Blood Pressure 168/79 H 209/88 H Pulse Oximetry 97 Oxygen Delivery Method 08/07/24 14:46 08/07/24 15:00 Temperature Pulse Rate 71 Respiratory Rate 24 Blood Pressure 205/85 H Pulse Oximetry 96 Oxygen Delivery Method Medical Decision Making Lab Data 08/07/24 14:38 08/07/24 14:38 Labs: Lab Results 08/07/24 08/07/24 Range/Units 14:38 14:40 WBC 5.0 (4.5-11.0) X10^3/uL RBC 4.24 (4.0-5.2) X10^6/uL Hgb 12.6 (12.0-16.0) g/dL Hct 36.2 (36-46) % MCV 85.3 (80-100) fL MCH 29.7 (26-34) PG MCHC 34.9 (30-36) % RDW 12.7 (11.6-14.8) % Plt Count 273 (150-400) X10^3/uL Neut % (Auto) 63.3 (50-75) % Lymph % (Auto) 25.2 (25-40) % Sanders % (Auto) 7.7 (3-14) % Eos % (Auto) 2.5 (2-4) % Baso % (Auto) 1.3 (0-2) % Neut # (Auto) 3200 (2618-6870) /uL Lymph # (Auto) 1300 (4627-7959) /uL Sanders # (Auto) 400 (0-900) /uL Eos # (Auto) 100 (0-450) /uL Baso # (Auto) 100 (0-100) /uL Sodium 128 L (137-145) mmol/L Potassium 4.2 (3.4-5.1) mmol/L Chloride 95 L (98-107) mmol/L Carbon Dioxide 25 (22-32) mmol/L BUN 11 (7-17) mg/dL Creatinine 0.44 L (0.52-1.04) mg/dL Estimated GFR > 60 (>60) mL/min BUN/Creatinine Ratio 25.0 H (6-22) Glucose 90 (80-110) mg/dL Calcium 9.1 (8.4-10.2) mg/dL Total Bilirubin 1.2 (0.2-1.3) mg/dL AST 27 (14-36) IU/L ALT 13 (<35) IU/L Alkaline Phosphatase 68 (38-126) U/L Troponin I < 0.012 (0.01-0.034) ng/mL Total Protein 6.6 (6.3-8.2) g/dL Albumin 4.0 (3.5-5.0) g/dL Globulin 2.6 (1.7-4.1) g/dL Albumin/Globulin Ratio 1.5 (1.0-2.8) Blood Type AB Positive Antibody Screen Negative MDM Narrative Medical decision making narrative: CC: Mechanical fall observe by her neighbor Complicating co-morbidities: Memory loss, distant history of breast cancer, recent hospital admission for cellulitis in right arm secondary to chronic lymphedema Data collected from: patient, medics, neighbor with whom she is very close who considers herself a 2nd daughter Social determinants of health that may influence the patients condition: Age, memory decline Medical records reviewed: Discharge summary from May 16 with the admission for cellulitis is reviewed Differential considered: Hip fracture, pelvic fracture, contusion Exam documented above, pertinent findings include: Patient has significant pain, initially thought it was the left hip due to positioning and localizing of pain complaints however x-rays show that it is her right hip. No significant hematomas or abrasions. Heart lungs and abdomen are benign Lab Test results independently reviewed as above. Pertinent findings: CBC is unremarkable Chemistries show sodium low at 128 (patient is on hydrochlorothiazide) Independently reviewed EKG: EKG shows sinus rhythm at a rate of 68 with no acute ischemic changes Imaging studies independently reviewed: Chest x-ray is unremarkable Pelvis and hip x-ray shows right intertrochanteric fracture, Mildly displaced, angulated, and comminuted Consultations: Dr. Mcneil, orthopedic surgery Treatments: .5 mg of Dilaudid Discussion: 84-year-old woman recently diagnosed cognitive dysfunction, recent hospital admission for cellulitis with a mechanical fall landing on her right hip with an intertrochanteric hip fracture. We will need to be admitted to the hospital we will contact Dr. Cardoso or his covering partner and Dr. Mcneil who is the on-call orthopedic surgeon Discharge Plan Departure Patient Disposition: Admitted As Inpatient Clinical Impression: Acute hyponatremia Closed hip fracture Qualifiers: Encounter type: initial encounter Laterality: right Qualified Code(s): S72.001A - Fracture of unspecified part of neck of right femur, initial encounter for closed fracture Fall Qualifiers: Encounter type: initial encounter Qualified Code(s): W19.XXXA - Unspecified fall, initial encounter Admit Date/Time: 08/07/24 15:23 Admit Provider: Tim Cardoso
[2024-08-07] MEDS: HYDROMORPHONE 0.5 MG INJ IV ×2 (14:16→15:44)
[2024-08-07] MEDS: ONDANSETRON 4 MG/2 ML INJ IV (14:16)
[2024-08-07] MEDS: SODIUM CHLORIDE 0.9% 1,000 ML 150 ML IV (14:17)
[2024-08-07 14:43] LABS: Add Manual Diff / Slide Review NO; Basophils Absolute Auto 100 /uL (0-100); Basophils Percent Auto 1.3 % (0-2); Eosinophils Absolute Auto 100 /uL (0-450); Eosinophils Percent Auto 2.5 % (2-4); Hematocrit 36.2 % (36-46); Hemoglobin 12.6 g/dL (12.0-16.0); Lymphocytes Absolute Auto 1300 /uL (1100-4500); Lymphocytes Percent Auto 25.2 % (25-40); Mean Corpuscular HGB Conc 34.9 % (30-36); Mean Corpuscular Hemoglobin 29.7 PG (26-34); Mean Corpuscular Volume 85.3 fL (80-100); Monocytes Absolute Auto 400 /uL (0-900); Monocytes Percent Auto 7.7 % (3-14); Neutrophils Absolute Auto 3200 /uL (1500-7000); Neutrophils Percent Auto 63.3 % (50-75); Platelet Count 273 X10^3/uL (150-400); Red Blood Cell Count 4.24 X10^6/uL (4.0-5.2); Red Cell Distribution Width 12.7 % (11.6-14.8)
[2024-08-07 14:52] LABS: Alanine Aminotransferase 13 IU/L (<35); Albumin Globulin Ratio 1.5 (1.0-2.8); Alkaline Phosphatase 68 U/L (38-126); Aspartate Aminotransferase 27 IU/L (14-36); Bilirubin Total 1.2 mg/dL (0.2-1.3); Blood Urea Nitrogen 11 mg/dL (7-17); Calcium 9.1 mg/dL (8.4-10.2); Carbon Dioxide 25 mmol/L (22-32); Chloride 95 mmol/L (98-107); Estimated Glomerular Filt Rate > 60 mL/min (>60); Globulin 2.6 g/dL (1.7-4.1); Glucose 90 mg/dL (80-110); HEMOLYSIS 41 (0-50); Potassium 4.2 mmol/L (3.4-5.1); Sodium 128 mmol/L (137-145); Total Protein 6.6 g/dL (6.3-8.2)
--- NOTE | 2024-08-07 14:55 | EKG_ITS ---
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
[2024-08-07 15:04] LABS: Troponin I < 0.012 ng/mL (0.01-0.034)
--- NOTE | 2024-08-07 15:34 | PC.NURSE ---
Patient desated to 80% on RA. This RN checks on patient and she is alert and responsive. Repositioned and encouraged to take some deep breaths. Patient oxygen went to 99% within about 45 seconds. Provider made aware.
--- NOTE | 2024-08-07 16:13 | PC.NURSE ---
This RN checks on patient. Family, including , at bedside. Pt oxygen saturation has intermittently dropped to 90-92% while on RA. Placed on 1L via NC. Pt reports itchy nose and losing my voice. This RN does appreciates some hoarseness sounding of her voice. LS are clear and equal throughout all anterior white. Pt denies SOB and denies any difficulty swallowing. No redness or hives noted. Pt is alert and responsive to this RN. Provider Tom made aware of patient presentation and vital signs.
--- NOTE | 2024-08-07 16:33 | PC.NURSE ---
This RN looks at patients chest and back. No visible injury noted.
[2024-08-07] MEDS: diphenhydrAMINE 50 MG/ML VIAL 25 MG IV (16:45)
[2024-08-07] MEDS: methylPREDNISolone 125 MG/2 ML VIAL 60 MG IV (16:45)
--- NOTE | 2024-08-07 17:38 | PC.NURSE ---
Patient arrived to room 205 at 1720. Patient reports she is having excrutiating pain in R hip. She is transferred via slide board. SBP elevated most likely due to pain. RN unable to give IV dilaudid due to reaction in ED. MD Schaefer at bedside at 1740 evaluating patient. Received orders for morphine. MD Suarez notified of patient consult. Bed rest, bed alarm, IVF, SCD's placed, q 2 turn,encouraged coughing/deep breathing/ IS, admission assessment completed, monitoring for pain control and reactions, frequent rounding.
--- NOTE | 2024-08-07 18:02 | PM.HP.1 ---
History of Present Illness History of Present Illness Date Patient Seen: 08/07/24 Time Patient Seen: 18:02 Date of Onset of Symptoms: 08/07/24 Chief complaint: Fall on right hip Narrative: Patient 84-year-old female who was felt to being chased by a bee who was in her otherwise good state of health who stumbled and fell going into the house and fell. Leaning on her right hip. Having acute pain. Was unable to do much. 911 was called she was brought to the emergency room. She has otherwise been doing well. He has had no new chief complaints or problems. Her blood pressure has been well-controlled in the clinic. She has had no headaches no visual symptoms. Apparently she was given Dilaudid in the emergency room and was having some scratchy throat. She was given some steroids Solu-Medrol and Benadryl and seems to be better. She does not complain of that today. [facility] Medical History (Updated 08/07/24 @ 14:59 by Radha Santos MD) H/O malignant neoplasm of breast Sciatica Spinal stenosis Arthritis Cellulitis of arm, right Lymphedema of arm Surgical History History of lymph node dissection of both axillae Social History household members: spouse and family Smoking Status: Never smoker alcohol intake: current Meds Home Medications and Allergies Home Medications Medication Instructions Recorded Confirmed Type albuterol sulfate 90 mcg/actuation 1 inh inhalation QID PRN 07/23/20 05/13/24 History aerosol inhaler (ProAir HFA) bronchonitis or bad allergies brimonidine 0.15 %-dorzolamide 2 % 1 drp ophthalmic (eye) BID 07/23/20 05/13/24 History (PF) eye drops cholecalciferol (vitamin D3) 50 4,000 unit PO QPM 07/23/20 05/13/24 History mcg (2,000 unit) tablet (Vitamin D3) melatonin 3 mg capsule 3 mg PO BEDTIME PRN Sleep 07/23/20 05/13/24 History timolol 0.5 %-brimonidine 0.15 1 drp ophthalmic (eye) DAILY 07/23/20 05/13/24 History %-dorzolamide 2 % (PF) eye drops aspirin 81 mg tablet,delayed 81 mg PO BEDTIME 08/29/20 08/07/24 History release (Adult Aspirin Regimen) etodolac 400 mg tablet 400 mg PO BID 11/13/22 05/13/24 History lisinopril 5 mg tablet 40 mg PO DAILY 10/12/23 08/07/24 History methocarbamol 500 mg tablet 500 mg PO ONCE PM 10/12/23 05/13/24 History prednisolone acetate 1 % eye 1 drp EYE-BOTH BEDTIME 10/12/23 05/13/24 History drops,suspension fluticasone propionate 115 2 puff inhalation BID 05/13/24 05/13/24 History mcg-salmeterol 21 mcg/actuation HFA inhaler hydrochlorothiazide 25 mg tablet 25 mg PO DAILY 05/13/24 05/13/24 History loratadine 10 mg tablet 10 mg PO DAILY 05/13/24 05/13/24 History doxycycline hyclate 100 mg capsule 100 mg PO BID #20 caps 05/16/24 08/07/24 Rx potassium chloride 20 mEq 20 meq PO DAILY #7 tabs 05/16/24 Rx tablet,extended release(part/cryst) (Klor-Con M) Allergies Allergy/AdvReac Type Severity Reaction Status Date / Time latex [LATEX] Allergy Severe RASH Verified 11/13/22 11:23 Penicillins [PENICILLINS] Allergy Severe ALL OVER Verified 11/13/22 11:23 BODY WELTS hydromorphone Allergy Intermediate ITCHING Verified 08/07/24 16:59 Sulfa (Sulfonamide Allergy Unknown WAS GIVEN Verified 11/13/22 11:23 Antibiotics) WHEN BABY, [SULFA (SULFONAMIDE UNSURE IF ANTIBIOTICS)] STILL HAS ALLERGY Review of Systems Review of Systems Narrative: Negative except above Exam Vital Signs (past 8 hours): - 08/07/24 14:08 08/07/24 14:10 08/07/24 14:11 Temperature Pulse Rate 75 76 Respiratory Rate 18 Blood Pressure 226/104 H 226/104 H Pulse Oximetry 98 99 Oxygen Delivery Method Room Air Oxygen Flow Rate 08/07/24 14:11 08/07/24 14:15 08/07/24 14:30 Temperature 98.2 F Pulse Rate 76 72 Respiratory Rate Blood Pressure Pulse Oximetry 98 98 Oxygen Delivery Method Room Air Oxygen Flow Rate 08/07/24 14:31 08/07/24 14:31 08/07/24 14:46 Temperature Pulse Rate 73 Respiratory Rate Blood Pressure 168/79 H 209/88 H Pulse Oximetry 97 Oxygen Delivery Method Oxygen Flow Rate 08/07/24 14:46 08/07/24 15:00 08/07/24 15:30 Temperature Pulse Rate 71 70 Respiratory Rate 24 15 Blood Pressure 205/85 H Pulse Oximetry 96 83 L Oxygen Delivery Method Oxygen Flow Rate 08/07/24 15:31 08/07/24 15:31 08/07/24 16:00 Temperature Pulse Rate 75 67 Respiratory Rate 19 Blood Pressure 189/84 H Pulse Oximetry 98 96 Oxygen Delivery Method Oxygen Flow Rate 08/07/24 16:01 08/07/24 16:01 08/07/24 16:24 Temperature Pulse Rate 68 Respiratory Rate 20 Blood Pressure 184/80 H Pulse Oximetry 93 96 Oxygen Delivery Method Nasal Cannula Oxygen Flow Rate 1 08/07/24 16:30 08/07/24 16:31 08/07/24 16:31 Temperature Pulse Rate 67 67 Respiratory Rate 20 Blood Pressure 164/72 H Pulse Oximetry 96 96 Oxygen Delivery Method Nasal Cannula Oxygen Flow Rate 1 08/07/24 17:00 08/07/24 17:00 Temperature Pulse Rate 75 Respiratory Rate 20 Blood Pressure 159/80 H Pulse Oximetry 97 Oxygen Delivery Method Nasal Cannula Oxygen Flow Rate 1 Oxygen Delivery Method Nasal Cannula Oxygen Flow Rate 1 Narrative Exam Narrative: Alert elderly female lying mildly uncomfortable in no acute distress. HEENT exam no obvious injury. Nontraumatic. Eyes are movable and no abnormality neck is nontender lungs are clear heart is regular rate and rhythm she is moving her upper extremities without problems or complaints. Abdomen is benign her lower extremities I did not move but have no edema. Neurologic exam shows no other significant changes. Mildly confused as always Objective Labs 08/07/24 14:38 08/07/24 14:38 Labs: Laboratory Results - last 24 hr 08/07/24 08/07/24 14:38 14:40 WBC 5.0 RBC 4.24 Hgb 12.6 Hct 36.2 MCV 85.3 MCH 29.7 MCHC 34.9 RDW 12.7 Plt Count 273 Neut % (Auto) 63.3 Lymph % (Auto) 25.2 [place] % (Auto) 7.7 Eos % (Auto) 2.5 Baso % (Auto) 1.3 Neut # (Auto) 3200 Lymph # (Auto) 1300 [place] # (Auto) 400 Eos # (Auto) 100 Baso # (Auto) 100 Sodium 128 L Potassium 4.2 Chloride 95 L Carbon Dioxide 25 BUN 11 Creatinine 0.44 L Estimated GFR > 60 BUN/Creatinine Ratio 25.0 H Glucose 90 Calcium 9.1 Total Bilirubin 1.2 AST 27 ALT 13 Alkaline Phosphatase 68 Troponin I < 0.012 Total Protein 6.6 Albumin 4.0 Globulin 2.6 Albumin/Globulin Ratio 1.5 Blood Type AB Positive Antibody Screen Negative Assessment & Plan Assessment & Plan narrative: Right hip fracture. Intertrochanteric. Status post fall. Did not appear to be any reason other than she tripped. Do not have to worry about any other significant issues. Will place catheter. Pain control with morphine now. No other changes. Appreciate her help. Surgery as poor Dr. Mcneil. Possible reaction to Dilaudid. Patient has already been given Solu-Medrol and Benadryl. She certainly seems to be doing well now but will watch. Will not proceed with further Dilaudid. Morphine for pain control. Status post fall. I do not see any other area of injury. She apparently fell on her elbow but it seems to be nontender. Will follow. History of right arm cellulitis no evidence of abnormality now. We will watch carefully. Hypertension. Patient with elevated blood pressure now but she has been stable as an outpatient. Will see how she does. May need to add additional medication but I am not going to do so at this time. Will follow. Hyponatremia. I think this is probably close to her baseline but will add saline at 100 cc an hour and recheck in a.m.. Dementia. Moderately severe. She does not know who her family is she does have interaction. Recently diagnosed. Medication were discussed. At this time no treatment will follow. History of UTI. Will obtain UA today. History of breast cancer. In remission. History of retinal detachment. Continue usual eye drops. History of depression. Stable continue usual SSRI. Code status DNR. Disposition. At this point recommendation will be my guess for some type of rehab but we will see how things go. Discussed with social service in a.m.. Time-Based Coding :: [TOTAL MINUTES] spent with patient and on the chart (including review of chart, obtaining history, exam, reviewing outside data, placing orders, documenting exam and treatment plan, and counseling patient) on [DATE].
[2024-08-07] MEDS: SODIUM CHLORIDE 0.9% 1,000 ML 100 ML IV ×2 (18:23→22:52)
[2024-08-07] MEDS: MORPHINE 4 MG/ML INJ 2 MG IV ×2 (18:27→20:25)
[2024-08-07 19:19] LABS: Appearance Urine UA CLEAR; Bilirubin Urine UA 1+ (NEGATIVE); Color Urine UA YELLOW; Glucose Urine UA NEGATIVE (Negative); Ketones Urine UA 3+ (NEGATIVE); Leukocyte Esterase Urine UA NEGATIVE (NEGATIVE); Nitrite Urine UA NEGATIVE (Negative); Occult Blood Urine UA NEGATIVE (Negative); Protein Urine UA NEGATIVE (Negative); Urobilinogen Urine UA 0.2 E.U./dL (0.2)
[2024-08-07 19:28] LABS: Amorphous Sediment Urine 1+; Bacteria Urine None Seen; Culture Indicated Urine Cult Not Indicated; Mucus Urine 2+ (Negative); RBC Urine 0-1/HPF (0-5/HPF); Squamous Epithelial Cell Urine None Seen (0-5/HPF); Urine Volume 10mL (spun); WBC Urine None Seen (0-5/HPF)
[2024-08-07 19:32] LABS: Ictotest Urine Positive (Negative)
--- NOTE | 2024-08-07 19:38 | PM.HP.1 ---
History of Present Illness History of Present Illness Date Patient Seen: 08/07/24 Time Patient Seen: 19:52 Date of Onset of Symptoms: 08/07/24 Chief complaint: Fall on right hip Narrative: This is a pleasant 84-year-old female who is afraid of bugs her saw be in her house and accidentally fell and noted the acute onset of right hip pain. She normally lives in her own home. Her granddaughter is with her at bedside. She notes moderate ongoing right hip pain. She did not have hip pain prior to the fall. She does have some asthma and uses an inhaler but does not use oxygen at home. [facility] Medical History H/O malignant neoplasm of breast Sciatica Spinal stenosis Arthritis Cellulitis of arm, right Lymphedema of arm Surgical History History of lymph node dissection of both axillae Social History household members: spouse and family Smoking Status: Never smoker alcohol intake: current Meds Home Medications and Allergies Home Medications Medication Instructions Recorded Confirmed Type albuterol sulfate 90 mcg/actuation 1 inh inhalation QID PRN 07/23/20 05/13/24 History aerosol inhaler (ProAir HFA) bronchonitis or bad allergies brimonidine 0.15 %-dorzolamide 2 % 1 drp ophthalmic (eye) TID 07/23/20 08/07/24 History (PF) eye drops melatonin 3 mg capsule 3 mg PO BEDTIME PRN Sleep 07/23/20 08/07/24 History timolol 0.5 %-brimonidine 0.15 1 drp ophthalmic (eye) DAILY 07/23/20 08/07/24 History %-dorzolamide 2 % (PF) eye drops aspirin 81 mg tablet,delayed 81 mg PO BEDTIME 08/29/20 08/07/24 History release (Adult Aspirin Regimen) etodolac 400 mg tablet 400 mg PO PRN PRN Pain (Scale 11/13/22 08/07/24 History Score 4-6) lisinopril 5 mg tablet 40 mg PO DAILY 10/12/23 08/07/24 History methocarbamol 500 mg tablet 500 mg PO ONCE PM 10/12/23 08/07/24 History prednisolone acetate 1 % eye 1 drp EYE-BOTH BEDTIME 10/12/23 05/13/24 History drops,suspension fluticasone propionate 115 2 puff inhalation BID 05/13/24 05/13/24 History mcg-salmeterol 21 mcg/actuation HFA inhaler hydrochlorothiazide 25 mg tablet 25 mg PO DAILY 05/13/24 08/07/24 History loratadine 10 mg tablet 10 mg PO DAILY 05/13/24 08/07/24 History doxycycline hyclate 100 mg capsule 100 mg PO BID #20 caps 05/16/24 08/07/24 Rx Allergies Allergy/AdvReac Type Severity Reaction Status Date / Time latex [LATEX] Allergy Severe RASH Verified 11/13/22 11:23 Penicillins [PENICILLINS] Allergy Severe ALL OVER Verified 11/13/22 11:23 BODY WELTS hydromorphone Allergy Intermediate ITCHING Verified 08/07/24 16:59 Sulfa (Sulfonamide Allergy Unknown WAS GIVEN Verified 11/13/22 11:23 Antibiotics) WHEN BABY, [SULFA (SULFONAMIDE UNSURE IF ANTIBIOTICS)] STILL HAS ALLERGY Review of Systems Review of Systems Narrative: She did not have any chest pain and was not lightheaded or dizziness prior to the fall. She says she has been in reasonable health recently. Exam Vital Signs (past 8 hours): - 08/07/24 14:08 08/07/24 14:10 08/07/24 14:11 Temperature Pulse Rate 75 76 Respiratory Rate 18 Blood Pressure 226/104 H 226/104 H Pulse Oximetry 98 99 Oxygen Delivery Method Room Air Oxygen Flow Rate 08/07/24 14:11 08/07/24 14:15 08/07/24 14:30 Temperature 98.2 F Pulse Rate 76 72 Respiratory Rate Blood Pressure Pulse Oximetry 98 98 Oxygen Delivery Method Room Air Oxygen Flow Rate 08/07/24 14:31 08/07/24 14:31 08/07/24 14:46 Temperature Pulse Rate 73 Respiratory Rate Blood Pressure 168/79 H 209/88 H Pulse Oximetry 97 Oxygen Delivery Method Oxygen Flow Rate 08/07/24 14:46 08/07/24 15:00 08/07/24 15:30 Temperature Pulse Rate 71 70 Respiratory Rate 24 15 Blood Pressure 205/85 H Pulse Oximetry 96 83 L Oxygen Delivery Method Oxygen Flow Rate 08/07/24 15:31 08/07/24 15:31 08/07/24 16:00 Temperature Pulse Rate 75 67 Respiratory Rate 19 Blood Pressure 189/84 H Pulse Oximetry 98 96 Oxygen Delivery Method Oxygen Flow Rate 08/07/24 16:01 08/07/24 16:01 08/07/24 16:24 Temperature Pulse Rate 68 Respiratory Rate 20 Blood Pressure 184/80 H Pulse Oximetry 93 96 Oxygen Delivery Method Nasal Cannula Oxygen Flow Rate 1 08/07/24 16:30 08/07/24 16:31 08/07/24 16:31 Temperature Pulse Rate 67 67 Respiratory Rate 20 Blood Pressure 164/72 H Pulse Oximetry 96 96 Oxygen Delivery Method Nasal Cannula Oxygen Flow Rate 1 08/07/24 17:00 08/07/24 17:00 08/07/24 17:56 Temperature 98.3 F Pulse Rate 75 78 Respiratory Rate 20 21 Blood Pressure 159/80 H 170/81 H Pulse Oximetry 97 98 Oxygen Delivery Method Nasal Cannula Oxygen Flow Rate 1 2 08/07/24 18:31 Temperature Pulse Rate Respiratory Rate Blood Pressure Pulse Oximetry Oxygen Delivery Method Nasal Cannula Oxygen Flow Rate Oxygen Delivery Method Nasal Cannula Oxygen Flow Rate 2 Narrative Exam Narrative: HEENT is benign, she is resting comfortably in bed. She is alert and oriented. Abdomen is soft and benign, lungs are clear there is no active wheezing, core slightly irregular no significant murmur, abdomen soft and benign, examination of the right lower extremity shows obvious foreshortening of the right leg she has adequate capillary refill distally her calves are soft bilaterally she can fire toe flexors and extensors without significant weakness, she has significant pain with any attempted gentle motion of the hip Objective Labs 08/07/24 14:38 08/07/24 14:38 Labs: Laboratory Results - last 24 hr 08/07/24 08/07/24 08/07/24 14:38 14:40 18:50 WBC 5.0 RBC 4.24 Hgb 12.6 Hct 36.2 MCV 85.3 MCH 29.7 MCHC 34.9 RDW 12.7 Plt Count 273 Neut % (Auto) 63.3 Lymph % (Auto) 25.2 [place] % (Auto) 7.7 Eos % (Auto) 2.5 Baso % (Auto) 1.3 Neut # (Auto) 3200 Lymph # (Auto) 1300 [place] # (Auto) 400 Eos # (Auto) 100 Baso # (Auto) 100 Sodium 128 L Potassium 4.2 Chloride 95 L Carbon Dioxide 25 BUN 11 Creatinine 0.44 L Estimated GFR > 60 BUN/Creatinine Ratio 25.0 H Glucose 90 Calcium 9.1 Total Bilirubin 1.2 AST 27 ALT 13 Alkaline Phosphatase 68 Troponin I < 0.012 Total Protein 6.6 Albumin 4.0 Globulin 2.6 Albumin/Globulin Ratio 1.5 Urine Color Yellow Urine Appearance Clear Urine pH 7.0 Ur Specific [place] 1.020 Urine Protein Negative Urine Glucose (UA) Negative Urine Ketones 3+ H Urine Occult Blood Negative Urine Nitrate Negative Urine Bilirubin 1+ H Ur Bilirubin Confirm Positive H Urine Urobilinogen 0.2 Ur Leukocyte Esterase Negative Urine RBC 0-1/hpf Urine WBC None seen Ur Squamous Epith Cells None seen D Amorphous Sediment 1+ Urine Bacteria None seen Urine Mucus 2+ H Ur Culture Indicated? Cult not indicated Vol Urine Centrifuged 10ml (spun) Blood Type AB Positive Antibody Screen Negative right hip x-rays show an intertrochanteric hip fracture with displacement Assessment & Plan Assessment and plan (1) Closed hip fracture: Qualifiers: Encounter type: initial encounter Laterality: right Qualified Code(s): S72.001A - Fracture of unspecified part of neck of right femur, initial encounter for closed fracture Status: Acute (2) Acute hyponatremia: Status: Acute (3) Fall: Qualifiers: Encounter type: initial encounter Qualified Code(s): W19.XXXA - Unspecified fall, initial encounter Status: Acute Plan She has a right intertrochanteric hip fracture recommended open reduction internal fixation. The procedure options risks benefits and complications were discussed with her and her granddaughter. We are planning for surgery tomorrow. Options risks benefits and complications including but not limited to failure to unite the fracture, infection, intraoperative fracture additional potential surgeries and infection were discussed in detail. We plan to proceed with fixation with a intertrochanteric nail tomorrow. She consents to surgery and we will proceed sometime likely tomorrow afternoon. Time-Based Coding :: [TOTAL MINUTES] spent with patient and on the chart (including review of chart, obtaining history, exam, reviewing outside data, placing orders, documenting exam and treatment plan, and counseling patient) on [DATE].
[2024-08-07] MEDS: ALBUTEROL 2.5 MG/3 ML NEB (ADULT) INH (20:17)
[2024-08-07] MEDS: BUDESONIDE 0.5 MG/2 ML NEB INH (20:17)
[2024-08-07] MEDS: ESCITALOPRAM 10 MG TABLET 20 MG PO (20:23)
[2024-08-07] MEDS: ACETAMINOPHEN 325 MG TABLET 650 MG PO (20:25)
[2024-08-08] VITALS (16 sets, daily range): BP systolic 106–147; BP diastolic 46–91; PULSE 66–89; RESP 12–20; TEMP 36.6–37.4; O2SAT 91–100; BMI 22.8
--- NOTE | 2024-08-08 | DI.RAD.S_ITS ---
PROCEDURE: XR HIP W PEL IF DONE RT 2V INDICATIONS: ORIF R HIP TECHNIQUE: Low resolution intraoperative fluoroscopic spot films COMPARISON: [facility], CR, XR HIP W PEL IF DONE RT 2V, 08/07/2024, 14:13. FINDINGS: Low resolution films show right femoral nail and compression screws transfixing a intertrochanteric fracture in good position. IMPRESSION: Fluoroscopic guidance Approved by: Surinder Jones M.D. on 08/08/2024 at 16:57
[2024-08-08] MEDS: MORPHINE 4 MG/ML INJ 2 MG IV ×3 (00:08→09:15)
[2024-08-08] MEDS: ALBUTEROL 2.5 MG/3 ML NEB (ADULT) INH ×4 (00:08→18:27)
[2024-08-08 06:12] LABS: Add Manual Diff / Slide Review NO; Basophils Absolute Auto 0 /uL (0-100); Basophils Percent Auto 0.4 % (0-2); Eosinophils Absolute Auto 0 /uL (0-450); Hematocrit 31.9 % (36-46); Hemoglobin 11.3 g/dL (12.0-16.0); Lymphocytes Absolute Auto 800 /uL (1100-4500); Lymphocytes Percent Auto 12.1 % (25-40); Mean Corpuscular HGB Conc 35.4 % (30-36); Mean Corpuscular Hemoglobin 30.5 PG (26-34); Mean Corpuscular Volume 86.2 fL (80-100); Monocytes Absolute Auto 500 /uL (0-900); Monocytes Percent Auto 6.9 % (3-14); Neutrophils Absolute Auto 5500 /uL (1500-7000); Neutrophils Percent Auto 80.6 % (50-75); Platelet Count 247 X10^3/uL (150-400); Red Cell Distribution Width 12.9 % (11.6-14.8); White Blood Cell Count 6.8 X10^3/uL (4.5-11.0)
[2024-08-08 06:26] LABS: Alanine Aminotransferase 13 IU/L (<35); Albumin 3.5 g/dL (3.5-5.0); Albumin Globulin Ratio 1.5 (1.0-2.8); Alkaline Phosphatase 52 U/L (38-126); Aspartate Aminotransferase 25 IU/L (14-36); BUN Creatinine Ratio 30.4 (6-22); Blood Urea Nitrogen 17 mg/dL (7-17); Calcium 8.6 mg/dL (8.4-10.2); Carbon Dioxide 26 mmol/L (22-32); Chloride 97 mmol/L (98-107); Estimated Glomerular Filt Rate > 60 mL/min (>60); Globulin 2.4 g/dL (1.7-4.1); Glucose 113 mg/dL (80-110); HEMOLYSIS < 15 (0-50); Potassium 3.9 mmol/L (3.4-5.1); Sodium 128 mmol/L (137-145); Total Protein 5.9 g/dL (6.3-8.2)
--- NOTE | 2024-08-08 07:45 | PC.NURSE ---
Patient was A & O x 3 last evening, did not know age or month/day. Pt had increased confusion during the night. Patient c/o pain to right hip with movement only, Morphine 2 mg IV given with good relief. Patient agreed to be repositioned at 0445 and when repositioned became very agitated, screamed at staff, and swung at staff when being boosted up in bed, c/o pain (MS was given at 0333). Patient c/o SCDs and pillow between legs and was crossing legs slightly. This RN explained need to straighten legs and leave pillow, patient again screamed at staff and tried to kick this RN with her right leg. Patient refused any further repositioning, SCDs, pillow, and cont POX. Patient calmed down and did not request any further pain meds. Per [employer] patient later apologized for being rude.
--- NOTE | 2024-08-08 08:27 | PM.PN.1 ---
Subjective Subjective Date Patient Seen: 08/08/24 Time Patient Seen: 08:27 Interval history: Patient still having pain this morning. But otherwise feels better as long she does not move. Did have some agitation last night. Otherwise no new change or complaints. Exam Vital Signs (past 8 hours): Fraction of Inspired Oxygen 28 SaO2/FiO2 Ratio 335 Oxygen Delivery Method Nasal Cannula Oxygen Flow Rate 2 Narrative Exam Narrative: Alert female talkative in no acute distress lungs are clear heart is regular rate and rhythm Objective Labs 08/08/24 05:58 08/08/24 05:58 Labs: Laboratory Results - last 24 hr 08/07/24 08/07/24 08/07/24 14:38 14:40 18:50 WBC 5.0 RBC 4.24 Hgb 12.6 Hct 36.2 MCV 85.3 MCH 29.7 MCHC 34.9 RDW 12.7 Plt Count 273 Neut % (Auto) 63.3 Lymph % (Auto) 25.2 [place] % (Auto) 7.7 Eos % (Auto) 2.5 Baso % (Auto) 1.3 Neut # (Auto) 3200 Lymph # (Auto) 1300 [place] # (Auto) 400 Eos # (Auto) 100 Baso # (Auto) 100 Sodium 128 L Potassium 4.2 Chloride 95 L Carbon Dioxide 25 BUN 11 Creatinine 0.44 L Estimated GFR > 60 BUN/Creatinine Ratio 25.0 H Glucose 90 Calcium 9.1 Total Bilirubin 1.2 AST 27 ALT 13 Alkaline Phosphatase 68 Troponin I < 0.012 Total Protein 6.6 Albumin 4.0 Globulin 2.6 Albumin/Globulin Ratio 1.5 Urine Color Yellow Urine Appearance Clear Urine pH 7.0 Ur Specific [place] 1.020 Urine Protein Negative Urine Glucose (UA) Negative Urine Ketones 3+ H Urine Occult Blood Negative Urine Nitrate Negative Urine Bilirubin 1+ H Ur Bilirubin Confirm Positive H Urine Urobilinogen 0.2 Ur Leukocyte Esterase Negative Urine RBC 0-1/hpf Urine WBC None seen Ur Squamous Epith Cells None seen D Amorphous Sediment 1+ Urine Bacteria None seen Urine Mucus 2+ H Ur Culture Indicated? Cult not indicated Vol Urine Centrifuged 10ml (spun) Blood Type AB Positive Antibody Screen Negative 08/08/24 05:58 WBC 6.8 RBC 3.70 L Hgb 11.3 L Hct 31.9 L MCV 86.2 MCH 30.5 MCHC 35.4 RDW 12.9 Plt Count 247 Neut % (Auto) 80.6 H Lymph % (Auto) 12.1 L [place] % (Auto) 6.9 Eos % (Auto) 0.0 L Baso % (Auto) 0.4 Neut # (Auto) 5500 Lymph # (Auto) 800 L [place] # (Auto) 500 Eos # (Auto) 0 Baso # (Auto) 0 Sodium 128 L Potassium 3.9 Chloride 97 L Carbon Dioxide 26 BUN 17 Creatinine 0.56 Estimated GFR > 60 BUN/Creatinine Ratio 30.4 H Glucose 113 H Calcium 8.6 Total Bilirubin 1.0 AST 25 ALT 13 Alkaline Phosphatase 52 Troponin I Total Protein 5.9 L Albumin 3.5 Globulin 2.4 Albumin/Globulin Ratio 1.5 Urine Color Urine Appearance Urine pH Ur Specific [place] Urine Protein Urine Glucose (UA) Urine Ketones Urine Occult Blood Urine Nitrate Urine Bilirubin Ur Bilirubin Confirm Urine Urobilinogen Ur Leukocyte Esterase Urine RBC Urine WBC Ur Squamous Epith Cells Amorphous Sediment Urine Bacteria Urine Mucus Ur Culture Indicated? Vol Urine Centrifuged Blood Type Antibody Screen PFSH Medical History H/O malignant neoplasm of breast Sciatica Spinal stenosis Arthritis Cellulitis of arm, right Lymphedema of arm Surgical History History of lymph node dissection of both axillae Social History household members: spouse and family Smoking Status: Never smoker alcohol intake: current Assessment & Plan Assessment & Plan narrative: Closed right hip fracture intertrochanteric. As per orthopedist. Appreciate their input. Hopefully surgery today. Reaction to Dilaudid. Doing well. No evidence of long-term issues. Tolerating morphine well. No change at this time. Hypertension. Still mildly elevated but better today. Has been very stable as outpatient may need to add medication but at this point I am going to hold. Status post fall. No evidence of other injury. Appeared to be just a trip do not have to worry about syncope or other issues. And will continue to follow. Dementia. Moderately severe. Having some nighttime issues. Will add Haldol. Consider benzodiazepine if needed. Otherwise no change. History UTI. UA urine appears to be okay. No need for treatment now will continue catheter until after surgery. History of breast cancer. In remission. History of retinal detachment he would continue usual eye drops. History of depression. Stable. Will continue her SSRI. Code status DNR. DVT prophylaxis on Lovenox Disposition. Surgery today and then probably will need rehab will see how things go. Discussed with social service. Time-Based Coding :: [TOTAL MINUTES] spent with patient and on the chart (including review of chart, obtaining history, exam, reviewing outside data, placing orders, documenting exam and treatment plan, and counseling patient) on [DATE].
[2024-08-08] MEDS: BUDESONIDE 0.5 MG/2 ML NEB INH ×3 (08:55→19:49)
[2024-08-08] MEDS: lisinopriL 5 MG TABLET 40 MG PO (09:13)
[2024-08-08] MEDS: SODIUM CHLORIDE 0.9% 1,000 ML 100 ML IV (09:13)
[2024-08-08] MEDS: ACETAMINOPHEN 325 MG TABLET 650 MG PO ×2 (09:13→18:52)
[2024-08-08] MEDS: HALOPERIDOL 5 MG/ML VIAL 2 MG IV ×2 (09:15→12:06)
--- NOTE | 2024-08-08 11:22 | CM.DANOTE ---
DCP Assessment Note: Payer: [facility] and [employer] secondary PCP: Walker Patient is an 84 y/o female admitted s/p fall with right hip fx, surgery pending for this afternoon. Reviewed chart and spoke with patient and grand daughter at the bedside, and dtr via face time. Dtr is on a cruise but very involved in pt care, and reports she lives next door to patient. Patient resides in a house with her spouse and was prev IND with her ADLs, some assistance from spouse or family d/t recent dementia diagnosis. Pt reports they recently purchased walkers but does not use prior to admit. Plan: SNF Rehab, pending surgery and pt eval. Discussed with patient and dtr and they are agreeable and would like to review their choices via medicare.gov. Will need f/u for SNF choice. Discharge Planning/Care Management CM Discharge Assessment Start: 08/08/24 11:17 Freq: Status: Active Protocol: Document 08/08/24 11:18 KG (Rec: 08/08/24 11:22 KG [id number]) Discharge Planning Assessment Assigned Exhaust And Muffler Repairer Khushbu Dodd DPOA/Assigned Designee Name Karla Burt Advance Directives? Yes Advance Directives on File No History Provided By Patient,Family Member,Medical Record Expected Length of Stay 3 Has Patient been admitted in last 30 No days? Prior Living Arrangements House Household Members spouse,family Type of transporation used prior to Relies on Others admit Independent with ADL's Yes Is patient alert and oriented? Yes: Mild confusion on some details, recent dementia diagnosis Needs Assistance With Home Chores / Shopping Caregiver for Another No DME Already Rented / Owned FWW / Walker,Cane Comment Indp w/use of cane. Patient/Family Preference [facility]way Facility,OP PT Therapy Barriers to Discharge No Comment Home w/supportive family Discharge Plan [facility] Community Services Physical Therapy,Occupational Therapy Transportation Arrangement Family Referrals Initiated None needed,Halfway If patient plan is SNF: Has PASSR been No completed? Medicare Choice List Provided Yes Medicare choice list reviewed on patient,family electronic tablet with SNF/HH Preference Patient dtr wishes to review choices and f/u after with preference Has Agency SNF been contacted No
[2024-08-08] MEDS: MORPHINE 2 MG/ML INJ IV (12:06)
[2024-08-08] MEDS: LACTATED RINGERS 1,000 ML 42 ML IV (12:38)
--- NOTE | 2024-08-08 13:27 | PM.PREOP ---
Pre-operative Note Interval Note History & Physical reviewed/Exam performed by Physician: Yes Changes to H&P: No
--- NOTE | 2024-08-08 13:27 | PM.OP.1 ---
Operative Date/Time/Diagnoses Date of procedure: 08/08/24 Time of procedure: 14:00 Pre-op diagnosis: right hip fracture intertroch Post-op diagnosis: same Procedure & Clinicians Procedure: Right femur intramedullary nail short intramedullary Mcneil and Nephew Tri Gen InterTAN nail with distal interlocking Same procedure as scheduled: Yes Indications: This is a 84-year-old female who fell and sustained a right intertrochanteric hip fracture she was brought to the operating room for intramedullary nailing nailing and open reduction internal fixation. The procedure options risks benefits and complications were discussed with her and her family. She understands and consents and agrees to surgery. Surgeon: Daniela Mcneil Click Yes if Unassisted: Yes Anesthesia Type: Spinal Operative Notes Findings: Slightly comminuted and displaced fracture, adequate bone, adequate reduction stable fixation Closure Type: primary Specimen(s): none sent Prosthetic devices, grafts, tissues, transplants, or devices: Mcneil and nephew tri Gen InterTAN nail short 125 degree 10 x 18 cm, 100 mm lag screw, 5.0 x 35 mm screw, Estimated Blood Loss (mL): 250 Blood products transfused: none Procedure in detail: Patient was brought to the operating room she underwent induction of the spinal anesthesia. She was carefully transferred to the fracture table. IV antibiotics and tranexamic acid were given. She was prepped and draped in a standard sterile fashion. A time-out was performed. The fracture was meticulously reduced. Lateral skin incision was made dissection was carried out through skin and subcutaneous tissues. Dissection was carried out down to the fascia which was incised. A pin was placed in the greater trochanter and advanced down past the lesser trochanter into the canal. Proximal femur was then carefully reamed. The nail was carefully advanced down. Position of the nail was checked. The reduction was carefully checked. Pin was placed proximally in the femoral head and the proximal lag screw and compression screw were placed without difficulty. Some moderate compression was achieved across the fracture. AP and lateral image confirmed acceptable reduction and acceptable position of the kathi and screws. Distal interlocking was performed without difficulty. The wounds were irrigated with normal saline. Marcaine was carefully injected. The wounds were closed with interrupted Vicryl and a running Monocryl. The wounds were dressed sterilely. Patient tolerated the procedure well she was transferred to recovery room in satisfactory condition. Complications none. Complications: none Post-operative Condition: stable Disposition: Acute Care Plan for aftercare: Weight-bearing as tolerated right lower extremity. Fall precautions. Home when safe.
[2024-08-08] MEDS: CEFAZOLIN 2 GM/100 ML PREMIX 100 ML IV ×2 (14:00→21:16)
[2024-08-08] MEDS: TRANEXAMIC ACID 1,000 MG in SODIUM CHLORIDE 0.9% 100 ML 200 MG IV ×2 (14:10→15:10)
--- NOTE | 2024-08-08 14:36 | SUR.OPER ---
Supine on padded [place] table with bilateral operative leg secured in padded positioning boot and suspended in positioning spars, non op leg padded and resting on well leg dueñas. Head on one pillow. Arm on non-operative side secured on padded armboard <90 degrees abduction. Arm on operative side padded and resting across chest then secured with tape over sheet. Padded perineal post in place per surgeon.
[2024-08-08] MEDS: BUPIVACAINE 0.5% (PF) 30 ML VIAL INJ (14:51)
[2024-08-08] MEDS: IBUPROFEN 400 MG TABLET PO (18:53)
[2024-08-08] MEDS: OXYCODONE IR 5 MG TABLET PO (18:53)
[2024-08-08] MEDS: LACTATED RINGERS 1,000 ML 100 ML IV (18:54)
[2024-08-08] MEDS: ASPIRIN EC 81 MG TABLET PO (21:16)
[2024-08-08] MEDS: SENNOSIDES 8.6 MG TABLET 17.2 MG PO (21:16)
[2024-08-08] MEDS: DOCUSATE 100 MG CAPSULE PO (21:16)
[2024-08-09] MEDS: OXYCODONE IR 5 MG TABLET PO ×4 (03:07→13:38)
[2024-08-09] MEDS: LACTATED RINGERS 1,000 ML 100 ML IV (05:40)
[2024-08-09] MEDS: CEFAZOLIN 2 GM/100 ML PREMIX 100 ML IV (05:41)
[2024-08-09] MEDS: ONDANSETRON 4 MG/2 ML INJ IV (06:19)
[2024-08-09 07:14] LABS: Add Manual Diff / Slide Review NO; Basophils Absolute Auto 0 /uL (0-100); Basophils Percent Auto 0.2 % (0-2); Eosinophils Absolute Auto 100 /uL (0-450); Eosinophils Percent Auto 0.8 % (2-4); Hematocrit 28.5 % (36-46); Lymphocytes Absolute Auto 900 /uL (1100-4500); Lymphocytes Percent Auto 11.7 % (25-40); Mean Corpuscular HGB Conc 35.3 % (30-36); Mean Corpuscular Hemoglobin 30.5 PG (26-34); Mean Corpuscular Volume 86.4 fL (80-100); Monocytes Absolute Auto 800 /uL (0-900); Monocytes Percent Auto 11.3 % (3-14); Neutrophils Absolute Auto 5500 /uL (1500-7000); Platelet Count 202 X10^3/uL (150-400); Red Cell Distribution Width 12.7 % (11.6-14.8); White Blood Cell Count 7.3 X10^3/uL (4.5-11.0)
[2024-08-09 07:17] LABS: Alanine Aminotransferase 9 IU/L (<35); Albumin Globulin Ratio 1.3 (1.0-2.8); Alkaline Phosphatase 51 U/L (38-126); Aspartate Aminotransferase 23 IU/L (14-36); BUN Creatinine Ratio 38.5 (6-22); Bilirubin Total 0.6 mg/dL (0.2-1.3); Blood Urea Nitrogen 20 mg/dL (7-17); Calcium 8.4 mg/dL (8.4-10.2); Carbon Dioxide 28 mmol/L (22-32); Chloride 97 mmol/L (98-107); Estimated Glomerular Filt Rate > 60 mL/min (>60); Globulin 2.3 g/dL (1.7-4.1); Glucose 107 mg/dL (80-110); HEMOLYSIS < 15 (0-50); Potassium 3.9 mmol/L (3.4-5.1); Sodium 128 mmol/L (137-145); Total Protein 5.3 g/dL (6.3-8.2)
[2024-08-09] MEDS: ALBUTEROL 2.5 MG/3 ML NEB (ADULT) INH ×3 (07:26→18:09)
[2024-08-09] MEDS: BUDESONIDE 0.5 MG/2 ML NEB INH ×2 (07:26→18:09)
[2024-08-09 07:31] VITALS: PULSE 97; O2SAT 91
--- NOTE | 2024-08-09 08:44 | P.PN_ITS ---
Subjective Subjective Interval history: Karla is a pleasant 84 year old female who is POD#1 s/p R femur IMN for a right intertroch hip fracture by Dr. Mcneil. Patients granddaughter is at bedside and her daughter was present via FaceTime for the interview this morning. This morning patient reports she is still having a lot of pain, worse with weight-bearing or any movement. She lives at home with her daughter and , is not able to provide much physical support however. Daughter is currently out of town on a cruise and will not return until Wednesday. We discussed possible SNF until daughter returns to home and can help provide care for patient. She denies any weakness, numbness or tingling in the RLE. Has not worked w/ PT yet. Denies fever, chills, chest pain, SOB, nausea, vomiting. Exam Vital Signs (past 8 hours): - 08/09/24 07:31 Pulse Rate 97 H Pulse Oximetry 91 Oxygen Delivery Method Room Air Oxygen Flow Rate 0 Fraction of Inspired Oxygen 21 SaO2/FiO2 Ratio 433 Oxygen Delivery Method Room Air Oxygen Flow Rate 0 Narrative Exam Narrative: Patient lying comfortably in bed during our interview today. No acute distress. AOx3. Grossly normal alignment of the RLE. 5/5 strength with DF, PF, EHL bilaterally. Gross sensation intact throughout bilateral lower extremities. Calves soft and non-tender bilaterally. SCDs are on and functioning. Brisk capillary refill, pulses intact. Post-surgical Aquacel dressing intact over the right thigh w/ mild bloody drainage. Tender to palpation along the incision site. Objective Labs 08/09/24 06:45 08/09/24 06:45 Labs: Laboratory Results - last 24 hr 08/09/24 06:45 WBC 7.3 RBC 3.30 L Hgb 10.0 L Hct 28.5 L MCV 86.4 MCH 30.5 MCHC 35.3 RDW 12.7 Plt Count 202 Neut % (Auto) 76.0 H Lymph % (Auto) 11.7 L [place] % (Auto) 11.3 Eos % (Auto) 0.8 L Baso % (Auto) 0.2 Neut # (Auto) 5500 Lymph # (Auto) 900 L [place] # (Auto) 800 Eos # (Auto) 100 Baso # (Auto) 0 Sodium 128 L Potassium 3.9 Chloride 97 L Carbon Dioxide 28 BUN 20 H Creatinine 0.52 Estimated GFR > 60 BUN/Creatinine Ratio 38.5 H Glucose 107 Calcium 8.4 Total Bilirubin 0.6 AST 23 ALT 9 Alkaline Phosphatase 51 Total Protein 5.3 L Albumin 3.0 L Globulin 2.3 Albumin/Globulin Ratio 1.3 [facility] Medical History H/O malignant neoplasm of breast Sciatica Spinal stenosis Arthritis Cellulitis of arm, right Lymphedema of arm Surgical History History of lymph node dissection of both axillae Social History household members: spouse and family Smoking Status: Never smoker alcohol intake: current Assessment & Plan Post-op Postoperative Procedures: Procedures Operation Date: 08/08/24 16:15 Actual Procedure Side Surgeon p ORIF Hip/Intramedullary Hip Screw Right Daniela Mcneil MD Postoperative plan narrative: 1) Discharge to home vs SNF pending patients progress w/ PT. She may need to d/c to SNF for a few days until her daughter returns home from vacation. 2) Continue multimodal pain management with ice to the hip for additional pain control. 3) ASA b.i.d. for DVT prophylaxis. 4) Work w/ physical therapy to improve mobility. 5) Keep dressing intact, clean, dry until 2 week postop appointment. No soaking the incision site in pools or tubs. No topical ointments or creams to the incision site. 6) Follow up at [facility] orthopedics in 2 weeks for a postop appointment and wound check. All patient's questions were answered, they demonstrates understanding and are in agreement with the plan. Call our office if any questions or concerns arise.
--- NOTE | 2024-08-09 08:59 | PM.PN.1 ---
Subjective Subjective Date Patient Seen: 08/09/24 Time Patient Seen: 08:59 Interval history: Patient seen in follow-up of right hip fracture dementia status post surgery day 1. Actually feeling better still having moderate amount of pain. But no other changes. Patient has no complaints this morning and did well last night. Did not require any Haldol. He has not required any since yesterday. Otherwise feeling well. Exam Vital Signs (past 8 hours): - 08/09/24 07:31 Pulse Rate 97 H Pulse Oximetry 91 Oxygen Delivery Method Room Air Oxygen Flow Rate 0 Fraction of Inspired Oxygen 21 SaO2/FiO2 Ratio 433 Oxygen Delivery Method Room Air Oxygen Flow Rate 0 Narrative Exam Narrative: Alert female much less anxious in no acute distress Lungs are clear heart is regular rate and rhythm Objective Labs 08/09/24 06:45 08/09/24 06:45 Labs: Laboratory Results - last 24 hr 08/09/24 06:45 WBC 7.3 RBC 3.30 L Hgb 10.0 L Hct 28.5 L MCV 86.4 MCH 30.5 MCHC 35.3 RDW 12.7 Plt Count 202 Neut % (Auto) 76.0 H Lymph % (Auto) 11.7 L [place] % (Auto) 11.3 Eos % (Auto) 0.8 L Baso % (Auto) 0.2 Neut # (Auto) 5500 Lymph # (Auto) 900 L [place] # (Auto) 800 Eos # (Auto) 100 Baso # (Auto) 0 Sodium 128 L Potassium 3.9 Chloride 97 L Carbon Dioxide 28 BUN 20 H Creatinine 0.52 Estimated GFR > 60 BUN/Creatinine Ratio 38.5 H Glucose 107 Calcium 8.4 Total Bilirubin 0.6 AST 23 ALT 9 Alkaline Phosphatase 51 Total Protein 5.3 L Albumin 3.0 L Globulin 2.3 Albumin/Globulin Ratio 1.3 PFSH Medical History H/O malignant neoplasm of breast Sciatica Spinal stenosis Arthritis Cellulitis of arm, right Lymphedema of arm Surgical History History of lymph node dissection of both axillae Social History household members: spouse and family Smoking Status: Never smoker alcohol intake: current Assessment & Plan Assessment & Plan narrative: Closed hip fracture. We discussed overall doing well. Will be mobilized am assuming today as per orthopedist. Pain control seems good will continue to follow. Hypertension. Blood pressure has been better since yesterday. I think we are okay where we are. But will follow as outpatient. No changes today. Reaction to Dilaudid. No issues at this time. Will follow. Dementia. Moderately severe. Patient actually did well. No Haldol in the last 24 hours. It was discontinued yesterday and we seem to be doing well. I do not think we will need anything further. Would consider scheduled medication if required. History of UTI. Urine was negative will follow. History of breast cancer in remission. Retinal detachment. As poor usual drops. History of depression. Actually doing well. No change will continue SSRI. Code status DNR. DVT prophylaxis on Lovenox. Disposition surgery day 1. Discussed with social service and family is deciding on rehab location. I think that is the only option. has issues of his own and I do not think would be capable of the physical requirement for. Once she gets stronger I think he can help but at this point I do not think he is capable and family agrees. Will continue current care and expect possible discharge tomorrow. 40 minutes spent with the patient family dictation social service nursing orders Time-Based Coding :: [TOTAL MINUTES] spent with patient and on the chart (including review of chart, obtaining history, exam, reviewing outside data, placing orders, documenting exam and treatment plan, and counseling patient) on [DATE].
[2024-08-09] MEDS: polyethylene glycoL 3350 17 GM POWD.PACK PO (09:13)
[2024-08-09] MEDS: IBUPROFEN 400 MG TABLET PO ×3 (09:14→20:14)
[2024-08-09] MEDS: ONDANSETRON 4 MG ODT PO (09:15)
[2024-08-09] MEDS: ACETAMINOPHEN 325 MG TABLET 650 MG PO ×2 (09:15→18:09)
[2024-08-09] MEDS: DOCUSATE 100 MG CAPSULE PO ×2 (09:15→20:13)
[2024-08-09] MEDS: ASPIRIN EC 81 MG TABLET PO ×2 (09:15→20:14)
--- NOTE | 2024-08-09 10:57 | OT.IP.EVAL ---
Current Diagnoses Hypo-osmolality and hyponatremia (08/07/24) Fracture of unspecified part of neck of right femur, initial encounter for closed fracture (08/07/24) Unspecified fall, initial encounter (08/07/24) Surgery Performed Operation Date: 08/08/24 16:15 Actual Procedures p ORIF Hip/Intramedullary Hip Screw(Right) - Daniela Mcneil MD Past Medical History (Last Reviewed 08/07/24 @ 19:53 by Daniela Mcneil MD) Arthritis Cellulitis of arm, right H/O malignant neoplasm of breast Lymphedema of arm Sciatica Spinal stenosis Surgical History (Last Reviewed 08/07/24 @ 19:53 by Daniela Mcneil MD) History of lymph node dissection of both axillae Occupational Therapy Inpatient Evaluation/Re-Eval M1 PT/OT-IP Prior Functional Status Start: 08/09/24 10:59 Freq: NEEDED Status: Active Protocol: Document 08/09/24 10:59 [facility] (Rec: 08/09/24 11:14 [facility] [id number]) Medical Review Prior Functional Status Communication Independent Mobility and Gait Use of cane for longer distances. Activities of Daily Living and IADL's Able to do her ADL's but needing assist for IADL needs. Social History Household Members spouse,family Living Arrangements House Number of Floors (Floors) One Floor Number of Stairs To Enter/Railing? 3 steps from the front with left rail going in. Home Environment High Toilet,Walk in Shower Home Equipment Four Wheel Walker,Straight Cane,Grab Bars In Shower Additional Social History Comment Pt's daughter lives next to the pt on on a cruise now and will be able to assist the pt when she gets back. M2 OT-IP Current Condition Start: 08/09/24 10:59 Freq: Status: Active Protocol: Document 08/09/24 10:59 [facility] (Rec: 08/09/24 11:14 [facility] [id number]) Occupational Therapy Current Condition Current Condition Evaluation Date 08/09/24 Treatment Diagnosis Fall S/P right hip ORIF Diagnosis Onset Date 08/07/24 Weight Bearing Status Weight Bearing Status Weight Bear as Tolerated M3 OT- IP Subjective and Pain Start: 08/09/24 10:59 Freq: Status: Active Protocol: Document 08/09/24 10:59 [facility] (Rec: 08/09/24 11:14 [facility] [id number]) OT- Subjective Occupational Therapy Visit Type Type Initial Evaluation Visit Start Time 10:10 Visit Stop Time 10:57 Occupational Therapy Visit Comments Patient Comments Pt agreed to try to get up to use the BSC. Patient/Caregiver Goals TO get better. OT Pain Assessment Pain When Pain Assessed During Mobility Pain Present Pain Present Pain Reported Location right hip Intensity 7 Scale Used Numeric (0 - 10) M4 OT- IP ADL's Start: 08/09/24 10:59 Freq: Status: Active Protocol: Document 08/09/24 10:59 [facility] (Rec: 08/09/24 11:14 [facility] [id number]) OT [id number] Comments OT Self-Feeding Comments Not at meal time. OT ADL-Grooming Comments OT Grooming Comments Pt declined. OT ADL-Oral Care Comments Oral Care Comments Pt declined. OT ADL-Dressing General Eval Lower Body Dressing Ability Total Assistance Areas Needing Assistance Socks Comments OT Dressing Comments Spoke of LB dressing equipment and to dress the RLE first and take out last. OT ADL-Toileting General Evaluation Toileting Ability Maximum Assistance Areas Needing Assistance Manage Clothing,Perform Perineal Hygiene Comments OT Toileting Comments Two person assist to stand the pt with FWW and one person to assist with hygiene needs. OT ADL-Bathing Comments OT Bathing Comments Sponge bath more appropriate at this time. M5 OT- IP IADL's Start: 08/09/24 10:59 Freq: Status: Active Protocol: Document 08/09/24 10:59 [facility] (Rec: 08/09/24 11:14 [facility] [id number]) OT-Instrumental Activities of Daily Living Home Safety Awareness Home Safety Comments Pt's has recent diagnosis of dementia and her daughter assist with all IADl needs. Medication Management Medication Management Caregiver Administers Money Management Money Management Caregiver Provides Assistance Meal Preparation Meal Preparation Caregiver Provides Assist Allergist Allergist Caregiver Provides Assist M6 OT- IP Functional Cognition Start: 08/09/24 10:59 Freq: Status: Active Protocol: Document 08/09/24 10:59 [facility] (Rec: 08/09/24 11:14 [facility] [id number]) Cognitive Factors Limiting Selfcare Function Cognitive Ability Level of Alertness Alert,Drowsy Patient Orientation Name Attention Span Ability Capable of Focused Attention, Capable of Sustained Attention Ability to Follow Commands Able to Follow One Step Commands with Increased Time, Able to Follow One Step Commands with Repetition Cognitive Comments Cognitive Assessment Comments Pt able to follow commands for ADL and mobility needs with increased time. OT- Vision and Hearing OT- Hearing Assessment OT- Hearing Assessment WFL OT- Vision Assessment Visual Acuity Glasses For Reading Visual Attentiveness WFL Occular Pursuits WFL M7 OT- IP Mobility and Balance Start: 08/09/24 10:59 Freq: Status: Active Protocol: Document 08/09/24 10:59 [facility] (Rec: 08/09/24 11:14 [facility] [id number]) OT- Bed Mobility Assessment Supine to Sit Supine to Sit Assist Maximum Assistance,1 Person Assistance,Head of Bed Elevated OT-Transfer Assessment Sit to and From Stand Sit to and from Stand Maximum Assistance,2 Person Assistance Transfers Transfer Ability Maximum Assistance,2 Person Assistance,Use of Upper Extremities Technique Transfer Destination Bed,Bedside Commode,Chair Transfer Technique Stand Pivot Devices Transfer Assistive Devices Gait Belt,Front Wheeled Walker Comments Mobility Comments MAX AX 1 with HOB up and assist to get her RLE to the edge of the bed and assist to get her trunk upright. MAX AX 2 to stand to the FWW with bed up. Assist to guide the FWW, assist for balance for the transfer to the BSC. BP supine 115/52 sitting 135/56, 125/60, after standing 95/58 and then increased to 114/62 after sitting on the BSC after several minutes. Able to stand to from the bsc and switched to the recliner. OT- Gait Assessment Assistive Devices Assistive Device Gait Belt,Front Wheeled Walker OT- Balance Assessment Sitting Balance and Reactions Static Sitting Balance Ability Good Dynamic Sitting Balance Ability Fair Standing Balance and Reactions Static Standing Balance Ability Poor Dynamic Standing Balance Ability Poor M8 OT- IP Objective Assessments Start: 08/09/24 10:59 Freq: Status: Active Protocol: Document 08/09/24 10:59 [facility] (Rec: 08/09/24 11:14 [facility] [id number]) OT Gross Range of Motion Upper Extremity Range of Motion Assessment Within Functional Limits ROM Impairments grossly WFL OT Strength Upper Extremity Strength Assessment Within Functional Limits M9 OT- IP Assessment and Plan Start: 08/09/24 10:59 Freq: Status: Active Protocol: Document 08/09/24 10:59 [facility] (Rec: 08/09/24 11:14 [facility] [id number]) OT Summary Assessment and Plan Potential Rehabilitation Potential Excellent Analytic Complexity at Evaluation Moderate Summary OT Impairments Pain,Strength,Balance, Functional Mobility,Grooming, Dressing,Toileting,Bathing, Toilet Transfers,Shower Transfers,Activity Tolerance Progress Towards Goals Progressing Toward Goals,Slow Progress due to Pain,Slow Progress due to Activity Tolerance Assessment Summary Pt low complexity and main barrier are pain, steps , and now needing person assist for some adl needs and for transfers. Pt will greatly benefit from skilled rehab prior to going home and has a very supportive family. Goals Self-Feeding Goal Independent Grooming Goal Independent Dressing Goal Minimal Assistance Toileting Goal Minimal Assistance Bathing Goal Minimal Assistance Toilet Transfer Goal Minimal Assistance Shower Transfer Goal Minimal Assistance Days to Meet Goals 20 Frequency of Treatment Other frequency 5x/week Treatment Plan OT Treatment Plan ADL Training,Functional Mobility,Patient/Family Education,Discharge Planning Discharge Recommendations OT Discharge Recommendations SNF Rehab Transportation Needs at Discharge Wheelchair/Cabulance
--- NOTE | 2024-08-09 11:25 | PT.IIE ---
Current Diagnoses Hypo-osmolality and hyponatremia (08/07/24) Fracture of unspecified part of neck of right femur, initial encounter for closed fracture (08/07/24) Unspecified fall, initial encounter (08/07/24) Surgery Performed Operation Date: 08/08/24 16:15 Actual Procedures p ORIF Hip/Intramedullary Hip Screw(Right) - Daniela Mcneil MD Surgical History (Last Reviewed 08/07/24 @ 19:53 by Daniela Mcneil MD) History of lymph node dissection of both axillae Medical History (Last Reviewed 08/07/24 @ 19:53 by Daniela Mcneil MD) Arthritis Cellulitis of arm, right H/O malignant neoplasm of breast Lymphedema of arm Sciatica Spinal stenosis Physical Therapy Inpatient Evaluation/Re-Eval M1 PT/OT-IP Prior Functional Status Start: 08/09/24 12:39 Freq: NEEDED Status: Active Protocol: Document 08/09/24 11:25 AB (Rec: 08/09/24 12:53 AB [id number]) Medical Review Prior Functional Status Medical History Reviewed Yes Communication able to make needs known Mobility and Gait pt stated that she was independent with all mobilities and ambulation without AD but occasionally uses a SPC depending on back pain Activities of Daily Living and IADL's Able to do her ADL's but needing assist for IADL needs. Social History Household Members spouse,family Living Arrangements House Number of Floors (Floors) One Floor Number of Stairs To Enter/Railing? 3 steps from the front with L rail to enter Home Environment Standard Height Toilet,Walk in Shower Home Equipment Four Wheel Walker,Straight Cane,Grab Bars Near Toilet, Grab Bars In Shower Additional Social History Comment pt's spouse will not be able to assist pt; daughter who lives next to pt is on vacation at this time M2 PT-IP Current Condition Start: 08/09/24 12:39 Freq: NEEDED Status: Active Protocol: Document 08/09/24 11:25 AB (Rec: 08/09/24 12:53 AB [id number]) Physical Therapy Current Condition Current Condition Evaluation Date 08/09/24 Treatment Diagnosis R hip fx s/p IM nailing; difficulty in walking Onset Date 08/07/24 M3 PT-IP Subjective Start: 08/09/24 12:39 Freq: NEEDED Status: Active Protocol: Document 08/09/24 11:25 AB (Rec: 08/09/24 12:53 AB [id number]) Subjective Physical Therapy Visit Type Type Initial Evaluation Visit Start Time 11:25 Visit Stop Time 12:00 Number of STEM ASSEMBLER Visits 0 Physical Therapy Visit Comments Patient Comments requesting to go back to bed Therapy Pain Assessment Pain When Pain Assessed At Rest Pain Present Pain Present Pain Reported Location right hip Intensity 5 Scale Used Numeric (0 - 10) Pain Behaviors Facial Grimacing,Guarding Pain Management Techniques Apply Cold,Distraction, Modification of Treatment,Re- positioning,Timing of Activity with Medications M4 PT-IP Mobility and Gait Start: 08/09/24 12:39 Freq: NEEDED Status: Active Protocol: Document 08/09/24 11:25 AB (Rec: 08/09/24 12:53 AB [id number]) PT-Bed Mobility Assessment Sit to Supine Sit to Supine Maximum Assistance,1 Person Assistance,Head of Bed Elevated PT-Transfer Assessment Sit to and From Stand Sit to and from Stand Maximum Assistance,1 Person Assistance,Use of Upper Extremities Equipment Transfer Assistive Device Gait Belt,Front Wheeled Walker Orthotic/Prosthetic Devices or Brace: No Transfers Transfer Destination Bed Transfer Technique took a few steps to transfer Transfer Ability Level of Assist Maximum Assistance,1 Person Assistance,Use of Upper Extremities Comments Mobility Comments pt sitting on the chair. daughter in room. obtained PLOF and home set up. pt requesting to go back to bed. informed pt regarding staying up on chair for lunch but refused. pt stated that she is feeling dizzy. BP: 158/68 O2 sat 97%. completed sit to stand max A and max cues. attempted to ambulate but only able to take a few steps to get into the bed ~ 2ft using FWW max A and max cues. able to take side stepping towards HOB ~ 3 ft max A and max cues. pt completed sit to supine max A and max cues. positioned pt in bed. call light and table placed within reach. Gait Assessment Gait Gait Assistance Required: Maximum Assistance Distance (Feet) 5 Able to Maintain Weight Bearing Status Yes During Gait Assistive Devices Assistive Device Gait Belt,Front Wheeled Walker Orthotic/Prosthetic Devices or Brace: Yes Gait Deviations General Gait Pattern Antalgic,Decreased Stride Length,Decreased Feet Clearance Factors Limiting Gait Function Factors Limiting Gait Function Decreased Activity Tolerance, Decreased Strength,Difficulty Following Directions,Limited Range of Motion,Pain,Poor Balance,Poor Safety Awareness Comments Gait Comments took steps during transfers. PT-Balance Assessment Sitting Balance and Reactions Static Sitting Balance Ability Fair Dynamic Sitting Balance Ability Fair Standing Balance and Reactions Static Standing Balance Ability Poor Dynamic Standing Balance Ability Poor Device Used FWW M5 PT-IP Objective Assessments Start: 08/09/24 12:39 Freq: NEEDED Status: Active Protocol: Document 08/09/24 11:25 AB (Rec: 08/09/24 12:53 AB [id number]) Orientation Orientation/Cognition Level of Alertness Alert Orientation Name,Situation Language Function Ability Hard of Hearing Safety Awareness Decreased Safety Awareness Memory Description Short Term Impaired Gross Range of Motion Lower Extremity ROM Assessment Within Functional Limits Strength Lower Extremity Strength Assessment Right Impaired Hip 3-/5 Knee 3+/5 Coordination Assessment Gross Coordination Gross Coordination WNL Sensation Assessment Sensation Gross Sensation WNL Muscle Tone Muscle Tone WNL Yes M6 PT-IP Treatment Start: 08/09/24 12:39 Freq: NEEDED Status: Active Protocol: Document 08/09/24 11:25 AB (Rec: 08/09/24 12:53 AB [id number]) Physical Therapy Treatment Education Education Provided Weight Bearing Status,Safety M7 PT-IP Assessment and Plan Start: 08/09/24 12:39 Freq: NEEDED Status: Active Protocol: Document 08/09/24 11:25 AB (Rec: 08/09/24 12:53 AB [id number]) PT Summary Assessment and Plan Potential Rehabilitation Potential Fair Status of Condition at Evaluation Evolving Summary Impairments Pain,ROM,Strength,Balance, Coordination,Sensation,Tone, Cognition,Bed Mobility, Transfers,Gait,Activity Tolerance Assessment Summary pt is an 84 y/o F s/p fall and sustain a R femur fx and underwent R hip intrmedullary nailing. pt is WBAT on RLE. pt requiring max A and max cues with bed mobility and transfers. pt only able to take a few steps during transfers using fWW max A and max cues and unable to ambulate farther due to c/o pain and dizziness. pt will require 24/ assist and will benefit from SNF rehab. will continue to assess. Goals Bed Mobility Goal Minimal Assistance Transfer Goal Minimal Assistance,Front Wheeled Walker Gait Goal Minimal Assistance,Front Wheel Walker Gait Distance 50 Other Goals improve bed mobility, transfers, ambulation using FWW ~ 200 ft SBA up/down 3 steps L rail ascending SBA Days to Meet Goals 10 Frequency of Treatment Other frequency 1-2x/day Treatment Plan Physical Therapy Treatment Plan Bed Mobility Training,Transfer Training,Gait Training, Therapeutic Exercise,Balance Retraining,Post Op Education, Discharge Planning,Hot or Cold Pack,Neuromuscular Re-ed, Coordination Retraining,Manual Therapy Precautions Other Precautions falls Weight Bearing Status Weight Bearing Status Weight Bear as Tolerated Allowed Weight Bearing Amount (enter % RLE WBAT or #) (%) Recommendations To Nursing Amount of Assist Needed 2 Person Assist Discharge Recommendations PT Discharge Recommendations SNF Rehab Transportation Needs at Discharge Wheelchair/Cabulance
--- NOTE | 2024-08-09 14:11 | CM.DPC ---
Spoke with patient and grand dtr at bedside and they would like [facility] at d/c for SNF rehab. [facility] sent PHI for referral and I left a VM with admissions to update. Received notice the patient is approved and able to come when medically. Patient should be ready for d/c after 3rd midnight. Will notify Dtr and Patient of approval.
[2024-08-09 18:15] VITALS: PULSE 101; O2SAT 93
[2024-08-09 19:57] VITALS: BP 108/48; PULSE 90; RESP 17; TEMP 37.6; O2SAT 97
[2024-08-09] MEDS: ESCITALOPRAM 10 MG TABLET 20 MG PO (20:13)
[2024-08-09] MEDS: SENNOSIDES 8.6 MG TABLET 17.2 MG PO (20:13)
[2024-08-10] MEDS: HYDROCODONE/ACET 5/325 TABLET 2 TAB PO ×4 (03:46→18:00)
[2024-08-10] MEDS: ONDANSETRON 4 MG ODT PO (06:47)
[2024-08-10] MEDS: DOCUSATE 100 MG CAPSULE PO ×2 (08:13→21:09)
[2024-08-10] MEDS: ASPIRIN EC 81 MG TABLET PO ×2 (08:14→21:09)
[2024-08-10] MEDS: polyethylene glycoL 3350 17 GM POWD.PACK PO (08:16)
--- NOTE | 2024-08-10 08:36 | P.PN_ITS ---
Subjective Subjective Date Patient Seen: 08/10/24 Time Patient Seen: 08:37 Interval history: Patient states pain is [id number] at rest and more severe with movement of her right hip. She denies any fever or chills. No nausea or vomiting. Exam Vital Signs (past 8 hours): Fraction of Inspired Oxygen 21 SaO2/FiO2 Ratio 433 Oxygen Delivery Method Room Air Oxygen Flow Rate 0 Narrative Exam Narrative: 84-year-old female resting comfortably in bedside chair in no apparent distress. Right hip dressing is clean, dry and intact. Motor functions intact bilateral lower extremities. Sensation grossly intact to light touch bilateral lower extremities Const General: cooperative and comfortable Nutritional Appearance: average body habitus Orientation: alert Resp Effort & Inspection: normal respiratory effort and able to speak in complete sentences Objective Labs 08/09/24 06:45 08/09/24 06:45 [facility] Medical History H/O malignant neoplasm of breast Sciatica Spinal stenosis Arthritis Cellulitis of arm, right Lymphedema of arm Surgical History History of lymph node dissection of both axillae Social History household members: spouse and family Smoking Status: Never smoker alcohol intake: current Assessment & Plan Post-op Postoperative Procedures: Procedures Operation Date: 08/08/24 16:15 Actual Procedure Side Surgeon p ORIF Hip/Intramedullary Hip Screw Right Daniela Mcneil MD Postoperative day: 2 Postoperative status narrative: Stable Postoperative plan narrative: Weight-bearing as tolerated right lower extremity. Fall precautions. Follow up outpatient Orthopedics in 2 weeks disposition per Internal Medicine
--- NOTE | 2024-08-10 08:44 | PM.DS.1 ---
History of Present Illness History of Present Illness Date Patient Seen: 08/10/24 Time Patient Seen: 08:45 Chief complaint: Fall on right hip Narrative: CC: fall She is feeling ok today but reports pain in hip is worse from working with PT yesterday. She is nauseous and not very hungry which is unusual for her. S/p R hip repair, plan is dc to SNF until family returns home from trip to help her at home. Mood is good plan discussed with family via their phone. Discharge Providers Provider Date of admission: 08/07/24 15:23 Discharge Date: 08/10/24 Primary care physician: Tim Cardoso MD Consults: 08/07/24 15:17 Consult to Orthopedic Surgery Urgent Comment: Consulting Provider: Daniela Mcneil Reason for consultation: hip fracture Has provider been notified: Yes 08/07/24 18:01 Consult to Discharge Planning Routine Comment: 08/08/24 18:31 Consult to Discharge Planning Routine Comment: Consult to Occupational Therapy Evaluate & Treat Comment: Physician Instructions: Evaluate and treat Consult to Physical Therapy Evaluate & Treat Comment: Physician Instructions: Evaluate and Treat Discharge provider: Misael Gaming MD Summary Hospital Course Discharge Diagnosis: #R closed hip fracture s/p repair c/o ortho Doing well working with PT she is not needing oxycodone will plan on norcos for discharge pain control with tylenol/ibuprofen. Advise continue to work with PT. #Hypertension #hx of reaction to Dilaudid #Dementia, moderate #History of UTI #History of breast cancer #Retinal detachment #Depression Hospital Course: Ms. Burt is a pleasant moderately demented woman who sustained a fall on her R hip at home while trying to address an errant bee. She was unable to stand and was brought in by EMS where she was found to have a broken hip. She did have a scratchy throat in response to recieving dialudid which resolved readily with solu medrol and benadryl. She was seen by ortho who were kindly able to repair her hip wtihout incident. She is working with PT however she is not yet able to go home alone - family is out of town at the moment on a trip but will be back within a week. She does have some moderate dementia at baseline and benefits from cueing. Plan will be to go to rehab [facility] and work on her strength. Will discharge with norcos for pain control and some prns - plan to f/up with PCP and ortho after rehab. Status at Discharge Cognitive/behavioral status at discharge: at baseline, confused Functional status at discharge: uses cane/walker Overall status at discharge: patient is progressing back to baseline Exam Vital Signs (past 8 hours): Fraction of Inspired Oxygen 21 SaO2/FiO2 Ratio 433 Oxygen Delivery Method Room Air Oxygen Flow Rate 0 Narrative Exam Narrative: pleasant elderly woman sitting in chair with family at bedside Resp Other: moving air well, clear to auscultation bilaterally, on room air Cardio Other: regular rate and rhythm, s1/s2 Neuro Other: alert awake conversant today Extrem Other: R hip surgical incisions under dressing. distal NV grossly intact. Objective Labs 08/09/24 06:45 08/09/24 06:45 [facility] Medical History H/O malignant neoplasm of breast Sciatica Spinal stenosis Arthritis Cellulitis of arm, right Lymphedema of arm Surgical History History of lymph node dissection of both axillae Social History household members: spouse and family Smoking Status: Never smoker alcohol intake: current Discharge Assessment & Plan Assessment and Plan Assessment: #R closed hip fracture s/p repair c/o ortho Doing well working with PT she is not needing oxycodone will plan on norcos for discharge pain control with tylenol/ibuprofen. Advise continue to work with PT. #Hypertension Blood pressure has been better since yesterday. I think we are okay where we are. But will follow as outpatient. No changes today. #hx of reaction to Dilaudid No issues at this time. Will follow. #Dementia, moderate Doing well with cueing from family - no need for prn haldol #History of UTI urine looks ok this admission so far #History of breast cancer In remission, stable #Retinal detachment stable continue home drops #Depression stable continue home SSRI Dispo: to [facility] in [place] Code status: DNR DVT prophylaxis: Lovenox Time spent: 50 min Discharge Plan Discharge Plan Patient Disposition: Xfer Inpatient Rehab Transfer to: [facility] Discharge orders & Medications Discharge Orders: Discharge (Order); Ordered 08/10/24 Ordered By: Misael Gaming Prescriptions: New acetaminophen 325 mg Tablet 650 mg PO Q6H PRN (Reason: Fever/Mild Pain (1-3)) Qty: 20 0RF hydrocodone-acetaminophen 5-325 mg Tablet 2 tab PO Q4H PRN (Reason: Pain, Severe (7-10)) Qty: 30 0RF ibuprofen 400 mg Tablet 400 mg PO Q4H PRN (Reason: Pain, Mild (1-3)) Qty: 20 0RF docusate sodium 100 mg Capsule 100 mg PO BID Qty: 20 0RF ondansetron 4 mg Tablet,Disintegrating 4 mg PO Q4HR PRN (Reason: Nausea And Vomiting) Qty: 20 0RF Continued aspirin [Adult Aspirin Regimen] 81 mg tablet,delayed release (DR/EC) 81 mg PO BEDTIME hydrochlorothiazide 25 mg tablet 25 mg PO DAILY loratadine 10 mg Tablet 10 mg PO DAILY fluticasone propion-salmeterol 115-21 mcg/actuation HFA aerosol inhaler 2 puff INHALATION BID doxycycline hyclate 100 mg capsule 100 mg PO BID Qty: 20 0RF melatonin 3 mg Capsule 3 mg PO BEDTIME PRN (Reason: Sleep) brimonidine-dorzolamide (PF) 0.15-2 % Drops 1 drp OPHTHALMIC (EYE) TID Rx Instructions: 1 drop each eye at 0800 and 1700 nvxkpyp-cpvkezjeu-ktcgzxoi(PF) 0.5-0.15-2 % Drops 1 drp OPHTHALMIC (EYE) DAILY Rx Instructions: 1 drop each eye daily at NOON etodolac 400 mg tablet 400 mg PO PRN PRN (Reason: Pain (Scale Score 4-6)) Patient Comments: TAKE ONE TABLET BY MOUTH EVERY EIGHT HOURS methocarbamol 500 mg tablet 500 mg PO ONCE PM lisinopril 5 mg tablet 40 mg PO DAILY escitalopram oxalate 20 mg tablet 20 mg PO DAILY lisinopril 40 mg tablet 40 mg PO DAILY rivastigmine 4.6 mg/24 hour patch 24 hour 1 patch topical DAILY Follow up/Referrals: Tim Cardoso MD [Primary Care Provider] - Daniela Mcneil MD [Physician] - (Two weeks) Visit Report/Discharge Packet Stand Alone Forms: Patient Portal/API Discharge Data Primary Care Provider: Tim Cardoso
[2024-08-10] MEDS: BISACODYL 10 MG SUPP PR (11:45)
--- NOTE | 2024-08-10 13:11 | PC.NURSE ---
Patient is A&OX3, VSS, afebrile on RA. She is pleasant and calls appropriately. She is able to get to BSC with x1 assist using FWW. She complains of constipation and is given colace, bisacodyl suppos as well as mirlax. She is cooperative with staff and polite. She participates with PT and OT this afternoon and is agreeable to care.
[2024-08-10] MEDS: LACTULOSE 20 GM/30 ML SOLUTION PO (13:53)
--- NOTE | 2024-08-10 14:07 | CM.DPC ---
DCP Cont. Reviewed EMR and team rounds for status updates. Called [facility] to confirm transport time for today, she said her DON decided NOT to accept pt at this time. Sent referral to [facility], they have no beds. Sent referral to [facility], they can accept. Need to confirm date/time.
--- NOTE | 2024-08-10 14:11 | CM.DPC ---
DCP Cont. Reviewed EMR and team rounds for status updates. Called [facility] to confirm transport time today, they stated that they changed their mind and cannot accept pt at this time. Sent referral to [facility], they can accept either Wednesday or Wednesday, call Fri. am to confirm. Updated pt and RN.
--- NOTE | 2024-08-10 15:12 | PT-IP ANOTE ---
Pt was checked on this morning and refused. She was checked on twice this afternoon and she continues to be on the commode to try for a BM. PT will check on pt tomorrow morning.
--- NOTE | 2024-08-10 15:18 | OT.IPNOTE ---
Attempted to see pt for OT and on the commode and not wanting to have OT assist at this time as focused on having a bowel movement.
--- NOTE | 2024-08-10 17:07 | PM.PN.1 ---
Subjective Subjective Date Patient Seen: 08/10/24 Time Patient Seen: 09:00 Interval history: CC: fall, R hip fracture She is feeling ok today but reports pain in hip is worse from working with PT yesterday. She is nauseous and not very hungry which is unusual for her. S/p R hip repair, plan is dc to SNF until family returns home from trip to help her at home. Mood is good plan discussed with family via their phone. Exam Vital Signs (past 8 hours): Fraction of Inspired Oxygen 21 SaO2/FiO2 Ratio 433 Oxygen Delivery Method Room Air Oxygen Flow Rate 0 Narrative Exam Narrative: pleasant sitting up in chair with family at chairside Const Other: well developed well nourished Resp Other: on room air clear to auscultation bilaterally Cardio Other: regular rate, S1/S2 GI Other: soft nontender active bowel sounds Other: draining yellow urine via [place] Neuro Other: alert awake conversant moving all limbs equally Extrem Other: R hip incision under clean dressing, distal neurovascular intact Objective Labs 08/09/24 06:45 08/09/24 06:45 [facility] Medical History H/O malignant neoplasm of breast Sciatica Spinal stenosis Arthritis Cellulitis of arm, right Lymphedema of arm Surgical History History of lymph node dissection of both axillae Social History household members: spouse and family Smoking Status: Never smoker alcohol intake: current Assessment & Plan Assessment & Plan narrative: Ms. Burt is a pleasant moderately demented woman who sustained a fall on her R hip at home while trying to address an errant bee. She was unable to stand and was brought in by EMS where she was found to have a broken hip. She did have a scratchy throat in response to recieving dialudid which resolved readily with solu medrol and benadryl. She was seen by ortho who were kindly able to repair her hip wtihout incident. She is working with PT however she is not yet able to go home alone - family is out of town at the moment on a trip but will be back within a week. She does have some moderate dementia at baseline and benefits from cueing. Plan will be to go to rehab tomorrow and work on strength. Discharge controlled norco scripts already sent to pharmacy via outside EMR. #R closed hip fracture s/p repair c/o ortho Doing well working with PT she is not needing oxycodone will plan on norcos for discharge pain control with tylenol/ibuprofen. Advise continue to work with PT. #Hypertension Blood pressure has been better since yesterday. I think we are okay where we are. But will follow as outpatient. No changes today. #hx of reaction to Dilaudid No issues at this time. Will follow. #Dementia, moderate Doing well with cueing from family - no need for prn haldol #History of UTI urine looks ok this admission so far #History of breast cancer In remission, stable #Retinal detachment stable continue home drops #Depression stable continue home SSRI Dispo: to rehab likely tomorrow Code status: DNR DVT prophylaxis: Lovenox Time spent: 50 min Time-Based Coding :: [TOTAL MINUTES] spent with patient and on the chart (including review of chart, obtaining history, exam, reviewing outside data, placing orders, documenting exam and treatment plan, and counseling patient) on [DATE].
[2024-08-10 18:00] VITALS: BP 133/53; PULSE 91; RESP 16; TEMP 37; O2SAT 95
[2024-08-10 20:01] VITALS: BP 117/61; PULSE 92; RESP 18; TEMP 36.9; O2SAT 98
[2024-08-10] MEDS: BUDESONIDE 0.5 MG/2 ML NEB INH (20:15)
[2024-08-10] MEDS: ESCITALOPRAM 10 MG TABLET 20 MG PO (21:09)
[2024-08-10] MEDS: SENNOSIDES 8.6 MG TABLET 17.2 MG PO (21:09)
[2024-08-10 21:16] VITALS: O2SAT 98
[2024-08-10] MEDS: FLEETS ENEMA 1 EACH PR (21:26)
[2024-08-11 05:55] VITALS: BP 122/68; PULSE 90; RESP 19; TEMP 37.1; O2SAT 95
--- NOTE | 2024-08-11 07:41 | PM.PNPO.1 ---
Subjective Subjective Interval history: Karla is a pleasant 84 year old female who is POD#3 s/p R femur IMN for a right intertroch hip fracture by Dr. Mcneil. This morning patient reports she is still having a lot of pain, worse with weight-bearing or any movement. She lives at home with her daughter and , is not able to provide much physical support however. Daughter is currently out of town on a cruise and will not return until Wednesday. She plans to d/c to SNF until daughter returns to home and can help provide care for patient. She denies any weakness, numbness or tingling in the RLE. She has been able to ambulate w/ PT around her room once and has been able to get up and use the restroom several times. Denies fever, chills, chest pain, SOB, nausea, vomiting. Exam Vital Signs (past 8 hours): - 08/11/24 05:55 Temperature 98.7 F Pulse Rate 90 Respiratory Rate 19 Blood Pressure 122/68 Pulse Oximetry 95 Fraction of Inspired Oxygen 21 SaO2/FiO2 Ratio 466 Oxygen Delivery Method Room Air Oxygen Flow Rate 0 Narrative Exam Narrative: Patient lying comfortably in bed during our interview today. No acute distress. AOx3. TTP along incision site. Grossly normal alignment of the RLE with moderate swelling throughout the right leg. 5/5 strength with DF, PF, EHL bilaterally. Gross sensation intact throughout bilateral lower extremities. Calves soft and non-tender bilaterally. SCDs are on and functioning. Brisk capillary refill, pulses intact. Post-surgical Aquacel dressing intact over the right thigh without moderate bloody drainage distally. Objective Labs 08/09/24 06:45 08/09/24 06:45 [facility] Medical History H/O malignant neoplasm of breast Sciatica Spinal stenosis Arthritis Cellulitis of arm, right Lymphedema of arm Surgical History History of lymph node dissection of both axillae Social History household members: spouse and family Smoking Status: Never smoker alcohol intake: current Assessment & Plan Post-op Postoperative Procedures: Procedures Operation Date: 08/08/24 16:15 Actual Procedure Side Surgeon p ORIF Hip/Intramedullary Hip Screw Right Daniela Mcneil MD Postoperative plan narrative: 1) Discharge disposition per medicine, likely discharge to SNF today. 2) Continue multimodal pain management with ice to the hip for additional pain control. 3) ASA b.i.d. for DVT prophylaxis. SCDs to be on and functioning while patient is in bed, encouraged movement. 4) Work w/ physical therapy to improve mobility. WBAT. 5) Keep dressing intact, clean, dry until 2 week postop appointment. No soaking the incision site in pools or tubs. No topical ointments or creams to the incision site. 6) Follow up at [facility] orthopedics in 2 weeks for a postop appointment and wound check. All patient's questions were answered, she demonstrates understanding and is in agreement with the plan. Call our office if any questions or concerns arise.
[2024-08-11] MEDS: HYDROCODONE/ACET 5/325 TABLET 2 TAB PO (07:52)
[2024-08-11] MEDS: OXYCODONE IR 5 MG TABLET PO ×2 (08:32→13:07)
[2024-08-11] MEDS: polyethylene glycoL 3350 17 GM POWD.PACK PO (08:33)
[2024-08-11] MEDS: DOCUSATE 100 MG CAPSULE PO (08:33)
[2024-08-11] MEDS: IBUPROFEN 400 MG TABLET PO ×2 (08:35→13:08)
[2024-08-11] MEDS: ASPIRIN EC 81 MG TABLET PO (08:35)
[2024-08-11 09:27] VITALS: PULSE 87; RESP 16; O2SAT 96
[2024-08-11] MEDS: BUDESONIDE 0.5 MG/2 ML NEB INH (09:27)
--- NOTE | 2024-08-11 09:48 | P.DS_ITS ---
History of Present Illness History of Present Illness Date Patient Seen: 08/11/24 Time Patient Seen: 09:48 Chief complaint: Fall on right hip Narrative: CC: fall Feeling ok today eating drinking up to beside commode. S/p R hip repair, plan is dc to SNF until family returns home from trip to help her at home. Mood is good plan discussed with family at bedside. Discharge Providers Provider Date of admission: 08/07/24 15:23 Discharge Date: 08/11/24 Primary care physician: Tim Cardoso MD Consults: 08/07/24 15:17 Consult to Orthopedic Surgery Urgent Comment: Consulting Provider: Daniela Mcneil Reason for consultation: hip fracture Has provider been notified: Yes 08/07/24 18:01 Consult to Discharge Planning Routine Comment: 08/08/24 18:31 Consult to Discharge Planning Routine Comment: Consult to Occupational Therapy Evaluate & Treat Comment: Physician Instructions: Evaluate and treat Consult to Physical Therapy Evaluate & Treat Comment: Physician Instructions: Evaluate and Treat Discharge provider: Misael Gaming MD Summary Hospital Course Discharge Diagnosis: #R closed hip fracture s/p repair c/o ortho #Hypertension #hx of reaction to Dilaudid #Dementia, moderate #History of UTI #History of breast cancer #Retinal detachment #Depression Hospital Course: Ms. Burt is a pleasant moderately demented woman who sustained a fall on her R hip at home while trying to address an errant bee. She was unable to stand and was brought in by EMS where she was found to have a broken hip. She did have a scratchy throat in response to receiving dialudid which resolved readily with solu medrol and benadryl. She was seen by ortho who were kindly able to surgically repair her hip without incident. She is working with PT however she is not yet able to go home alone - family is out of town at the moment on a trip but will be back within a week. She does have some moderate dementia at baseline and benefits from cueing. Plan will be to go to SNF and work on strength. Discharge controlled norco scripts already sent to pharmacy via outside EMR. Status at Discharge Cognitive/behavioral status at discharge: at baseline, confused Functional status at discharge: uses cane/walker Overall status at discharge: patient is progressing back to baseline Exam Vital Signs (past 8 hours): - 08/11/24 05:55 10/04/24 09:27 Temperature 98.7 F Pulse Rate 90 87 Respiratory Rate 19 16 Blood Pressure 122/68 Pulse Oximetry 95 96 Oxygen Delivery Method Room Air Fraction of Inspired Oxygen 21 SaO2/FiO2 Ratio 466 Oxygen Delivery Method Room Air Oxygen Flow Rate 0 Narrative Exam Narrative: pleasant laying in bed with family Const Other: well nourished well developed Resp Other: clear to auscultation bilaterally Cardio Other: regular rate, s1/s2 no pedal edema GI Other: soft nontender nondistended Extrem Other: R hip incisions under dressings just changes yesterday looks like some dried blood no discharge minimal surrounding erythema Objective Labs 08/09/24 06:45 08/09/24 06:45 PFS Medical History H/O malignant neoplasm of breast Sciatica Spinal stenosis Arthritis Cellulitis of arm, right Lymphedema of arm Surgical History History of lymph node dissection of both axillae Social History household members: spouse and family Smoking Status: Never smoker alcohol intake: current Discharge Assessment & Plan Assessment and Plan Assessment: #R closed hip fracture s/p repair c/o ortho Doing well working with PT she is not needing oxycodone will plan on norcos for discharge pain control with tylenol/ibuprofen. Norcos have been sent to outside pharmacy. Advise continue to work with PT. #Hypertension Blood pressure doing well on home regimen #hx of reaction to Dilaudid No issues at this time. Will follow. #Dementia, moderate Doing well with cueing from family - no need for prn haldol #History of UTI urine looks ok this admission so far #History of breast cancer In remission, stable #Retinal detachment stable continue home drops #Depression stable continue home SSRI Dispo: to [facility] Code status: DNR DVT prophylaxis: Lovenox PCP: Walker - f/up up after dc from facility Discharge Plan Discharge Plan Patient Disposition: SNF Transfer to: [facility] Discharge orders & Medications Prescriptions: New acetaminophen 325 mg Tablet 650 mg PO Q6H PRN (Reason: Fever/Mild Pain (1-3)) Qty: 20 0RF hydrocodone-acetaminophen 5-325 mg Tablet 2 tab PO Q4H PRN (Reason: Pain, Severe (7-10)) Qty: 30 0RF ibuprofen 400 mg Tablet 400 mg PO Q4H PRN (Reason: Pain, Mild (1-3)) Qty: 20 0RF docusate sodium 100 mg Capsule 100 mg PO BID Qty: 20 0RF ondansetron 4 mg Tablet,Disintegrating 4 mg PO Q4HR PRN (Reason: Nausea And Vomiting) Qty: 20 0RF Continued aspirin [Adult Aspirin Regimen] 81 mg tablet,delayed release (DR/EC) 81 mg PO BEDTIME hydrochlorothiazide 25 mg tablet 25 mg PO DAILY loratadine 10 mg Tablet 10 mg PO DAILY doxycycline hyclate 100 mg capsule 100 mg PO BID Qty: 20 0RF melatonin 3 mg Capsule 3 mg PO BEDTIME PRN (Reason: Sleep) brimonidine-dorzolamide (PF) 0.15-2 % Drops 1 drp OPHTHALMIC (EYE) TID Rx Instructions: 1 drop each eye at 0800 and 1700 zewwsvt-whjpxxemg-gwztaaci(PF) 0.5-0.15-2 % Drops 1 drp OPHTHALMIC (EYE) DAILY Rx Instructions: 1 drop each eye daily at NOON etodolac 400 mg tablet 400 mg PO PRN PRN (Reason: Pain (Scale Score 4-6)) Patient Comments: TAKE ONE TABLET BY MOUTH EVERY EIGHT HOURS methocarbamol 500 mg tablet 500 mg PO ONCE PM lisinopril 5 mg tablet 40 mg PO DAILY escitalopram oxalate 20 mg tablet 20 mg PO DAILY lisinopril 40 mg tablet 40 mg PO DAILY rivastigmine 4.6 mg/24 hour patch 24 hour 1 patch topical DAILY No Action fluticasone propion-salmeterol 250-50 mcg/dose blister with device 1 ea INHALATION BID Follow up/Referrals: Tim Cardoso MD [Primary Care Provider] - Daniela Mcneil MD [Physician] - (Two weeks) Visit Report/Discharge Packet Stand Alone Forms: Patient Portal/API Discharge Data Primary Care Provider: Tim Cardoso
--- NOTE | 2024-08-11 10:48 | CM.DPC ---
DCP Continued: Reviewed EMR and team rounds for pt?s medical status. Per Provider, pt cleared for discharge to SNF today ([facility]). Pt accepted for a transport time of 1300 by [facility]. DCP notified LIZZY CASILLAS. PASRR and clinicals sent to SNF. Requesting narcotic prescription to be printed and signed so SNF can send to their pharmacy. Provider notified and kindly coordinating. Plan: Anticipating discharge to SNF at 1300 via [facility]. CM Team will continue to follow for coordination of discharge plans. RAMONA Aguiar
--- NOTE | 2024-08-11 11:15 | PT.IPTN ---
Current Diagnoses Hypo-osmolality and hyponatremia (08/07/24) Fracture of unspecified part of neck of right femur, initial encounter for closed fracture (08/07/24) Unspecified fall, initial encounter (08/07/24) Surgery Performed Operation Date: 08/08/24 16:15 Actual Procedures p ORIF Hip/Intramedullary Hip Screw(Right) - Daniela Mcneil MD Physical Therapy Treatment Note M2 PT-IP Current Condition Start: 08/09/24 12:39 Freq: NEEDED Status: Active Protocol: Document 08/09/24 11:25 AB (Rec: 08/09/24 12:53 AB [id number]) Physical Therapy Current Condition Current Condition Evaluation Date 08/09/24 Treatment Diagnosis R hip fx s/p IM nailing; difficulty in walking Onset Date 08/07/24 M3 PT-IP Subjective Start: 08/09/24 12:39 Freq: NEEDED Status: Active Protocol: Document 08/11/24 11:31 TS (Rec: 08/11/24 11:41 TS [id number]) Subjective Physical Therapy Visit Type Type Treatment Note Visit Start Time 11:15 Visit Stop Time 11:30 Number of [employer]ENT Visits 1 Physical Therapy Visit Comments Patient Comments Pt found sitting up in the chair, she is agreeable to PT. Therapy Pain Assessment Pain When Pain Assessed At Rest Pain Present Pain Present Pain Reported M4 PT-IP Mobility and Gait Start: 08/09/24 12:39 Freq: NEEDED Status: Active Protocol: Document 08/11/24 11:31 TS (Rec: 08/11/24 11:41 TS [id number]) PT-Transfer Assessment Sit to and From Stand Sit to and from Stand Moderate Assistance,1 Person Assistance,Use of Upper Extremities Equipment Transfer Assistive Device Gait Belt,Front Wheeled Walker Orthotic/Prosthetic Devices or Brace: Yes Comments Mobility Comments STS with FWW ModA with cues for pushing from arms of chair . She ambulates ~30' in the room CGA/SBA with use of FWW and a step to gait. Pt ambulates back to the chair, was let with family in the room, all needs met. Gait Assessment Gait Gait Assistance Required: Standby Assistance,Contact Guard Assist Distance (Feet) 30 Able to Maintain Weight Bearing Status Yes During Gait Assistive Devices Assistive Device Gait Belt,Front Wheeled Walker Orthotic/Prosthetic Devices or Brace: Yes Gait Deviations General Gait Pattern Antalgic,Decreased Stride Length,Decreased Feet Clearance Factors Limiting Gait Function Factors Limiting Gait Function Decreased Activity Tolerance, Decreased Strength,Limited Range of Motion,Pain,Poor Balance,Poor Safety Awareness PT-Balance Assessment Sitting Balance and Reactions Static Sitting Balance Ability Fair Dynamic Sitting Balance Ability Fair Standing Balance and Reactions Static Standing Balance Ability Fair Dynamic Standing Balance Ability Fair Device Used FWW M5 PT-IP Objective Assessments Start: 08/09/24 12:39 Freq: NEEDED Status: Active Protocol: Document 08/09/24 11:25 AB (Rec: 08/09/24 12:53 AB [id number]) Orientation Orientation/Cognition Level of Alertness Alert Orientation Name,Situation Language Function Ability Hard of Hearing Safety Awareness Decreased Safety Awareness Memory Description Short Term Impaired Gross Range of Motion Lower Extremity ROM Assessment Within Functional Limits Strength Lower Extremity Strength Assessment Right Impaired Hip 3-/5 Knee 3+/5 Coordination Assessment Gross Coordination Gross Coordination WNL Sensation Assessment Sensation Gross Sensation WNL Muscle Tone Muscle Tone WNL Yes M6 PT-IP Treatment Start: 08/09/24 12:39 Freq: NEEDED Status: Active Protocol: Document 08/11/24 11:31 TS (Rec: 08/11/24 11:41 TS [id number]) Physical Therapy Treatment Education Education Provided Weight Bearing Status,Safety M7 PT-IP Assessment and Plan Start: 08/09/24 12:39 Freq: NEEDED Status: Active Protocol: Document 08/11/24 11:31 TS (Rec: 08/11/24 11:41 TS [id number]) PT Summary Assessment and Plan Potential Rehabilitation Potential Fair Summary Impairments Pain,ROM,Strength,Balance, Coordination,Sensation,Tone, Cognition,Bed Mobility, Transfers,Gait,Activity Tolerance Progress Towards Goals Progressing Toward Goals Assessment Summary Karla is making progress with her mobility. She is ModA to stand with FWW from the lower surface of the chair. She progressed her gait to ~30'SBA /CGA with FWW, has good balance with no buckling. PT will continue to recommend SNF to progress functional mobility and strength. Goals Bed Mobility Goal Minimal Assistance Transfer Goal Minimal Assistance,Front Wheeled Walker Gait Goal Minimal Assistance,Front Wheel Walker Gait Distance 50 Other Goals improve bed mobility, transfers, ambulation using FWW ~ 200 ft SBA up/down 3 steps L rail ascending SBA Days to Meet Goals 10 Frequency of Treatment Other frequency 1-2x/day Treatment Plan Physical Therapy Treatment Plan Bed Mobility Training,Transfer Training,Gait Training, Therapeutic Exercise,Balance Retraining,Post Op Education, Discharge Planning,Hot or Cold Pack,Neuromuscular Re-ed, Coordination Retraining,Manual Therapy Precautions Other Precautions falls Weight Bearing Status Weight Bearing Status Weight Bear as Tolerated Allowed Weight Bearing Amount (enter % RLE WBAT or #) (%) Recommendations To Nursing Amount of Assist Needed 1 Person Assist Discharge Recommendations PT Discharge Recommendations SNF Rehab Transportation Needs at Discharge Wheelchair/Cabulance
--- NOTE | 2024-08-11 14:24 | PC.NURSE ---
Patient is A&OX2-3 forgetful. VSS, afebrile this a.m. c/o pain to R hip, she had not had PRN pain medications overnight. She called appropriately for assistance to [facility] and had calledmultiple times to got [facility] for BM.Although she had several very small BM yesterday she wasn't able to have a BM this a.m. She tolerates lunch well. She is cleared for discharge to SNF with [facility] today. Report called to Seema at .She verbalizes understanding and is agreeable to going to rehab for discharge today. Tonia at bedside supportive. Facility designee arrives to transport patient at 1325 to go to [facility] via w/ch with all of her belongings and discharge packet.
== END 2024-08-11 13:25 | DRG 481 ==
LOC: ED 15:09 → AC 15:24
PROVIDERS: Orthopaedic Surgery; Admitting Provider Family Medicine; Emergency Provider Emergency Medicine; PCP Family Medicine; Referring Provider Emergency Medicine; Visit Provider Family Medicine
PROC: 0QS606Z Reposition Right Upper Femur with Intramedullary Internal Fixation Device, Open Approach (ICD-10-PCS; CPT 27245; principal; 2024-08-08 16:15)
DX: S72.141A Displaced intertrochanteric fracture of right femur, initial encounter for closed fracture (principal); E87.1 Hypo-osmolality and hyponatremia; I10 Essential (primary) hypertension; T40.2X5A Adverse effect of other opioids, initial encounter; F32.A Depression, unspecified; F03.B0 Unspecified dementia, moderate, without behavioral disturbance, psychotic disturbance, mood disturbance, and anxiety; R09.89 Other specified symptoms and signs involving the circulatory and respiratory systems; W01.0XXA Fall on same level from slipping, tripping and stumbling without subsequent striking against object, initial encounter; Z87.440 Personal history of urinary (tract) infections; Z66 Do not resuscitate; Z85.3 Personal history of malignant neoplasm of breast; Z86.69 Personal history of other diseases of the nervous system and sense organs
CPT/HCPCS: 36415; 71045; 73502; 76000; 80053; 81001; 84484; 85025; 86850; 86900; 86901; 93005; 93010; 94640; 96361; 96374; 96375; 97162; 97166; 97530; 97535; 99284; 99285; J0690; J1100; J1170; J1200; J1630; J2270; J2405; J2704; J2919; J7613

== ENCOUNTER 2025-07-13 21:27 | Inpatient (IN) | payer MEDICARE, SELFPAY ==
[2024-08-07 18:00] VITALS: BMI 22.8
[2025-07-13 22:27] VITALS: BP 213/96; PULSE 60; RESP 18; TEMP 36.8; O2SAT 99
--- NOTE | 2025-07-13 23:22 | DI.US.S_ITS ---
PROCEDURE: US [facility] VENOUS UP EXTREM RT INDICATIONS: right upper extremity swelling TECHNIQUE: Real-time imaging, as well as color and pulse Doppler interrogation, was performed of the upper extremity deep veins from the inferior neck to the antecubital fossa. COMPARISON: [facility], , [facility] VENOUS UP EXTREM RT, 10/12/2023, 8:06. FINDINGS: The internal jugular vein, visualized portions of the subclavian vein, axillary, and brachial veins are free of intraluminal thrombus. Where physically possible, the veins are normally compressible. Color and pulse Doppler demonstrate normal intraluminal flow, with expected phasicity and pulsatility. Additional scanning of the cephalic and basilic veins of the superficial system demonstrates normal compressibility, without thrombus. IMPRESSION: No findings of upper extremity deep venous thrombosis can be seen. Dictated by: Luis Bah M.D. on 07/14/2025 at 0:39 Approved by: Luis Bah M.D. on 07/14/2025 at 0:39
--- NOTE | 2025-07-13 23:24 | ED.EXTPRO ---
HPI - Extremity Problem General Chief complaint: Extremity Problem,Nontraumatic Stated complaint: lymphedema right arm Time Seen by Provider: 07/13/25 23:22 Source: patient Mode of arrival: Ambulatory History of Present Illness HPI Narrative: 83-year-old female history of glaucoma, hypertension, dementia, breast cancer with right mastectomy and lymphadenectomy and recurrent cellulitis for right upper extremity. Patient has had episodes in the past has required admission and IV antibiotics. Reports a allergy to penicillin has recently been on cephalexin for a UTI appears that she received Rocephin and doxycycline at her last admission. No fevers. No chest pain or shortness of breath. She notes some discomfort in her arm. She notes erythema and warmth and increased swelling from her chronic swelling. Patient denies any nausea or vomiting. No other GI symptoms. Was recently treated for UTI with cephalexin symptoms have improved. She follows with Dr. Cardoso. Lives with her , daughter and son-in-law. Related Data Home Medications ?Medication ?Instructions ?Recorded ?Confirmed brimonidine 0.15 %-dorzolamide 2 % 1 drp ophthalmic (eye) TID 07/23/20 08/07/24 (PF) eye drops melatonin 3 mg capsule 3 mg PO BEDTIME PRN Sleep 07/23/20 08/07/24 timolol 0.5 %-brimonidine 0.15 1 drp ophthalmic (eye) DAILY 07/23/20 08/07/24 %-dorzolamide 2 % (PF) eye drops aspirin 81 mg tablet,delayed 81 mg PO BEDTIME 08/29/20 08/07/24 release (Adult Aspirin Regimen) etodolac 400 mg tablet 400 mg PO PRN PRN Pain (Scale 11/13/22 08/07/24 Score 4-6) lisinopril 5 mg tablet 40 mg PO DAILY 10/12/23 08/07/24 methocarbamol 500 mg tablet 500 mg PO ONCE PM 10/12/23 08/07/24 hydrochlorothiazide 25 mg tablet 25 mg PO DAILY 05/13/24 08/07/24 loratadine 10 mg tablet 10 mg PO DAILY 05/13/24 08/07/24 escitalopram oxalate 20 mg tablet 20 mg PO DAILY 08/08/24 08/08/24 lisinopril 40 mg tablet 40 mg PO DAILY 08/08/24 08/09/24 rivastigmine 4.6 mg/24 hour 1 patch topical DAILY 08/08/24 08/08/24 transdermal patch fluticasone 250 mcg-salmeterol 50 1 ea inhalation BID 08/10/24 08/10/24 mcg/dose blistr powdr for inhalation Previous Rx's ?Medication ?Instructions ?Recorded doxycycline hyclate 100 mg capsule 100 mg PO BID #20 caps 05/16/24 acetaminophen 325 mg tablet 650 mg (2 x 325 mg) PO Q6H PRN 08/10/24 Fever/Mild Pain (1-3) #20 tabs docusate sodium 100 mg capsule 100 mg PO BID #20 caps 08/10/24 hydrocodone 5 mg-acetaminophen 325 2 tab PO Q4H PRN Pain, Severe 08/10/24 mg tablet (7-10) #30 tabs ibuprofen 400 mg tablet 400 mg PO Q4H PRN Pain, Mild (1-3) 08/10/24 #20 tabs ondansetron 4 mg disintegrating 4 mg PO Q4HR PRN Nausea And 08/10/24 tablet Vomiting #20 tabs Allergies Allergy/AdvReac Type Severity Reaction Status Date / Time latex (LATEX) Allergy Severe RASH Verified 11/13/22 11:23 Penicillins (PENICILLINS) Allergy Severe ALL OVER Verified 11/13/22 11:23 BODY WELTS hydromorphone Allergy Intermediate ITCHING Verified 08/07/24 16:59 Sulfa (Sulfonamide Allergy Unknown WAS GIVEN Verified 11/13/22 11:23 Antibiotics) (SULFA WHEN BABY, (SULFONAMIDE ANTIBIOTICS)) UNSURE IF STILL HAS ALLERGY Review of Systems Review of Systems ROS Unobtainable: All systems reviewed & are unremarkable except as noted in HPI and below Patient History Medical History (Updated 07/14/25 @ 03:10 by Leanna Feng DO) H/O malignant neoplasm of breast Sciatica Spinal stenosis Arthritis Cellulitis of arm, right Lymphedema of arm Surgical History History of lymph node dissection of both axillae Social History household members: spouse and family alcohol intake: current alcohol intake frequency: holidays/special occasions only Exam Narrative Exam Narrative: GENERAL: Alert and oriented, self and location some mild confusion. Family at bedside states this is normal. She is alert and conversant. HEENT: Head normocephalic, atraumatic, EOMI, pupils reactive, face symmetric, moist mucous membranes NECK: Supple, full range of motion CARDIOVASCULAR: Regular rate and rhythm without murmurs, rubs or gallops. RESPIRATORY: Breath sounds equal bilaterally, no wheezes rales or rhonchi. ABDOMEN: Soft, nontender. Normoactive bowel sounds all 4 quadrants. No guarding or rebound, rigidity, no mass : No CVA tenderness EXTREMITIES: Normal range of motion, no clubbing, patient has right upper extremity swelling in comparison to the left, erythema extending from the hand all the way up to the shoulder circumferential, there is some warmth. No open wounds or weeping. Neurovascularly intact. The +radial pulse. Armature Rewinder are equal bilaterally. 5/5 muscle strength. NEUROLOGICAL: Cranial nerves II through XII grossly intact. Moving all extremities SKIN: Warm, dry, no petechiae, no rashes or lesions. Initial Vital Signs Initial Vital Signs: Vital Signs Temperature 98.2 F 07/13/25 22:27 Pulse Rate 60 07/13/25 22:27 Respiratory Rate 18 07/13/25 22:27 Blood Pressure 213/96 H 07/13/25 22:27 Pulse Oximetry 99 07/13/25 22:27 Oxygen Delivery Method Room Air 07/13/25 22:27 Course Orders Ordered: ED Orders 07/13/25 23:22 periph venous up extrem rt Stat 07/13/25 23:58 Blood Culture Stat Complete Blood Count AUTO DIFF Stat Comprehensive Metabolic Panel Stat Lactate (Lactic Acid) Stat Procalcitonin Stat Vital Signs Vital signs: Vital Signs - 8 hr 07/13/25 22:27 Temperature 98.2 F Pulse Rate 60 Respiratory Rate 18 Blood Pressure 213/96 H Pulse Oximetry 99 Oxygen Delivery Method Room Air MDM - Extremity (Nontraumatic) Lab Data 07/13/25 23:58 07/13/25 23:58 Labs: Lab Results 07/13/25 Range/Units 23:58 WBC 5.1 (4.5-11.0) X10^3/uL RBC 4.33 (4.0-5.2) X10^6/uL Hgb 13.2 (12.0-16.0) g/dL Hct 37.6 (36-46) % MCV 86.7 (80-100) fL MCH 30.5 (26-34) PG MCHC 35.2 (30-36) % RDW 13.2 (11.6-14.8) % Plt Count 235 (150-400) X10^3/uL Neut % (Auto) 53.3 (50-75) % Lymph % (Auto) 30.4 (25-40) % Glasscock % (Auto) 13.4 (3-14) % Eos % (Auto) 2.3 (2-4) % Baso % (Auto) 0.6 (0-2) % Neut # (Auto) 2700 (6021-8754) /uL Lymph # (Auto) 1500 (1515-7750) /uL Glasscock # (Auto) 700 (0-900) /uL Eos # (Auto) 100 (0-450) /uL Baso # (Auto) 0 (0-100) /uL Sodium 130 L (137-145) mmol/L Potassium 3.3 L (3.4-5.1) mmol/L Chloride 94 L (98-107) mmol/L Carbon Dioxide 26 (22-32) mmol/L BUN 12 (7-17) mg/dL Creatinine 0.53 (0.52-1.04) mg/dL Estimated GFR > 60 (>60) mL/min BUN/Creatinine Ratio 22.6 H (6-22) Glucose 97 (70-99) mg/dL Lactate 0.9 (0.7-2.1) mmol/L Calcium 8.8 (8.4-10.2) mg/dL Total Bilirubin 1.3 (0.2-1.3) mg/dL AST 35 (14-36) IU/L ALT 16 (<35) IU/L Alkaline Phosphatase 90 (38-126) U/L Total Protein 7.4 (6.3-8.2) g/dL Albumin 4.5 (3.5-5.0) g/dL Globulin 2.9 (1.7-4.1) g/dL Albumin/Globulin Ratio 1.6 (1.0-2.8) Procalcitonin 0.082 (<0.5) ng/mL MDM Narrative Medical decision making narrative: Labs show white count hemoglobin and platelets which are appropriate, coags are negative, sodium is 130 consistent with priors 128 in August 2024 potassium 3.3 chloride 94 CO2 BUN and creatinine are appropriate. Glucose is 97 lactate 0.9 LFTs are negative procalcitonin 0.082. Right upper extremity DVT ultrasound is negative. Spoke with Dr. Cardoso, accepts for inpatient for cellulitis right upper extremity. We will give Rocephin and doxycycline based on patient's last visit response to this. Does ask for bridging orders. Patient is nontoxic does not appear septic at this time. Discharge Plan Departure Patient Disposition: Admitted As Inpatient Clinical Impression: Cellulitis of arm, right Admit Date/Time: 07/14/25 03:07 Admit Provider: Tim Cardoso
[2025-07-14] VITALS (40 sets, daily range): BP systolic 112–216; BP diastolic 56–126; PULSE 58–101; RESP 15–22; TEMP 36.5–36.9; O2SAT 88–100; BMI 27.4
[2025-07-14 00:17] LABS: Add Manual Diff / Slide Review NO; Hematocrit 37.6 % (36-46); Hemoglobin 13.2 g/dL (12.0-16.0); Lymphocytes Absolute Auto 1500 /uL (1100-4500); Mean Corpuscular HGB Conc 35.2 % (30-36); Mean Corpuscular Hemoglobin 30.5 PG (26-34); Mean Corpuscular Volume 86.7 fL (80-100); Platelet Count 235 X10^3/uL (150-400)
[2025-07-14 00:27] LABS: Lactate (Lactic Acid) 0.9 mmol/L (0.7-2.1)
[2025-07-14 00:28] LABS: Alanine Aminotransferase 16 IU/L (<35); Albumin 4.5 g/dL (3.5-5.0); Albumin Globulin Ratio 1.6 (1.0-2.8); Alkaline Phosphatase 90 U/L (38-126); Blood Urea Nitrogen 12 mg/dL (7-17); Calcium 8.8 mg/dL (8.4-10.2); Carbon Dioxide 26 mmol/L (22-32); Chloride 94 mmol/L (98-107); Estimated Glomerular Filt Rate > 60 mL/min (>60); Globulin 2.9 g/dL (1.7-4.1); Glucose 97 mg/dL (70-99); HEMOLYSIS < 15 (0-50); Potassium 3.3 mmol/L (3.4-5.1); Sodium 130 mmol/L (137-145); Total Protein 7.4 g/dL (6.3-8.2)
[2025-07-14 00:45] LABS: Procalcitonin 0.082 ng/mL (<0.5)
[2025-07-14] MEDS: cefTRIAXone 2,000 MG in SODIUM CHLORIDE 0.9% 100 ML 200 MG IV (04:06)
[2025-07-14] MEDS: SODIUM CHLORIDE 0.9% 1,000 ML 125 ML IV (04:06)
[2025-07-14] MEDS: DOXYCYCLINE 100 MG in SODIUM CHLORIDE 0.9% 100 ML IV ×2 (04:48→17:56)
--- NOTE | 2025-07-14 08:40 | PC.NURSE ---
Pt ambulated to bathroom with standby assist, cane and steady gait but states that she does feel dizzy when ambulating. Red warm rash on right upper extremity & urticaria on chest that she states feels warm and was not there last night. Denies sob, cp, difficulty breathing. Pt a&Ox4.
--- NOTE | 2025-07-14 09:36 | PC.NURSE ---
Dr Schaefer notified of BP 230/86. No new orders.
--- NOTE | 2025-07-14 10:39 | PC.NURSE ---
Pt up ambulating in chopra to BR. Steady gait noted. Returned to room.
--- NOTE | 2025-07-14 11:38 | PM.HP.1 ---
History of Present Illness History of Present Illness Date Patient Seen: 07/14/25 Time Patient Seen: 11:39 Date of Onset of Symptoms: 07/13/25 Chief complaint: lymphedema right arm Narrative: Patient a an 84-year-old female well known to me with severe dementia and history of hypertension and infection right arm. Patient has had lymphedema since her breast surgery. She has had intermittent periods of very fast onset cellulitis in her right arm. Last occurred 05/13/2024. Patient has been in the usual state of health until last night when she began having increasing pain and redness in her right arm. Doing the usual follow. Where it gets red gets hot and she has increased pain. She is otherwise doing well. She has had no headache visual symptoms nausea vomiting diarrhea urinary complaints chest pain shortness for breath. Actually does not feel as sick as sometimes she has in the past. With no fever. She otherwise has no other new changes or complaints. Although this morning she has a rash she thinks she was started on her chest. [facility] Medical History H/O malignant neoplasm of breast Sciatica Spinal stenosis Arthritis Cellulitis of arm, right Lymphedema of arm Surgical History History of lymph node dissection of both axillae Social History household members: spouse and family alcohol intake: current Meds Home Medications and Allergies Home Medications ?Medication ?Instructions ?Recorded ?Confirmed ?Type brimonidine 0.15 %-dorzolamide 2 % 1 drp ophthalmic (eye) TID 07/23/20 08/07/24 History (PF) eye drops melatonin 3 mg capsule 3 mg PO BEDTIME PRN Sleep 07/23/20 08/07/24 History timolol 0.5 %-brimonidine 0.15 1 drp ophthalmic (eye) DAILY 07/23/20 08/07/24 History %-dorzolamide 2 % (PF) eye drops aspirin 81 mg tablet,delayed 81 mg PO BEDTIME 08/29/20 08/07/24 History release (Adult Aspirin Regimen) etodolac 400 mg tablet 400 mg PO PRN PRN Pain (Scale 11/13/22 08/07/24 History Score 4-6) lisinopril 5 mg tablet 40 mg PO DAILY 10/12/23 08/07/24 History methocarbamol 500 mg tablet 500 mg PO ONCE PM 10/12/23 08/07/24 History hydrochlorothiazide 25 mg tablet 25 mg PO DAILY 05/13/24 08/07/24 History loratadine 10 mg tablet 10 mg PO DAILY 05/13/24 08/07/24 History doxycycline hyclate 100 mg capsule 100 mg PO BID #20 caps 05/16/24 08/07/24 Rx escitalopram oxalate 20 mg tablet 20 mg PO DAILY 08/08/24 08/08/24 History lisinopril 40 mg tablet 40 mg PO DAILY 08/08/24 08/09/24 History rivastigmine 4.6 mg/24 hour 1 patch topical DAILY 08/08/24 08/08/24 History transdermal patch acetaminophen 325 mg tablet 650 mg (2 x 325 mg) PO Q6H PRN 08/10/24 Rx Fever/Mild Pain (1-3) #20 tabs docusate sodium 100 mg capsule 100 mg PO BID #20 caps 08/10/24 Rx fluticasone 250 mcg-salmeterol 50 1 ea inhalation BID 08/10/24 08/10/24 History mcg/dose blistr powdr for inhalation hydrocodone 5 mg-acetaminophen 325 2 tab PO Q4H PRN Pain, Severe 08/10/24 Rx mg tablet (7-10) #30 tabs ibuprofen 400 mg tablet 400 mg PO Q4H PRN Pain, Mild (1-3) 08/10/24 Rx #20 tabs ondansetron 4 mg disintegrating 4 mg PO Q4HR PRN Nausea And 08/10/24 Rx tablet Vomiting #20 tabs Allergies Allergy/AdvReac Type Severity Reaction Status Date / Time latex (LATEX) Allergy Severe RASH Verified 11/13/22 11:23 Penicillins (PENICILLINS) Allergy Severe ALL OVER Verified 11/13/22 11:23 BODY WELTS hydromorphone Allergy Intermediate ITCHING Verified 08/07/24 16:59 Sulfa (Sulfonamide Allergy Unknown WAS GIVEN Verified 11/13/22 11:23 Antibiotics) (SULFA WHEN BABY, (SULFONAMIDE ANTIBIOTICS)) UNSURE IF STILL HAS ALLERGY Review of Systems Review of Systems Narrative: Negative except above Exam Vital Signs (past 8 hours): - 07/14/25 03:52 07/14/25 05:30 07/14/25 06:01 Pulse Rate 67 69 Respiratory Rate 15 Blood Pressure 193/86 H 138/61 Pulse Oximetry 94 92 Oxygen Delivery Method Room Air 07/14/25 07:00 07/14/25 07:01 07/14/25 07:01 Pulse Rate 66 66 Respiratory Rate Blood Pressure 156/67 H Pulse Oximetry 96 95 Oxygen Delivery Method 07/14/25 07:30 07/14/25 07:31 07/14/25 07:31 Pulse Rate 78 73 Respiratory Rate Blood Pressure 202/83 H Pulse Oximetry 95 95 Oxygen Delivery Method Oxygen Delivery Method Room Air Narrative Exam Narrative: Alert elderly female smiling interactive in no acute distress lying in stretcher. HEENT exam mucous membranes moist. Neck supple without adenopathy JVD or bruits no axillary adenopathy lungs are clear heart is regular rate and rhythm right arm forearm and up into her biceps is swollen mildly tender and erythematous. Good capillary refill. Abdomen is benign. Extremities without cyanosis clubbing edema. Skin. Chest with a 10 cm central erythematous somewhat violaceous almost dark red with some scaling Objective Labs 07/13/25 23:58 07/13/25 23:58 Labs: Laboratory Results - last 24 hr 07/13/25 23:58 WBC 5.1 RBC 4.33 Hgb 13.2 Hct 37.6 MCV 86.7 MCH 30.5 MCHC 35.2 RDW 13.2 Plt Count 235 Neut % (Auto) 53.3 Lymph % (Auto) 30.4 [place] % (Auto) 13.4 Eos % (Auto) 2.3 Baso % (Auto) 0.6 Neut # (Auto) 2700 Lymph # (Auto) 1500 [place] # (Auto) 700 Eos # (Auto) 100 Baso # (Auto) 0 Sodium 130 L Potassium 3.3 L Chloride 94 L Carbon Dioxide 26 BUN 12 Creatinine 0.53 Estimated GFR > 60 BUN/Creatinine Ratio 22.6 H Glucose 97 Lactate 0.9 Calcium 8.8 Total Bilirubin 1.3 AST 35 ALT 16 Alkaline Phosphatase 90 Total Protein 7.4 Albumin 4.5 Globulin 2.9 Albumin/Globulin Ratio 1.6 Procalcitonin 0.082 Assessment & Plan Assessment & Plan narrative: Cellulitis right arm. Does not appear to be septic. Cultures drawn. We will continue Rocephin and doxycycline for now. Unlikely to get any bacterial source. Will have to treat empirically. Usually responds pretty quickly. Will re-evaluate a.m.. Maybe able to go on oral medicine and home at that time. Will see how things go. It is unclear. Has taken 2-3 days in the past. Hypertension. Poorly controlled at this point will get back on usual meds and see how she does. Unclear whether her control has been good at home. She does not remember much about what is happening. New rash chest. It really looks more like an eczema than a medication reaction. Very defined very red with some scaling. Could this be an allergic reaction I guess it is possible. We are going to have to see how it goes. Will treat with hydrocortisone cream and see how she does. If the rash continues to worsen will have to discontinue antibiotics and switch. Severe dementia. Patient overall is stable. She is certainly interactive and seems happy. She has not traditionally been a problem with outbursts but will have to watch and see. She is worsened since the last time she was in the hospital. At this point I do not think we need to treat with any definitive medicines will just treat as needed. Family is here. Which helps. Code status DNR GI prophylaxis not needed. Disposition. Severe cellulitis which has in the past become worse and worse very quickly. Only responds to IV antibiotics. She is here now probably will be 48 hours but will have to see how she responds. Time-Based Coding :: [TOTAL MINUTES] spent with patient and on the chart (including review of chart, obtaining history, exam, reviewing outside data, placing orders, documenting exam and treatment plan, and counseling patient) on [DATE].
[2025-07-14] MEDS: ENOXAPARIN 40 MG/0.4 ML SYRINGE SUBCUT (11:52)
[2025-07-14] MEDS: ESCITALOPRAM 10 MG TABLET 20 MG PO (11:53)
[2025-07-14] MEDS: MAGNESIUM HYDROXIDE 30 ML UDC PO (11:53)
[2025-07-14] MEDS: BUDESONIDE 0.5 MG/2 ML NEB INH (19:47)
[2025-07-14] MEDS: ALBUTEROL 2.5 MG/3 ML NEB (ADULT) INH (19:47)
[2025-07-14] MEDS: ACETAMINOPHEN 325 MG TABLET 650 MG PO (20:51)
[2025-07-14] MEDS: SODIUM CHLORIDE 0.9% FLUSH 10 ML IV (20:51)
[2025-07-14] MEDS: ASPIRIN EC 81 MG TABLET PO (20:51)
[2025-07-14] MEDS: MELATONIN 3 MG TABLET PO (20:55)
[2025-07-15] MEDS: cefTRIAXone 2,000 MG in SODIUM CHLORIDE 0.9% 100 ML 200 MG IV (05:55)
[2025-07-15 06:38] LABS: Add Manual Diff / Slide Review NO; Hematocrit 34.3 % (36-46); Hemoglobin 12.3 g/dL (12.0-16.0); Lymphocytes Absolute Auto 1200 /uL (1100-4500); Mean Corpuscular HGB Conc 35.8 % (30-36); Mean Corpuscular Hemoglobin 30.7 PG (26-34); Mean Corpuscular Volume 85.9 fL (80-100); Platelet Count 212 X10^3/uL (150-400)
[2025-07-15] MEDS: DOXYCYCLINE 100 MG in SODIUM CHLORIDE 0.9% 100 ML IV (06:44)
[2025-07-15 06:56] LABS: Alanine Aminotransferase 14 IU/L (<35); Albumin 3.7 g/dL (3.5-5.0); Albumin Globulin Ratio 1.4 (1.0-2.8); Alkaline Phosphatase 63 U/L (38-126); Blood Urea Nitrogen 14 mg/dL (7-17); Calcium 8.7 mg/dL (8.4-10.2); Carbon Dioxide 27 mmol/L (22-32); Chloride 95 mmol/L (98-107); Estimated Glomerular Filt Rate > 60 mL/min (>60); Globulin 2.6 g/dL (1.7-4.1); Glucose 88 mg/dL (70-99); HEMOLYSIS 27 (0-50); Potassium 4.0 mmol/L (3.4-5.1); Sodium 129 mmol/L (137-145); Total Protein 6.3 g/dL (6.3-8.2)
[2025-07-15] MEDS: ALBUTEROL 2.5 MG/3 ML NEB (ADULT) INH (07:23)
[2025-07-15] MEDS: BUDESONIDE 0.5 MG/2 ML NEB INH (07:23)
[2025-07-15 07:24] VITALS: PULSE 77; RESP 18; O2SAT 96
[2025-07-15 08:00] VITALS: BP 189/81; PULSE 78; RESP 19; TEMP 36.1; O2SAT 100
[2025-07-15 08:17] VITALS: BP 189/81
[2025-07-15] MEDS: ESCITALOPRAM 10 MG TABLET 20 MG PO (08:17)
[2025-07-15] MEDS: ENOXAPARIN 40 MG/0.4 ML SYRINGE SUBCUT (08:18)
[2025-07-15] MEDS: ACETAMINOPHEN 325 MG TABLET 650 MG PO (08:18)
[2025-07-15] MEDS: SODIUM CHLORIDE 0.9% FLUSH 10 ML IV (08:19)
--- NOTE | 2025-07-15 09:59 | PM.DS.1 ---
History of Present Illness History of Present Illness Date Patient Seen: 07/15/25 Time Patient Seen: 10:00 Date of Onset of Symptoms: 07/13/25 Chief complaint: lymphedema right arm Narrative: Patient a an 84-year-old female well known to me with severe dementia and history of hypertension and infection right arm. Patient has had lymphedema since her breast surgery. She has had intermittent periods of very fast onset cellulitis in her right arm. Last occurred 05/13/2024. Patient has been in the usual state of health until last night when she began having increasing pain and redness in her right arm. Doing the usual follow. Where it gets red gets hot and she has increased pain. She is otherwise doing well. She has had no headache visual symptoms nausea vomiting diarrhea urinary complaints chest pain shortness for breath. Actually does not feel as sick as sometimes she has in the past. With no fever. She otherwise has no other new changes or complaints. Although this morning she has a rash she thinks she was started on her chest. Discharge Providers Provider Date of admission: 07/14/25 03:07 Discharge Date: 07/15/25 Primary care physician: Tim Cardoso MD Discharge provider: Tim Cardoso MD Summary Hospital Course Discharge Diagnosis: Right arm cellulitis recurrent Hypertension Rash chest Severe dementia Hospital Course: Right arm cellulitis recurrent. Patient has history of lymphedema in her right arm status post breast cancer surgery. She has intermittently had acute onset cellulitis which has gotten to sepsis. She came in pretty rapidly after about 12 hours of increasing pain in her right arm and redness. She was placed on doxycycline and Rocephin which has been used in the past. And within 12 hours has markedly improved. Over the last 24 hours she continued to improve she has no redness in her arm no tenderness no axillary adenopathy. And at this point will be switch to oral antibiotics and discharged home. She will follow-up with me in 2 weeks as she is already scheduled they will call if worsening or change treatment will be for 7 days. Hypertension. Patient has been mildly elevated here. Will see what her blood pressures at home. Will have them bring those numbers to me and we will adjust medication depending on home she has been overall good at home in the past. Rash chest. I suspect this is eczema type reaction but it is hard to tell I do not believe it is related to the antibiotics has gotten get an worsened daughter says has been there for some time. Will see how it does over the next 2 weeks we will consider treatment based on how it does. Severe dementia. No change. Continue usual meds. Was not address she did well while she was here. 37 minutes spent with the patient family nursing orders dictation Exam Vital Signs (past 8 hours): - 07/15/25 07:24 07/15/25 08:00 07/15/25 08:17 Temperature 96.9 F L Pulse Rate 77 78 Respiratory Rate 18 19 Blood Pressure 189/81 H 189/81 H Pulse Oximetry 96 100 Oxygen Delivery Method Room Air Oxygen Flow Rate 0 Fraction of Inspired Oxygen 21 Fraction of Inspired Oxygen 21 SaO2/FiO2 Ratio 457 Oxygen Delivery Method Room Air Oxygen Flow Rate 0 Narrative Exam Narrative: Alert confused female in no acute distress confused Lungs are clear heart is regular rate and rhythm right arm shows no erythema no tenderness no axillary adenopathy Objective Labs 07/15/25 05:50 07/15/25 05:50 Labs: Laboratory Results - last 24 hr 07/15/25 05:50 WBC 3.5 L RBC 4.00 Hgb 12.3 Hct 34.3 L MCV 85.9 MCH 30.7 MCHC 35.8 RDW 12.9 Plt Count 212 Neut % (Auto) 48.9 L Lymph % (Auto) 34.2 [place] % (Auto) 12.0 Eos % (Auto) 4.1 H Baso % (Auto) 0.8 Neut # (Auto) 1700 Lymph # (Auto) 1200 [place] # (Auto) 400 Eos # (Auto) 100 Baso # (Auto) 0 Sodium 129 L Potassium 4.0 Chloride 95 L Carbon Dioxide 27 BUN 14 Creatinine 0.47 L Estimated GFR > 60 BUN/Creatinine Ratio 29.8 H Glucose 88 Calcium 8.7 Total Bilirubin 1.0 AST 31 ALT 14 Alkaline Phosphatase 63 Total Protein 6.3 Albumin 3.7 Globulin 2.6 Albumin/Globulin Ratio 1.4 [facility] Medical History H/O malignant neoplasm of breast Sciatica Spinal stenosis Arthritis Cellulitis of arm, right Lymphedema of arm Surgical History History of lymph node dissection of both axillae Social History household members: spouse and family Smoking Status: Never smoker alcohol intake: former Discharge Assessment & Plan Assessment and Plan Assessment: Improve Plan of Treatment: Home Discharge Plan Discharge Plan Patient Disposition: Home Discharge orders & Medications Prescriptions: New doxycycline hyclate 100 mg capsule 100 mg PO BID Qty: 14 0RF cefuroxime axetil 500 mg tablet 500 mg PO BID Qty: 14 0RF Continued aspirin [Adult Aspirin Regimen] 81 mg tablet,delayed release (DR/EC) 81 mg PO BEDTIME hydrochlorothiazide 25 mg tablet 25 mg PO DAILY loratadine 10 mg Tablet 10 mg PO DAILY melatonin 3 mg Capsule 3 mg PO BEDTIME PRN (Reason: Sleep) brimonidine-dorzolamide (PF) 0.15-2 % Drops 1 drp OPHTHALMIC (EYE) TID Rx Instructions: 1 drop each eye at 0800 and 1700 lhnlhvf-afviutica-mqphtzlv(PF) 0.5-0.15-2 % Drops 1 drp OPHTHALMIC (EYE) DAILY Rx Instructions: 1 drop each eye daily at NOON etodolac 400 mg tablet 400 mg PO PRN PRN (Reason: Pain (Scale Score 4-6)) Patient Comments: TAKE ONE TABLET BY MOUTH EVERY EIGHT HOURS methocarbamol 500 mg tablet 500 mg PO ONCE PM PRN (Reason: muscle spasm) lisinopril 5 mg tablet 40 mg PO DAILY escitalopram oxalate 20 mg tablet 20 mg PO DAILY lisinopril 40 mg tablet 40 mg PO DAILY rivastigmine 4.6 mg/24 hour patch 24 hour 1 patch topical DAILY acetaminophen 325 mg Tablet 650 mg PO Q6H PRN (Reason: Fever/Mild Pain (1-3)) Qty: 20 0RF ibuprofen 400 mg Tablet 400 mg PO Q4H PRN (Reason: Pain, Mild (1-3)) Qty: 20 0RF docusate sodium 100 mg Capsule 100 mg PO BID Qty: 20 0RF ondansetron 4 mg Tablet,Disintegrating 4 mg PO Q4HR PRN (Reason: Nausea And Vomiting) Qty: 20 0RF fluticasone propion-salmeterol 250-50 mcg/dose blister with device 1 ea INHALATION BID valacyclovir 500 mg tablet 500 mg PO DAILY methenamine hippurate 1 gram tablet 1 g PO BID memantine 10 mg tablet 10 mg PO BID Follow up/Referrals: Tim Cardoso MD [Primary Care Provider, [facility]] - 2 Weeks Referral Note: Patient has appointment with me in 2 weeks already scheduled Discharge Health Status Multidrug resistant organism: No MDRO Diet/Activity/Treatments Diet: Diet as Tolerated Activity: As tolerated Skin/Wound/Dressing Care Report to your healthcare provider any signs of infection, such as:: chills, fever, night sweats, increased pain and unusual redness Visit Report/Discharge Packet Stand Alone Forms: Patient Portal/API, Stroke Signs & Symptoms Discharge Data Primary Care Provider: Tim Cardoso Quality VTE Deep Vein Thrombosis/Pulmonary Embolism Present on Admission: No
--- NOTE | 2025-07-15 12:41 | CM.DANOTE ---
Initial DCP Assessment Note Pt is a 84 yo female, resident of [place], admitted for management of right arm edema related to lymphedema. Patient has been discharged home w/family. PCP: Dr Khalif Cardoso Payer: FRANKIE/NUPUR Reviewed chart, met w/patient, her grand daughter and daughter by leon. Patient and sp live in a home that is joined by a long hallway to another home where their daughter and her family live- they had their home custom built that way. Daughter and family are available to patient 31/05. Patient walks indp, needs monitoring 31/05 related to cognitive impairment. No barriers identified at this time to patient's safe discharge home w/family to assist; close outpatient f/u recommended. Social work team will plan to follow clinical course closely in case any DC needs or concerns arise. ELANA Gan Discharge Planning/Care Management CM Discharge Assessment Start: 07/14/25 11:00 Freq: Status: Active Protocol: Document 07/15/25 12:39 WARD (Rec: 07/15/25 12:41 WARD [id number]) Discharge Planning Assessment Assigned Discharge ELANA [place] M[employer] Technician Provider Khalif Cardoso Insurance Comment KATINA DPOA/Assigned Debbie Nguyen, daughter Designee Name Contact Information P [phone] Advance Directives? Yes Advance Directives No on File History Provided By Patient,Family Member,Medical Record Prior Living House Arrangements Household Members spouse,family Type of Relies on Others transporation used prior to admit Independent with ADL Yes 's Is patient alert and No oriented? Needs Assistance Meal Prep,Managing Medications,Home Chores / Shopping With Comment Dementia, able to ambulate indp, needs monitoring related to memory loss. Comment Indp w/use of cane. Discharge Plan Home Transportation Family Arrangement Referrals Initiated None needed If patient plan is No SNF: Has PASSR been completed?
--- NOTE | 2025-07-15 16:17 | PC.NURSE ---
IV removed. D/c instructions reviewed with pt and granddaughter at bedside. Granddaughter confirmed that they are picking up prescriptions on their way home. Pt exited via w/c with [employer] SUPERINTENDENT to private vehicle.
== END 2025-07-15 15:04 | disposition home or self-care (01) | DRG 603 ==
LOC: ED 07-14 02:33 → AC 07-14 03:08
PROVIDERS: Admitting Provider Family Medicine; Emergency Provider Emergency Medicine; PCP Family Medicine; Referring Provider Emergency Medicine; Visit Provider Family Medicine
DX: L03.113 Cellulitis of right upper limb (principal); F03.C0 Unspecified dementia, severe, without behavioral disturbance, psychotic disturbance, mood disturbance, and anxiety; I10 Essential (primary) hypertension; I97.2 Postmastectomy lymphedema syndrome; L30.9 Dermatitis, unspecified; Z66 Do not resuscitate; Z85.3 Personal history of malignant neoplasm of breast; Z88.0 Allergy status to penicillin
CPT/HCPCS: 36415; 80053; 83605; 84145; 85025; 87040; 93971; 94640; 96365; 96366; 96367; 99283; 99284; J0696; J1650; J7613